=== PATIENT | male | born 1980 | race Caucasian/White ===

== ENCOUNTER 2019-07-08 20:35 | Inpatient (IN) | payer OTHER, SELFPAY ==
[2019-07-08] VITALS (7 sets, daily range): BP systolic 111–134; BP diastolic 68–106; PULSE 82–99; RESP 26–32; TEMP 38.3; O2SAT 97–100
--- NOTE | ~2019-07-08 | XR_ITS ---
EXAMINATION: XR abdomen NG/feed tube insert DATE: 07/09/2019 02:36 INDICATION: Nasogastric tube placement. TECHNIQUE: A supine view of the abdomen was obtained. COMPARISON: CT abdomen and pelvis 07/09/2019 FINDINGS: The lower abdomen and right side of the abdomen are excluded. There are no dilated loops of bowel. The nasogastric tube tip is in the stomach. IMPRESSION: 1. Nasogastric tube tip in the stomach. Reviewed, dictated and finalized at location A.
--- NOTE | ~2019-07-08 | US_ITS ---
EXAMINATION: US paracentesis abd w/image DATE: 07/22/2019 13:20 INDICATION: Ascites. TECHNIQUE: The procedure and its risks, benefits, and alternatives were discussed with the patient. P otential risks discussed included bleeding and infection. The skin was prepped and draped in sterile fashion. 1% lidocaine was used for local anesthesia. Under ultrasound guidance, a 5 Fr catheter with trochar was advanced into the ascites in the right lower quadrant. Fluid was aspirated. The catheter was removed, and a dressing was applied. There were no immediate complications. FINDINGS: Ultrasound images demonstrate ascites and the catheter within the fluid. IMPRESSION: 1. Successful ultrasound-guided paracentesis yielding 2650 mL of lópez-colored fluid. Reviewed, dictated and finalized at location A.
--- NOTE | ~2019-07-08 | US_ITS ---
EXAMINATION: US right upper quadrant DATE: 07/18/2019 16:07 INDICATION: Jaundice. TECHNIQUE: Multiple grayscale and Doppler ultrasound images of the abdomen were obtained. COMPARISON: CT 07/12/2019 FINDINGS: The pancreas is obscured by bowel gas. There is diffuse hepatic steatosis. No liver surface nodularity. There is normal flow in main portal vein. The gallbladder is distended and contains slud ge. No gallstones. Gallbladder wall thickening is noted. There was a positive sonographic Lau sign . The common duct is normal and measures 4 mm. There is a small volume of perihepatic ascites. IMPRESSION: 1. Diffuse hepatic steatosis. 2. Distended gallbladder with sludge, gallbladder wall thickening, and positive sonographic Lau si gn, but no visualized gallstones. These findings are indeterminate for acute cholecystitis. Consider hepatobiliary scintigraphy. 3. Small volume of ascites. Reviewed, dictated and finalized at location A. IMPRESSION: 1. Diffuse hepatic steatosis. 2. Distended gallbladder with sludge, gallbladder wall thickening, and positive sonographic Lau sign, but no visualized gallstones. These findings are inde terminate for acute cholecystitis. Consider hepatobiliary scintigraphy. 3. Small volume of ascites.
--- NOTE | ~2019-07-08 | CT_ITS ---
EXAMINATION: CT chest abdomen pelvis wo con EXAM DATE: 07/12/2019 10:59 INDICATION: Abdominal distention, sepsis. TECHNIQUE: Spiral CT of the chest, abdomen and pelvis was performed without contrast. Axial, alcantar l and sagittal images were reviewed. Coronal maximum intensity pixel images of chest reviewed. The dose-length product (DLP) for this examination was 1708.40 mGy-cm. The exposure was tailored accordi ng to patient size (auto mA exposure control), and iterative reconstruction (ASIR) was used as additi onal dose reduction technique. Comparison is made to prior examination from 07/09/2019. FINDINGS: CHEST: Endotracheal tube is at the hong, could be safely retracted 2 cm. Feeding tube is in positi on. Compared to previous examination, development of complete collapse of the left lower lobe and mul tisegmental collapse of the right lower lobe, confluent opacity probably with superimposed infection. Again there are scattered groundglass opacities in the other lung zones, but with interval improveme nt in disease. Small bilateral pleural effusions. Tracheobronchial tree is patent. There is no me diastinal, hilar or axillary lymphadenopathy. There is no pneumothorax. Heart normal in size. N o evidence of coronary arterial calcification. ABDOMEN PELVIS: Small to moderate amount of ascites with interval increase. There is hepatic steatosi s without suspicious focal lesion identified. Spleen, adrenal glands, pancreas are unremarkable. José e dense material within the gallbladder probably vicarious excretion of contrast from recent intraven ous injection. No biliary obstruction suspected. There is no nephrolithiasis or hydronephrosis. T he prostate is unremarkable. The bladder is collapsed with Burch catheter balloon anchor inside. Th ere is no retroperitoneal or pelvic lymphadenopathy. Right inguinal hernia repair. There is a right femoral venous line. The appendix is normal. The stomach and small bowel are unremarkable. There is colonic fluid, corre late for diarrhea. No free intraperitoneal gas. There are no osteoblastic or osteolytic lesions i dentified. IMPRESSION: 1. Endotracheal tube at hong, could be safely retracted 2 cm. 2. Development of confluent bilateral lower lobe atelectasis and infection. Scattered additional shanique undglass infectious opacities. 3. Small pleural effusions. 4. Small to moderate ascites, interval increase. 5. Colonic fluid, correlate for diarrhea. 6. Hepatic steatosis. Possible cirrhosis and portal hypertension. Reviewed, dictated and finalized at location A. IMPRESSION: 1. Endotracheal tube at hong, could be safely retracted 2 cm. 2. Development of confluent bilateral lower lobe atelectasis and infection. Sc attered additional groundglass infectious opacities. 3. Small pleural effusions. 4. Small to moderate ascites, interval increase. 5. Colonic fluid, correlate for diarrhea. 6. Hepatic steatosis. Possible cirrhosis and portal hypertension.
--- NOTE | ~2019-07-08 | XR_ITS ---
EXAMINATION: XR chest 1V portable INDICATION: Acute respiratory failure, pneumonia TECHNIQUE: Portable AP chest at 0531 hours COMPARISON: 07/18/2019 FINDINGS: The lung volumes remain low. There are patchy opacities of the right midlung zone which are unchanged. There is mild increase in diffuse patchy airspace opacity of the left lung. No pleural ef fusion or pneumothorax is identified. The cardiomediastinal silhouette is normal. The visualized osse ous structures are unremarkable. IMPRESSION: 1. Interval developing airspace opacity of the left lung, consistent with atelectasis versus pneumoni a. 2. Stable opacity of the right midlung zone, likely atelectasis. Reviewed, dictated and finalized at location A. IMPRESSION: 1. Interval developing airspace opacity of the left lung, consistent with atele ctasis versus pneumonia. 2. Stable opacity of the right midlung zone, likely atelectasis.
--- NOTE | ~2019-07-08 | XR_ITS ---
EXAMINATION: XR chest ET placement DATE: 07/09/2019 02:36 INDICATION: Hypoxia. TECHNIQUE: A single frontal view of the chest was obtained. COMPARISON: Chest single view 07/08/2019, CT abdomen and pelvis 07/09/2019 FINDINGS: There are patchy airspace opacities involving all lung zones bilaterally. No pleural effusi on or pneumothorax. The heart size is normal. The endotracheal tube tip is 10 mm above the hong. Th e nasogastric tube tip is beyond the inferior margin of the radiograph, but at least to the stomach. IMPRESSION: 1. Worsened diffuse lung disease, consistent with pulmonary edema versus pneumonia. Reviewed, dictated and finalized at location A. IMPRESSION: 1. Worsened diffuse lung disease, consistent with pulmonary edema versus pneumo nicky.
--- NOTE | ~2019-07-08 | XR_ITS ---
EXAMINATION: XR chest 1V portable DATE: 07/10/2019 05:44 INDICATION: Respiratory failure. TECHNIQUE: A single frontal view of the chest was obtained. COMPARISON: Chest single view 07/09/2019 FINDINGS: Lung volumes are small. There are patchy airspace opacities in all lung zones bilaterally. No pleural effusion or pneumothorax. The heart size is normal. The endotracheal tube tip is 12 mm abo ve the hong. The nasogastric tube tip is in the stomach. IMPRESSION: 1. Stable diffuse lung disease, consistent with pulmonary edema versus pneumonia versus acute respira tory distress syndrome (ARDS). Reviewed, dictated and finalized at location A. IMPRESSION: 1. Stable diffuse lung disease, consistent with pulmonary edema versus pneumoni a versus acute respiratory distress syndrome (ARDS).
--- NOTE | ~2019-07-08 | XR_ITS ---
EXAMINATION: XR chest 1V portable DATE: 07/15/2019 05:39 INDICATION: Acute respiratory failure. Pneumonia. TECHNIQUE: frontal view of the chest was obtained. COMPARISON: Chest radiograph dated 07/14/2019 FINDINGS: Endotracheal tube tip 1.5 cm above the hong. Nasogastric tube tip in proximal side port in the body of the stomach. Small lung volumes. Persistent consolidation in the right upper lobe. Additional less dense bilateral perihilar opacities. No pleural effusion or pneumothorax. Cardiomegaly. IMPRESSION: 1. Small lung volumes with unchanged bilateral lung disease most prominent in the right upper lobe wh ich could represent pneumonia, atelectasis, pulmonary edema or some combination thereof. 2. Cardiomegaly. Reviewed, dictated and finalized at location A. IMPRESSION: 1. Small lung volumes with unchanged bilateral lung disease most prominent in t he right upper lobe which could represent pneumonia, atelectasis, pulmonary hernesto ma or some combination thereof. 2. Cardiomegaly.
--- NOTE | ~2019-07-08 | XR_ITS ---
XR chest 1V portable DATE: 07/13/2019 05:22 INDICATION: Respiratory failure TECHNIQUE: Portable AP chest on 07/13/2019 at 0519 hours COMPARISON: 07/12/2019 portable AP chest at 0521 hours FINDINGS: ET tube in satisfactory position 2.4 cm above hong. NG tube in stomach. There is persistent bilateral pulmonary infiltrate including prominent right upper lobe patchy consol idation. No pleural effusion is noted. Pulmonary vasculature appears prominent with redistribution. T here is cardiomegaly. No pneumothorax. IMPRESSION: ET tube in satisfactory position 2.4 cm above hong Extensive bilateral pulmonary infiltrates, most prominent in the right upper lobe, and pulmonary vasc ular congestion relatively stable since 07/12/2019 Reviewed, dictated and finalized at location A. IMPRESSION: ET tube in satisfactory position 2.4 cm above hong Extensive bilateral pulmonary infiltrates, most prominent in the right upper lo be, and pulmonary vascular congestion relatively stable since 07/12/2019
--- NOTE | ~2019-07-08 | CT_ITS ---
EXAMINATION: CT abdomen pelvis w con DATE: 07/09/2019 00:42 INDICATION: Fever and vomiting. Hyperbilirubinemia. TECHNIQUE: Computed tomography (CT) of the abdomen and pelvis was performed with 100 mL Omnipaque 350 intravenous contrast. Automated exposure control and iterative reconstruction technique were employe d. The dose-length product was 1204.62 mGy-cm. COMPARISON: None. FINDINGS: The visualized portions of the lung bases demonstrate patchy groundglass and airspace opaci ties. There is a crazy paving pattern in left lower lobe. No pleural effusion. The heart size is norm al. No pericardial effusion. The liver demonstrates diffuse hypoattenuation, consistent with cirrhosi s. The gallbladder is normal in size. The spleen, pancreas, adrenal glands, and kidneys are normal. T here is a paraumbilical portacaval shunt. There are surgical clips in the anterior pelvis. There are no dilated loops of bowel. The appendix is normal. There is a small volume of ascites. There is mild periportal lymphadenopathy, likely reactive. The right testis is in the inguinal canal. There is a be nign bone island in right femoral head. There is mild thoracic spondylosis. IMPRESSION: 1. Cirrhosis of the liver with portal venous hypertension. 2. Multifocal lung disease suspicious for atypical pneumonia (such as COVID-19) versus pulmonary maria e a. 3. Small volume of ascites. Reviewed, dictated and finalized at location A. IMPRESSION: 1. Cirrhosis of the liver with portal venous hypertension. 2. Multifocal lung disease suspicious for atypical pneumonia (such as COVID-19) versus pulmonary edema. 3. Small volume of ascites.
--- NOTE | ~2019-07-08 | XR_ITS ---
EXAMINATION: XR chest 1V portable DATE: 07/17/2019 06:00 INDICATION: Acute respiratory failure and pneumonia TECHNIQUE: frontal view of the chest was obtained. COMPARISON: Chest radiograph dated 07/16/2019 FINDINGS: Small lung volumes. Persistent opacities in the right upper lung zone and infrahilar region including linear discoid atelectasis. Left lung is now clear. No pulmonary edema, pleural effusion or pneumoth orax. The cardiomediastinal silhouette is normal. IMPRESSION: 1. Small lung volumes with unchanged opacities in the right lung which could represent pneumonia, ate lectasis or some combination thereof. Reviewed, dictated and finalized at location A. IMPRESSION: 1. Small lung volumes with unchanged opacities in the right lung which could re present pneumonia, atelectasis or some combination thereof.
--- NOTE | ~2019-07-08 | XR_ITS ---
EXAMINATION: XR chest 1V portable DATE: 07/16/2019 06:17 INDICATION: Acute respiratory failure. Pneumonia. TECHNIQUE: frontal view of the chest was obtained. COMPARISON: Chest radiograph dated 07/15/2019 FINDINGS: Endotracheal tube tip is 0.7 cm above the hong. Nasogastric tube extends below the left hemidiaphr agm with distal tip collimated off the study. Lung volumes remain small. No interval change in mild patchy airspace opacities in the left lower rig ht mid and lower lung zones with more dense consolidation in the right upper lobe. No pleural effusio n or pneumothorax. Borderline heart size. IMPRESSION: 1. Small lung volumes with unchanged bilateral lung disease most prominent in the right upper lobe wh ich could represent pneumonia, atelectasis or some combination thereof. Reviewed, dictated and finalized at location A. IMPRESSION: 1. Small lung volumes with unchanged bilateral lung disease most prominent in t he right upper lobe which could represent pneumonia, atelectasis or some combin ation thereof.
--- NOTE | ~2019-07-08 | XR_ITS ---
EXAMINATION: XR chest 1V portable DATE: 07/11/2019 05:51 INDICATION: Respiratory failure. Intubated. TECHNIQUE: A single frontal view of the chest was obtained. COMPARISON: Chest single view 07/10/2019 FINDINGS: There are airspace opacities in all lung zones bilaterally with a perihilar predominance. N o pleural effusion or pneumothorax. The heart size is normal. The endotracheal tube tip is 1.9 cm abo ve the hong. The nasogastric tube tip is beyond the inferior margin of the radiograph, but at least to the stomach. IMPRESSION: 1. Stable diffuse lung disease, consistent with pulmonary edema versus pneumonia versus acute respira tory distress syndrome (ARDS). Reviewed, dictated and finalized at location A. IMPRESSION: 1. Stable diffuse lung disease, consistent with pulmonary edema versus pneumoni a versus acute respiratory distress syndrome (ARDS).
--- NOTE | ~2019-07-08 | XR_ITS ---
EXAMINATION: XR abdomen obstructive series DATE: 07/18/2019 13:09 INDICATION: Abdominal distention. TECHNIQUE: Upright and supine views of the abdomen were obtained. COMPARISON: Abdomen radiograph 07/14/2019, CT abdomen and pelvis 07/12/2019 FINDINGS: There are no dilated loops of bowel. There is a paucity of stool in the colon. No free intr aperitoneal gas. IMPRESSION: 1. Normal bowel gas pattern. Reviewed, dictated and finalized at location A.
--- NOTE | ~2019-07-08 | XR_ITS ---
EXAMINATION: XR chest ET placement EXAM DATE: 07/14/2019 16:38 INDICATION: Check endotracheal tube placement. TECHNIQUE: Portable AP frontal chest x-ray was obtained. Earlier same date FINDINGS: Endotracheal tube tip is 2 centimeters above the hong (ideal range is between 2 to 5 cm). This has been retracted. There is a nasogastric tube seen with tip collimated off the study, but be low the left hemidiaphragm. Again there is moderate amount of bilateral perihilar predominant acute airspace disease, right upper lobe predominance. There are no sizable pleural effusions. There is no pneumothorax suspected. The cardiomediastinal silhouette is prominent but magnified on this AP technique. The bones and sof t tissues are unremarkable. Aside from endotracheal tube repositioning, no significant interval neal ge accounting for differences in technique. IMPRESSION: 1. Line(s) and tube(s) in position. 2. Stable airspace disease and other findings as above. Reviewed, dictated and finalized at location A.
--- NOTE | ~2019-07-08 | XR_ITS ---
EXAMINATION: XR chest 1V portable EXAM DATE: 07/08/2019 21:49 INDICATION: Hypoxia. TECHNIQUE: Portable AP frontal chest x-ray was obtained. There is no prior study for comparison. FINDINGS: There is low lung volume. Scattered moderate amount of multifocal acute airspace disease, d ifferential diagnosis including pneumonia, acute lung injury from COVID 19 viral infection. No pneumo thorax or pleural effusion. Cardiomediastinal silhouette is normal. IMPRESSION: Moderate amount of bilateral ill-defined acute airspace disease. Clinical correlation. Reviewed, dictated and finalized at location A. IMPRESSION: Moderate amount of bilateral ill-defined acute airspace disease. C linical correlation.
--- NOTE | ~2019-07-08 | XR_ITS ---
EXAMINATION: XR chest 1V portable DATE: 07/12/2019 05:40 INDICATION: Respiratory failure TECHNIQUE: frontal view of the chest was obtained. COMPARISON: Chest radiograph dated 07/13/2019 FINDINGS: Endotracheal tube extends into the right mainstem bronchus approximately 1 cm beyond the hong. Naso gastric tube extends below the left hemidiaphragm with distal tip collimated off the study. Small lung volumes. Persistent consolidation in the right upper and left lower lobes. No pleural effu hiwot or pneumothorax. Cardiomegaly. IMPRESSION: 1. Endotracheal tube tip in the right mainstem bronchus. Recommend withdrawal by 2-3 cm. Findings wer e discussed with Nayana Keys, the nurse caring for the patient, at 6:50 AM. 2. Persistent consolidation in the right upper and left lower lobes consistent with pneumonia and/or atelectasis. Reviewed, dictated and finalized at location A. IMPRESSION: 1. Endotracheal tube tip in the right mainstem bronchus. Recommend withdrawal b y 2-3 cm. Findings were discussed with Nayana Keys, the nurse caring for the patient, at 6:50 AM. 2. Persistent consolidation in the right upper and left lower lobes consistent with pneumonia and/or atelectasis.
--- NOTE | ~2019-07-08 | XR_ITS ---
EXAMINATION: XR chest 1V portable DATE: 07/18/2019 05:32 INDICATION: Acute respiratory failure. Pneumonia. TECHNIQUE: frontal view of the chest was obtained. COMPARISON: Chest radiograph dated 07/17/2019 FINDINGS: Small lung volumes. Linear opacities in the right mid and upper lung zones most likely discoid atelec tasis. No pulmonary edema, pleural effusion or pneumothorax. The cardiomediastinal silhouette is norm al. Visualized bones and soft tissues are unremarkable. IMPRESSION: 1. Small lung volumes with persistent opacities in the right upper and midlung zones most likely atel ectasis although differential includes pneumonia. Reviewed, dictated and finalized at location A. IMPRESSION: 1. Small lung volumes with persistent opacities in the right upper and midlung zones most likely atelectasis although differential includes pneumonia.
--- NOTE | ~2019-07-08 | XR_ITS ---
EXAMINATION: XR abdomen/kub 1V DATE: 07/11/2019 18:03 INDICATION: Abdominal distention. TECHNIQUE: A supine view of the abdomen on 2 radiographs was obtained. COMPARISON: 07/09/2019 FINDINGS: Is a gastric tube remains in the stomach. Right femoral central venous catheter with distal tip at th e right common iliac vein. Multiple surgical clips in the pelvis which may be related to prior right molar ventral hernia repair. Moderate amount of gas scattered throughout the colon. No dilated gas-fi lled loops of small bowel to suggest obstruction. Bone island at the right femoral head. IMPRESSION: 1. Nonobstructive bowel gas pattern. Reviewed, dictated and finalized at location A.
--- NOTE | ~2019-07-08 | US_ITS ---
US venous doppler [facility] DATE: 07/12/2019 11:41 INDICATION: Rule out deep venous thrombosis TECHNIQUE: Real-time and color flow imaging and Doppler analysis of the veins of the lower extremitie s COMPARISON: None FINDINGS: The greater saphenous veins are patent. There is spontaneous and phasic flow and normal aug mentation and color flow signal and normal compression of the deep veins of both lower extremities. IMPRESSION: No evidence of deep venous thrombosis of the lower extremities Reviewed, dictated and finalized at Location A. Reviewed, dictated and finalized at location A.
--- NOTE | ~2019-07-08 | XR_ITS ---
EXAMINATION: XR abdomen NG/feed tube insert EXAM DATE: 07/14/2019 16:38 INDICATION: Feeding tube placement. TECHNIQUE: Frontal projection(s) of the abdomen for interpretation. Comparison is made to prior exami nation from 07/11/2019. FINDINGS: Feeding tube tip and side-port project over gastric bubble, adequate. Small amount of colo ronald stool and gas. No small bowel dilation, nonobstructive bowel gas pattern. There are no suspic ious calcifications identified. There is no organomegaly suspected. The bones are unremarkable. IMPRESSION: Feeding tube in position. Reviewed, dictated and finalized at location A. IMPRESSION: Feeding tube in position.
--- NOTE | ~2019-07-08 | XR_ITS ---
EXAMINATION: XR chest 2V DATE: 07/21/2019 18:07 INDICATION: Fever TECHNIQUE: frontal and lateral views of the chest were obtained. COMPARISON: Chest radiograph dated 07/19/2019 FINDINGS: Lung volumes remain small. A couple linear opacities at the lateral left lower lung zone consistent w ith mild discoid atelectasis. No other airspace opacities, pulmonary edema, pleural effusion or pneum othorax. The cardiomediastinal silhouette is normal. Visualized bones and soft tissues are unremarkab le. IMPRESSION: 1. Mild discoid atelectasis at the left lower lung zone. Reviewed, dictated and finalized at location A.
--- NOTE | ~2019-07-08 | US_ITS ---
EXAMINATION: US venous doppler [facility] DATE: 07/18/2019 16:07 INDICATION: Lower limb pain. TECHNIQUE: Grayscale ultrasound images without and with compression and Doppler ultrasound images of the bilateral lower extremity veins were obtained. COMPARISON: Ultrasound 07/12/2019 FINDINGS: The visualized portions of right common femoral vein, profunda (deep) femoral vein, femoral vein, pop liteal vein, peroneal veins, posterior tibial veins, and greater saphenous vein outflow are patent. The visualized portions of left common femoral vein, profunda femoral vein, femoral vein, popliteal v ein, peroneal veins, posterior tibial veins, and greater saphenous vein outflow are patent. IMPRESSION: 1. No deep venous thrombosis. Reviewed, dictated and finalized at location A.
--- NOTE | ~2019-07-08 | XR_ITS ---
EXAMINATION: XR chest 1V portable DATE: 07/14/2019 05:31 INDICATION: Respiratory failure. Intubated. TECHNIQUE: frontal view of the chest was obtained. COMPARISON: Chest radiograph dated 07/13/2019 FINDINGS: Endotracheal tube tip 0.5 cm above the hong. Nasogastric tube extends below the left hemidiaphragm with distal tip collimated off the study. Small lung volumes. No significant interval change in bilateral airspace opacities most extensive in the right upper lobe. No pleural effusion or pneumothorax. Cardiomegaly. IMPRESSION: 1. Endotracheal tube tip 0.5 cm above the hong. Consider withdrawal by 0.5-1 cm. 2. No significant change in bilateral airspace disease consistent with pneumonia and/or atelectasis. Reviewed, dictated and finalized at location A. IMPRESSION: 1. Endotracheal tube tip 0.5 cm above the hong. Consider withdrawal by 0.5-1 cm. 2. No significant change in bilateral airspace disease consistent with pneumoni a and/or atelectasis.
--- NOTE | 2019-07-08 20:49 | ECG_ITS ---
Measurements Intervals [place] Rate: 96 P: 38 MT: 210 QRS: -18 QRSD: 109 T: 29 QT: 383 QTc: 484 Interpretive Statements SINUS RHYTHM WITH FIRST DEGREE AV BLOCK BORDERLINE R WAVE PROGRESSION, ANTERIOR LEADS BASELINE WANDER- III, V1-V6 ABNORMAL ECG Electronically Signed On 07-09-2019 7:19:51 CDT by Thien Geronimo D.O.
[2019-07-08] MEDS: ONDANSETRON INJ 4 MG/2 ML VIAL IV PUSH (20:54)
[2019-07-08 21:13] LABS: Hematocrit 31.1 % (42.0-52.0); Immature Platelet Fraction Pct 18.2 % (0.9-11.2); Mean Corpuscular HGB Conc 35.4 g/dl (32-36); Mean Corpuscular Hemoglobin 35.3 pg (26-34); Mean Corpuscular Volume 99.7 fl (80-100); Mean Platelet Volume 12.5 fl (7.4-10.4); Platelet Count Result 79 k/mm3 (150-375); Red Blood Count 3.12 M/mm3 (4.6-6.20); Red Cell Distribution Width 16.4 % (11.5-14.5); White Blood Count 14.1 K/mm3 (4.5-10.0)
[2019-07-08 21:20] LABS: Alveolar/Arterial O2 Gradient 565.3 mmHg; Base Excess ABG 0.1 mEq/l (+/-2.0); Carboxyhemoglobin 4.5 % THb (0-2.0); Device NON-REBREATHER MASK; Fractional Inspired Oxygen 100 %; HCO3 ABG 25.8 mEq/l (22.0-26.0); Methemoglobin ABG 0.3 %THb (0-1.5); Modified Allen's Test Pass; Oxygen Content ABG 15.1 %vol (16.0-22.0); Oxygen Saturation ABG 97.4 % (95.0-100.0); Oxyhemoglobin 91.7 % THb (90.0-100.0); PCO2 ABG 46.1 mmHg (35.0-45.0); PO2 ABG 101.6 mmHg (80.0-100.0); PO2 FiO2 Ratio Arterial Blood 1.02 %; Reduced Hemoglobin 3.5 %THb (0-5.0); Site Drawn RIGHT RADIAL; Total Hemoglobin 11.6 g/dL (12.0-18.0); pH ABG 7.365 (7.350-7.450)
[2019-07-08 21:21] LABS: INR 1.4; Prothrombin Time 16.8 Seconds (11.1-14.7)
[2019-07-08 21:22] LABS: Lactic Acid Reflex 2.1 mmol/L (0.7-2.1); Partial Thromboplastin Time 30.3 SECONDS (22.3-36.8)
[2019-07-08 21:24] LABS: Ammonia 61 umol/L (9-30); Ethanol 152 mg/dL (<10)
[2019-07-08 21:34] LABS: Alanine Aminotransferase 61 U/L (4-50); Albumin Level 3.5 g/dL (3.5-5.1); Alkaline Phosphatase 169 U/L (38-126); Aspartate Amino Transferase 173 U/L (17-59); Bilirubin,Total 11.6 mg/dL (0.2-1.3); Blood Urea Nitrogen 9 mg/dL (9-20); Calcium 8.2 mg/dL (8.4-10.2); Carbon Dioxide 25 mmol/L (22-30); Chloride 84 mmol/L (98-107); Estimated Glomerular Filt Rate > 60; Glucose 94 mg/dL (75-110); Lipase 472 U/L (23-300); Magnesium 2.1 mg/dL (1.6-2.3); Potassium 4.4 mmol/L (3.4-5.0); Sodium 120 mmol/L (137-145)
[2019-07-08 21:36] LABS: NT Pro B Type Natriuretic Pept 866 PG/ML (5-100); Troponin I < 0.012 ng/mL (0.000-0.034)
[2019-07-08 21:37] LABS: Band Neutrophils Percent 14 % (0-6); Eosinophils Absolute Manual 0.28 K/mm3 (0.02-0.5); Eosinophils Percent Manual 2 % (0-4); Lymphocytes Absolute Manual 1.55 K/mm3 (1.1-4.5); Monocytes Absolute Manual 0.98 K/mm3 (0.1-0.90); Monocytes Percent Manual 7 % (3-9); Neutrophils Absolute Manual 11.28 K/mm3 (1.3-6.7); Neutrophils Percent Manual 66 % (46-73); Nucleated Red Blood Cells 1 %; Total Cells Counted 100
[2019-07-08 21:38] LABS: Anisocytosis 2+ (NORMAL); Platelet Estimate Decreased (Adequate)
[2019-07-08 22:25] LABS: Add Urine Microscopic? YES; Amorphous Sediment Urine Few; Appearance Urine Clear (Clear); Bacteria Urine Trace /hpf; Bilirubin Urine 2+ (Negative); Blood Urine Negative (Negative); Color Urine Amber (Yellow); Glucose Urine UA Negative (Negative); Ketones Urine Trace mg/dL (Negative); Leukocyte Esterase Ur Negative LEU/UL (Negative); Mucus Urine Moderate /lpf; Nitrate Urine Negative (Negative); Protein Urine 1+ mg/dL (Negative); RBC Urine 0-2 /hpf (0-2); Specific Grav Ur 1.019 (1.001-1.035); Squamous Epithelial Cell Urine Rare /hpf (Few); WBC Urine 0-3 /hpf
[2019-07-08 22:45] LABS: Hepatitis B Surface Antigen Negative (Negative)
[2019-07-08 22:51] LABS: HAV RESULT Negative (Negative); Hepatitis B Core IgM Result Negative (Negative)
[2019-07-08 23:03] LABS: Hepatitis C Virus Antibody Negative (Negative)
[2019-07-08 23:46] LABS: D Dimer 2.78 ug/mL (<0.48)
[2019-07-09] VITALS (26 sets, daily range): BP systolic 82–162; BP diastolic 55–97; PULSE 80–108; RESP 15–35; TEMP 36.9–38.3; O2SAT 92–100; BMI 25.8; BMI 26.3
[2019-07-09 00:09] LABS: Reflex Lactic Acid Yes or No Add Lactic
[2019-07-09 00:33] LABS: Lactate Dehydrogenase 1175 U/L (313-618)
--- NOTE | 2019-07-09 00:52 | ED.GENADULT ---
HPI - General Adult General Chief complaint: Unspecified Stated complaint: unspecified Time Seen by Provider: 07/08/19 20:49 Source: patient and family Mode of arrival: ambulatory Limitations: clinical condition History of Present Illness HPI narrative: This patient is a 38 year old male with history of alcoholism who presents to ER by private car for evaluation of shortness of breath. Patient was found to have oxygen saturation 50% on room air on arrival to ER. He has been having difficulty breathing for 2 days and it is has gradually worsened. He denies cough or chest pain. He was found to have fever in ER. He denies previous history of CHF. Patient was noted to be jaundice and he states he drinks a few beer every day. His last alcoholic drink was just prior to arrival. He has never been told he has cirrhosis. His family at bedside states patient has also been having nausea and vomiting for 2 weeks. Onset (ago): day(s) Related Data Home Medications Medication Instructions Recorded Confirmed atenolol 100 mg PO DAILY 07/08/19 07/09/19 bupropion HCl 150 mg PO BID 07/08/19 07/09/19 albuterol sulfate 2 puff INHALATION Q4H PRN 07/09/19 07/09/19 Allergies Allergy/AdvReac Type Severity Reaction Status Date / Time Penicillins Allergy Unknown Unknown Verified 07/08/19 22:12 Review of Systems Constitutional: Constitutional: Reports fever(s) and Reports weakness Cardiovascular: Cardiovascular: Denies chest pain Respiratory: Respiratory: Reports cough and Reports dyspnea Gastrointestinal: Gastrointestinal: Reports nausea and Reports vomiting Neurologic: Reports weakness PMF Past Medical History Medical History (Updated 07/09/19 @ 08:03 by Ai López MD) Alcoholism Essential hypertension Surgical History Surgical History (Updated 07/09/19 @ 03:07 by Elda Jeffery DO) History of right inguinal hernia repair With mesh Social History Social History (Updated 07/09/19 @ 02:32 by Elda Jeffery DO) Smoking packs per day: 0.5 Smoking cigarettes per day: 10.0 Years smoked: 22 Smoking pack-years: 11.00 Smoking status: Current every day smoker Alcohol intake: current Drinks per week: 20 Alcohol use details: The patient drinks about a 6 pack day. Until recently he was drinking up to 9 shots of hard liquor a day as well. Substance use: current Substance use type: marijuana Living arrangements: with family Additional living arrangements comments: He lives at home with his fiancee. 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 Gender identity (if verbalized by the patient): Male Spiritual care concerns: No Exam Const: General: alert, diaphoretic and ill appearing acutely Orientation/consciousness: patient oriented x3 HENMT: Head: normocephalic and atraumatic Face and sinus: face symmetric Mouth: Yes moist mucous membranes Eyes: Conjunctivae: conjunctival abnormality bilateral conjunctival icterus and other Pupils: Equal, round and reactive pupils present EOM: EOMs intact bilaterally Chest: Chest palpation & inspection: normal inspection of the chest Resp: Effort & Inspection: tachypneic and uses accessory muscles Auscultation: crackles Cardio: Rate: tachycardic Rhythm: regular rhythm Heart sounds: no murmurs GI: Inspection: distended GI Palp: Yes Soft to palpation, No Tenderness to palpation present (GI) and No Guarding due to palpation present (GI) Skin: General skin exam: jaundice Neuro: General: patient oriented x3 and moves all extremities Extrem: General: no pedal edema Psych: Mental Status: mental status grossly normal Affect: normal affect Course Reevaluation(s) Reevaluation #1: I have discussed with patient that he is critically ill and I have spoken with hospitalist and it is recommended he be intubated. He states he does not want to be intubated. Date: 07/09/19 Time: 00:53 Reevaluation #2: Neal
[2019-07-09 01:15] LABS: Amphetamine Screen Urine Negative (Negative); Barbiturate Screen Urine Negative (Negative); Benzodiazepines Screen Urine Negative (Negative); Cannabinoid Screen Urine Positive (Negative); Cocaine Screen Urine Negative (Negative); Methadone Screen Urine Negative (Negative); Opiate Screen Urine Negative (Negative); Phencyclidine Screen Urine Negative (Negative)
[2019-07-09] MEDS: PROPOFOL IV EMULSION 100 ML 10 MG (01:25)
[2019-07-09] MEDS: RAPID SEQUENCE INTUBATION KIT 1 EACH (01:57)
[2019-07-09] MEDS: SODIUM CHLORIDE 0.9% IV 1,000 ML 999 ML (01:57)
--- NOTE | 2019-07-09 01:58 | PC.NURSE ---
Pt aggitated, moving extremities, coughing while on vent. JOSE Spangler & Dr. Jeffery notified.
--- NOTE | 2019-07-09 02:02 | PC.NURSE ---
Dr Jeffery at bedside with RT and this nurse. Medications and supplies prepared. 0119 40 mg etomidate given per Dr. Jeffery's order with saline flush through 18 g IV in LFA 0120 20 mg succinylcholine given per Dr. Jeffery's order with saline flush through LFA IV 1 L NS hung at wide open to LFA IV Pt was intubated with 8.0 ET tube, tube measured 26 mm at the lip, ET CO2 detector had gold color change and Dr. Jeffery listened to lung sounds, which were clear on both sides and absent over epigastrum. Propofol was then hung and started at 10 mcg/kg/min, and pt began coughing over the tube. 10 mL bolus of propofol given per Dr. Jeffery's order. Propofol drip was then increased to 10 mL/hr per Dr. Jeffery's order. 16 fr OG tube placed in R side of mouth, confirmed with stethoscope and with gastric contents return 18 g angio established in LAC
--- NOTE | 2019-07-09 02:12 | WPDPROCEDUR ---
Procedures Intubation Intubation Date: 07/09/19 Intubation Time: 01:15 A pre-procedural Time-Out was completed immediately before starting the procedure and confirmed: Patient Identification, Site, Procedure, Patient Position and the Availability of Requisite Equipment: Yes Sedative: etomidate Mg given: 40 Paralytic: succinylcholine Mg given: 20 Laryngoscope: fiber optic video scope ET tube size: cuffed Tube secured depth (cm): 26 Tube secured location: lips Tube placement confirmation: visualized tube passing through cords, equal breath sounds bilaterally, no breath sounds over epigastrium and confirmation by capnometry Patient tolerated procedure: well
--- NOTE | 2019-07-09 02:16 | PM.IMHP ---
H&P: HPI History of Present Illness Chief complaint: Nausea, vomiting, cough Narrative: Date and time of patient contact: 07/09/2019 at 1:00 a.m. Joey Polk is a 38 year old male with a past medical history of hypertension and chronic alcoholism who presented to the ER for nausea, vomiting and cough. On presentation the patient was shaking, diaphoretic, jaundice with dilated pupils. His oxygen saturations were 50% on room air. The patient was placed on 15 L non-rebreather and respiratory rate in the 30s. The patient's fiancee reports that the patient has been coughing for the last week. He has become progressively more short of breath. The patient has not been eating food for the last couple of weeks and has been drinking his alcohol. His alcohol level on presentation was greater than 150. His last drink was around 6:20 p.m.. His girlfriend reports that the patient drinks about 6 beers a day and until the last week or so was drinking up to 9 shots of fireball a day. He has been an alcoholic for at least 10 years. He also smokes. He was recently started on Wellbutrin and has decreased his amount of smoking to about half a pack of cigarettes per day. His fiancee reports that he has been more yellow over the course of this past week. It is unknown if the patient has been having any hematochezia or melena. The patient was initially placed on BiPAP until x-rays came back and were suspicious for possible COVID-19. He was subsequently taken off of the BiPAP in place back on a non-rebreather. However, off the BiPAP patient increased work of breathing and worsening tachypnea. Initially the patient was refusing intubation. After further Education the patient agreed to intubation. I intubated the patient while he was still down in the ER. The patient's fiancee reports that she has been trying to get him to come into the ER for the last 5 days or so. She reports that the patient will smoke marijuana in small amounts in order to give him an appetite to eat. She reports that the patient has been having a lot of nausea and vomiting. However he is still able to drink his alcohol. She reports that the patient went through an alcohol rehab program last year. He was sober for short time before he rationalized that he could just have 1 beer and returned to his bad habits. Source of information is ER records and patient's fianishe. Review of Systems Review of Systems: ROS unobtainable: Yes unobtainable due to medical condition PMFSH Past Medical History Medical History (Updated 07/09/19 @ 02:33 by Elda Jeffery DO) Alcoholism Essential hypertension Surgical History Surgical History (Updated 07/09/19 @ 03:07 by Elda Jeffery DO) History of right inguinal hernia repair With mesh Family History Family History (Updated 07/09/19 @ 02:31 by Elda Jeffery DO) Sibling IV drug abuse Father , in his mid 50s Alcoholism Cirrhosis Social History Social History (Updated 07/09/19 @ 02:32 by Elda Jeffery DO) Smoking packs per day: 1 Smoking cigarettes per day: 20.0 Years smoked: 22 Smoking pack-years: 22.00 Smoking status: Current every day smoker Alcohol intake: current Alcohol use details: The patient drinks about a 6 pack day. Until recently he was drinking up to 9 shots of hard liquor a day as well. Substance use: current Substance use type: marijuana Living arrangements: with family Additional living arrangements comments: He lives at home with his fianishe. 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 Meds Home Medications and Allergies Home Medications Medication Instructions Recorded Confirmed Type atenolol 07/08/19 History bupropion HCl PO 07/08/19 History Allergies Allergy/AdvReac Type Severity Reaction Status Date / Time Penicillins Allergy Unknown Unknown Verified 07/08/19 22:12 Vital Signs Vital Signs - 24 h
[2019-07-09 02:55] LABS: Lactic Acid 1.5 mmol/L (0.7-2.1)
[2019-07-09] MEDS: MIDAZOLAM HCL 2 MG/2 ML VIAL IV PUSH (02:55)
[2019-07-09] MEDS: ROCURONIUM BROMIDE 50 MG/5 ML VIAL IV PUSH (02:56)
[2019-07-09 03:22] LABS: Alveolar/Arterial O2 Gradient 422.1 mmHg; Arterial Blood Gas PEEP 8 cmH2O; Arterial Blood Gas Vent Mode CMV; Arterial Blood Gas Ventilator rate 20 /MIN; Base Excess ABG -1.7 mEq/l (+/-2.0); Carboxyhemoglobin 1.1 % THb (0-2.0); Device VENTILATOR; Fractional Inspired Oxygen 80 %; HCO3 ABG 24.3 mEq/l (22.0-26.0); Methemoglobin ABG 0.3 %THb (0-1.5); Modified Allen's Test Pass; Oxygen Content ABG 13.6 %vol (16.0-22.0); Oxygen Saturation ABG 97.1 % (95.0-100.0); Oxyhemoglobin 94.4 % THb (90.0-100.0); PCO2 ABG 46.8 mmHg (35.0-45.0); PO2 ABG 99.2 mmHg (80.0-100.0); PO2 FiO2 Ratio Arterial Blood 1.24 %; Reduced Hemoglobin 4.2 %THb (0-5.0); Site Drawn RIGHT RADIAL; Total Hemoglobin 10.1 g/dL (12.0-18.0); pH ABG 7.333 (7.350-7.450)
[2019-07-09 03:23] LABS: Arterial Blood Gas Tidal Volume 500 ml
[2019-07-09] MEDS: THIAMINE HCL 200 MG/2 ML VIAL 100 MG IV PUSH ×2 (04:26→08:37)
[2019-07-09] MEDS: PROPOFOL IV EMULSION 100 ML 20.6 MG IV CONT (04:26)
[2019-07-09] MEDS: metroNIDAZOLE 500 MG/ISO 100ML 500 MG/100 ML BAG 100 MG IVPB ×4 (04:29→22:55)
[2019-07-09 05:17] LABS: Alveolar/Arterial O2 Gradient 329.9 mmHg; Base Excess ABG -0.9 mEq/l (+/-2.0); Carboxyhemoglobin 0.3 % THb (0-2.0); Fractional Inspired Oxygen 80 %; HCO3 ABG 22.8 mEq/l (22.0-26.0); Methemoglobin ABG 0.2 %THb (0-1.5); Oxygen Content ABG 15.4 %vol (16.0-22.0); Oxygen Saturation ABG 99.4 % (95.0-100.0); Oxyhemoglobin 98.3 % THb (90.0-100.0); PCO2 ABG 34.2 mmHg (35.0-45.0); PO2 ABG 204.6 mmHg (80.0-100.0); PO2 FiO2 Ratio Arterial Blood 2.56 %; Reduced Hemoglobin 1.2 %THb (0-5.0); Total Hemoglobin 10.8 g/dL (12.0-18.0); pH ABG 7.442 (7.350-7.450)
[2019-07-09 05:18] LABS: Device VENTILATOR; Modified Allen's Test Unable to perform; Site Drawn RIGHT RADIAL
[2019-07-09 05:19] LABS: Arterial Blood Gas PEEP 8 cmH2O; Arterial Blood Gas Tidal Volume 450 ml; Arterial Blood Gas Vent Mode CMV; Arterial Blood Gas Ventilator rate 24 /MIN
[2019-07-09 05:38] LABS: Vitamin D 25 Hydroxy 39.8 ng/mL
[2019-07-09] MEDS: MIDAZOLAM HCL 2 MG/2 ML VIAL 4 MG IV PUSH (05:42)
[2019-07-09 06:07] LABS: Ammonia 35 umol/L (9-30)
--- NOTE | 2019-07-09 06:33 | WPDPROCEDUR ---
Procedures Central Line Placement Right Femoral: Central Line Date: 07/09/19 Central Line Time: 05:15 Discussed w/ the patient/family/POA,the placement of a central venous catheter, including its clinical necessity/indication & associated potential risks, benifits and alternatives.: Yes The patient/family/POA understand(s) and acknowledge(s) the need to proceed with central venous catheter insertion as an important element of the patient's clinical management.: Yes Time Out Performed: Yes Patient Position: trendelenburg Patient placed on monitor/pulse ox: Yes Provider Prep: mask, sterile gown, sterile gloves, Max. sterile barrier precautions, cap and hand hygiene Central line prep: Chlorhexidine scrub and sterile full body sheet applied Ultrasound used for placement: Yes Central line lumen inserted: triple Marshallese: 7 Length (cm): 16 Depth of Insertion (cm): 15 Post procedure: sutured in place, good blood return, all ports aspirated, flushed, capped, tegaderm, hemostatic disc and aseptic technique maintained throughout procedure Patient tolerated procedure: well
[2019-07-09] MEDS: PROPOFOL IV EMULSION 100 ML 26 MG IV CONT ×5 (08:37→22:54)
[2019-07-09] MEDS: PANTOPRAZOLE SODIUM IV 40 MG VIAL IV PUSH ×2 (08:59→20:07)
--- NOTE | 2019-07-09 09:05 | WPDCNINT ---
Assessment and Plan Assessment and plan (1) Severe sepsis: Code(s): A41.9 - Sepsis, unspecified organism; R65.20 - Severe sepsis without septic shock Status: Acute Assessment and Plan: Likely as a result of pneumonia. Continue broad-spectrum antibiotic. Continue to follow cultures. His hemodynamics are stable currently and not requiring any pressor support. One of the blood pressure readings was borderline low. (2) Alcoholic cirrhosis: Code(s): K70.30 - Alcoholic cirrhosis of liver without ascites Status: Acute Assessment and Plan: He has history of significant alcohol abuse. Hepatitis panel is negative. CT abdomen pelvis showed cirrhotic changes with evidence of portal hypertension. He has thrombocytopenia and low protein/albumin. Ammonia level is 35. Will try to achieve 1-2 bowel movement in a day and will be placed on lactulose if needed. (3) Suspected COVID-19 virus infection: Code(s): Z20.828 - Contact with and (suspected) exposure to other viral communicable diseases Status: Acute Assessment and Plan: COVID-19 testing is found to be negative. I will repeat the test is my clinical suspicion for COVID 19 is high. Considering his clinical presentation, inflammatory markers being elevated and thoracic imaging finding I think he has high likelihood of having COVID-19. Continue droplet and contact precaution until he is ruled out. If his COVID-19 testing is positive then inflammatory markers including CRP, ferritin, D-dimer, LDH will be monitored and followed. If his ferritin and CRP is significantly going up then a consideration will be given to give him tocilizumab. He does have history of alcohol cirrhosis with tocilizumab having hepatitis as 1 of the adverse effect. If his D-dimer starts to trend up significantly then he will be started on anticoagulation though will need to keep a close eye on any signs of bleeding and platelet count. His platelet count is borderline low. Today I have notice some coffee-ground stuff in the OG tube as well. (4) Pneumonia: Code(s): J18.9 - Pneumonia, unspecified organism Status: Acute Assessment and Plan: Continue broad-spectrum antibiotics with ceftriaxone/vancomycin/Flagyl and azithromycin. Will deescalate antibiotics in the next day or 2 depending upon further clinical data and cultures. Check procalcitonin level. Send sputum culture from tracheal aspirate. (5) Respiratory failure with hypoxia: Code(s): J96.91 - Respiratory failure, unspecified with hypoxia Status: Acute Assessment and Plan: Ventilator adjustment were made. Continue CMV/AC for now. Low tidal volume strategies will be employed. Decrease tidal volume to 400 from 450. Decrease FiO2 to 40% and keep PEEP at 5. Continue to monitor ABG and chest x-ray. Continue sedation as per ICU protocol. Will try to avoid Versed. Will switch Versed to fentanyl and keep propofol if he continued to need sedatives. Daily sedation vacation trial. (6) Alcohol abuse: Code(s): F10.10 - Alcohol abuse, uncomplicated Status: Acute Assessment and Plan: He has significant history of alcohol abuse. He will be at high risk of going into alcohol withdrawal. Continue sedation. He can be placed on Precedex drip if needed. Continue thiamine. Will add folate to his regimen. (7) Hypertension: Code(s): I10 - Essential (primary) hypertension Status: Acute Assessment and Plan: Hold off his home dose of atenolol for now. Monitor hemodynamics closely. (8) Hyponatremia: Code(s): E87.1 - Hypo-osmolality and hyponatremia Status: Acute Assessment and Plan: Likely as a result of liver cirrhosis. Will check serum and urine osmolality. Will check urine sodium and chloride as well. Will continue to monitor. (9) Thrombocytopenia: Code(s): D69.6 - Thrombocyto
--- NOTE | 2019-07-09 09:58 | PM.IMPN ---
Progress Note: A&P Assessment and Plan (1) Respiratory failure with hypoxia: Qualifiers: Chronicity: acute Qualified Code(s): J96.01 - Acute respiratory failure with hypoxia Code(s): J96.91 - Respiratory failure, unspecified with hypoxia Status: Acute Assessment and Plan: Result of pneumonia. Required intubation through the night. Management of ventilator per marble carver. Discussed with marble carver. Oxygenation is improving. Remains sedated with Versed and fentanyl. Continue to monitor. (2) Sepsis: Qualifiers: Sepsis type: sepsis due to unspecified organism Sepsis acute organ dysfunction status: with acute organ dysfunction Severe sepsis acute organ dysfunction type: acute respiratory failure Acute respiratory failure type: with hypoxia Severe sepsis shock status: without septic shock Qualified Code(s): A41.9 - Sepsis, unspecified organism; R65.20 - Severe sepsis without septic shock; J96.01 - Acute respiratory failure with hypoxia Code(s): A41.9 - Sepsis, unspecified organism Status: Acute Assessment and Plan: Criteria met on admission. Did receive normal saline bolus around time of intubation. Blood pressure reviewed on 07/09/2019 and low normal but stable. Telemetry reviewed on 07/09/2019 with sinus rhythm. Blood and sputum cultures pending. Continue IV antibiotics as noted below. Will continue to monitor. (3) Pneumonia: Qualifiers: Pneumonia type: due to unspecified organism Laterality: bilateral Lung location: unspecified part of lung Qualified Code(s): J18.9 - Pneumonia, unspecified organism Code(s): J18.9 - Pneumonia, unspecified organism Status: Acute Assessment and Plan: Imaging consistent with multifocal lung disease suspicious for atypical pneumonia versus pulmonary edema. Will continue IV ceftriaxone, azithromycin, vancomycin and metronidazole. COVID-19 testing pending. (4) Suspected COVID-19 virus infection: Code(s): Z20.828 - Contact with and (suspected) exposure to other viral communicable diseases Status: Acute Assessment and Plan: Imaging concerning for COVID 19 infection. Testing has been initiated. Will continue isolation while awaiting COVID-19 test results. (5) Alcoholic cirrhosis: Qualifiers: Ascites presence: with ascites Qualified Code(s): K70.31 - Alcoholic cirrhosis of liver with ascites Code(s): K70.30 - Alcoholic cirrhosis of liver without ascites Status: Acute Assessment and Plan: Pelvis with findings of cirrhosis of the liver with portal venous hypertension and small amount of ascites. Total bilirubin elevated at 11.6 with AST 173 and ALT 61. Ammonia level slightly elevated 35. Continue IV thiamine and folic acid. Vitamin B12 and folate levels are normal. Will continue to monitor. (6) Hyponatremia: Code(s): E87.1 - Hypo-osmolality and hyponatremia Status: Acute Assessment and Plan: Sodium 120 on admission. Most likely from alcohol use but will need to continue to monitor. Limiting IV fluids given suspected COVID-19 infection. Will continue to monitor. (7) DVT prophylaxis: Code(s): Z29.9 - Encounter for prophylactic measures, unspecified Status: Acute Assessment and Plan: SCDs. Time Spent With Patient Time with patient: 15 - 25 minutes Subjective Date/time seen: 07/09/19 09:58 Interval history: Date of Service: 07/09/2019. Admitted with acute respiratory failure, pneumonia, suspected COVID-19 infection. Patient required intubation overnight. Now sedated on ventilator. Review of Systems Review of Systems: ROS unobtainable: Yes unobtainable due to endotracheal tube Genitourinary: Comments: catheter in place Exam Narrative: Exam Narrative: Sedated on ventilator Const: General: no acute distress HENMT: Other: ET/OG tubes in place Neck: Neck: supple Resp: Auscultation: dimini
[2019-07-09] MEDS: FOLIC ACID 1 MG/0.2 ML INJ IV PUSH (10:51)
[2019-07-09 11:53] LABS: Hematocrit 27.5 % (42.0-52.0); Hemoglobin 9.5 g/dL (14.0-18.0); Immature Platelet Fraction Pct 15.6 % (0.9-11.2); Mean Corpuscular HGB Conc 34.5 g/dl (32-36); Mean Corpuscular Hemoglobin 35.4 pg (26-34); Mean Corpuscular Volume 102.6 fl (80-100); Mean Platelet Volume 12.2 fl (7.4-10.4); Platelet Count Result 85 k/mm3 (150-375); Red Blood Count 2.68 M/mm3 (4.6-6.20); Red Cell Distribution Width 17.2 % (11.5-14.5); White Blood Count 8.6 K/mm3 (4.5-10.0)
[2019-07-09 12:04] LABS: Lactic Acid 1.4 mmol/L (0.7-2.1); Phosphorus 4.9 mg/dL (2.5-4.5)
[2019-07-09 12:06] LABS: Alanine Aminotransferase 61 U/L (4-50); Albumin Level 2.9 g/dL (3.5-5.1); Alkaline Phosphatase 146 U/L (38-126); Aspartate Amino Transferase 169 U/L (17-59); Bilirubin,Total 11.9 mg/dL (0.2-1.3); Blood Urea Nitrogen 15 mg/dL (9-20); Calcium 7.6 mg/dL (8.4-10.2); Carbon Dioxide 27 mmol/L (22-30); Chloride 85 mmol/L (98-107); Estimated CRCL calculation 120 ml/min; Estimated Glomerular Filt Rate > 60; Glucose 80 mg/dL (75-110); Magnesium 2.1 mg/dL (1.6-2.3); Potassium 3.5 mmol/L (3.4-5.0); Sodium 120 mmol/L (137-145)
[2019-07-09 12:57] LABS: SARS-CoV-2 RNA PCR Negative
[2019-07-09] MEDS: HEPARIN SODIUM 5,000 UNITS/ML VIAL 5000 UNITS SUB-Q ×2 (13:14→20:07)
[2019-07-09] MEDS: CENTRAL LINE FLUSH 10 ML IV PUSH ×3 (13:14→20:08)
[2019-07-09] MEDS: LACTULOSE 20 GM/30 ML UDC FEED TUBE (13:29)
[2019-07-09 13:52] LABS: Sodium Urine Random < 5 meq/L
[2019-07-10] VITALS (22 sets, daily range): BP systolic 86–115; BP diastolic 49–78; PULSE 77–94; RESP 20–25; TEMP 36.6–37.7; O2SAT 91–98
[2019-07-10] MEDS: PROPOFOL IV EMULSION 100 ML 26 MG IV CONT ×2 (02:47→06:30)
[2019-07-10 04:57] LABS: Alveolar/Arterial O2 Gradient 227.2 mmHg; Base Excess ABG -1.5 mEq/l (+/-2.0); Carboxyhemoglobin 0.3 % THb (0-2.0); Fractional Inspired Oxygen 50 %; Methemoglobin ABG 0.3 %THb (0-1.5); Oxygen Content ABG 17.1 %vol (16.0-22.0); Oxygen Saturation ABG 95.5 % (95.0-100.0); Oxyhemoglobin 93.7 % THb (90.0-100.0); PCO2 ABG 43.4 mmHg (35.0-45.0); PO2 ABG 80.5 mmHg (80.0-100.0); PO2 FiO2 Ratio Arterial Blood 1.61 %; Reduced Hemoglobin 5.7 %THb (0-5.0); Total Hemoglobin 12.9 g/dL (12.0-18.0)
[2019-07-10 04:58] LABS: Arterial Blood Gas PEEP 5 cmH2O; Arterial Blood Gas Vent Mode CMV; Arterial Blood Gas Ventilator rate 24 /MIN; Device VENTILATOR; Modified Allen's Test Pass; Site Drawn RIGHT RADIAL
[2019-07-10 04:59] LABS: Arterial Blood Gas Tidal Volume 400 ml
[2019-07-10] MEDS: metroNIDAZOLE 500 MG/ISO 100ML 500 MG/100 ML BAG 100 MG IVPB ×2 (05:07→11:39)
[2019-07-10 05:08] LABS: Basophils Absolute Auto 0.1 K/mm3 (0.0-0.1); Basophils Percent Auto 0.5 % (0.2-1.2); Eosinophils Percent Auto 0.4 % (0-4.4); Hematocrit 26.8 % (42.0-52.0); Hemoglobin 9.4 g/dL (14.0-18.0); Immature Granulocyte Absolute 0.48 K/mm3 (0.00-0.031); Immature Granulocyte Percent A 4.7 % (0-0.5); Lymphocytes Absolute Auto 1.14 K/mm3 (0.9-3.2); Lymphocytes Percent Auto 11.1 % (18.3-44.2); Mean Corpuscular HGB Conc 35.1 g/dl (32-36); Mean Corpuscular Volume 102.7 fl (80-100); Mean Platelet Volume 12.5 fl (7.4-10.4); Monocytes Absolute Auto 0.8 K/mm3 (0.1-0.6); Neutrophils Absolute Auto 7.8 K/mm3 (1.3-6.7); Neutrophils Percent Auto 75.3 % (45.5-73.1); Nucleated Red Blood Cells Perc 0.3 % (0.0-0.2); Platelet Count Result 90 k/mm3 (150-375); Red Blood Count 2.61 M/mm3 (4.6-6.20); Red Cell Distribution Width 16.9 % (11.5-14.5); White Blood Count 10.3 K/mm3 (4.5-10.0)
[2019-07-10] MEDS: HEPARIN SODIUM 5,000 UNITS/ML VIAL 5000 UNITS SUB-Q ×3 (05:08→22:30)
[2019-07-10 05:29] LABS: Alanine Aminotransferase 66 U/L (4-50); Albumin Level 2.7 g/dL (3.5-5.1); Alkaline Phosphatase 177 U/L (38-126); Aspartate Amino Transferase 198 U/L (17-59); Bilirubin,Total 12.2 mg/dL (0.2-1.3); Blood Urea Nitrogen 25 mg/dL (9-20); Calcium 7.5 mg/dL (8.4-10.2); Carbon Dioxide 24 mmol/L (22-30); Chloride 85 mmol/L (98-107); Estimated CRCL calculation 59 ml/min; Estimated Glomerular Filt Rate 45; Glucose 81 mg/dL (75-110); Magnesium 2.1 mg/dL (1.6-2.3); Phosphorus 4.5 mg/dL (2.5-4.5); Potassium 3.5 mmol/L (3.4-5.0); Sodium 118 mmol/L (137-145)
[2019-07-10] MEDS: CENTRAL LINE FLUSH 10 ML IV PUSH ×4 (06:29→22:31)
[2019-07-10] MEDS: THIAMINE HCL 200 MG/2 ML VIAL 100 MG IV PUSH (08:19)
[2019-07-10] MEDS: LACTULOSE 20 GM/30 ML UDC FEED TUBE (08:19)
[2019-07-10] MEDS: PANTOPRAZOLE SODIUM IV 40 MG VIAL IV PUSH ×2 (08:20→20:36)
[2019-07-10] MEDS: FOLIC ACID 1 MG/0.2 ML INJ IV PUSH (08:20)
--- NOTE | 2019-07-10 08:36 | PM.CNNEP ---
Assessment and Plan Assessment and plan (1) Acute kidney injury: Code(s): N17.9 - Acute kidney failure, unspecified Status: Acute Assessment and Plan: The patient's creatinine mitra from 0.4 to 0.8 to 1.7. His urine output was only 150cc overnight. Etiology of the acute kidney injury is multifactorial. He was probably dehydrated when he got here as he was not eating and only drinking alcoholic beverages. He probably had elevated insensible loss with his cough in illness as well. Because of his cirrhosis he might have some underfilling as well. His urine sodium is low and so there is at least a component of pre renal issues from both of the above. In addition the patient received contrast in the emergency room and so could have contrast nephrotoxicity. Other issues could be occurring as well such as acute tubular necrosis. He has septic syndrome which would contribute to this. Less likely issues would be obstruction, glomerulonephritis, interstitial nephritis. Hepatorenal syndrome would be unlikely in this scenario but is always possible. This is more of a diagnosis of exclusion and the above is playing a bigerg role in this I think. CT scan ruled out obstruction. Yesterday he received 26683 of fluid. We do not want to fluid overload him because of the possible COVID status an excess lung water. He is going to be getting lots of fluid passively through So will follow day by day decide what to do with hydration. (2) Hyponatremia: Code(s): E87.1 - Hypo-osmolality and hyponatremia Status: Acute Assessment and Plan: The patient has hyponatremia. His admission urinalysis showed a specific gravity of 1.019. So can't really diagnose beer drinkers potomania with this. However history certainly suggest that this could be the case. Chronic cirrhosis can of course cause chronic underfilling and therefore pre renal azotemia. His low urine sodium suggests pre renal factors as well and that could be leading to the hyponatremia also, especially as he was drinking lots before he came in. Other possibilities include hypothyroidism and adrenal insufficiency. He is on bupropion which can sometimes cause hyponatremia as well. He has pulmonary issues with his pneumonia which can lead to hyponatremia as well. Serum and urine osmolality have been checked. Will check serum protein electrophoresis, TSH, cortisol. Will try to limit free water intake. If he gets tube feedings he will get Nepro or some other to calorie per cc product to limit free water intake. (3) Alcohol abuse: Code(s): F10.10 - Alcohol abuse, uncomplicated Status: Acute Assessment and Plan: Very difficult situation is he is had a hard time with abstinence. (4) Suspected COVID-19 virus infection: Code(s): Z20.828 - Contact with and (suspected) exposure to other viral communicable diseases Status: Acute Assessment and Plan: Repeat test is pending. (5) Sepsis: Qualifiers: Sepsis type: sepsis due to unspecified organism Sepsis acute organ dysfunction status: with acute organ dysfunction Severe sepsis acute organ dysfunction type: acute respiratory failure Acute respiratory failure type: with hypoxia Severe sepsis shock status: without septic shock Qualified Code(s): A41.9 - Sepsis, unspecified organism; R65.20 - Severe sepsis without septic shock; J96.01 - Acute respiratory failure with hypoxia Code(s): A41.9 - Sepsis, unspecified organism Status: Acute Assessment and Plan: Patient has a soft blood pressure (6) Respiratory failure with hypoxia: Qualifiers: Chronicity: acute Qualified Code(s): J96.01 - Acute respiratory failure with hypoxia Code(s): J96.91 - Respiratory failure, unspecified with hypoxia Status: Acute Assessment and Plan: He is on the ventilator. History of Present Illness Reason for Consult Consult date: 07/10/19
[2019-07-10 08:47] LABS: Vancomycin Trough 16.3 ug/mL (10.0-20.0)
--- NOTE | 2019-07-10 08:57 | WPDINTPN ---
Progress Note: A&P Assessment and Plan (1) Severe sepsis: Code(s): A41.9 - Sepsis, unspecified organism; R65.20 - Severe sepsis without septic shock Status: Acute Assessment and Plan: Likely as a result of pneumonia versus intra-abdominal process. Continue broad-spectrum antibiotic. Continue to follow cultures. His hemodynamics are stable currently and not requiring any pressor support. Few of the blood pressure readings was borderline low. Will not do lactate as it might be elevated because of his liver status. (2) Alcoholic cirrhosis: Qualifiers: Ascites presence: with ascites Qualified Code(s): K70.31 - Alcoholic cirrhosis of liver with ascites Code(s): K70.30 - Alcoholic cirrhosis of liver without ascites Status: Acute Assessment and Plan: He has history of significant alcohol abuse. Hepatitis panel is negative. CT abdomen pelvis showed cirrhotic changes with evidence of portal hypertension. He has thrombocytopenia and low protein/albumin. Ammonia level is 35. Will try to achieve 1-2 bowel movement in a day and will be placed on lactulose if needed. Gastroenterology service will be consulted for their inputs as far as liver cirrhosis and alcoholic hepatitis is concerned. Question of use of steroid. He is not a transplant candidate because of actively drinking. He had some coffee-ground material in his OG tube but that has cleared now. (3) Suspected COVID-19 virus infection: Code(s): Z20.828 - Contact with and (suspected) exposure to other viral communicable diseases Status: Acute Assessment and Plan: COVID-19 testing is found to be negative. I have repeated the test with pending result as my clinical suspicion for COVID 19 is high. Considering his clinical presentation, inflammatory markers being elevated and thoracic imaging finding I think he has high likelihood of having COVID-19. Continue droplet and contact precaution until he is ruled out. If his COVID-19 testing is positive then inflammatory markers including CRP, ferritin, D-dimer, LDH will be monitored and followed. If his ferritin and CRP is significantly going up then a consideration will be given to give him tocilizumab. He does have history of alcohol cirrhosis with tocilizumab having hepatitis as one of the adverse effect. If his D-dimer starts to trend up significantly then he will be started on anticoagulation though will need to keep a close eye on any signs of bleeding and platelet count. His platelet count is borderline low likely as a result of his liver issues. (4) Pneumonia: Qualifiers: Laterality: bilateral Lung location: unspecified part of lung Pneumonia type: due to unspecified organism Qualified Code(s): J18.9 - Pneumonia, unspecified organism Code(s): J18.9 - Pneumonia, unspecified organism Status: Acute Assessment and Plan: Continue broad-spectrum antibiotics with ceftriaxone and azithromycin. Will stop vancomycin and Flagyl. Infectious disease service recommendations appreciated. Procalcitonin level is pending. Sputum culture is in progress. (5) Respiratory failure with hypoxia: Qualifiers: Chronicity: acute Qualified Code(s): J96.01 - Acute respiratory failure with hypoxia Code(s): J96.91 - Respiratory failure, unspecified with hypoxia Status: Acute Assessment and Plan: Ventilator adjustment were made. Continue CMV/AC for now. Low tidal volume strategies will be employed. Decrease respiratory rate to 20. Decrease FiO2 to 40% and continue to keep PEEP at 5. Continue to monitor ABG and chest x-ray. Continue sedation as per ICU protocol. Yesterday were said has been weaned off and has been started on fentanyl in addition to propofol. Daily sedation vacation trial. (6) Alcohol abuse: Code(s): F10.10 - Alcohol abuse, uncomplicated Status: Acute Assessm
--- NOTE | 2019-07-10 10:51 | PCDIET ---
ICU Rounding Note: Patient remains NPO and intubated. RN reports decreased NG output which is now bilious. MD ordering to start Nepro tube feedings. Recommend 40mL/hr goal rate which will provide 1584kcal (1927kcal with Propofol at current rate - 22kcal/kg), 71g protein and 639mL free water over 22 hours/day. Will consider recommending addition of protein flushes pending kidney function over the next few days. Last recorded weight is 88.7kg which is slightly increased. +I/O. Bowel Motility: No BM documented - patient on Lactulose. Labs Reviewed: Hgb (9.4), Hct (26.8), BUN (25), Cr (1.7), Na (118), Alb (2.7), Ca (7.5) Meds Noted: Azithromycin, Lactulose, Protonix, Rocephin, Flagyl, Propofol (rate of 13mL/hr provides 343kcal over 24 hour period), Fentanyl, Folic Acid, Thiamine, Vancomycin Additional Notes: No documented skin breakdown. Following daily in ICU rounds. Assessing/reassessing every Sunday/Sunday.
--- NOTE | 2019-07-10 11:35 | WPDGICN ---
Assessment and Plan Assessment and plan (1) Alcoholic cirrhosis: Qualifiers: Ascites presence: with ascites Qualified Code(s): K70.31 - Alcoholic cirrhosis of liver with ascites Code(s): K70.30 - Alcoholic cirrhosis of liver without ascites Status: Acute Assessment and Plan: Patient with alcoholic cirrhosis evident by CT scan. Confirmed clinically. Marked elevation of LFTs and bilirubin likely related to alcoholic hepatitis. At the present time given his comorbid diseases. Respiratory failure, sepsis, possible viral infection I would avoid steroids at this point. Continue supportive care. Watch for evidence of alcoholic withdrawal. (2) Pneumonia: Qualifiers: Pneumonia type: due to unspecified organism Laterality: bilateral Lung location: unspecified part of lung Qualified Code(s): J18.9 - Pneumonia, unspecified organism Code(s): J18.9 - Pneumonia, unspecified organism Status: Acute Assessment and Plan: Patient remains on ventilator. Antibiotics per primary care service. Viral infection is being excluded. (3) Respiratory failure with hypoxia: Qualifiers: Chronicity: acute Qualified Code(s): J96.01 - Acute respiratory failure with hypoxia Code(s): J96.91 - Respiratory failure, unspecified with hypoxia Status: Acute (4) Suspected COVID-19 virus infection: Code(s): Z20.828 - Contact with and (suspected) exposure to other viral communicable diseases Status: Acute (5) Alcohol abuse: Code(s): F10.10 - Alcohol abuse, uncomplicated Status: Acute Assessment and Plan: Long-term childs alcohol avoidance is encouraged. Currently at this time would watch for signs of alcohol withdrawal syndrome. Agree fully K acid and vitamin replacement. (6) Thrombocytopenia: Code(s): D69.6 - Thrombocytopenia, unspecified Status: Acute Assessment and Plan: Low platelet count undoubtedly related to his cirrhosis. In alcoholic liver disease. At this point observation is encouraged. He may be at some increased risk for bleeding will continue to monitor. (7) Acute kidney injury: Code(s): N17.9 - Acute kidney failure, unspecified Status: Acute GI Consult Note Consult date/time: 07/10/19 11:35 HPI: Joey Polk is a 38 year old male seen at the request of the brand executive service. Patient has a past medical history hypertension and chronic alcohol abuse. Patient reports increasing shortness of breath over the last 7-8 days prior to admission the hospital. He has not been eating much of anything but has been drinking alcohol rather heavily. Because of significant hypoxemia and increasing shortness of breath respiratory failure patient was placed on the ventilator. He is unable to give any additional history. Because of suspicion of COVID infection initial swab was negative repeat swab is in progress. Review of Systems Review of Systems: ROS unobtainable: Yes unobtainable due to endotracheal tube PMFSH Past Medical History Medical History Acute kidney injury Alcoholism Essential hypertension Surgical History Surgical History History of right inguinal hernia repair With mesh Family History Family History Sibling IV drug abuse Father , in his mid 50s Alcoholism Cirrhosis Social History Social History Smoking packs per day: 0.5 Smoking cigarettes per day: 10.0 Years smoked: 22 Smoking pack-years: 11.00 Smoking status: Current every day smoker Alcohol intake: current Drinks per week: 20 Alcohol use details: The patient drinks about a 6 pack day. Until recently he was drinking up to 9 shots of hard liquor a day as well. Substance use: mehreen
[2019-07-10] MEDS: PROPOFOL IV EMULSION 100 ML 18.2 MG IV CONT ×2 (11:41→17:30)
--- NOTE | 2019-07-10 13:05 | WPDINFPN2 ---
Progress Note: A&P Assessment and Plan (1) Pneumonia: Qualifiers: Pneumonia type: due to unspecified organism Laterality: bilateral Lung location: unspecified part of lung Qualified Code(s): J18.9 - Pneumonia, unspecified organism Code(s): J18.9 - Pneumonia, unspecified organism Status: Acute Assessment and Plan: 1. CAP, suspect bacterial 2. Resp failure 3. Alcoholic cirrhosis REC Ctx and Azithro #2. Sputum in process Subjective Date/time seen: 07/10/19 13:05 Objective Data Vital Signs Vital Signs: Vital Signs - 24 hr 07/09/19 14:00 07/09/19 14:57 07/09/19 16:00 Temperature 38.1 C H Pulse Rate 88 83 89 Respiratory Rate 27 H 26 H Blood Pressure 105/67 95/62 L Pulse Oximetry 94 96 94 07/09/19 17:28 07/09/19 18:00 07/09/19 20:00 Temperature 37.7 C H Pulse Rate 95 95 97 Respiratory Rate 30 H 27 H Blood Pressure 107/74 103/61 Pulse Oximetry 94 92 94 07/09/19 20:20 07/09/19 22:00 07/10/19 00:00 Temperature Pulse Rate 97 98 91 Respiratory Rate 25 H 25 H Blood Pressure 103/61 98/62 L Pulse Oximetry 95 95 98 07/10/19 00:28 07/10/19 02:00 07/10/19 04:00 Temperature 37.1 C Pulse Rate 91 87 87 Respiratory Rate 24 H 24 H Blood Pressure 100/64 100/64 Pulse Oximetry 96 97 97 07/10/19 05:02 07/10/19 05:04 07/10/19 06:00 Temperature 37.7 C H 37.7 C H Pulse Rate 85 82 Respiratory Rate 24 H Blood Pressure 93/55 L Pulse Oximetry 97 96 07/10/19 08:00 07/10/19 08:17 07/10/19 08:27 Temperature 36.9 C Pulse Rate 78 86 83 Respiratory Rate 24 H Blood Pressure 86/49 L Pulse Oximetry 95 94 93 07/10/19 10:00 07/10/19 10:57 07/10/19 12:00 Temperature 36.9 C Pulse Rate 88 82 82 Respiratory Rate 20 20 Blood Pressure 104/62 108/59 L Pulse Oximetry 93 94 92 Intake/Output Intake/Output: Intake & Output 06/01/20 06/02/20 06/03/20 06/04/20 23:59 23:59 23:59 23:59 Intake Total 50 5541 1748 Output Total 1700 150 Balance 50 1990 1598 Meds/Results Medications: Active Medications Generic Name Dose Route Start Last Admin Trade Name Carlos PRN Reason Stop Dose Admin Folic Acid 1 mg 07/09/19 09:00 07/10/19 08:20 Folic Acid Inj IV PUSH 1 mg QAM LESLIE Administration Heparin Sodium (Porcine) 5,000 units 07/09/19 14:00 07/10/19 05:08 Heparin Sodium SUB-Q 5,000 units Q8HR LESLIE Administration Propofol 100 mls @ 18.165 mls/hr 07/09/19 02:10 07/10/19 11:41 Diprivan IV CONT 35 mcg/kg/min .Q5H31M LESLIE 18.2 mls/hr Administration Protocol 35 MCG/KG/MIN Metronidazole 500 mg in 100 mls @ 100 mls/hr 07/09/19 06:00 07/10/19 11:39 Flagyl 500 Mg/Iso Soln 100 Ml IVPB 100 mls/hr Q6H LESLIE Administration Ceftriaxone Sodium/Dextrose 1 gm in 50 mls @ 100 mls/hr 07/09/19 18:00 07/09/19 18:30 Rocephin 1 Gm/D5w 50 Ml IVPB Infused Q24H LESLIE Infusion Azithromycin 250 mg/ Dextrose 250 mls @ 250 mls/hr 07/09/19 21:00 07/09/19 21:05 IVPB Infused Q24H LESLIE Infusion Fentanyl Citrate 2,500 mcg in 250 mls @ 10 mls/hr 07/09/19 07:55 07/10/19 10:00 Fentanyl 2,500 Mcg/Ns 250 Ml IV CONT 100 mcg/hr .Q25H LESLIE 10 mls/hr Titration Protocol Vancomycin HCl 1,250 mg in 250 mls @ 200 mls/hr 07/10/19 15:00 Vancomycin 1,250 Mg/D5w 250 Ml IVPB Q18H LESLIE Lactulose 20 gm 07/09/19 09:00 07/10/19 08:19 Lactulose FEED TUBE 20 gm QAM LESLIE Administration Multi-Ingred Cream/Lotion/Oil/Oint 1 applic 07/09/19 09:00 07/10/19 08:19 Lubrifresh Pm Eye Ointment EACH EYE 1 applic Q12HR LESLIE Administration Pantoprazole Sodium 40 mg 07/09/19 09:00 07/10/19 08:20 Protonix Iv IV PUSH 40 mg Q12HR LESLIE Administration Sodium Chloride 10 ml 07/09/19 14:00 07/10/19 06:29 Central Line Flush IV PUSH 10 ml Q8HR LESLIE Administration Sodium Chloride 10 ml 07/09/19 18:00 07/09/19 17:54 Central Line Flush IV PUSH 10 ml DAILY@1800 LESLIE Adminis
[2019-07-10 13:36] LABS: SARS-CoV-2 RNA PCR Negative
--- NOTE | 2019-07-10 15:23 | CONS_ITS ---
DATE OF CONSULTATION: 07/10/2019 REASON FOR CONSULTATION: Pneumonia. HISTORY OF PRESENT ILLNESS: The patient is a 38-year-old male who cannot provide any history. He is intubated. He has alcoholism and cirrhosis that apparently had advanced. He also has current alcoholic hepatitis. He was brought to the hospital yesterday with 1 week of progressive shortness of breath. He had resisted emergency room evaluation until yesterday. His record indicates also coughs, nausea and vomiting. Here he has been given ceftriaxone, azithromycin, metronidazole and vancomycin. Consultation now requested. He has not required any surgical intervention. ALLERGIES: PENICILLIN, UNKNOWN REACTION. PRESENT MEDICATIONS: No immunosuppressants. HABITS: Marijuana, half pack per day smoker, and alcohol well in excess. PAST MEDICAL HISTORY: In addition to the above, hypertension, inguinal hernia repair. REVIEW OF SYSTEMS: 14-point review otherwise negative per record, not obtainable from the patient directly due to intubated status. SOCIAL HISTORY: He works, lives with his fiancee locally. FAMILY HISTORY: Not pertinent to his present illness. PHYSICAL EXAMINATION: GENERAL: Young male who appears his actual age. VITAL SIGNS: Temperature on admission was 38.3, and in the last 24 hours 37.7 core temp. SKIN: No icterus nor jaundice. He has no rashes. Few ecchymoses. Warm and dry. NODES: He has no cervical axillary adenopathy. EENT: Pupils equal and round. He is orally intubated, which compromises exam, but inspection otherwise normal. NECK: Without meningismus, mass, or thyromegaly. LUNGS: Diminished breath sounds long-term up both lung fernández. Otherwise, clear to auscultation and percussion. CARDIAC: Regular rate and rhythm, 82, 20, 92% saturation. Pulses are 2+. ABDOMEN: Distended. No tenderness is apparent. No masses. EXTREMITIES: 1+ ankle edema. He has a right femoral triple-lumen catheter in place. No splinter hemorrhages. RADIOLOGICAL DATA: I personally reviewed his chest x-ray, this is technically suboptimal film with poor inspiratory effort, but apparently reveals multilobar interstitial infiltrates. I also reviewed the radiologist's interpretation of the same. His abdomen and pelvic CT performed yesterday shows findings of cirrhosis and multifocal lung disease with small amount of ascites. LABORATORY DATA: Blood cultures, no growth after a day and half incubation. Sputum culture not sent until 2 hours ago. No MRSA screen performed. Other laboratory includes 10.2 white count down from 14.0 on admission, hemoglobin 9.4, platelets are 90,000 up from 70. Differential mild left shift. Prothrombin time was 16.8. Blood gases 7.36, 43, 81, 24, 96% on the noted ventilator settings. His hyponatremia in 118 down from 120, BUN 25, creatinine 1.7 up from 0.8. His estimated GFR is 45, calcium low, but his albumin is only 2.9. CRP is stable 8.0, LDH 1175. Ammonia is high. Transaminases are 2 to 8 times normal. His bilirubin is 12.2, up from 11.6, ferritin of course is quite high. His urinalysis, no evidence of infection. Drug screen positive for cannabinoids. Alcohol level at admission 152. His COVID PCR was nonreactive. ASSESSMENT: 1. Fever, leukocytosis, lung infiltrates, hypoxemia, suspect due to bacterial community-acquired pneumonia. 2. Pneumococcus, group A strep, Haemophilus influenzae, Oxacillin-sensitive staphylococcus aureus or atypical pulmonary pathogens are on the differential. Viral pneumonia including COVID is unlikely. I doubt mycobacterial or fungal etiologies. Possibility remains that his lung infiltrates are noninfectious in etiology. 3. Alcoholism and cirrhosis. 4. Respiratory failure. 5. Elevated inflammatory markers, nonspeci
--- NOTE | 2019-07-10 15:30 | PM.IMPN ---
Progress Note: A&P Assessment and Plan (1) Respiratory failure with hypoxia: Qualifiers: Chronicity: acute Qualified Code(s): J96.01 - Acute respiratory failure with hypoxia Code(s): J96.91 - Respiratory failure, unspecified with hypoxia Status: Acute Assessment and Plan: Result of pneumonia. Remains sedated with Versed and fentanyl on ventilator. Management of ventilator per front facer. Chest x-ray today reviewed with continued diffuse lung disease. Continue treatment of infection and liver issues as noted below. (2) Sepsis: Qualifiers: Acute respiratory failure type: with hypoxia Sepsis acute organ dysfunction status: with acute organ dysfunction Sepsis type: sepsis due to unspecified organism Severe sepsis acute organ dysfunction type: acute respiratory failure Severe sepsis shock status: without septic shock Qualified Code(s): A41.9 - Sepsis, unspecified organism; R65.20 - Severe sepsis without septic shock; J96.01 - Acute respiratory failure with hypoxia Code(s): A41.9 - Sepsis, unspecified organism Status: Acute Assessment and Plan: Criteria met on admission. Did receive normal saline bolus around time of intubation. Blood pressure reviewed on 07/10/2019 and remains stable. Telemetry reviewed on 07/10/2019 with sinus rhythm. Blood cultures negative today. Sputum culture pending. Now on current IV antibiotics as noted below. Will monitor. (3) Pneumonia: Qualifiers: Laterality: bilateral Lung location: unspecified part of lung Pneumonia type: due to unspecified organism Qualified Code(s): J18.9 - Pneumonia, unspecified organism Code(s): J18.9 - Pneumonia, unspecified organism Status: Acute Assessment and Plan: Imaging consistent with multifocal lung disease suspicious for atypical pneumonia versus pulmonary edema. Infectious Disease now consulted and appreciate input. Remains on IV ceftriaxone and azithromycin. IV vancomycin and metronidazole discontinued. Repeat COVID testing pending as noted below. (4) Suspected COVID-19 virus infection: Code(s): Z20.828 - Contact with and (suspected) exposure to other viral communicable diseases Status: Acute Assessment and Plan: Imaging concerning for COVID 19 infection. Initial testing negative but repeat COVID-19 testing in process due to patient condition. Remains in isolation at this time. (5) Alcoholic cirrhosis: Qualifiers: Ascites presence: with ascites Qualified Code(s): K70.31 - Alcoholic cirrhosis of liver with ascites Code(s): K70.30 - Alcoholic cirrhosis of liver without ascites Status: Acute Assessment and Plan: CT abdomen/pelvis with findings of cirrhosis of the liver with portal venous hypertension and small amount of ascites. Known alcohol abuse. GI consulted and appreciate input. Liver function tests remain elevated with total bilirubin 12.2, AST 198, ALT 66 and alkaline phosphatase 177 today. Ammonia level was slightly elevated at 35 on admission. Vitamin B12 and folate levels normal. Will continue IV folic acid and thiamine. Continue supportive care given his other comorbidities. (6) Hyponatremia: Code(s): E87.1 - Hypo-osmolality and hyponatremia Status: Acute Assessment and Plan: Sodium 120 on admission. Most likely multifactorial including alcohol abuse and cirrhosis. Sodium is slightly lower at 118 today. Additional evaluation in process. Will continue to monitor. (7) DVT prophylaxis: Code(s): Z29.9 - Encounter for prophylactic measures, unspecified Status: Acute Assessment and Plan: SCDs. Time Spent With Patient Time with patient: 15 - 25 minutes Subjective Date/time seen: 07/10/19 15:30 Interval history: Date of Service: 07/10/2019. Admitted with acute respiratory failure, pneumonia, suspected COVID-19 infection. Remains sedated on ventilator. Revi
[2019-07-10] MEDS: PROPOFOL IV EMULSION 100 ML 23.4 MG IV CONT (22:56)
[2019-07-11] VITALS (29 sets, daily range): BP systolic 75–109; BP diastolic 46–66; PULSE 88–114; RESP 19–25; TEMP 37.1–37.7; O2SAT 88–95
--- NOTE | 2019-07-11 | ECHO_ITS ---
Patient Info Name: Joey Polk Age: 38 years : 1980 Gender: Male Ht: 66 in Wt: 200 lbs BSA: 2.09 m2 HR: 95 bpm BP: 82 / 49 mmHg Heart Rhythm: Sinus Rhythm Technical Quality: Good Exam Date: 07/11/2019 12:04 PM Exam Location: [facility] Patient Status: Inpatient Admit Date: 07/09/2019 Staff Ordering Physician: Herson Edwards MD Weight Caller: Giovanny Calero RDCS Attending Provider: Elda Jeffery DO Referring Physician: Grace YORK; Exam Type: CA echo doppler color flow Study Info Indications R06.02 - Shortness of breath Complete two-dimensional, color flow and Doppler transthoracic echocardiogram is performed. Strain analysis performed. History/Risk Factors Hypotension; HTN, sepsis, ARF w/ hypoxia, PNA, SOB, EtOH. Summary 1. Left ventricular chamber dimension is normal. 2. Left ventricular systolic function is normal, estimated at 65-70%. 3. There is moderately increased left ventricular wall thickness. 4. The left ventricular diastolic function is normal. 5. E/e' 5 is not elevated. 6. Global longitudinal strain is abnormal at -15.1.%. 7. Left atrial chamber dimension is mildly enlarged. 8. There is trace tricuspid valve regurgitation. 9. No pulmonary hypertension, estimated pulmonary arterial systolic pressure is 37 mmHg. Left Ventricle E/e' 5 is not elevated. Global longitudinal strain is abnormal at -15.1.%. Left ventricular chamber dimension is normal. Left ventricular systolic function is normal, estimated at 65-70%. There is moderately increased left ventricular wall thickness. The left ventricular diastolic function is normal. Right Ventricle Right ventricular chamber dimension is normal. Right ventricular systolic function is normal. Left Atria Left atrial chamber dimension is mildly enlarged. Right Atria Right atrial chamber dimension is normal. Aortic Valve The aortic valve is trileaflet. There is no aortic valve stenosis. There is no aortic valve regurgitation. Pulmonic Valve There is no pulmonic regurgitation. Mitral Valve There is no mitral valve stenosis. There is no mitral valve regurgitation. Tricuspid Valve There is trace tricuspid valve regurgitation. No pulmonary hypertension, estimated pulmonary arterial systolic pressure is 37 mmHg. Pericardium/Pleural There is no pericardial effusion. Inferior Vena Cava Normal inferior vena cava with >50% collapse upon inspiration consistent with normal right atrial pressure, 5 mmHg. Aorta The aortic root size at the sinus of Valsalva is normal. Left Ventricular Outflow Tract Name Value Normal LVOT 2D LVOT Diameter 2.0 cm LVOT Doppler LVOT Peak Gradient 6 mmHg LVOT Mean Gradient 3 mmHg LVOT VTI 21 cm LVOT VTI/AV VTI Ratio 0.7 LVOT Stroke Volume 64 ml LVOT CO 6.0 l/min LVOT CI 2.9 l/min/m2 Mitral Valve
[2019-07-11 00:10] LABS: Glucose Point of Care 84 (65-105)
[2019-07-11] MEDS: PROPOFOL IV EMULSION 100 ML 23.4 MG IV CONT (03:32)
[2019-07-11 04:30] LABS: Alveolar/Arterial O2 Gradient 222.6 mmHg; Base Excess ABG -1.4 mEq/l (+/-2.0); Carboxyhemoglobin 0.3 % THb (0-2.0); Fractional Inspired Oxygen 50 %; HCO3 ABG 25.6 mEq/l (22.0-26.0); Methemoglobin ABG 0.3 %THb (0-1.5); Oxygen Content ABG 13.9 %vol (16.0-22.0); Oxygen Saturation ABG 92.9 % (95.0-100.0); Oxyhemoglobin 91.9 % THb (90.0-100.0); PO2 ABG 73.2 mmHg (80.0-100.0); PO2 FiO2 Ratio Arterial Blood 1.46 %; Reduced Hemoglobin 7.5 %THb (0-5.0); Total Hemoglobin 10.7 g/dL (12.0-18.0); pH ABG 7.293 (7.350-7.450)
[2019-07-11 04:31] LABS: Device VENTILATOR; Modified Allen's Test Pass; Site Drawn LEFT RADIAL
[2019-07-11 04:32] LABS: Arterial Blood Gas PEEP 5 cmH2O; Arterial Blood Gas Tidal Volume 400 ml; Arterial Blood Gas Vent Mode CMV; Arterial Blood Gas Ventilator rate 20 /MIN
[2019-07-11 04:40] LABS: Hemoglobin 9.3 g/dL (14.0-18.0); Immature Platelet Fraction Pct 10.2 % (0.9-11.2); Mean Corpuscular HGB Conc 33.2 g/dl (32-36); Mean Corpuscular Volume 105.3 fl (80-100); Platelet Count Result 130 k/mm3 (150-375); Red Blood Count 2.66 M/mm3 (4.6-6.20); Red Cell Distribution Width 16.9 % (11.5-14.5); White Blood Count 11.6 K/mm3 (4.5-10.0)
[2019-07-11 05:13] LABS: Blood Urea Nitrogen 39 mg/dL (9-20); CRP 13.5 mg/dL (<1.0); Calcium 7.5 mg/dL (8.4-10.2); Carbon Dioxide 24 mmol/L (22-30); Chloride 86 mmol/L (98-107); Estimated CRCL calculation 34 ml/min; Estimated Glomerular Filt Rate 24; Glucose 74 mg/dL (75-110); Magnesium 2.3 mg/dL (1.6-2.3); Potassium 3.6 mmol/L (3.4-5.0); Sodium 120 mmol/L (137-145)
[2019-07-11 06:12] LABS: Glucose Point of Care 73 (65-105)
[2019-07-11] MEDS: HEPARIN SODIUM 5,000 UNITS/ML VIAL 5000 UNITS SUB-Q ×3 (06:42→20:47)
[2019-07-11] MEDS: CENTRAL LINE FLUSH 10 ML IV PUSH ×4 (06:43→21:00)
[2019-07-11] MEDS: PROPOFOL IV EMULSION 100 ML 18.2 MG IV CONT ×2 (07:16→12:54)
--- NOTE | 2019-07-11 08:38 | WPDINTPN ---
Progress Note: A&P Assessment and Plan (1) Severe sepsis: Code(s): A41.9 - Sepsis, unspecified organism; R65.20 - Severe sepsis without septic shock Status: Acute Assessment and Plan: Likely as a result of pneumonia. Continue broad-spectrum antibiotics with ceftriaxone and azithromycin. Flagyl and vancomycin has been stopped. Continue to follow cultures. His hemodynamics are stable currently and not requiring any pressor support. Few of the blood pressure readings was borderline low. (2) Alcoholic cirrhosis: Qualifiers: Ascites presence: with ascites Qualified Code(s): K70.31 - Alcoholic cirrhosis of liver with ascites Code(s): K70.30 - Alcoholic cirrhosis of liver without ascites Status: Acute Assessment and Plan: He has history of significant alcohol abuse which is ongoing. Hepatitis panel is negative. CT abdomen pelvis showed cirrhotic changes with evidence of portal hypertension. He has thrombocytopenia and low protein/albumin. Ammonia level is 35. Will try to achieve 1-2 bowel movement in a day. I will increase the dose of lactulose today. Gastroenterology service recommendations appreciated. He is not a candidate for steroids considering alcoholic hepatitis because of his pneumonia and other comorbidities. No active intervention. He is obviously not a candidate for transplant because of his active drinking issues. He had some coffee-ground material in his OG tube but that has cleared now. (3) Suspected COVID-19 virus infection: Code(s): Z20.828 - Contact with and (suspected) exposure to other viral communicable diseases Status: Acute Assessment and Plan: COVID-19 testing is found to be negative. Repeat COVID-19 testing has been reported as negative. Will get in touch with infection control for discontinuation of contact and droplet precautions. His ferritin level is 1910. Now since he is ruled out of COVID-19 it raises possibilities of significant inflammation versus HLH. CRP is trending up as well at the same time. (4) Pneumonia: Qualifiers: Laterality: bilateral Lung location: unspecified part of lung Pneumonia type: due to unspecified organism Qualified Code(s): J18.9 - Pneumonia, unspecified organism Code(s): J18.9 - Pneumonia, unspecified organism Status: Acute Assessment and Plan: Continue broad-spectrum antibiotics with ceftriaxone and azithromycin. Will stop vancomycin and Flagyl as per infectious disease service recommendations. Infectious disease service recommendations appreciated. Procalcitonin level is pending. Follow cultures. Sputum culture is in progress. (5) Respiratory failure with hypoxia: Qualifiers: Chronicity: acute Qualified Code(s): J96.01 - Acute respiratory failure with hypoxia Code(s): J96.91 - Respiratory failure, unspecified with hypoxia Status: Acute Assessment and Plan: Ventilator adjustment were made. Continue CMV/AC for now. Low tidal volume strategies will be employed. Yesterday his respiratory rate was decreased from 24-20. He is acidotic with pCO2 of 54. He has a component of metabolic acidosis likely secondary to his renal issues. Will increase the rate to 22 and may potentially increase the tidal volume to 420 as well. Continue to monitor ABG and chest x-ray. Continue sedation as per ICU protocol. Daily sedation vacation trial. He is currently on fentanyl and propofol. Will check triglyceride and CPK level in the a.m.. (6) Alcohol abuse: Code(s): F10.10 - Alcohol abuse, uncomplicated Status: Acute Assessment and Plan: He has significant history of alcohol abuse. He will be at high risk of going into alcohol withdrawal. Continue sedation. Daily sedation vacation trial. Monitor for alcohol withdrawal symptoms. Continue thiamine and folate. He is not a candidate for steroid f
[2019-07-11] MEDS: THIAMINE HCL 200 MG/2 ML VIAL 100 MG IV PUSH (09:14)
[2019-07-11] MEDS: PANTOPRAZOLE SODIUM IV 40 MG VIAL IV PUSH ×2 (09:14→20:46)
[2019-07-11] MEDS: LACTULOSE 20 GM/30 ML UDC FEED TUBE ×2 (09:14→20:43)
[2019-07-11] MEDS: FOLIC ACID 1 MG/0.2 ML INJ IV PUSH (09:20)
[2019-07-11 09:57] LABS: Alanine Aminotransferase 52 U/L (4-50); Albumin Level 2.6 g/dL (3.5-5.1); Alkaline Phosphatase 173 U/L (38-126); Aspartate Amino Transferase 143 U/L (17-59); Bilirubin,Total 11.9 mg/dL (0.2-1.3); Blood Urea Nitrogen 42 mg/dL (9-20); Calcium 7.4 mg/dL (8.4-10.2); Carbon Dioxide 24 mmol/L (22-30); Chloride 85 mmol/L (98-107); Estimated CRCL calculation 32 ml/min; Estimated Glomerular Filt Rate 22; Glucose 79 mg/dL (75-110); Potassium 3.7 mmol/L (3.4-5.0); Sodium 120 mmol/L (137-145)
[2019-07-11] MEDS: SODIUM CHLORIDE 0.9% IV 1,000 ML 100 ML IV CONT (11:06)
--- NOTE | 2019-07-11 11:15 | PM.PNNEP ---
Progress Note: A&P Assessment and Plan (1) Acute kidney injury: Code(s): N17.9 - Acute kidney failure, unspecified Status: Acute Assessment and Plan: The patient's creatinine mitra from 0.4 to 0.8 to 1.7 and now is above 3. His urine output picked up a little bit. He made over 300cc last night. CT scan shows no hydro Urine electrolytes are pre renal The patient's blood pressure is a bit soft. I will give saline bolus of 500cc. If the blood pressure does not come above 90 then the nurse will repeat this. I will start saline [id number] an hour as well. Watching respiratory status closely. Check an echo because of his chest x-ray appearance. (2) Hyponatremia: Code(s): E87.1 - Hypo-osmolality and hyponatremia Status: Acute Assessment and Plan: The patient has hyponatremia. Cortisol and TSH are okay. S PE is pending. This is most likely pre renal in nature. Now that he has renal failure, this will be playing a role as well. Giving isotonic fluid for hydration. (3) Alcohol abuse: Code(s): F10.10 - Alcohol abuse, uncomplicated Status: Acute Assessment and Plan: Very difficult situation is he is had a hard time with abstinence. (4) Suspected COVID-19 virus infection: Code(s): Z20.828 - Contact with and (suspected) exposure to other viral communicable diseases Status: Acute Assessment and Plan: Repeat test is negative. (5) Sepsis: Qualifiers: Sepsis type: sepsis due to unspecified organism Sepsis acute organ dysfunction status: with acute organ dysfunction Severe sepsis acute organ dysfunction type: acute respiratory failure Acute respiratory failure type: with hypoxia Severe sepsis shock status: without septic shock Qualified Code(s): A41.9 - Sepsis, unspecified organism; R65.20 - Severe sepsis without septic shock; J96.01 - Acute respiratory failure with hypoxia Code(s): A41.9 - Sepsis, unspecified organism Status: Acute Assessment and Plan: Patient has a soft blood pressure Give IV fluids. (6) Respiratory failure with hypoxia: Qualifiers: Chronicity: acute Qualified Code(s): J96.01 - Acute respiratory failure with hypoxia Code(s): J96.91 - Respiratory failure, unspecified with hypoxia Status: Acute Assessment and Plan: He is on the ventilator. Subjective Date/time seen: 07/11/19 11:15 Interval history: Patient is still on the ventilator. Making a little more urine. He is on some sedatives. He opens his eyes when he [place] his shoulder. Review of Systems Cardiovascular: Cardiovascular: Reports no additional cardiovascular complaints Respiratory: Respiratory: Reports no additional respiratory complaints Gastrointestinal: Gastrointestinal: Reports no additional gastrointestinal complaints Genitourinary: Genitourinary: Reports no additional male genitourinary complaints Exam Narrative: Exam Narrative: WDWN in NAD skin no rash or subcu nodules head ncat lungs mild coarse airways. cor reg no rub abd BS+ nontender and soft ext no edema. Objective Data Vital Signs Vital Signs: Vital Signs - 24 hr 07/10/19 12:00 07/10/19 14:00 07/10/19 14:20 Temperature 36.9 C Pulse Rate 82 77 78 Respiratory Rate 20 20 Blood Pressure 108/59 L 100/59 L Pulse Oximetry 92 96 97 07/10/19 16:00 07/10/19 17:02 07/10/19 18:00 Temperature 36.6 C Pulse Rate 77 79 79 Respiratory Rate 20 20 Blood Pressure 95/63 L 115/78 Pulse Oximetry 96 96 96 07/10/19 20:00 07/10/19 21:09 07/10/19 22:00 Temperature 37.2 C Pulse Rate 81 84 94 Respiratory Rate 20 21 H Blood Pressure 98/56 L 101/60 Pulse Oximetry 96 96 91 07/10/19 23:30 07/11/19 00:00 07/11/19 02:00 Temperature 37.4 C Pulse Rate 94 93 93 Respiratory Rate 20 20 Blood Pressure 98/59 L 85/52 L Pulse Oximetry 94 94 93 07/11/19 04:00 07/11/19 04:34 07/11/19 06:00 Temperature 37.
[2019-07-11] MEDS: SODIUM CHLORIDE 0.9% IV 500 ML IV CONT ×3 (11:24→19:47)
--- NOTE | 2019-07-11 11:45 | PCDIET ---
Nutrition Follow-Up Complete: Nutrition Diagnosis: Inadequate oral intake related to oral intubation as evidenced by NPO status. Nutrition Goal: Patient to meet estimated nutritional needs. Goal in progress. Tube feedings being advanced slowly due to residuals up ton 390mL. Current rate is 30mL/hr Nepro with goal of 40mL/hr. MD ordered to advance slowly as tolerated. Last recorded weight is 91.4kg which is increased from last review. +I/O. Decreased urine output noted. Bowel Motility: +BM today. Labs Reviewed: BUN (39), Cr (3.0), Na (120), Alb (2.7), Ashutosh Ca (8.54), PO4 (7.0) Meds Noted: Azithromycin, Lactulose, Rocephin, Protonix, Fentanyl, Folic Acid, Thiamine, Propofol (rate of 18.2mL/hr provides 480kcal/day) Additional Notes: No documented skin breakdown. Nutrition Monitoring and Evaluation: Follow up every Sunday/Sunday.
[2019-07-11 11:46] LABS: Glucose Point of Care 88 (65-105)
--- NOTE | 2019-07-11 12:46 | WPDGIPROGNO ---
Progress Note: A&P Additional Plan Patient remains on the ventilator. Unable to give any useful history. NG tube in place coffee-ground return noted. Clear at the present time period physical exam reveals him to be intubated and sedated. Scleral icterus appreciated. Lungs with few rhonchi. Abdomen is protuberant soft no organomegaly appreciated. Impression 1. Alcoholic cirrhosis of liver. Elevated LFTs consistent with alcoholic liver disease. Marked elevation of bilirubin suggest rather severe underlying liver disease. Given his active infection. I would not pursue steroids at this time. 2. Pneumonia. 3. Respiratory failure on ventilator. Four. Alcohol abuse. Will need to watch for signs of alcohol withdrawal. Subjective Date/time seen: 07/11/19 12:46 Objective Data Vital Signs Vital Signs: Vital Signs - 24 hr 07/10/19 14:00 07/10/19 14:20 07/10/19 16:00 Temperature 36.6 C Pulse Rate 77 78 77 Respiratory Rate 20 20 Blood Pressure 100/59 L 95/63 L Pulse Oximetry 96 97 96 07/10/19 17:02 07/10/19 18:00 07/10/19 20:00 Temperature 37.2 C Pulse Rate 79 79 81 Respiratory Rate 20 20 Blood Pressure 115/78 98/56 L Pulse Oximetry 96 96 96 07/10/19 21:09 07/10/19 22:00 07/10/19 23:30 Temperature Pulse Rate 84 94 94 Respiratory Rate 21 H Blood Pressure 101/60 Pulse Oximetry 96 91 94 07/11/19 00:00 07/11/19 02:00 07/11/19 04:00 Temperature 37.4 C 37.4 C Pulse Rate 93 93 97 Respiratory Rate 20 20 20 Blood Pressure 98/59 L 85/52 L 86/52 L Pulse Oximetry 94 93 93 07/11/19 04:34 07/11/19 06:00 07/11/19 07:49 Temperature Pulse Rate 92 88 Respiratory Rate 20 Blood Pressure 96/62 L Pulse Oximetry 93 95 95 07/11/19 08:00 07/11/19 08:30 07/11/19 10:00 Temperature 37.1 C Pulse Rate 94 94 106 H Respiratory Rate 22 H 25 H Blood Pressure 89/58 L 96/61 L Pulse Oximetry 93 93 94 07/11/19 11:00 07/11/19 12:00 Temperature Pulse Rate 94 Respiratory Rate Blood Pressure Pulse Oximetry 92 92 Intake/Output Intake/Output: Intake & Output 07/08/19 07/09/19 07/10/19 07/11/19 23:59 23:59 23:59 23:59 Intake Total 50 3691 2670 662 Output Total 1700 500 375 Balance 50 1990 2169 287 Meds/Results Medications: Active Medications Generic Name Dose Route Start Last Admin Trade Name Freq PRN Reason Stop Dose Admin Dextrose 12.5 gm 07/11/19 06:25 Dextrose 50% Syringe IV PUSH PRN PRN Hypoglycemia Protocol Folic Acid 1 mg 07/09/19 09:00 07/11/19 09:20 Folic Acid Inj IV PUSH 1 mg QAM LESLIE Administration Glucagon 1 mg 07/11/19 06:25 Glucagon For Inj IM PRN PRN Hypoglycemia Protocol Glucose 15 gm 07/11/19 06:25 Glutose 15 PO PRN PRN Hypoglycemia Protocol Heparin Sodium (Porcine) 5,000 units 07/09/19 14:00 07/11/19 06:42 Heparin Sodium SUB-Q 5,000 units Q8HR LESLIE Administration Propofol 100 mls @ 18.165 mls/hr 07/09/19 02:10 07/11/19 12:00 Diprivan IV CONT 35 mcg/kg/min .Q5H31M LESLIE 18.2 mls/hr Titration Protocol 35 MCG/KG/MIN Ceftriaxone Sodium/Dextrose 1 gm in 50 mls @ 100 mls/hr 07/09/19 18:00 07/10/19 18:03 Rocephin 1 Gm/D5w 50 Ml IVPB Infused Q24H LESLIE Infusion Azithromycin 250 mg/ Dextrose 250 mls @ 250 mls/hr 07/09/19 21:00 07/10/19 21:40 IVPB Infused Q24H LESLIE Infusion Fentanyl Citrate 2,500 mcg in 250 mls @ 10 mls/hr 07/09/19 07:55 07/11/19 12:00 Fentanyl 2,500 Mcg/Ns 250 Ml IV CONT 100 mcg/hr .Q25H LESLIE 10 mls/hr Titration Protocol Dextrose 1,000 mls @ 100 mls/hr 07/11/19 06:25 Dextrose 5% 1,000 Ml IVPB PRN PRN Hypoglycemia Protocol Sodium Chloride 1,000 mls @ 100 mls/hr 07/11/19 10:45 07/11/19 11:06 Normal Saline Iv IV CONT 100 mls/hr .Q10H LESLIE Administration Lactulose 20 gm 07/11/19 09:00 07/11/19 09:14 Lactulose FEED TUBE 20 gm BID LESLIE
--- NOTE | 2019-07-11 16:42 | PM.IMPN ---
Progress Note: A&P Assessment and Plan (1) Respiratory failure with hypoxia: Qualifiers: Chronicity: acute Qualified Code(s): J96.01 - Acute respiratory failure with hypoxia Code(s): J96.91 - Respiratory failure, unspecified with hypoxia Status: Acute Assessment and Plan: Result of pneumonia. Remains sedated with Versed and fentanyl on ventilator. Management of ventilator per feed research technician. Chest x-ray today reviewed with continued diffuse lung disease. Continue treatment of infection and liver issues as noted below. (2) Sepsis: Qualifiers: Acute respiratory failure type: with hypoxia Sepsis acute organ dysfunction status: with acute organ dysfunction Sepsis type: sepsis due to unspecified organism Severe sepsis acute organ dysfunction type: acute respiratory failure Severe sepsis shock status: without septic shock Qualified Code(s): A41.9 - Sepsis, unspecified organism; R65.20 - Severe sepsis without septic shock; J96.01 - Acute respiratory failure with hypoxia Code(s): A41.9 - Sepsis, unspecified organism Status: Acute Assessment and Plan: Criteria met on admission. Did receive normal saline bolus around time of intubation. Blood pressure reviewed on 07/11/2019 and remains stable to low without pressors. Telemetry reviewed on 07/11/2019 with sinus rhythm. Blood cultures negative . Sputum culture negative. Now on current IV antibiotics as noted below(D#3). Will monitor. (3) Pneumonia: Qualifiers: Laterality: bilateral Lung location: unspecified part of lung Pneumonia type: due to unspecified organism Qualified Code(s): J18.9 - Pneumonia, unspecified organism Code(s): J18.9 - Pneumonia, unspecified organism Status: Acute Assessment and Plan: Imaging consistent with multifocal lung disease suspicious for atypical pneumonia versus pulmonary edema. Infectious Disease now consulted and appreciate input. Remains on IV ceftriaxone and azithromycin (D#3). IV vancomycin and metronidazole discontinued. COVID testing negative x2. (4) Suspected COVID-19 virus infection: Code(s): Z20.828 - Contact with and (suspected) exposure to other viral communicable diseases Status: Acute Assessment and Plan: Imaging concerning for COVID 19 infection. Initial testing negative as is repeat COVID-19 testing . (5) Alcoholic cirrhosis: Qualifiers: Ascites presence: with ascites Qualified Code(s): K70.31 - Alcoholic cirrhosis of liver with ascites Code(s): K70.30 - Alcoholic cirrhosis of liver without ascites Status: Acute Assessment and Plan: CT abdomen/pelvis with findings of cirrhosis of the liver with portal venous hypertension and small amount of ascites. Known alcohol abuse. GI consulted and appreciate input. Liver function tests remain elevated with total bilirubin 11.9, AST 143, ALT 52 and alkaline phosphatase 173 today. Ammonia level was slightly elevated at 35 on admission. Vitamin B12 and folate levels normal. Will continue IV folic acid and thiamine. Continue supportive care given his other comorbidities. (6) Hyponatremia: Code(s): E87.1 - Hypo-osmolality and hyponatremia Status: Acute Assessment and Plan: Sodium 120 on admission. Most likely multifactorial including alcohol abuse and cirrhosis. Sodium is still 120. Additional evaluation in process. Will continue to monitor. (7) DVT prophylaxis: Code(s): Z29.9 - Encounter for prophylactic measures, unspecified Status: Acute Assessment and Plan: SCDs. (8) Acute kidney injury: Code(s): N17.9 - Acute kidney failure, unspecified Status: Acute Assessment and Plan: creatinine up to 3.2. but making good urine now. multifactorial, sepsis, contrast with CT 07/08, Vancomycin Nephrology following Subjective Date/time seen: 07/11/19 16:42 Interval history: Date of Service:
[2019-07-11 17:26] LABS: D Dimer 3.05 ug/mL (<0.48)
[2019-07-11] MEDS: PROPOFOL IV EMULSION 100 ML 13 MG IV CONT (19:24)
[2019-07-11] MEDS: NOREPINEPHRINE 8 MG/D5W 250 ML 8 MG/250 ML BAG 9.4 MG IV CONT (20:37)
[2019-07-11 23:48] LABS: Glucose Point of Care 160 (65-105)
[2019-07-11 23:48] LABS: Glucose Point of Care 99 (65-105)
[2019-07-12] VITALS (23 sets, daily range): BP systolic 82–105; BP diastolic 51–68; PULSE 76–105; RESP 21–24; TEMP 36.1–37.3; O2SAT 91–97
[2019-07-12] MEDS: SODIUM CHLORIDE 0.9% IV 1,000 ML 100 ML IV CONT ×2 (01:02→11:23)
[2019-07-12] MEDS: PROPOFOL IV EMULSION 100 ML 15.6 MG IV CONT ×2 (01:02→07:58)
[2019-07-12 04:51] LABS: Alveolar/Arterial O2 Gradient 282.6 mmHg; Carboxyhemoglobin 0.3 % THb (0-2.0); Fractional Inspired Oxygen 55 %; HCO3 ABG 22.9 mEq/l (22.0-26.0); Methemoglobin ABG 0.2 %THb (0-1.5); Oxygen Content ABG 12.1 %vol (16.0-22.0); Oxyhemoglobin 83.2 % THb (90.0-100.0); PO2 ABG 53.9 mmHg (80.0-100.0); PO2 FiO2 Ratio Arterial Blood 0.98 %; Reduced Hemoglobin 16.3 %THb (0-5.0); Total Hemoglobin 10.3 g/dL (12.0-18.0)
[2019-07-12 04:54] LABS: Oxygen Saturation ABG 83.6 % (95.0-100.0); pH ABG 7.278 (7.350-7.450)
[2019-07-12 04:55] LABS: Arterial Blood Gas PEEP 5 cmH2O; Arterial Blood Gas Vent Mode CMV; Arterial Blood Gas Ventilator rate 22 /MIN; Device VENTILATOR; Modified Allen's Test Pass; Site Drawn LEFT RADIAL
[2019-07-12 04:56] LABS: Arterial Blood Gas Tidal Volume 400 ml
[2019-07-12 05:14] LABS: Osmolality, Urine 549 mOsm/kg (50-1200)
[2019-07-12] MEDS: HEPARIN SODIUM 5,000 UNITS/ML VIAL 5000 UNITS SUB-Q ×3 (06:01→21:32)
[2019-07-12] MEDS: CENTRAL LINE FLUSH 10 ML IV PUSH ×3 (06:01→21:32)
[2019-07-12 06:05] LABS: Basophils Absolute Auto 0.1 K/mm3 (0.0-0.1); Basophils Percent Auto 0.8 % (0.2-1.2); Eosinophils Absolute Auto 0.1 K/mm3 (0-0.3); Eosinophils Percent Auto 0.6 % (0-4.4); Hematocrit 28.6 % (42.0-52.0); Hemoglobin 9.2 g/dL (14.0-18.0); Immature Granulocyte Absolute 0.98 K/mm3 (0.00-0.031); Lymphocytes Percent Auto 4.9 % (18.3-44.2); Mean Corpuscular HGB Conc 32.2 g/dl (32-36); Mean Corpuscular Hemoglobin 34.5 pg (26-34); Mean Corpuscular Volume 107.1 fl (80-100); Mean Platelet Volume 11.3 fl (7.4-10.4); Monocytes Absolute Auto 1.1 K/mm3 (0.1-0.6); Monocytes Percent Auto 9.2 % (2.6-8.5); Neutrophils Absolute Auto 9.4 K/mm3 (1.3-6.7); Neutrophils Percent Auto 76.5 % (45.5-73.1); Nucleated Red Blood Cells Perc 0.2 % (0.0-0.2); Platelet Count Result 162 k/mm3 (150-375); Red Blood Count 2.67 M/mm3 (4.6-6.20); Red Cell Distribution Width 17.3 % (11.5-14.5); White Blood Count 12.3 K/mm3 (4.5-10.0)
[2019-07-12 06:13] LABS: Albumin Level 2.5 g/dL (3.5-5.1); Blood Urea Nitrogen 50 mg/dL (9-20); Carbon Dioxide 22 mmol/L (22-30); Chloride 90 mmol/L (98-107); Estimated CRCL calculation 26 ml/min; Estimated Glomerular Filt Rate 17; Glucose 108 mg/dL (75-110); Magnesium 2.2 mg/dL (1.6-2.3); Phosphorus 7.6 mg/dL (2.5-4.5); Phosphorus 7.7 mg/dL (2.5-4.5); Potassium 3.7 mmol/L (3.4-5.0); Sodium 121 mmol/L (137-145)
[2019-07-12 06:17] LABS: Alanine Aminotransferase 45 U/L (4-50); Albumin Level 2.5 g/dL (3.5-5.1); Alkaline Phosphatase 190 U/L (38-126); Aspartate Amino Transferase 135 U/L (17-59); Bilirubin,Total 12.2 mg/dL (0.2-1.3); Blood Urea Nitrogen 51 mg/dL (9-20); Carbon Dioxide 22 mmol/L (22-30); Chloride 90 mmol/L (98-107); Estimated CRCL calculation 26 ml/min; Estimated Glomerular Filt Rate 17; Glucose 108 mg/dL (75-110); Potassium 3.7 mmol/L (3.4-5.0); Sodium 122 mmol/L (137-145)
[2019-07-12 06:39] LABS: Procalcitonin 0.89 ng/mL (<0.10)
[2019-07-12 07:04] LABS: Creatine Kinase 803 U/L (55-170); Triglycerides 392 mg/dL (<150)
--- NOTE | 2019-07-12 08:38 | WPDINTPN ---
Progress Note: A&P Assessment and Plan (1) Severe sepsis: Code(s): A41.9 - Sepsis, unspecified organism; R65.20 - Severe sepsis without septic shock Status: Acute Assessment and Plan: Likely as a result of pneumonia. May be intra abdominal process is now he has significant abdominal distention. Continue broad-spectrum antibiotics with ceftriaxone and azithromycin. Flagyl and vancomycin has been stopped as per ID recommendation. Continue to follow cultures. He has been hypertensive since yesterday and did not response to IV fluid boluses. He has been started on low-dose Levophed. I will send repeat blood culture, sputum culture and urine culture. CT chest abdomen pelvis will be performed to look for any intra abdominal process and to look at the status of lung involvement in pneumonic process as well as possible extension into the pleural space. (2) Alcoholic cirrhosis: Qualifiers: Ascites presence: with ascites Qualified Code(s): K70.31 - Alcoholic cirrhosis of liver with ascites Code(s): K70.30 - Alcoholic cirrhosis of liver without ascites Status: Acute Assessment and Plan: He has history of significant alcohol abuse which is ongoing. Hepatitis panel is negative. CT abdomen pelvis showed cirrhotic changes with evidence of portal hypertension. He has thrombocytopenia and low protein/albumin. Ammonia level is 35. Will try to achieve 1-2 bowel movement in a day. He was started on lactulose but will put it on hold because of significant abdominal distention. Gastroenterology service recommendations appreciated. He is not a candidate for steroids considering alcoholic hepatitis because of his pneumonia and other comorbidities. No active intervention. He is obviously not a candidate for transplant because of his active drinking issues. He had some coffee-ground material in his OG tube initially but that has cleared now. CT abdomen pelvis along with chest will be performed today. Hold tube feed for now. (3) Suspected COVID-19 virus infection: Code(s): Z20.828 - Contact with and (suspected) exposure to other viral communicable diseases Status: Acute Assessment and Plan: COVID-19 testing is found to be negative. Repeat COVID-19 testing has been reported as negative. Precautions have been discontinued. His ferritin level is 1910. Now since he is ruled out of COVID-19 it raises possibilities of significant inflammation versus HLH. CRP is trending up as well at the same time. (4) Pneumonia: Qualifiers: Laterality: bilateral Lung location: unspecified part of lung Pneumonia type: due to unspecified organism Qualified Code(s): J18.9 - Pneumonia, unspecified organism Code(s): J18.9 - Pneumonia, unspecified organism Status: Acute Assessment and Plan: Continue broad-spectrum antibiotics with ceftriaxone and azithromycin. Will stop vancomycin and Flagyl as per infectious disease service recommendations. Infectious disease service recommendations appreciated. Procalcitonin level is pending. Follow cultures. Sputum culture is in progress. Will repeat blood, urine and sputum culture because of new requirement of Levophed. Check lactic acid level. (5) Respiratory failure with hypoxia: Qualifiers: Chronicity: acute Qualified Code(s): J96.01 - Acute respiratory failure with hypoxia Code(s): J96.91 - Respiratory failure, unspecified with hypoxia Status: Acute Assessment and Plan: Ventilator adjustment were made. Continue CMV/AC for now. Low tidal volume strategies will be employed. Will increase respiratory rate to 24 and tidal volume to 420. He is requiring 50% of the FiO2 with good oxygen saturation. Continue to monitor ABG and chest x-ray. Continue sedation as per ICU protocol. Daily sedation vacation trial. He is currently on fentanyl and propofol. Will stop propo
--- NOTE | 2019-07-12 09:42 | PM.IMPN ---
Progress Note: A&P Assessment and Plan (1) Respiratory failure with hypoxia: Qualifiers: Chronicity: acute Qualified Code(s): J96.01 - Acute respiratory failure with hypoxia Code(s): J96.91 - Respiratory failure, unspecified with hypoxia Status: Acute Assessment and Plan: Result of pneumonia. Remains sedated on ventilator. Management of ventilator per manager advanced. Sedation still with Versed and fentanyl. Chest x-ray today with continued diffuse lung disease. Continue treatment of infection and liver issues as noted below. Discussed with manager advanced. CT chest/abdomen/pelvis ordered today result available this afternoon showing development of confluent bilateral lower lobe atelectasis and infection, scattered additional ground-glass infectious opacities, small pleural effusions, small to moderate ascites, colonic fluid and hepatic steatosis with possible cirrhosis and portal hypertension. Data Processing Clerk was able to update patient's mother by phone. Continue to monitor closely. (2) Sepsis: Qualifiers: Acute respiratory failure type: with hypoxia Sepsis acute organ dysfunction status: with acute organ dysfunction Sepsis type: sepsis due to unspecified organism Severe sepsis acute organ dysfunction type: acute respiratory failure Severe sepsis shock status: without septic shock Qualified Code(s): A41.9 - Sepsis, unspecified organism; R65.20 - Severe sepsis without septic shock; J96.01 - Acute respiratory failure with hypoxia Code(s): A41.9 - Sepsis, unspecified organism Status: Acute Assessment and Plan: Criteria met on admission. Severe sepsis with shock. Initially, blood pressure did improve with normal saline bolus. Patient now requiring low-dose Levophed. Blood pressure reviewed on 07/12/2019 remains low normal with pressor in place. Telemetry reviewed on 07/12/2019 with sinus rhythm. Sputum culture now growing yeast. Blood cultures negative thus far. Urine culture pending. Continue antibiotics as noted below. (3) Pneumonia: Qualifiers: Laterality: bilateral Lung location: unspecified part of lung Pneumonia type: due to unspecified organism Qualified Code(s): J18.9 - Pneumonia, unspecified organism Code(s): J18.9 - Pneumonia, unspecified organism Status: Acute Assessment and Plan: Imaging on admission consistent with multifocal lung disease suspicious for atypical pneumonia versus pulmonary edema. CT chest as noted above. Infectious Disease now consulted and appreciate input. Remains on IV ceftriaxone and azithromycin (Day #4). IV vancomycin and metronidazole discontinued. COVID testing negative x2. (4) Acute kidney injury: Code(s): N17.9 - Acute kidney failure, unspecified Status: Acute Assessment and Plan: Creatinine now increased to 3.90. Suspect multifactorial. Nephrology consulted and appreciate input. Will continue to follow. (5) Suspected COVID-19 virus infection: Code(s): Z20.828 - Contact with and (suspected) exposure to other viral communicable diseases Status: Acute Assessment and Plan: Imaging concerning for COVID 19 infection. Initial and repeat testing both negative. (6) Alcoholic cirrhosis: Qualifiers: Ascites presence: with ascites Qualified Code(s): K70.31 - Alcoholic cirrhosis of liver with ascites Code(s): K70.30 - Alcoholic cirrhosis of liver without ascites Status: Acute Assessment and Plan: CT abdomen/pelvis on admission with findings of cirrhosis of the liver with portal venous hypertension and small amount of ascites. Repeat CT abdomen/pelvis today as noted above. Known alcohol abuse. GI consulted and appreciate input. Liver function tests remain elevated with total bilirubin 12.2, AST 135, ALT 45 and alkaline phosphatase 190 today. Ammonia level was slightly elevated at 35 on admission. Vitamin B12 and folate levels normal. Will
[2019-07-12] MEDS: THIAMINE HCL 200 MG/2 ML VIAL 100 MG IV PUSH (09:56)
[2019-07-12] MEDS: FOLIC ACID 1 MG/0.2 ML INJ IV PUSH (09:56)
[2019-07-12] MEDS: PANTOPRAZOLE SODIUM IV 40 MG VIAL IV PUSH ×2 (09:57→20:10)
--- NOTE | 2019-07-12 11:44 | PM.PNNEP ---
Progress Note: A&P Assessment and Plan (1) Acute kidney injury: Code(s): N17.9 - Acute kidney failure, unspecified Status: Acute Assessment and Plan: The patient's creatinine continues to rise. Today it is up to 3.9. The change in creatinine is less, however, any is making some urine. Hopefully he will turn around soon. His urine output picked up a little bit. He made 500cc overnight. Still a bit hypotensive. He is on norepinephrine at 5. He is getting some fluid. (2) Hyponatremia: Code(s): E87.1 - Hypo-osmolality and hyponatremia Status: Acute Assessment and Plan: The patient has hyponatremia. Cortisol and TSH are okay. S PE is pending. This is most likely pre renal in nature. Now that he has renal failure, this will be playing a role as well. Sodium level is still only 121. The patient is sedated so it is difficult to tell whether he is symptomatic from this however since it is been very stable I doubt if he would have any symptoms. Since the sodium has not changed at all I will give a little bit of 3% saline just to get the sodium level up into the mid 120s. It is clear that he is not going to overcorrect on his own. (3) Alcohol abuse: Code(s): F10.10 - Alcohol abuse, uncomplicated Status: Acute Assessment and Plan: Very difficult situation is he is had a hard time with abstinence. (4) Suspected COVID-19 virus infection: Code(s): Z20.828 - Contact with and (suspected) exposure to other viral communicable diseases Status: Acute Assessment and Plan: Repeat test is negative. (5) Sepsis: Qualifiers: Acute respiratory failure type: with hypoxia Sepsis acute organ dysfunction status: with acute organ dysfunction Sepsis type: sepsis due to unspecified organism Severe sepsis acute organ dysfunction type: acute respiratory failure Severe sepsis shock status: without septic shock Qualified Code(s): A41.9 - Sepsis, unspecified organism; R65.20 - Severe sepsis without septic shock; J96.01 - Acute respiratory failure with hypoxia Code(s): A41.9 - Sepsis, unspecified organism Status: Acute Assessment and Plan: Patient has a soft blood pressure On norepinephrine. (6) Respiratory failure with hypoxia: Qualifiers: Chronicity: acute Qualified Code(s): J96.01 - Acute respiratory failure with hypoxia Code(s): J96.91 - Respiratory failure, unspecified with hypoxia Status: Acute Assessment and Plan: He is on the ventilator. Subjective Date/time seen: 07/12/19 11:44 Interval history: Patient is still on the ventilator. Made 500cc overnight. He is on some sedatives. He looks comfortable Review of Systems Cardiovascular: Cardiovascular: Reports no additional cardiovascular complaints Respiratory: Respiratory: Reports no additional respiratory complaints Gastrointestinal: Gastrointestinal: Reports no additional gastrointestinal complaints Genitourinary: Genitourinary: Reports no additional male genitourinary complaints Exam Narrative: Exam Narrative: WDWN in NAD skin no rash or subcu nodules head ncat lungs mild coarse airways. cor reg no rub or gallop abd BS+ nontender and soft ext no edema or cyanosis Objective Data Vital Signs Vital Signs: Vital Signs - 24 hr 07/11/19 12:00 07/11/19 13:42 07/11/19 14:00 Temperature 37.2 C Pulse Rate 92 94 94 Respiratory Rate 22 H 22 H Blood Pressure 82/49 L 83/50 L Pulse Oximetry 92 95 95 07/11/19 16:00 07/11/19 17:58 07/11/19 18:00 Temperature 37.7 C H Pulse Rate 98 99 98 Respiratory Rate 22 H 22 H Blood Pressure 82/48 L 77/46 L Pulse Oximetry 95 95 93 07/11/19 19:01 07/11/19 19:16 07/11/19 20:00 Temperature 37.1 C Pulse Rate 94 95 96 Respiratory Rate 22 H 22 H Blood Pressure 75/46 L 75/47 L Pulse Oximetry 91 93 91 07/11/19 20:05 07/11/19 20:31 07/11/19 20:46 Temperature
[2019-07-12] MEDS: SODIUM CHLORIDE 3% 360 ML 90 ML IV CONT (12:38)
--- NOTE | 2019-07-12 14:36 | WPDGIPROGNO ---
Progress Note: A&P Additional Plan Patient remains intubated on the ventilator. Unable to give any additional history. Physical exam reveals marked scleral icterus. Lungs have rhonchi. Abdomen is somewhat distended and protuberant. Tympany noted on exam. Bowel sounds are present. Tube feedings now on hold. Impression 1. Alcoholic cirrhosis of the liver , marked elevation of LFTs a poor prognostic sign. Plan is for conservative therapy. Steroids on hold because of infectious process in the lungs. 2. Respiratory failure patient on ventilator with pneumonia. 3. Acute on chronic renal failure. Her renal service following. Significant lack to light imbalance and azotemia at this time. Agree with holding tube feedings. CT scan of the abdomen to be obtained today. Will hold lactulose until findings of CT scanner known. Hopefully this will help decrease serum ammonia level and help with bowel function. 4. Sepsis. Subjective Date/time seen: 07/12/19 14:36 Objective Data Vital Signs Vital Signs: Vital Signs - 24 hr 07/11/19 16:00 07/11/19 17:58 07/11/19 18:00 Temperature 37.7 C H Pulse Rate 98 99 98 Respiratory Rate 22 H 22 H Blood Pressure 82/48 L 77/46 L Pulse Oximetry 95 95 93 07/11/19 19:01 07/11/19 19:16 07/11/19 20:00 Temperature 37.1 C Pulse Rate 94 95 96 Respiratory Rate 22 H 22 H Blood Pressure 75/46 L 75/47 L Pulse Oximetry 91 93 91 07/11/19 20:05 07/11/19 20:31 07/11/19 20:46 Temperature Pulse Rate 103 H 97 103 H Respiratory Rate 22 H 19 Blood Pressure 80/50 L 99/63 L Pulse Oximetry 90 92 92 07/11/19 20:53 07/11/19 21:26 07/11/19 21:31 Temperature Pulse Rate 114 H 99 100 Respiratory Rate 23 H 22 H 22 H Blood Pressure 109/66 84/51 L 87/59 L Pulse Oximetry 88 L 92 95 07/11/19 21:46 07/11/19 22:00 07/11/19 22:01 Temperature Pulse Rate 103 H 101 H 101 H Respiratory Rate 22 H 22 H Blood Pressure 95/61 L 89/55 L Pulse Oximetry 94 94 07/11/19 23:29 07/12/19 00:00 07/12/19 00:01 Temperature 36.5 C Pulse Rate 96 93 93 Respiratory Rate 21 H Blood Pressure 104/68 Pulse Oximetry 91 93 07/12/19 02:00 07/12/19 02:01 07/12/19 02:12 Temperature Pulse Rate 79 79 80 Respiratory Rate 22 H Blood Pressure 101/65 Pulse Oximetry 96 96 07/12/19 04:00 07/12/19 04:01 07/12/19 04:59 Temperature 36.1 C L Pulse Rate 80 80 80 Respiratory Rate 22 H Blood Pressure 100/65 Pulse Oximetry 95 94 07/12/19 06:00 07/12/19 08:00 07/12/19 08:30 Temperature 36.1 C L Pulse Rate 83 83 82 Respiratory Rate 22 H 22 H Blood Pressure 93/57 L 105/65 Pulse Oximetry 95 95 96 07/12/19 10:00 07/12/19 12:00 07/12/19 14:00 Temperature 36.9 C Pulse Rate 88 93 98 Respiratory Rate 24 H 24 H 24 H Blood Pressure 90/61 L 90/56 L 84/52 L Pulse Oximetry 97 92 92 Intake/Output Intake/Output: Intake & Output 07/09/19 07/10/19 07/11/19 07/12/19 23:59 23:59 23:59 23:59 Intake Total 3691 2670 4100 1603 Output Total 1700 500 525 500 Balance 1990 2170 3575 1103 Meds/Results Medications: Active Medications Generic Name Dose Route Start Last Admin Trade Name Freq PRN Reason Stop Dose Admin Dextrose 12.5 gm 07/11/19 06:25 Dextrose 50% Syringe IV PUSH PRN PRN Hypoglycemia Protocol Folic Acid 1 mg 07/09/19 09:00 07/12/19 09:56 Folic Acid Inj IV PUSH 1 mg QAM LESLIE Administration Glucagon 1 mg 07/11/19 06:25 Glucagon For Inj IM PRN PRN Hypoglycemia Protocol Glucose 15 gm 07/11/19 06:25 Glutose 15 PO PRN PRN Hypoglycemia Protocol Heparin Sodium (Porcine) 5,000 units 07/09/19 14:00 07/12/19 06:01 Heparin Sodium SUB-Q 5,000 units Q8HR LESLIE Administration Ceftriaxone Sodium/Dextrose 1 gm in 50 mls @ 100 mls/hr 07/09/19 18:00 07/11/19 19:45 Rocephin 1 Gm/D5w 50 Ml IVPB Infused Q24H LESLIE Infusion Azithromycin 250 mg/ Dextrose 250 mls @ 250 mls/hr
[2019-07-12 18:23] LABS: Sodium 126 mmol/L (137-145)
[2019-07-12 18:26] LABS: Glucose Point of Care 110 (65-105)
[2019-07-12] MEDS: NOREPINEPHRINE 8 MG/D5W 250 ML 8 MG/250 ML BAG 13.1 MG IV CONT (21:32)
[2019-07-13] VITALS (20 sets, daily range): BP systolic 86–119; BP diastolic 51–73; PULSE 76–91; RESP 24; TEMP 36.1–36.8; O2SAT 90–98
[2019-07-13] MEDS: SODIUM CHLORIDE 0.9% IV 1,000 ML 100 ML IV CONT ×2 (04:37→14:39)
[2019-07-13 05:01] LABS: Alveolar/Arterial O2 Gradient 291.7 mmHg; Base Excess ABG -6.1 mEq/l (+/-2.0); Carboxyhemoglobin 0.3 % THb (0-2.0); Fractional Inspired Oxygen 60 %; HCO3 ABG 19.7 mEq/l (22.0-26.0); Methemoglobin ABG 0.1 %THb (0-1.5); Oxygen Content ABG 13.5 %vol (16.0-22.0); Oxygen Saturation ABG 96.3 % (95.0-100.0); PCO2 ABG 40.4 mmHg (35.0-45.0); PO2 ABG 91.7 mmHg (80.0-100.0); PO2 FiO2 Ratio Arterial Blood 1.53 %; Reduced Hemoglobin 4.6 %THb (0-5.0); pH ABG 7.307 (7.350-7.450)
[2019-07-13 05:04] LABS: Device VENTILATOR; Modified Allen's Test Pass; Site Drawn RIGHT RADIAL
[2019-07-13 05:05] LABS: Arterial Blood Gas PEEP 5 cmH2O; Arterial Blood Gas Pressure Support 0 cmH2O; Arterial Blood Gas Tidal Volume 420 ml; Arterial Blood Gas Vent Mode CMV; Arterial Blood Gas Ventilator rate 24 /MIN
[2019-07-13] MEDS: CENTRAL LINE FLUSH 10 ML IV PUSH ×4 (05:34→20:34)
[2019-07-13] MEDS: HEPARIN SODIUM 5,000 UNITS/ML VIAL 5000 UNITS SUB-Q ×3 (05:34→20:34)
[2019-07-13 05:35] LABS: Hematocrit 27.7 % (42.0-52.0); Hemoglobin 9.1 g/dL (14.0-18.0); Mean Corpuscular HGB Conc 32.9 g/dl (32-36); Mean Corpuscular Volume 106.5 fl (80-100); Mean Platelet Volume 10.8 fl (7.4-10.4); Platelet Count Result 199 k/mm3 (150-375); Red Cell Distribution Width 18.1 % (11.5-14.5); White Blood Count 12.9 K/mm3 (4.5-10.0)
[2019-07-13 05:52] LABS: Alanine Aminotransferase 36 U/L (4-50); Albumin Level 2.4 g/dL (3.5-5.1); Alkaline Phosphatase 187 U/L (38-126); Aspartate Amino Transferase 88 U/L (17-59); Blood Urea Nitrogen 61 mg/dL (9-20); Calcium 7.2 mg/dL (8.4-10.2); Carbon Dioxide 22 mmol/L (22-30); Chloride 98 mmol/L (98-107); Estimated CRCL calculation 27 ml/min; Estimated Glomerular Filt Rate 18; Glucose 91 mg/dL (75-110); Magnesium 2.4 mg/dL (1.6-2.3); Potassium 3.5 mmol/L (3.4-5.0); Sodium 127 mmol/L (137-145)
--- NOTE | 2019-07-13 07:55 | WPDINTPN ---
Progress Note: A&P Assessment and Plan (1) Severe sepsis: Code(s): A41.9 - Sepsis, unspecified organism; R65.20 - Severe sepsis without septic shock Status: Acute Assessment and Plan: Likely as a result of pneumonia. Continue broad-spectrum antibiotics with ceftriaxone and azithromycin. Flagyl and vancomycin has been stopped as per ID recommendation. Continue to follow cultures. Cultures have been negative so far. He was pancultured yesterday again which has been pending so far. Sputum culture is showing yeast. He has been taken off Levophed now. He required Levophed for about 24 hour or so. Blood pressure now with systolic mid 90s. CT chest abdomen pelvis showed bilateral infiltrate in the lower lung as well as scattered additional ground-glass opacities. Small pleural effusion with small to moderate ascites. Hepatic steatosis/cirrhosis with evidence of portal hypertension. CT scan was obtained without contrast. (2) Alcoholic cirrhosis: Qualifiers: Ascites presence: with ascites Qualified Code(s): K70.31 - Alcoholic cirrhosis of liver with ascites Code(s): K70.30 - Alcoholic cirrhosis of liver without ascites Status: Acute Assessment and Plan: He has history of significant alcohol abuse which is ongoing. Hepatitis panel is negative. CT abdomen pelvis showed cirrhotic changes with evidence of portal hypertension. He has thrombocytopenia and low protein/albumin. Ammonia level is 35. Will try to achieve 1-2 bowel movement in a day. He was started initially on lactulose but that has been put on hold because of abdominal distention. He has been having diarrhea now. Gastroenterology service recommendations appreciated. He is not a candidate for steroids considering alcoholic hepatitis because of his pneumonia and other comorbidities. No active intervention. He is obviously not a candidate for transplant because of his active drinking issues. He had some coffee-ground material in his OG tube initially but that has cleared now. He is currently on pantoprazole IV twice a day. Resume tube feed with a rate of 10-20 mL/hour and gradually advanced had to his goal rate. (3) Suspected COVID-19 virus infection: Code(s): Z20.828 - Contact with and (suspected) exposure to other viral communicable diseases Status: Ruled-out Assessment and Plan: COVID-19 testing was found to be negative. Repeat COVID-19 testing has been reported as negative. Precautions have been discontinued. His ferritin level is 1910 with his CRP being elevated as well. Likely as a result of inflammation/pneumonia. (4) Pneumonia: Qualifiers: Laterality: bilateral Lung location: unspecified part of lung Pneumonia type: due to unspecified organism Qualified Code(s): J18.9 - Pneumonia, unspecified organism Code(s): J18.9 - Pneumonia, unspecified organism Status: Acute Assessment and Plan: Continue broad-spectrum antibiotics with ceftriaxone and azithromycin and complete a course of 7-10 days. May potentially stop azithromycin in a.m.. Vancomycin and Flagyl has been stopped as per infectious disease service recommendations. Infectious disease service recommendations appreciated. Procalcitonin level is 0.89. Follow cultures. Sputum culture is in progress. Blood urine and sputum culture has been repeated yesterday which has been negative so far. (5) Respiratory failure with hypoxia: Qualifiers: Chronicity: acute Qualified Code(s): J96.01 - Acute respiratory failure with hypoxia Code(s): J96.91 - Respiratory failure, unspecified with hypoxia Status: Acute Assessment and Plan: Continue mechanical ventilation at current setting.. Continue CMV/AC for now. Low tidal volume strategies will be employed. He is currently on 60% FiO2 and PEEP of 5. Will wean FiO2 is 40%. Continue to monitor ABG and chest x-ray.
--- NOTE | 2019-07-13 08:13 | PM.IMPN ---
Progress Note: A&P Assessment and Plan (1) Respiratory failure with hypoxia: Qualifiers: Chronicity: acute Qualified Code(s): J96.01 - Acute respiratory failure with hypoxia Code(s): J96.91 - Respiratory failure, unspecified with hypoxia Status: Acute Assessment and Plan: Result of pneumonia. Still on ventilator. Sedation with Versed and fentanyl. Management of ventilator per refrigeration specialist. Discussed with refrigeration specialist today. Chest xray today with extensive bilateral pulmonary infiltrates still present but patient is making some improvements. Plan for SBT today although not hopeful for extubation. CT chest/abdomen/pelvis from 07/12/2019 with development of confluent bilateral lower lobe atelectasis and infection, scattered additional ground-glass infectious opacities, small pleural effusions, small to moderate ascites, colonic fluid and hepatic steatosis with possible cirrhosis and portal hypertension. Continue other treatments as noted below. Continue to monitor. (2) Sepsis: Qualifiers: Sepsis type: sepsis due to unspecified organism Sepsis acute organ dysfunction status: with acute organ dysfunction Severe sepsis acute organ dysfunction type: acute respiratory failure Acute respiratory failure type: with hypoxia Severe sepsis shock status: without septic shock Qualified Code(s): A41.9 - Sepsis, unspecified organism; R65.20 - Severe sepsis without septic shock; J96.01 - Acute respiratory failure with hypoxia Code(s): A41.9 - Sepsis, unspecified organism Status: Acute Assessment and Plan: Criteria met on admission. Severe sepsis with shock. Initially, blood pressure did improve with normal saline bolus. Subsequently required ow-dose Levophed but has now weaned off this morning. Blood pressure reviewed on 07/13/2019 and low normal but stable. Telemetry reviewed on 07/13/2019 with sinus rhythm. Initial sputum culture now growing yeast with repeat sputum culture pending. Blood cultures still negative. Urine culture pending. Continue antibiotics as noted below. (3) Pneumonia: Qualifiers: Pneumonia type: due to unspecified organism Laterality: bilateral Lung location: unspecified part of lung Qualified Code(s): J18.9 - Pneumonia, unspecified organism Code(s): J18.9 - Pneumonia, unspecified organism Status: Acute Assessment and Plan: Imaging on admission consistent with multifocal lung disease suspicious for atypical pneumonia versus pulmonary edema. Chest xray today as noted above. CT chest as noted above. Infectious Disease consulted and appreciate input. Will continue IV ceftriaxone and azithromycin (Day #5). IV vancomycin and metronidazole discontinued on 07/10/2019. COVID testing negative x2. (4) Acute kidney injury: Code(s): N17.9 - Acute kidney failure, unspecified Status: Acute Assessment and Plan: Nephrology consulted and appreciate input. Suspect multifactorial. Creatinine slightly better at 3.70 today. Urine output increased in past 24 hours. Will continue to monitor. (5) Alcoholic cirrhosis: Qualifiers: Ascites presence: with ascites Qualified Code(s): K70.31 - Alcoholic cirrhosis of liver with ascites Code(s): K70.30 - Alcoholic cirrhosis of liver without ascites Status: Acute Assessment and Plan: CT abdomen/pelvis on admission with findings of cirrhosis of the liver with portal venous hypertension and small amount of ascites. Repeat CT abdomen/pelvis today as noted above. Known alcohol abuse. GI consulted and appreciate input. Liver function tests remain elevated but with improvement. Total bilirubin 12.0, AST 88, ALT 36 and alkaline phosphatase 187 today - will follow. Ammonia level was slightly elevated at 35 on admission. Vitamin B12 and folate levels normal. Will continue IV folic acid and thiamine. Continue supportive care while treating other conditions as no
[2019-07-13] MEDS: THIAMINE HCL 200 MG/2 ML VIAL 100 MG IV PUSH (08:25)
[2019-07-13] MEDS: FOLIC ACID 1 MG/0.2 ML INJ IV PUSH (08:25)
[2019-07-13] MEDS: PANTOPRAZOLE SODIUM IV 40 MG VIAL IV PUSH ×2 (08:25→20:32)
--- NOTE | 2019-07-13 10:05 | PM.PNNEP ---
Progress Note: A&P Assessment and Plan (1) Acute kidney injury: Code(s): N17.9 - Acute kidney failure, unspecified Status: Acute Assessment and Plan: The patient's creatinine fell a little bit. Today it is 3.7 His urine output is up quite a bit from the day before. Hopefully he is recovering. (2) Hyponatremia: Code(s): E87.1 - Hypo-osmolality and hyponatremia Status: Acute Assessment and Plan: The patient has hyponatremia. Cortisol and TSH are okay. SPE is pending. This is most likely pre renal in nature. Now that he has renal failure, this will be playing a role as well. Sodium level was stable at about 121. Since he was not making much urine I gave him 3% saline. His sodium improved to 126. Today his sodium is 127. Now that he is making urine he may begin to auto correct and so will (3) Alcohol abuse: Code(s): F10.10 - Alcohol abuse, uncomplicated Status: Acute Assessment and Plan: Very difficult situation is he is had a hard time with abstinence. (4) Suspected COVID-19 virus infection: Code(s): Z20.828 - Contact with and (suspected) exposure to other viral communicable diseases Status: Ruled-out Assessment and Plan: Repeat test is negative. (5) Sepsis: Qualifiers: Sepsis type: sepsis due to unspecified organism Sepsis acute organ dysfunction status: with acute organ dysfunction Severe sepsis acute organ dysfunction type: acute respiratory failure Acute respiratory failure type: with hypoxia Severe sepsis shock status: without septic shock Qualified Code(s): A41.9 - Sepsis, unspecified organism; R65.20 - Severe sepsis without septic shock; J96.01 - Acute respiratory failure with hypoxia Code(s): A41.9 - Sepsis, unspecified organism Status: Acute Assessment and Plan: Patient has a soft blood pressure On norepinephrine. But the dose was reduced from 5 to 1 recently. (6) Respiratory failure with hypoxia: Qualifiers: Chronicity: acute Qualified Code(s): J96.01 - Acute respiratory failure with hypoxia Code(s): J96.91 - Respiratory failure, unspecified with hypoxia Status: Acute Assessment and Plan: He is on the ventilator. Subjective Date/time seen: 07/13/19 10:05 Interval history: Patient is still on the ventilator. Made 500cc overnight. He is on some sedatives. He looks comfortable Review of Systems Cardiovascular: Cardiovascular: Reports no additional cardiovascular complaints Respiratory: Respiratory: Reports no additional respiratory complaints Gastrointestinal: Gastrointestinal: Reports no additional gastrointestinal complaints Genitourinary: Genitourinary: Reports no additional male genitourinary complaints Exam Narrative: Exam Narrative: WDWN in NAD skin no rash or subcu nodules head ncat lungs mild coarse airways. cor reg no rub or gallop abd BS+ nontender and soft ext no edema or cyanosis Objective Data Vital Signs Vital Signs: Vital Signs - 24 hr 07/12/19 11:00 07/12/19 12:00 07/12/19 14:00 Temperature 36.9 C Pulse Rate 105 H 93 98 Respiratory Rate 24 H 24 H Blood Pressure 90/56 L 84/52 L Pulse Oximetry 92 92 92 07/12/19 14:30 07/12/19 16:00 07/12/19 16:15 Temperature 37.3 C Pulse Rate 96 94 99 Respiratory Rate 24 H Blood Pressure 82/51 L Pulse Oximetry 91 91 93 07/12/19 18:00 07/12/19 20:00 07/12/19 20:26 Temperature 37.2 C Pulse Rate 94 88 89 Respiratory Rate 24 H 24 H Blood Pressure 97/59 L 97/63 L Pulse Oximetry 91 94 97 07/12/19 22:00 07/12/19 23:26 07/13/19 00:00 Temperature 36.5 C Pulse Rate 87 76 76 Respiratory Rate 24 H 24 H Blood Pressure 105/60 119/73 Pulse Oximetry 95 97 97 07/13/19 02:00 07/13/19 02:38 07/13/19 04:00 Temperature 36.4 C Pulse Rate 84 82 80 Respiratory Rate 24 H 24 H Blood Pressure 115/68 94/59 L Pulse Oximetry 95 96 98 07/13/19 04:
[2019-07-13 22:57] LABS: Alpha 1 Globulin 0.4 g/dL (0.2-0.3); Alpha 2 Globulin 0.7 g/dL (0.5-0.9); Beta 1 Globulin 0.2 g/dL (0.4-0.6); Gamma Globulin 0.6 g/dL (0.8-1.7); Protein, Total 4.1 g/dL (6.1-8.1)
[2019-07-13 23:36] LABS: Glucose Point of Care 85 (65-105)
[2019-07-14] VITALS (24 sets, daily range): BP systolic 87–119; BP diastolic 52–71; PULSE 79–118; RESP 23–27; TEMP 36.6–37.1; O2SAT 92–100
[2019-07-14] MEDS: SODIUM CHLORIDE 0.9% IV 1,000 ML 100 ML IV CONT ×2 (01:08→11:04)
[2019-07-14 04:34] LABS: Alveolar/Arterial O2 Gradient 179.1 mmHg; Base Excess ABG -5.4 mEq/l (+/-2.0); Carboxyhemoglobin 0.4 % THb (0-2.0); Fractional Inspired Oxygen 40 %; HCO3 ABG 19.4 mEq/l (22.0-26.0); Methemoglobin ABG 0.3 %THb (0-1.5); Oxygen Content ABG 12.3 %vol (16.0-22.0); Oxygen Saturation ABG 92.4 % (95.0-100.0); Oxyhemoglobin 89.7 % THb (90.0-100.0); PCO2 ABG 35.1 mmHg (35.0-45.0); PO2 ABG 65.7 mmHg (80.0-100.0); PO2 FiO2 Ratio Arterial Blood 1.64 %; Reduced Hemoglobin 9.6 %THb (0-5.0); Total Hemoglobin 9.7 g/dL (12.0-18.0)
[2019-07-14 04:39] LABS: Device VENTILATOR; Modified Allen's Test Pass; Site Drawn RIGHT RADIAL
[2019-07-14 04:40] LABS: Arterial Blood Gas PEEP 5 cmH2O; Arterial Blood Gas Vent Mode CMV; Arterial Blood Gas Ventilator rate 24 /MIN
[2019-07-14 04:42] LABS: Arterial Blood Gas Tidal Volume 420 ml
[2019-07-14] MEDS: HEPARIN SODIUM 5,000 UNITS/ML VIAL 5000 UNITS SUB-Q ×3 (05:14→21:11)
[2019-07-14] MEDS: CENTRAL LINE FLUSH 10 ML IV PUSH ×4 (05:15→17:33)
[2019-07-14 05:16] LABS: Alanine Aminotransferase 36 U/L (4-50); Albumin Level 2.3 g/dL (3.5-5.1); Alkaline Phosphatase 202 U/L (38-126); Aspartate Amino Transferase 86 U/L (17-59); Bilirubin,Total 12.6 mg/dL (0.2-1.3); Blood Urea Nitrogen 68 mg/dL (9-20); Calcium 7.5 mg/dL (8.4-10.2); Carbon Dioxide 21 mmol/L (22-30); Chloride 101 mmol/L (98-107); Estimated CRCL calculation 36 ml/min; Estimated Glomerular Filt Rate 25; Glucose 79 mg/dL (75-110); Magnesium 2.5 mg/dL (1.6-2.3); Phosphorus 4.3 mg/dL (2.5-4.5); Potassium 3.3 mmol/L (3.4-5.0); Sodium 130 mmol/L (137-145)
[2019-07-14 05:20] LABS: Hematocrit 28.2 % (42.0-52.0); Hemoglobin 9.1 g/dL (14.0-18.0); Mean Corpuscular HGB Conc 32.3 g/dl (32-36); Mean Corpuscular Hemoglobin 34.2 pg (26-34); Mean Platelet Volume 10.9 fl (7.4-10.4); Platelet Count Result 206 k/mm3 (150-375); Red Blood Count 2.66 M/mm3 (4.6-6.20); Red Cell Distribution Width 18.2 % (11.5-14.5); White Blood Count 12.9 K/mm3 (4.5-10.0)
--- NOTE | 2019-07-14 07:12 | WPDGIPROGNO ---
Progress Note: A&P Additional Plan Patient remains on the ventilator. Sedated. Unable to give any history. Physical exam reveals patient intubated. NG tube in place. Lungs reveal poor better breath sounds some rales. Abdomen is distended. Some tympany. Bowel sounds are present. Impression 1. Abdominal distention. Likely related to ascites. He may have some poor motility as well. Nursing staff review port elevated gastric residuals on tube feedings. He continues to have bowel movements however. CT scan confirms ascites as well as pneumonia. Recent KUB with nonobstructive bowel gas pattern. Consider diuresis if his blood pressure and electrolytes will allow. Plan is to try Dulcolax suppositories. Perhaps Reglan promotility agent may be of some benefit. 2. Respiratory failure patient remains on ventilator. Lung consolidation consistent with pneumonia on x-rays. 3. Alcoholic cirrhosis of the liver. Subjective Date/time seen: 07/14/19 07:12 Objective Data Vital Signs Vital Signs: Vital Signs - 24 hr 07/13/19 07:50 07/13/19 08:00 07/13/19 10:00 Temperature 36.5 C Pulse Rate 81 82 87 Respiratory Rate 24 H 24 H Blood Pressure 91/51 L 86/52 L Pulse Oximetry 96 92 90 07/13/19 11:30 07/13/19 12:00 07/13/19 13:36 Temperature 36.1 C L Pulse Rate 88 86 90 Respiratory Rate 24 H Blood Pressure 91/58 L Pulse Oximetry 91 93 95 07/13/19 13:59 07/13/19 16:00 07/13/19 16:45 Temperature 36.4 C L Pulse Rate 91 87 87 Respiratory Rate 24 H 24 H Blood Pressure 110/67 88/55 L Pulse Oximetry 94 95 94 07/13/19 17:52 07/13/19 19:55 07/13/19 20:00 Temperature 36.8 C Pulse Rate 85 79 77 Respiratory Rate 24 H 24 H Blood Pressure 93/57 L 98/61 L Pulse Oximetry 95 96 96 07/13/19 22:00 07/13/19 23:19 07/14/19 00:00 Temperature 36.6 C Pulse Rate 80 78 79 Respiratory Rate 24 H 24 H Blood Pressure 101/64 110/71 Pulse Oximetry 96 98 94 07/14/19 01:59 07/14/19 02:00 07/14/19 04:00 Temperature 37.1 C Pulse Rate 83 83 83 Respiratory Rate 24 H 24 H Blood Pressure 101/62 100/58 L Pulse Oximetry 95 95 94 07/14/19 04:43 07/14/19 06:00 Temperature Pulse Rate 83 84 Respiratory Rate 24 H Blood Pressure 100/64 Pulse Oximetry 94 93 Intake/Output Intake/Output: Intake & Output 07/11/19 07/12/19 07/13/19 07/14/19 23:59 23:59 23:59 23:59 Intake Total 4100 3602 3020 1089 Output Total 256 216 1428 750 Balance 3575 2702 1295 339 Meds/Results Medications: Active Medications Generic Name Dose Route Start Last Admin Trade Name Freq PRN Reason Stop Dose Admin Dextrose 12.5 gm 07/11/19 06:25 Dextrose 50% Syringe IV PUSH PRN PRN Hypoglycemia Protocol Folic Acid 1 mg 07/09/19 09:00 07/13/19 08:25 Folic Acid Inj IV PUSH 1 mg QAM LESLIE Administration Glucagon 1 mg 07/11/19 06:25 Glucagon For Inj IM PRN PRN Hypoglycemia Protocol Glucose 15 gm 07/11/19 06:25 Glutose 15 PO PRN PRN Hypoglycemia Protocol Heparin Sodium (Porcine) 5,000 units 07/09/19 14:00 07/14/19 05:14 Heparin Sodium SUB-Q 5,000 units Q8HR LESLIE Administration Ceftriaxone Sodium/Dextrose 1 gm in 50 mls @ 100 mls/hr 07/09/19 18:00 07/13/19 18:15 Rocephin 1 Gm/D5w 50 Ml IVPB Infused Q24H LESLIE Infusion Azithromycin 250 mg/ Dextrose 250 mls @ 250 mls/hr 07/09/19 21:00 07/13/19 21:37 IVPB Infused Q24H LESLIE Infusion Fentanyl Citrate 2,500 mcg in 250 mls @ 7.5 mls/hr 07/09/19 07:55 07/14/19 02:30 Fentanyl 2,500 Mcg/Ns 250 Ml IV CONT 75 mcg/hr .[id number] LESLIE 7.5 mls/hr Titration Protocol 75 MCG/HR Dextrose 1,000 mls @ 100 mls/hr 07/11/19 06:25 Dextrose 5% 1,000 Ml IVPB PRN PRN Hypoglycemia Protocol Sodium Chloride 1,000 mls @ 100 mls/hr 07/11/19 10:45 07/14/19 01:08 Normal Saline Iv IV CONT 100 mls/hr .Q10H LESLIE Administration Norepinephrine Bitartrate 8 mg
[2019-07-14] MEDS: FOLIC ACID 1 MG/0.2 ML INJ IV PUSH (07:33)
[2019-07-14] MEDS: PANTOPRAZOLE SODIUM IV 40 MG VIAL IV PUSH ×2 (07:34→21:11)
[2019-07-14] MEDS: THIAMINE HCL 200 MG/2 ML VIAL 100 MG IV PUSH (07:35)
[2019-07-14] MEDS: METOCLOPRAMIDE HCL 5 MG TABLET PO (07:39)
--- NOTE | 2019-07-14 09:17 | PM.IMPN ---
Progress Note: A&P Assessment and Plan (1) Respiratory failure with hypoxia: Qualifiers: Chronicity: acute Qualified Code(s): J96.01 - Acute respiratory failure with hypoxia Code(s): J96.91 - Respiratory failure, unspecified with hypoxia Status: Acute Assessment and Plan: Result of pneumonia. Remains on ventilator. Management of ventilator per special education tutor. Discussed with special education tutor today. Sedation discontinued. Chest xray today with persistent extensive bilateral pulmonary infiltrates. CT chest/abdomen/pelvis from 07/12/2019 with development of confluent bilateral lower lobe atelectasis and infection, scattered additional ground-glass infectious opacities, small pleural effusions, small to moderate ascites, colonic fluid and hepatic steatosis with possible cirrhosis and portal hypertension. Continue other treatments as noted below. Continue to monitor. Patient required re-intubation this evening after ET tube dislodged. Still remains stable. (2) Sepsis: Qualifiers: Acute respiratory failure type: with hypoxia Sepsis acute organ dysfunction status: with acute organ dysfunction Sepsis type: sepsis due to unspecified organism Severe sepsis acute organ dysfunction type: acute respiratory failure Severe sepsis shock status: without septic shock Qualified Code(s): A41.9 - Sepsis, unspecified organism; R65.20 - Severe sepsis without septic shock; J96.01 - Acute respiratory failure with hypoxia Code(s): A41.9 - Sepsis, unspecified organism Status: Acute Assessment and Plan: Criteria met on admission. Severe sepsis with shock. Initially, blood pressure did improve with normal saline bolus. Subsequently required low-dose Levophed but has been off pressor since 07/13/2019. Blood pressure reviewed on 07/14/2019 and stable. Telemetry reviewed on 07/14/2019 with sinus rhythm. Initial sputum culture now growing yeast with repeat sputum culture also growing yeast. Blood cultures still negative. Urine culture negative. Continue antibiotics as noted below. (3) Pneumonia: Qualifiers: Laterality: bilateral Lung location: unspecified part of lung Pneumonia type: due to unspecified organism Qualified Code(s): J18.9 - Pneumonia, unspecified organism Code(s): J18.9 - Pneumonia, unspecified organism Status: Acute Assessment and Plan: Imaging on admission consistent with multifocal lung disease suspicious for atypical pneumonia versus pulmonary edema with current imaging showing persistent extensive bilateral airspace disease. Infectious Disease consulted and appreciate input. Remains on IV ceftriaxone and azithromycin (Day #6) with length of treatment to be determined. IV vancomycin and metronidazole discontinued on 07/10/2019. COVID testing negative x2. (4) Acute kidney injury: Code(s): N17.9 - Acute kidney failure, unspecified Status: Acute Assessment and Plan: Nephrology consulted and appreciate input. Suspect multifactorial. Creatinine now continues to improve and decreased to 2.80 today. Continue to monitor. (5) Alcoholic cirrhosis: Qualifiers: Ascites presence: with ascites Qualified Code(s): K70.31 - Alcoholic cirrhosis of liver with ascites Code(s): K70.30 - Alcoholic cirrhosis of liver without ascites Status: Acute Assessment and Plan: CT abdomen/pelvis on admission with findings of cirrhosis of the liver with portal venous hypertension and small amount of ascites. Repeat CT abdomen/pelvis today as noted above. Known alcohol abuse. GI consulted and appreciate input. Total bilirubin still elevated at 12.6 with persistent jaundice in correction to previous progress notes. AST improved to 86 with ALT 36. Alkaline phosphatase 202. Ammonia level was slightly elevated at 35 on admission. Vitamin B12 and folate levels normal. Will continue IV folic acid and thiamine. Continue supportive car
[2019-07-14 09:44] LABS: Ammonia 18 umol/L (9-30)
--- NOTE | 2019-07-14 11:02 | WPDINTPN ---
Progress Note: A&P Assessment and Plan (1) Severe sepsis: Code(s): A41.9 - Sepsis, unspecified organism; R65.20 - Severe sepsis without septic shock Status: Acute Assessment and Plan: - Likely as a result of pneumonia. - Continue broad-spectrum antibiotics with ceftriaxone and azithromycin, ID following the patient. - Flagyl and vancomycin has been stopped as per ID recommendation. -repeat cultures 07/12/2019 blood, urine culture were negative. 07/12/2019 sputum culture is again growing Yeast. -patient off Levophed. CT chest/abdomen/pelvis showed bilateral infiltrate in the lower lung as well as scattered additional ground-glass opacities. Small pleural effusion with small to moderate ascites. Hepatic steatosis/cirrhosis with evidence of portal hypertension. CT scan was obtained without contrast. (2) Alcoholic cirrhosis: Qualifiers: Ascites presence: with ascites Qualified Code(s): K70.31 - Alcoholic cirrhosis of liver with ascites Code(s): K70.30 - Alcoholic cirrhosis of liver without ascites Status: Acute Assessment and Plan: He has history of significant alcohol abuse which is ongoing. Hepatitis panel is negative. - CT abdomen pelvis showed cirrhotic changes with evidence of portal hypertension. Through -thrombocytopenia improving -Ammonia level 18 this morning (07/14/2019) patient is having bowel movements, not on any lactulose at this time -appreciate GI evaluation recommendation, Reglan was added, plan to try possible Dulcolax suppository. Diuresis if blood pressures per minute. - He had some coffee-ground material in his OG tube initially but that has cleared now. He is currently on pantoprazole IV twice a day. -patient tolerating tube feeds, with residual of 260 mL a currently on 20 mL/hour, will continue (3) Suspected COVID-19 virus infection: Code(s): Z20.828 - Contact with and (suspected) exposure to other viral communicable diseases Status: Ruled-out Assessment and Plan: COVID-19 testing was found to be negative. Repeat COVID-19 testing has been reported as negative. Precautions have been discontinued. His ferritin level is 1910 with his CRP being elevated as well. Likely as a result of inflammation/pneumonia. (4) Pneumonia: Qualifiers: Pneumonia type: due to unspecified organism Laterality: bilateral Lung location: unspecified part of lung Qualified Code(s): J18.9 - Pneumonia, unspecified organism Code(s): J18.9 - Pneumonia, unspecified organism Status: Acute Assessment and Plan: Continue broad-spectrum antibiotics with ceftriaxone and azithromycin and complete a course of 7-10 days. -vancomycin and Flagyl has been stopped as per infectious disease service recommendations. Infectious disease service recommendations appreciated. Procalcitonin level is 0.89. Follow cultures. Repeat sputum culture growing Yeast (5) Respiratory failure with hypoxia: Qualifiers: Chronicity: acute Qualified Code(s): J96.01 - Acute respiratory failure with hypoxia Code(s): J96.91 - Respiratory failure, unspecified with hypoxia Status: Acute Assessment and Plan: - Continue mechanical ventilation at current setting. Continue CMV mode of ventilation, on 40% FiO2 and peep of 5. - low tidal volume strategy -ABGs and chest x-ray reviewed, ETT was at the hong, withdrawn 2 cm -will trying give sedation holiday and evaluate neurological status, if patient requires sedation will continue fentanyl Versed for now -propofol did cause elevation in his triglycerides and was discontinued 07/12/2019 venous dopplers of the lower extremities were negative for DVT (6) Alcohol abuse: Code(s): F10.10 - Alcohol abuse, uncomplicated Status: Acute Assessment and Plan: He has significant history of alcohol abuse. He will be at high risk of going into alcohol
--- NOTE | 2019-07-14 11:02 | PCDIET ---
ICU Rounding Note: Patient currently receiving Nepro at 20mL/hr. Tube feedings held previously for increased residuals (up to 350mL) and was restarted at lower rate. Reglan was added; MD now changing form oral to IV. Last recorded weight is 93.7kg which is increased from last review. +I/O. Bowel Motility: Overnight BM, per RN. Labs Reviewed: Hgb (9.1), Hct (28.2), BUN (68), Cr (2.8), K (3.3), Na (130), Alb (2.3), Ashutosh Ca(8.86) Meds Noted: Azithromycin, Rocephin, Reglan, Versed, KCl, Fentanyl, Levophed, Thiamine, Folic Acid, Protonix Additional Notes: No skin breakdown reported. Skin taught and swollen, per RN. Recommend gradually increasing tube feeding as tolerated toward goal of 40mL/hr. If patient has further signs of intolerance, could consider advancing tube into small bowel. Following daily in ICU rounds. Assessing/reassessing every Sunday/Sunday.
[2019-07-14] MEDS: METOCLOPRAMIDE HCL INJ 10 MG/2 ML VIAL IV PUSH ×3 (11:05→23:52)
[2019-07-14 12:21] LABS: Glucose Point of Care 92 (65-105)
--- NOTE | 2019-07-14 13:40 | WPDINFPN2 ---
Progress Note: A&P Assessment and Plan (1) Pneumonia: Qualifiers: Pneumonia type: due to unspecified organism Laterality: bilateral Lung location: unspecified part of lung Qualified Code(s): J18.9 - Pneumonia, unspecified organism Code(s): J18.9 - Pneumonia, unspecified organism Status: Acute Assessment and Plan: 1. CAP, suspect bacterial, WBC up slightly 2. Resp failure 3. Alcoholic cirrhosis 4. Yeast in sputum, commensal REC Ctx and Azithro #6. PCT level tomorrow to guide length of therapy Subjective Date/time seen: 07/14/19 13:40 Interval history: sedated and intubated, no pressors Exam Narrative: Exam Narrative: afebrile Const: General: no acute distress Resp: Effort & Inspection: normal respiratory effort Auscultation: clear to auscultation bilaterally Cardio: Rate: regular rate Rhythm: regular rhythm Heart sounds: no gallops and no murmurs GI: Inspection: distended GI Palp: Yes Soft to palpation and No Tenderness to palpation present (GI) Skin: Other: jaundice Objective Data Vital Signs Vital Signs: Vital Signs - 24 hr 07/13/19 13:59 07/13/19 16:00 07/13/19 16:45 Temperature 36.4 C L Pulse Rate 91 87 87 Respiratory Rate 24 H 24 H Blood Pressure 110/67 88/55 L Pulse Oximetry 94 95 94 07/13/19 17:52 07/13/19 19:55 07/13/19 20:00 Temperature 36.8 C Pulse Rate 85 79 77 Respiratory Rate 24 H 24 H Blood Pressure 93/57 L 98/61 L Pulse Oximetry 95 96 96 07/13/19 22:00 07/13/19 23:19 07/14/19 00:00 Temperature 36.6 C Pulse Rate 80 78 79 Respiratory Rate 24 H 24 H Blood Pressure 101/64 110/71 Pulse Oximetry 96 98 94 07/14/19 01:59 07/14/19 02:00 07/14/19 04:00 Temperature 37.1 C Pulse Rate 83 83 83 Respiratory Rate 24 H 24 H Blood Pressure 101/62 100/58 L Pulse Oximetry 95 95 94 07/14/19 04:43 07/14/19 06:00 07/14/19 07:45 Temperature Pulse Rate 83 84 84 Respiratory Rate 24 H Blood Pressure 100/64 Pulse Oximetry 94 93 93 06/08/20 08:00 07/14/19 10:00 07/14/19 11:16 Temperature 36.7 C Pulse Rate 82 97 89 Respiratory Rate 24 H 24 H 24 H Blood Pressure 91/62 L 114/71 Pulse Oximetry 94 92 94 07/14/19 11:18 07/14/19 12:00 07/14/19 12:05 Temperature Pulse Rate 90 89 84 Respiratory Rate 27 H Blood Pressure 87/52 L Pulse Oximetry 96 94 Intake/Output Intake/Output: Intake & Output 07/11/19 07/12/19 07/13/19 07/14/19 23:59 23:59 23:59 23:59 Intake Total 4100 3602 3020 2139 Output Total 945 975 3512 750 Balance 3575 2702 1295 1389 Meds/Results Medications: Active Medications Generic Name Dose Route Start Last Admin Trade Name Freq PRN Reason Stop Dose Admin Dextrose 12.5 gm 07/11/19 06:25 Dextrose 50% Syringe IV PUSH PRN PRN Hypoglycemia Protocol Folic Acid 1 mg 07/09/19 09:00 07/14/19 07:33 Folic Acid Inj IV PUSH 1 mg QAM LESLIE Administration Glucagon 1 mg 07/11/19 06:25 Glucagon For Inj IM PRN PRN Hypoglycemia Protocol Glucose 15 gm 07/11/19 06:25 Glutose 15 PO PRN PRN Hypoglycemia Protocol Heparin Sodium (Porcine) 5,000 units 07/09/19 14:00 07/14/19 05:14 Heparin Sodium SUB-Q 5,000 units Q8HR LESLIE Administration Ceftriaxone Sodium/Dextrose 1 gm in 50 mls @ 100 mls/hr 07/09/19 18:00 07/13/19 18:15 Rocephin 1 Gm/D5w 50 Ml IVPB Infused Q24H LESLIE Infusion Azithromycin 250 mg/ Dextrose 250 mls @ 250 mls/hr 07/09/19 21:00 07/13/19 21:37 IVPB Infused Q24H LESLIE Infusion Fentanyl Citrate 2,500 mcg in 250 mls @ 0 mls/hr 07/09/19 07:55 07/14/19 10:00 Fentanyl 2,500 Mcg/Ns 250 Ml IV CONT 0 mcg/hr .Q0M LESLIE 0 mls/hr Titration Protocol 0 MCG/HR Dextrose 1,000 mls @ 100 mls/hr 07/11/19 06:25 Dextrose 5% 1,000 Ml IVPB PRN PRN Hypoglycemia Protocol Sodium Chloride 1,000 mls @ 100 mls/hr 07/11/19 10:45 07/14/19 11:04 Normal Saline Iv I
[2019-07-14] MEDS: BUMETANIDE INJ 1 MG/4 ML VIAL 2 MG IV PUSH ×2 (14:10→21:10)
--- NOTE | 2019-07-14 14:25 | PM.PNNEP ---
Progress Note: A&P Assessment and Plan (1) Acute kidney injury: Code(s): N17.9 - Acute kidney failure, unspecified Status: Acute Assessment and Plan: The patient's creatinine fell a little bit again. Today it is 2.8. His urine output is up quite a bit from the day before. Will try diuretics. Will give Bumex 2 mg IV q.6 x2 doses and reassess tomorrow. (2) Hyponatremia: Code(s): E87.1 - Hypo-osmolality and hyponatremia Status: Acute Assessment and Plan: The patient has hyponatremia. Cortisol and TSH are okay. SPE is pending. This is most likely pre renal in nature. Now that he has renal failure, this will be playing a role as well. Sodium level was stable at about 121. Since he was not making much urine I gave him 3% saline. His sodium improved to 126. Since he is making urine his sodium is correcting slowly. Will continue to observe. (3) Alcohol abuse: Code(s): F10.10 - Alcohol abuse, uncomplicated Status: Acute Assessment and Plan: Very difficult situation is he is had a hard time with abstinence. (4) Suspected COVID-19 virus infection: Code(s): Z20.828 - Contact with and (suspected) exposure to other viral communicable diseases Status: Ruled-out Assessment and Plan: Repeat test is negative. (5) Sepsis: Qualifiers: Sepsis type: sepsis due to unspecified organism Sepsis acute organ dysfunction status: with acute organ dysfunction Severe sepsis acute organ dysfunction type: acute respiratory failure Acute respiratory failure type: with hypoxia Severe sepsis shock status: without septic shock Qualified Code(s): A41.9 - Sepsis, unspecified organism; R65.20 - Severe sepsis without septic shock; J96.01 - Acute respiratory failure with hypoxia Code(s): A41.9 - Sepsis, unspecified organism Status: Acute Assessment and Plan: Blood pressure is better. He is off pressors. (6) Respiratory failure with hypoxia: Qualifiers: Chronicity: acute Qualified Code(s): J96.01 - Acute respiratory failure with hypoxia Code(s): J96.91 - Respiratory failure, unspecified with hypoxia Status: Acute Assessment and Plan: He is on the ventilator. Subjective Date/time seen: 07/14/19 14:25 Interval history: Patient is still on the ventilator. Made 1425cc yesterday. He is off sedatives. There working their way out of his system. Review of systems: Cardiovascular: No complaints except above Respiratory: No complaints except above GI: No complaints except above : No complaints except above Exam Narrative: Exam Narrative: WDWN in NAD skin no rash or subcu nodules. Same jaundice. head ncat lungs mild coarse airways. cor reg no rub or gallop abd BS+ nontender and soft ext no edema or cyanosis Objective Data Vital Signs Vital Signs: Vital Signs - 24 hr 07/13/19 16:00 07/13/19 16:45 07/13/19 17:52 Temperature 36.4 C L Pulse Rate 87 87 85 Respiratory Rate 24 H 24 H Blood Pressure 88/55 L 93/57 L Pulse Oximetry 95 94 95 07/13/19 19:55 07/13/19 20:00 07/13/19 22:00 Temperature 36.8 C Pulse Rate 79 77 80 Respiratory Rate 24 H 24 H Blood Pressure 98/61 L 101/64 Pulse Oximetry 96 96 96 07/13/19 23:19 07/14/19 00:00 07/14/19 01:59 Temperature 36.6 C Pulse Rate 78 79 83 Respiratory Rate 24 H Blood Pressure 110/71 Pulse Oximetry 98 94 95 07/14/19 02:00 07/14/19 04:00 07/14/19 04:43 Temperature 37.1 C Pulse Rate 83 83 83 Respiratory Rate 24 H 24 H Blood Pressure 101/62 100/58 L Pulse Oximetry 95 94 94 07/14/19 06:00 07/14/19 07:45 07/14/19 08:00 Temperature 36.7 C Pulse Rate 84 84 82 Respiratory Rate 24 H 24 H Blood Pressure 100/64 91/62 L Pulse Oximetry 93 93 94 07/14/19 10:00 07/14/19 11:16 07/14/19 11:18 Temperature Pulse Rate 97 89 90 Respiratory Rate 24 H 24 H 27 H Blood Pressure 114/71 87/52 L Pulse
--- NOTE | 2019-07-14 16:24 | WPDPROCEDUR ---
Procedures Intubation Intubation Date: 07/14/19 Intubation Time: 16:07 A pre-procedural Time-Out was completed immediately before starting the procedure and confirmed: Patient Identification, Site, Procedure, Patient Position and the Availability of Requisite Equipment: Yes Sedative: etomidate (10 mg etomidate and 5 mg of versed) Laryngoscope: fiber optic video scope Assist device used: fiber optic device ET tube size: 8 Tube secured depth (cm): 26 Tube secured location: lips Tube placement confirmation: visualized tube passing through cords, equal breath sounds bilaterally and confirmation by capnometry Patient tolerated procedure: well Intubation complications: none Additional comments: Awaiting x ray report however it appears to be approx 1-2 cm above the hong per my view.
[2019-07-14 17:44] LABS: Glucose Point of Care 100 (65-105)
[2019-07-14] MEDS: SODIUM CHLORIDE 0.9% INJ 10 ML 100 ML (21:36)
[2019-07-14 23:04] LABS: Kappa\\Lambda Light Chains 0.71 (0.26-1.65); Lambda Light Chain 54.7 mg/L (5.7-26.3)
[2019-07-15] VITALS (25 sets, daily range): BP systolic 91–143; BP diastolic 54–114; PULSE 83–122; RESP 14–31; TEMP 36.7–37.2; O2SAT 96–100
[2019-07-15 05:00] LABS: Hematocrit 28.2 % (42.0-52.0); Hemoglobin 9.2 g/dL (14.0-18.0); Mean Corpuscular HGB Conc 32.6 g/dl (32-36); Mean Corpuscular Hemoglobin 34.6 pg (26-34); Mean Platelet Volume 10.6 fl (7.4-10.4); Platelet Count Result 238 k/mm3 (150-375); Red Blood Count 2.66 M/mm3 (4.6-6.20); Red Cell Distribution Width 18.6 % (11.5-14.5); White Blood Count 16.1 K/mm3 (4.5-10.0)
[2019-07-15 05:06] LABS: INR 1.4; Prothrombin Time 16.4 Seconds (11.1-14.7)
[2019-07-15 05:07] LABS: Partial Thromboplastin Time 37.7 SECONDS (22.3-36.8)
[2019-07-15 05:09] LABS: Alanine Aminotransferase 43 U/L (4-50); Albumin Level 2.6 g/dL (3.5-5.1); Alkaline Phosphatase 272 U/L (38-126); Aspartate Amino Transferase 112 U/L (17-59); Bilirubin,Total 14.4 mg/dL (0.2-1.3); Blood Urea Nitrogen 72 mg/dL (9-20); Calcium 8.2 mg/dL (8.4-10.2); Carbon Dioxide 23 mmol/L (22-30); Chloride 104 mmol/L (98-107); Estimated CRCL calculation 37 ml/min; Estimated Glomerular Filt Rate 27; Glucose 94 mg/dL (75-110); Magnesium 2.3 mg/dL (1.6-2.3); Phosphorus 3.8 mg/dL (2.5-4.5); Potassium 3.5 mmol/L (3.4-5.0); Sodium 134 mmol/L (137-145)
[2019-07-15] MEDS: HEPARIN SODIUM 5,000 UNITS/ML VIAL 5000 UNITS SUB-Q ×3 (05:41→21:11)
[2019-07-15] MEDS: METOCLOPRAMIDE HCL INJ 10 MG/2 ML VIAL IV PUSH ×3 (05:42→17:30)
[2019-07-15 05:46] LABS: Alveolar/Arterial O2 Gradient 163.9 mmHg; Base Excess ABG -0.6 mEq/l (+/-2.0); Carboxyhemoglobin 0.3 % THb (0-2.0); Device VENTILATOR; Fractional Inspired Oxygen 40 %; HCO3 ABG 22.8 mEq/l (22.0-26.0); Methemoglobin ABG 0.4 %THb (0-1.5); Modified Allen's Test Pass; Oxygen Saturation ABG 96.8 % (95.0-100.0); Oxyhemoglobin 94.7 % THb (90.0-100.0); PCO2 ABG 33.1 mmHg (35.0-45.0); PO2 ABG 83.2 mmHg (80.0-100.0); PO2 FiO2 Ratio Arterial Blood 2.08 %; Reduced Hemoglobin 4.6 %THb (0-5.0); Site Drawn RIGHT RADIAL; Total Hemoglobin 10.4 g/dL (12.0-18.0); pH ABG 7.456 (7.350-7.450)
[2019-07-15 05:47] LABS: Arterial Blood Gas PEEP 5 cmH2O; Arterial Blood Gas Tidal Volume 420 ml; Arterial Blood Gas Vent Mode CMV; Arterial Blood Gas Ventilator rate 24 /MIN
[2019-07-15] MEDS: FOLIC ACID 1 MG/0.2 ML INJ IV PUSH (07:42)
[2019-07-15] MEDS: PANTOPRAZOLE SODIUM IV 40 MG VIAL IV PUSH ×2 (07:43→20:59)
[2019-07-15] MEDS: THIAMINE HCL 200 MG/2 ML VIAL 100 MG IV PUSH (07:44)
--- NOTE | 2019-07-15 09:05 | PM.PNNEP ---
Progress Note: A&P Assessment and Plan (1) Acute kidney injury: Code(s): N17.9 - Acute kidney failure, unspecified Status: Acute Assessment and Plan: slow improvement in creatinine noted baseline creatinine normal continues to have good urine output (although was given IV bumex x 2 yesterday) continue gentle diuresis as tolerated follow trend of repeat labs (2) Sepsis: Qualifiers: Acute respiratory failure type: with hypoxia Sepsis acute organ dysfunction status: with acute organ dysfunction Sepsis type: sepsis due to unspecified organism Severe sepsis acute organ dysfunction type: acute respiratory failure Severe sepsis shock status: without septic shock Qualified Code(s): A41.9 - Sepsis, unspecified organism; R65.20 - Severe sepsis without septic shock; J96.01 - Acute respiratory failure with hypoxia Code(s): A41.9 - Sepsis, unspecified organism Status: Acute Assessment and Plan: thought to be secondary to pneumonia antibiotics per Infectious Disease off pressor therapy (3) Hyponatremia: Code(s): E87.1 - Hypo-osmolality and hyponatremia Status: Acute Assessment and Plan: slow improvement noted as well likely due to combination of DELANO complicated by liver cirrhosis/EtOH abuse and associated pre-renal factors suspect sodium level will continues to improve as renal function does TSH and cortisol normal follow trend (4) Pneumonia: Qualifiers: Laterality: bilateral Lung location: unspecified part of lung Pneumonia type: due to unspecified organism Qualified Code(s): J18.9 - Pneumonia, unspecified organism Code(s): J18.9 - Pneumonia, unspecified organism Status: Acute Assessment and Plan: as noted by imaging to date continue current therapy as outlined (5) Respiratory failure with hypoxia: Qualifiers: Chronicity: acute Qualified Code(s): J96.01 - Acute respiratory failure with hypoxia Code(s): J96.91 - Respiratory failure, unspecified with hypoxia Status: Acute Assessment and Plan: on ventilator support due to #4 weaning as tolerated (6) Alcohol abuse: Code(s): F10.10 - Alcohol abuse, uncomplicated Status: Acute Assessment and Plan: difficult situation as he has had a hard time with abstinence per history Discussed case with Dr. Davenport. Will continue to follow Subjective Date/time seen: 07/15/19 09:05 Remains on full ventilator support at this time; hemodynamically stable with the need for pressors; no apparent distress noted; tolerated IV diuretics yesterdays with good urine output. Exam Narrative: Exam Narrative: General: WD/WN male in NAD - on ventilator Heart: normal S1 and S2; no rub Lungs: coarse breath sounds Abdomen: soft, nontender, protuberant, positive bowel sounds Extremities: no cyanosis or clubbing; no edema Skin: warm and dry; + jaundice noted Objective Data Vital Signs Vital Signs: Vital Signs Temp Pulse Resp BP Pulse Ox 07/15/19 08:00 100 28 H 99 07/15/19 07:54 37.0 C 101 H 24 H 114/61 97 07/15/19 05:58 100 24 H 113/66 98 07/15/19 05:27 104 H 98 07/15/19 04:00 37.1 C 109 H 24 H 95/54 L 99 07/15/19 02:00 107 H 24 H 111/64 97 07/15/19 00:00 37.1 C 107 H 25 H 108/62 97 07/14/19 23:52 109 H 96 07/14/19 22:00 110 H 24 H 109/71 99 07/14/19 20:42 104 H 97 07/14/19 20:00 37.0 C 106 H 25 H 116/65 98 07/14/19 18:00 36.9 C 111 H 25 H 109/64 96 07/14/19 17:30 114 H 07/14/19 16:35 85 100 07/14/19 16:00 37.0 C 110 H 24 H 119/70 94 07/14/19 15:39 103 H 24 H 94 07/14/19 14:20 83 94 07/14/19 14:00 100 23 H 101/56 L 93 07/14/19 12:05 84 94 07/14/19 12:00 89 07/14/19 11:18 90 27 H 87/52 L 96 07/14/19 11:16 89 24 H 94 07/14/19 10:00 97 24 H 114/71 92 Intake/Output Intake/O
--- NOTE | 2019-07-15 09:51 | WPDGIPROGNO ---
Progress Note: A&P Additional Plan Patient remains intubated on the ventilator. Unable to give any useful history. NG tube now to suction. Physical exam reveals abdomen be modestly softer. Still protuberant. Less tympanic. Minimal NG tube output noted. Impression 1. Pneumonia with acute respiratory failure. Patient remains on ventilator. Antibiotics being given. 2. Alcoholic cirrhosis of liver. Minimal ascites by CT scan. He has had elevated gastric residuals. And continues to have liquid stools. Suspicious for poor GI motility. Trial of IV Reglan in progress. NG tube decompression has lessened abdominal distention. We may be able to resume tube feedings if abdomen remains softer. Subjective Date/time seen: 07/15/19 09:51 Objective Data Vital Signs Vital Signs: Vital Signs - 24 hr 07/14/19 10:00 07/14/19 11:16 07/14/19 11:18 Temperature Pulse Rate 97 89 90 Respiratory Rate 24 H 24 H 27 H Blood Pressure 114/71 87/52 L Pulse Oximetry 92 94 96 07/14/19 12:00 07/14/19 12:05 07/14/19 14:00 Temperature Pulse Rate 89 84 100 Respiratory Rate 23 H Blood Pressure 101/56 L Pulse Oximetry 94 93 07/14/19 14:20 07/14/19 15:39 07/14/19 16:00 Temperature 37.0 C Pulse Rate 83 103 H 110 H Respiratory Rate 24 H 24 H Blood Pressure 119/70 Pulse Oximetry 94 94 94 07/14/19 16:35 07/14/19 17:30 07/14/19 18:00 Temperature 36.9 C Pulse Rate 85 114 H 111 H Respiratory Rate 25 H Blood Pressure 109/64 Pulse Oximetry 100 96 07/14/19 20:00 07/14/19 20:42 07/14/19 22:00 Temperature 37.0 C Pulse Rate 106 H 104 H 110 H Respiratory Rate 25 H 24 H Blood Pressure 116/65 109/71 Pulse Oximetry 98 97 99 07/14/19 23:52 07/15/19 00:00 07/15/19 02:00 Temperature 37.1 C Pulse Rate 109 H 107 H 107 H Respiratory Rate 25 H 24 H Blood Pressure 108/62 111/64 Pulse Oximetry 96 97 97 07/15/19 04:00 07/15/19 05:27 07/15/19 05:58 Temperature 37.1 C Pulse Rate 109 H 104 H 100 Respiratory Rate 24 H 24 H Blood Pressure 95/54 L 113/66 Pulse Oximetry 99 98 98 07/15/19 07:54 07/15/19 08:00 07/15/19 09:12 Temperature 37.0 C Pulse Rate 101 H 100 103 H Respiratory Rate 24 H 28 H Blood Pressure 114/61 Pulse Oximetry 97 99 98 Intake/Output Intake/Output: Intake & Output 07/12/19 07/13/19 07/14/19 07/15/19 23:59 23:59 23:59 23:59 Intake Total 3602 3020 2558 Output Total 900 1725 2525 2300 Balance 2702 1295 33 -2300 Meds/Results Medications: Active Medications Generic Name Dose Route Start Last Admin Trade Name Freq PRN Reason Stop Dose Admin Dextrose 12.5 gm 07/11/19 06:25 Dextrose 50% Syringe IV PUSH PRN PRN Hypoglycemia Protocol Folic Acid 1 mg 07/09/19 09:00 07/15/19 07:42 Folic Acid Inj IV PUSH 1 mg QAM LESLIE Administration Glucagon 1 mg 07/11/19 06:25 Glucagon For Inj IM PRN PRN Hypoglycemia Protocol Glucose 15 gm 07/11/19 06:25 Glutose 15 PO PRN PRN Hypoglycemia Protocol Heparin Sodium (Porcine) 5,000 units 07/09/19 14:00 07/15/19 05:41 Heparin Sodium SUB-Q 5,000 units Q8HR LESLIE Administration Ceftriaxone Sodium/Dextrose 1 gm in 50 mls @ 100 mls/hr 07/09/19 18:00 07/14/19 18:05 Rocephin 1 Gm/D5w 50 Ml IVPB Infused Q24H LESLIE Infusion Azithromycin 250 mg/ Dextrose 250 mls @ 250 mls/hr 07/09/19 21:00 07/14/19 21:10 IVPB 150 mls/hr Q24H LESLIE Administration Dextrose 1,000 mls @ 100 mls/hr 07/11/19 06:25 Dextrose 5% 1,000 Ml IVPB PRN PRN Hypoglycemia Protocol Norepinephrine Bitartrate 8 mg in 250 mls @ 0 mls/hr 07/11/19 20:20 07/13/19 07:38 Levophed 8 Mg/D5w 250 Ml IV CONT 0 mcg/min .Q0M LESLIE 0 mls/hr Titration Protocol Midazolam HCl 50 mg in 100 mls @ 2 mls/hr 07/14/19 21:25 07/15/19 07:18 Versed 50 Mg/D5w 100 Ml IV CONT Not Given .Q50H LESLIE Protocol 1 MG/HR Fentanyl Citrate 2,500
[2019-07-15] MEDS: DORNASE ALFA INH SOLN 1 MG/ML 2.5 ML AMP 2.5 MG INHALATION ×2 (11:04→20:07)
[2019-07-15] MEDS: BUMETANIDE INJ 1 MG/4 ML VIAL 2 MG IV PUSH (11:18)
--- NOTE | 2019-07-15 11:18 | PCDIET ---
Nutrition Follow-Up Complete: Nutrition Diagnosis: Inadequate oral intake related to oral intubation as evidenced by NPO status. Nutrition Goal: Patient to meet estimated nutritional needs. Goal in progress. Patient had to be reintubated and RN reports significant gastric lavage at that time. MD ordered to restart tube feedings at 20mL/hr. Last recorded weight is 92.8 kg which is decreased from last review. Bowel Motility: +BM today reported. Labs Reviewed: BUN (72), Cr (2.7), Na (134), Alb (2.6) Meds Noted: Albuterol, Azithromycin, Rocephin, Fentanyl, Reglan, Versed, Levophed, Protonix, Thiamine Additional Notes: s/p Bumex earlier today. Corrected calcium WNL. RN reports area of maceration on buttock with no other issues. Will follow closely. Nutrition Monitoring and Evaluation: Follow up every Sunday/Sunday. Follow daily in ICU rounds.
[2019-07-15 11:36] LABS: Glucose Point of Care 108 (65-105)
--- NOTE | 2019-07-15 12:31 | WPDINTPN ---
Progress Note: A&P Assessment and Plan (1) Severe sepsis: Code(s): A41.9 - Sepsis, unspecified organism; R65.20 - Severe sepsis without septic shock Status: Acute Assessment and Plan: - Likely as a result of pneumonia. -leukocytosis increased - Continue broad-spectrum antibiotics with ceftriaxone and azithromycin, ID following the patient. - Flagyl and vancomycin has been stopped as per ID recommendation. -repeat cultures 07/12/2019 blood, urine culture were negative. 07/12/2019 sputum culture is again growing Yeast. -patient off Levophed. CT chest/abdomen/pelvis showed bilateral infiltrate in the lower lung as well as scattered additional ground-glass opacities. Small pleural effusion with small to moderate ascites. Hepatic steatosis/cirrhosis with evidence of portal hypertension. CT scan was obtained without contrast. (2) Alcoholic cirrhosis: Qualifiers: Ascites presence: with ascites Qualified Code(s): K70.31 - Alcoholic cirrhosis of liver with ascites Code(s): K70.30 - Alcoholic cirrhosis of liver without ascites Status: Acute Assessment and Plan: He has history of significant alcohol abuse which is ongoing. Hepatitis panel is negative. - CT abdomen pelvis showed cirrhotic changes with evidence of portal hypertension. Through -thrombocytopenia improving -Ammonia level 18 this morning (07/14/2019) patient is having bowel movements, not on any lactulose at this time -appreciate GI evaluation recommendation, Reglan was added, plan to try possible Dulcolax suppository. Diuresis if blood pressures per minute. - He had some coffee-ground material in his OG tube initially but that has cleared now. He is currently on pantoprazole IV twice a day. -will restart tube feeds (3) Suspected COVID-19 virus infection: Code(s): Z20.828 - Contact with and (suspected) exposure to other viral communicable diseases Status: Ruled-out Assessment and Plan: COVID-19 testing was found to be negative. Repeat COVID-19 testing has been reported as negative. Precautions have been discontinued. His ferritin level is 1910 with his CRP being elevated as well. Likely as a result of inflammation/pneumonia. (4) Pneumonia: Qualifiers: Pneumonia type: due to unspecified organism Laterality: bilateral Lung location: unspecified part of lung Qualified Code(s): J18.9 - Pneumonia, unspecified organism Code(s): J18.9 - Pneumonia, unspecified organism Status: Acute Assessment and Plan: Continue broad-spectrum antibiotics with ceftriaxone and azithromycin and complete a course of 7-10 days. -vancomycin and Flagyl has been stopped as per infectious disease service recommendations. Infectious disease service recommendations appreciated. Procalcitonin level is 0.89. Follow cultures. Repeat sputum culture growing Yeast -continue antibiotics as above, -thick mucus plugging noticed on the ETT which was pulled out yesterday accidentally and patient was reintubated. -Pulmozyme added -will last she to perform CPT with vest (5) Respiratory failure with hypoxia: Qualifiers: Chronicity: acute Qualified Code(s): J96.01 - Acute respiratory failure with hypoxia Code(s): J96.91 - Respiratory failure, unspecified with hypoxia Status: Acute Assessment and Plan: - Continue mechanical ventilation at current setting. Continue CMV mode of ventilation, on 40% FiO2 and peep of 5. - low tidal volume strategy -ABGs and chest x-ray reviewed, ETT was at the hong, withdrawn 2 cm -patient off all sedation, will start Precedex if needed 07/12/2019 venous dopplers of the lower extremities were negative for DVT (6) Alcohol abuse: Code(s): F10.10 - Alcohol abuse, uncomplicated Status: Acute Assessment and Plan: He has significant history of alcohol abuse. He will be at high risk of going into al
--- NOTE | 2019-07-15 13:33 | WPDINFPN2 ---
Progress Note: A&P Assessment and Plan (1) Pneumonia: Qualifiers: Pneumonia type: due to unspecified organism Laterality: bilateral Lung location: unspecified part of lung Qualified Code(s): J18.9 - Pneumonia, unspecified organism Code(s): J18.9 - Pneumonia, unspecified organism Status: Acute Assessment and Plan: 1. CAP, suspect bacterial, WBC up higher. The leukcytosis could also be due to cirrhosis. CXR suboptimal film, stable 2. Resp failure 3. Alcoholic cirrhosis 4. Yeast in sputum, commensal REC Ctx and Azithro #7. PCT level pending. Stop Rx soon Subjective Date/time seen: 07/15/19 13:33 Interval history: intubated Exam Narrative: Exam Narrative: afebrile Const: General: no acute distress Eyes: Sclera: scleral abnormality Resp: Effort & Inspection: normal respiratory effort Auscultation: clear to auscultation bilaterally Cardio: Rate: regular rate Rhythm: regular rhythm Heart sounds: no murmurs GI: GI Palp: Yes Soft to palpation and No Tenderness to palpation present (GI) Skin: Other: deeply jaundiced Objective Data Vital Signs Vital Signs: Vital Signs - 24 hr 07/14/19 14:00 07/14/19 14:20 07/14/19 15:39 Temperature Pulse Rate 100 83 103 H Respiratory Rate 23 H 24 H Blood Pressure 101/56 L Pulse Oximetry 93 94 94 07/14/19 16:00 07/14/19 16:35 07/14/19 17:30 Temperature 37.0 C Pulse Rate 110 H 85 114 H Respiratory Rate 24 H Blood Pressure 119/70 Pulse Oximetry 94 100 07/14/19 18:00 07/14/19 20:00 07/14/19 20:42 Temperature 36.9 C 37.0 C Pulse Rate 111 H 106 H 104 H Respiratory Rate 25 H 25 H Blood Pressure 109/64 116/65 Pulse Oximetry 96 98 97 07/14/19 22:00 07/14/19 23:52 07/15/19 00:00 Temperature 37.1 C Pulse Rate 110 H 109 H 107 H Respiratory Rate 24 H 25 H Blood Pressure 109/71 108/62 Pulse Oximetry 99 96 97 07/15/19 02:00 07/15/19 04:00 07/15/19 05:27 Temperature 37.1 C Pulse Rate 107 H 109 H 104 H Respiratory Rate 24 H 24 H Blood Pressure 111/64 95/54 L Pulse Oximetry 97 99 98 07/15/19 05:58 07/15/19 07:54 07/15/19 08:00 Temperature 37.0 C Pulse Rate 100 101 H 100 Respiratory Rate 24 H 24 H 28 H Blood Pressure 113/66 114/61 Pulse Oximetry 98 97 99 07/15/19 09:12 07/15/19 10:00 07/15/19 11:05 Temperature Pulse Rate 103 H 105 H 103 H Respiratory Rate 15 Blood Pressure 120/96 H Pulse Oximetry 98 98 98 07/15/19 12:00 Temperature 36.7 C Pulse Rate 102 H Respiratory Rate 16 Blood Pressure 143/87 H Pulse Oximetry 98 Intake/Output Intake/Output: Intake & Output 07/12/19 07/13/19 07/14/19 07/15/19 23:59 23:59 23:59 23:59 Intake Total 3602 3020 2558 48.93 Output Total 900 1725 2525 2300 Balance 2702 1295 33 -2251.07 Meds/Results Medications: Active Medications Generic Name Dose Route Start Last Admin Trade Name Freq PRN Reason Stop Dose Admin Albuterol 2.5 mg 07/15/19 14:00 Albuterol Sulf Neb 2.5mg/0.5ml INHALATION Q6HRT LESLIE Dextrose 12.5 gm 07/11/19 06:25 Dextrose 50% Syringe IV PUSH PRN PRN Hypoglycemia Protocol Dornase Juan Luis 2.5 mg 07/15/19 11:00 07/15/19 11:04 Pulmozyme INHALATION 2.5 mg Q12HRT LESLIE Administration Folic Acid 1 mg 07/09/19 09:00 07/15/19 07:42 Folic Acid Inj IV PUSH 1 mg QAM LESLIE Administration Glucagon 1 mg 07/11/19 06:25 Glucagon For Inj IM PRN PRN Hypoglycemia Protocol Glucose 15 gm 07/11/19 06:25 Glutose 15 PO PRN PRN Hypoglycemia Protocol Heparin Sodium (Porcine) 5,000 units 07/09/19 14:00 07/15/19 05:41 Heparin Sodium SUB-Q 5,000 units Q8HR LESLIE Administration Ceftriaxone Sodium/Dextrose 1 gm in 50 mls @ 100 mls/hr 07/09/19 18:00 07/14/19 18:05 Rocephin 1 Gm/D5w 50 Ml IVPB Infused Q24H LESLIE Infusion Azithromycin 250 mg/ Dextrose 250 mls @ 250 mls/hr 07/09/19 21:00 07/14/19 21:10 IVPB 150 mls/hr Q24H S
[2019-07-15] MEDS: ALBUTEROL SULFATE NEB 2.5 MG/0.5 ML INH INHALATION ×2 (14:04→20:07)
[2019-07-15] MEDS: CENTRAL LINE FLUSH 10 ML IV PUSH ×2 (14:25→17:29)
--- NOTE | 2019-07-15 16:55 | PM.IMPN ---
Progress Note: A&P Assessment and Plan (1) Respiratory failure with hypoxia: Qualifiers: Chronicity: acute Qualified Code(s): J96.01 - Acute respiratory failure with hypoxia Code(s): J96.91 - Respiratory failure, unspecified with hypoxia Status: Acute Assessment and Plan: Result of pneumonia. Remains on ventilator. Management of ventilator per pot puller. Discussed with pot puller today. Sedation discontinued. Chest xray today with persistent extensive bilateral pulmonary infiltrates. CT chest/abdomen/pelvis from 07/12/2019 with development of confluent bilateral lower lobe atelectasis and infection, scattered additional ground-glass infectious opacities, small pleural effusions, small to moderate ascites, colonic fluid and hepatic steatosis with possible cirrhosis and portal hypertension. Continue other treatments as noted below. Continue to monitor. 07/15/19 16:55 Patient is a 38-year-old male with bilateral community-acquired pneumonia most likely bacteria as patient is negative COVID-19, patient is on ventilator, patient seen by Dr. Anderson patient is treated with Rocephin and azithromycin will complete the course for 7 days recommending to stop the antibiotics, patient on AST mode today in home to wean the patient off ventilator, patient is seen by pot puller and appreciate Patient required re-intubation this evening after ET tube dislodged. Still remains stable. (2) Sepsis: Qualifiers: Sepsis type: sepsis due to unspecified organism Sepsis acute organ dysfunction status: with acute organ dysfunction Severe sepsis acute organ dysfunction type: acute respiratory failure Acute respiratory failure type: with hypoxia Severe sepsis shock status: without septic shock Qualified Code(s): A41.9 - Sepsis, unspecified organism; R65.20 - Severe sepsis without septic shock; J96.01 - Acute respiratory failure with hypoxia Code(s): A41.9 - Sepsis, unspecified organism Status: Acute Assessment and Plan: Criteria met on admission. Severe sepsis with shock. Initially, blood pressure did improve with normal saline bolus. Subsequently required low-dose Levophed but has been off pressor since 07/13/2019. Blood pressure reviewed on 07/14/2019 and stable. Telemetry reviewed on 07/14/2019 with sinus rhythm. Initial sputum culture now growing yeast with repeat sputum culture also growing yeast. Blood cultures still negative. Urine culture negative. Continue antibiotics as noted below. (3) Pneumonia: Qualifiers: Pneumonia type: due to unspecified organism Laterality: bilateral Lung location: unspecified part of lung Qualified Code(s): J18.9 - Pneumonia, unspecified organism Code(s): J18.9 - Pneumonia, unspecified organism Status: Acute Assessment and Plan: Imaging on admission consistent with multifocal lung disease suspicious for atypical pneumonia versus pulmonary edema with current imaging showing persistent extensive bilateral airspace disease. Infectious Disease consulted and appreciate input. Remains on IV ceftriaxone and azithromycin (Day #6) with length of treatment to be determined. IV vancomycin and metronidazole discontinued on 07/10/2019. COVID testing negative x2. (4) Acute kidney injury: Code(s): N17.9 - Acute kidney failure, unspecified Status: Acute Assessment and Plan: Nephrology consulted and appreciate input. Suspect multifactorial. Creatinine now continues to improve and decreased to 2.80 today. Continue to monitor. (5) Alcoholic cirrhosis: Qualifiers: Ascites presence: with ascites Qualified Code(s): K70.31 - Alcoholic cirrhosis of liver with ascites Code(s): K70.30 - Alcoholic cirrhosis of liver without ascites Status: Acute Assessment and Plan: CT abdomen/pelvis on admission with findings of cirrhosis of the liver with portal venous hypertension and small amount of ascite
[2019-07-15] MEDS: SODIUM CHLORIDE 0.9% INJ 10 ML 100 ML (21:12)
[2019-07-16] VITALS (24 sets, daily range): BP systolic 105–119; BP diastolic 62–80; PULSE 67–89; RESP 15–25; TEMP 36.6–37.8; O2SAT 94–99
[2019-07-16] MEDS: METOCLOPRAMIDE HCL INJ 10 MG/2 ML VIAL IV PUSH ×4 (00:12→17:51)
[2019-07-16] MEDS: ALBUTEROL SULFATE NEB 2.5 MG/0.5 ML INH INHALATION ×4 (02:01→19:54)
[2019-07-16 03:20] LABS: Glucose Point of Care 110 (65-105)
[2019-07-16 04:45] LABS: Hematocrit 28.5 % (42.0-52.0); Hemoglobin 9.3 g/dL (14.0-18.0); Mean Corpuscular HGB Conc 32.6 g/dl (32-36); Mean Corpuscular Hemoglobin 34.4 pg (26-34); Mean Corpuscular Volume 105.6 fl (80-100); Mean Platelet Volume 10.4 fl (7.4-10.4); Platelet Count Result 200 k/mm3 (150-375); White Blood Count 15.4 K/mm3 (4.5-10.0)
[2019-07-16 04:56] LABS: INR 1.5; Prothrombin Time 17.5 Seconds (11.1-14.7)
[2019-07-16 04:57] LABS: Partial Thromboplastin Time 37.4 SECONDS (22.3-36.8)
[2019-07-16 05:00] LABS: Ammonia 33 umol/L (9-30)
[2019-07-16 05:01] LABS: Alanine Aminotransferase 47 U/L (4-50); Albumin Level 2.5 g/dL (3.5-5.1); Alkaline Phosphatase 298 U/L (38-126); Aspartate Amino Transferase 107 U/L (17-59); Bilirubin,Total 14.7 mg/dL (0.2-1.3); Blood Urea Nitrogen 79 mg/dL (9-20); Calcium 8.4 mg/dL (8.4-10.2); Carbon Dioxide 23 mmol/L (22-30); Chloride 106 mmol/L (98-107); Estimated CRCL calculation 42 ml/min; Estimated Glomerular Filt Rate 30; Glucose 137 mg/dL (75-110); Magnesium 2.3 mg/dL (1.6-2.3); Phosphorus 4.9 mg/dL (2.5-4.5); Potassium 3.6 mmol/L (3.4-5.0); Sodium 136 mmol/L (137-145)
[2019-07-16 05:31] LABS: Alveolar/Arterial O2 Gradient 166.8 mmHg; Base Excess ABG 2.6 mEq/l (+/-2.0); Carboxyhemoglobin 0.3 % THb (0-2.0); Fractional Inspired Oxygen 40 %; HCO3 ABG 26.1 mEq/l (22.0-26.0); Methemoglobin ABG 0.4 %THb (0-1.5); Oxygen Content ABG 13.9 %vol (16.0-22.0); Oxygen Saturation ABG 96.3 % (95.0-100.0); Oxyhemoglobin 93.5 % THb (90.0-100.0); PCO2 ABG 35.9 mmHg (35.0-45.0); PO2 ABG 77.1 mmHg (80.0-100.0); PO2 FiO2 Ratio Arterial Blood 1.93 %; Reduced Hemoglobin 5.8 %THb (0-5.0); Total Hemoglobin 10.5 g/dL (12.0-18.0); pH ABG 7.479 (7.350-7.450)
[2019-07-16 05:32] LABS: Arterial Blood Gas PEEP 5 cmH2O; Arterial Blood Gas Vent Mode ASV; Device VENTILATOR; Site Drawn RIGHT BRACHIAL
[2019-07-16 05:33] LABS: Arterial Blood Gas Minute Volume 7 LPM
[2019-07-16] MEDS: HEPARIN SODIUM 5,000 UNITS/ML VIAL 5000 UNITS SUB-Q ×3 (06:12→22:10)
[2019-07-16] MEDS: DORNASE ALFA INH SOLN 1 MG/ML 2.5 ML AMP 2.5 MG INHALATION ×2 (07:17→20:08)
[2019-07-16] MEDS: BUMETANIDE INJ 1 MG/4 ML VIAL 2 MG IV PUSH (09:02)
[2019-07-16] MEDS: PANTOPRAZOLE SODIUM IV 40 MG VIAL IV PUSH ×2 (09:03→22:09)
[2019-07-16] MEDS: POTASSIUM CHLORIDE 20 MEQ PACKET (FOR LIQUID) 40 MEQ FEED TUBE (09:03)
[2019-07-16] MEDS: THIAMINE HCL 200 MG/2 ML VIAL 100 MG IV PUSH (09:03)
--- NOTE | 2019-07-16 09:03 | WPDINTPN ---
Progress Note: A&P Assessment and Plan (1) Severe sepsis: Code(s): A41.9 - Sepsis, unspecified organism; R65.20 - Severe sepsis without septic shock Status: Acute Assessment and Plan: - Likely as a result of pneumonia. -leukocytosis trending down - Continue broad-spectrum antibiotics with ceftriaxone and azithromycin, ID following the patient. - Flagyl and vancomycin has been stopped as per ID recommendation. -repeat cultures 07/12/2019 blood, urine culture were negative. 07/12/2019 sputum culture is again growing Yeast. -patient off Levophed. CT chest/abdomen/pelvis showed bilateral infiltrate in the lower lung as well as scattered additional ground-glass opacities. Small pleural effusion with small to moderate ascites. Hepatic steatosis/cirrhosis with evidence of portal hypertension. CT scan was obtained without contrast. (2) Alcoholic cirrhosis: Qualifiers: Ascites presence: with ascites Qualified Code(s): K70.31 - Alcoholic cirrhosis of liver with ascites Code(s): K70.30 - Alcoholic cirrhosis of liver without ascites Status: Acute Assessment and Plan: He has history of significant alcohol abuse which is ongoing. Hepatitis panel is negative. Increased total bilirubin, AST trending down, ALT is normal and elevated alk-phos the - CT abdomen pelvis showed cirrhotic changes with evidence of portal hypertension. -thrombocytopenia improving -Ammonia level 33 this morning (07/16/2019) last bowel movement on 07/14/2019, will add lactulose -appreciate GI evaluation recommendation, continue Reglan. -will diurese patient again today - He had some coffee-ground material in his OG tube initially but that has cleared now. He is currently on pantoprazole IV twice a day. -will restart tube feeds (3) Suspected COVID-19 virus infection: Code(s): Z20.828 - Contact with and (suspected) exposure to other viral communicable diseases Status: Ruled-out Assessment and Plan: COVID-19 testing was found to be negative. Repeat COVID-19 testing has been reported as negative. Precautions have been discontinued. His ferritin level is 1910 with his CRP being elevated as well. Likely as a result of inflammation/pneumonia. (4) Pneumonia: Qualifiers: Pneumonia type: due to unspecified organism Laterality: bilateral Lung location: unspecified part of lung Qualified Code(s): J18.9 - Pneumonia, unspecified organism Code(s): J18.9 - Pneumonia, unspecified organism Status: Acute Assessment and Plan: Continue broad-spectrum antibiotics with ceftriaxone and azithromycin and complete a course of 7-10 days. -vancomycin and Flagyl has been stopped as per infectious disease service recommendations. Infectious disease service recommendations appreciated. Repeat procalcitonin level is pending. Cultures as above -continue antibiotics per Infectious Disease -thick mucus plugging noticed on the ETT which was pulled out on 07/14/2019 accidentally and patient was reintubated 07/14/2019. -continue Pulmozyme -chest physiotherapy with vest (5) Respiratory failure with hypoxia: Qualifiers: Chronicity: acute Qualified Code(s): J96.01 - Acute respiratory failure with hypoxia Code(s): J96.91 - Respiratory failure, unspecified with hypoxia Status: Acute Assessment and Plan: - Continue mechanical ventilation at current setting. Patient currently on ASV mode of ventilation, FiO2 of 40% and PEEP of 5 -ABGs and chest x-ray reviewed, ETT was at the hong, withdrawn 2 cm -patient off all sedation, -on Precedex infusion, tolerating well 07/12/2019 venous dopplers of the lower extremities were negative for DVT (6) Alcohol abuse: Code(s): F10.10 - Alcohol abuse, uncomplicated Status: Acute Assessment and Plan: He has significant history of alcohol abuse. He will be at high risk of marika
[2019-07-16] MEDS: FOLIC ACID 1 MG/0.2 ML INJ IV PUSH (09:06)
--- NOTE | 2019-07-16 10:35 | WPDGIPROGNO ---
Progress Note: A&P Additional Plan Patient remains intubated on the ventilator. Now tolerating tube feedings. Passing intermittent stools per nursing service. Physical exam reveals him to be sedated on the ventilator. Lungs reveal a few rhonchi. Abdomen is softer. Still modest distention noted. No organomegaly or tenderness appreciated. Impression 1. Acute respiratory failure with pneumonia. Patient remains on ventilator. 2. Alcoholic liver disease cirrhosis of the liver. Plan is to continue supportive care. Markedly elevated LFTs are identified. Continue supportive care for now. Avoiding steroids because of significant infection. 3. Alcohol abuse. Patient will knee rehab long-term childs. 4. Renal insufficiency. Plan is for continued nutritional support via NG tube. Patient having high gastric residuals limits this to some degree at the present time. Hopefully improvement with Reglan over the next several days. Subjective Date/time seen: 07/16/19 10:35 Objective Data Vital Signs Vital Signs: Vital Signs - 24 hr 07/15/19 11:05 07/15/19 12:00 07/15/19 13:20 Temperature 36.7 C Pulse Rate 103 H 109 H 87 Respiratory Rate 16 15 Blood Pressure 143/87 H Pulse Oximetry 98 98 07/15/19 14:00 07/15/19 14:05 07/15/19 14:10 Temperature Pulse Rate 85 88 88 Respiratory Rate 16 15 Blood Pressure 91/57 L Pulse Oximetry 99 98 07/15/19 14:14 07/15/19 16:00 07/15/19 17:08 Temperature 36.8 C Pulse Rate 83 110 H 89 Respiratory Rate 15 25 H Blood Pressure 135/114 H Pulse Oximetry 99 100 07/15/19 17:40 07/15/19 18:00 07/15/19 20:00 Temperature 37.2 C Pulse Rate 88 87 95 Respiratory Rate 14 20 Blood Pressure 114/71 124/76 Pulse Oximetry 98 97 07/15/19 20:07 07/15/19 20:37 07/15/19 22:00 Temperature Pulse Rate 88 89 91 Respiratory Rate 18 18 20 Blood Pressure 118/73 Pulse Oximetry 97 98 07/15/19 23:28 07/16/19 00:00 07/16/19 02:00 Temperature 37.2 C Pulse Rate 83 85 82 Respiratory Rate 16 18 Blood Pressure 118/74 111/64 Pulse Oximetry 96 98 96 07/16/19 02:01 07/16/19 02:12 07/16/19 04:00 Temperature 37.3 C Pulse Rate 84 84 86 Respiratory Rate 23 H 18 18 Blood Pressure 119/72 Pulse Oximetry 96 99 07/16/19 05:37 07/16/19 06:00 07/16/19 07:17 Temperature Pulse Rate 89 82 80 Respiratory Rate 18 15 Blood Pressure 116/71 Pulse Oximetry 97 97 07/16/19 07:44 07/16/19 07:51 07/16/19 08:00 Temperature 37.8 C H Pulse Rate 84 81 83 Respiratory Rate 22 H 17 Blood Pressure 110/62 Pulse Oximetry 96 97 Intake/Output Intake/Output: Intake & Output 07/13/19 07/14/19 07/15/19 07/16/19 23:59 23:59 23:59 23:59 Intake Total 3020 2808 558.93 531 Output Total 1725 2525 3800 1650 Balance 1295 283 3241.07 -1119 Meds/Results Medications: Active Medications Generic Name Dose Route Start Last Admin Trade Name Freq PRN Reason Stop Dose Admin Albuterol 2.5 mg 07/15/19 14:00 07/16/19 07:17 Albuterol Sulf Neb 2.5mg/0.5ml INHALATION 2.5 mg Q6HRT LESLIE Administration Dextrose 12.5 gm 07/11/19 06:25 Dextrose 50% Syringe IV PUSH PRN PRN Hypoglycemia Protocol Dornase Juan Luis 2.5 mg 07/15/19 11:00 07/16/19 07:17 Pulmozyme INHALATION 2.5 mg Q12HRT LESLIE Administration Folic Acid 1 mg 07/09/19 09:00 07/16/19 09:06 Folic Acid Inj IV PUSH 1 mg QAM LESLIE Administration Glucagon 1 mg 07/11/19 06:25 Glucagon For Inj IM PRN PRN Hypoglycemia Protocol Glucose 15 gm 07/11/19 06:25 Glutose 15 PO PRN PRN Hypoglycemia Protocol Heparin Sodium (Porcine) 5,000 units 07/09/19 14:00 07/16/19 06:12 Heparin Sodium SUB-Q 5,000 units Q8HR LESLIE Administration Ceftriaxone Sodium/Dextrose 1 gm in 50 mls @ 100 mls/hr 07/09/19 18:00 07/15/19 18:24 Rocephin 1 Gm/D5w 50 Ml IVPB Infused Q24H LESLIE Infusion Azithromycin 250 mg/ Dextrose 250 mls @ 250 m
--- NOTE | 2019-07-16 11:05 | PCDIET ---
ICU Rounding Note: Tube feedings currently on hold for SBT. MD ordered to advance tube feedings (previously at 20mL/hr) if unable to extubate today. Last recorded weight is 90.9kg which is decreased from last review. -I/O. Increased urine output noted. Bowel Motility: +BM on 07/15/19. Labs Reviewed: Hgb (9.3), Hct (28.5), BUN (79), Cr (2.4), Na (136), Alb (2.5) Meds Noted: Albuterol, Folic Acid, Azithromycin, Reglan, Rocephin, Levophed, Protonix, Precedex, Thiamine Additional Notes: s/p KCl and Bumex. Coccyx with shear; RN adding Mepilex. No other skin issues reported. Following daily in ICU rounds. Assessing/reassessing every Sunday/Sunday.
[2019-07-16] MEDS: LACTULOSE 20 GM/30 ML UDC PO (12:46)
[2019-07-16 12:49] LABS: Alveolar/Arterial O2 Gradient 184.1 mmHg; Base Excess ABG 2.9 mEq/l (+/-2.0); Fractional Inspired Oxygen 40 %; HCO3 ABG 26.7 mEq/l (22.0-26.0); Oxygen Content ABG 13.3 %vol (16.0-22.0); Oxygen Saturation ABG 91.7 % (95.0-100.0); Oxyhemoglobin 88.1 % THb (90.0-100.0); PCO2 ABG 37.7 mmHg (35.0-45.0); PO2 ABG 57.7 mmHg (80.0-100.0); PO2 FiO2 Ratio Arterial Blood 1.44 %; Total Hemoglobin 10.7 g/dL (12.0-18.0); pH ABG 7.468 (7.350-7.450)
[2019-07-16 12:50] LABS: Device VENTILATOR; Modified Allen's Test Pass; Site Drawn LEFT RADIAL
[2019-07-16 12:51] LABS: Arterial Blood Gas PEEP 5 cmH2O; Arterial Blood Gas Pressure Support 8 cmH2O; Arterial Blood Gas Vent Mode SPONTANEOUS; Arterial Blood Gas Ventilator rate 0 /MIN
--- NOTE | 2019-07-16 16:40 | PM.IMPN ---
Progress Note: A&P Assessment and Plan (1) Respiratory failure with hypoxia: Qualifiers: Chronicity: acute Qualified Code(s): J96.01 - Acute respiratory failure with hypoxia Code(s): J96.91 - Respiratory failure, unspecified with hypoxia Status: Acute Assessment and Plan: 07/16/19 16:40 Result of pneumonia. Remains on ventilator. Management of ventilator per monogram maker. Discussed with monogram maker today. Sedation discontinued. Chest xray with persistent extensive bilateral pulmonary infiltrates. CT chest/abdomen/pelvis from 07/12/2019 with development of confluent bilateral lower lobe atelectasis and infection, scattered additional ground-glass infectious opacities, small pleural effusions, small to moderate ascites, colonic fluid and hepatic steatosis with possible cirrhosis and portal hypertension. Continue other treatments as noted below. Continue to monitor. Patient is a 38-year-old male with bilateral community-acquired pneumonia most likely bacteria as patient COVID-19 is negative, patient was on ventilator, patient seen by Dr. Anderson patient is treated with Rocephin and azithromycin will complete the course for 7 days recommending to stop the antibiotics, patient was on AST mode on 07/14, today patient clinically symptoms have improved and he was extubated a monogram maker currently patient is quite somnolent unable to provide any review of symptoms, does states feeling much better. Patient required re-intubation this evening after ET tube dislodged. Still remains stable. (2) Sepsis: Qualifiers: Sepsis type: sepsis due to unspecified organism Sepsis acute organ dysfunction status: with acute organ dysfunction Severe sepsis acute organ dysfunction type: acute respiratory failure Acute respiratory failure type: with hypoxia Severe sepsis shock status: without septic shock Qualified Code(s): A41.9 - Sepsis, unspecified organism; R65.20 - Severe sepsis without septic shock; J96.01 - Acute respiratory failure with hypoxia Code(s): A41.9 - Sepsis, unspecified organism Status: Acute Assessment and Plan: Criteria met on admission. Severe sepsis with shock. Initially, blood pressure did improve with normal saline bolus. Subsequently required low-dose Levophed but has been off pressor since 07/13/2019. Blood pressure reviewed on 07/14/2019 and stable. Telemetry reviewed on 07/14/2019 with sinus rhythm. Initial sputum culture now growing yeast with repeat sputum culture also growing yeast. Blood cultures still negative. Urine culture negative. Continue antibiotics as noted below. (3) Pneumonia: Qualifiers: Pneumonia type: due to unspecified organism Laterality: bilateral Lung location: unspecified part of lung Qualified Code(s): J18.9 - Pneumonia, unspecified organism Code(s): J18.9 - Pneumonia, unspecified organism Status: Acute Assessment and Plan: Imaging on admission consistent with multifocal lung disease suspicious for atypical pneumonia versus pulmonary edema with current imaging showing persistent extensive bilateral airspace disease. Infectious Disease consulted and appreciate input. Remains on IV ceftriaxone and azithromycin (Day #6) with length of treatment to be determined. IV vancomycin and metronidazole discontinued on 07/10/2019. COVID testing negative x2. (4) Acute kidney injury: Code(s): N17.9 - Acute kidney failure, unspecified Status: Acute Assessment and Plan: Nephrology consulted and appreciate input. Suspect multifactorial. Creatinine now continues to improve and decreased to 2.40 today. Continue to monitor. (5) Alcoholic cirrhosis: Qualifiers: Ascites presence: with ascites Qualified Code(s): K70.31 - Alcoholic cirrhosis of liver with ascites Code(s): K70.30 - Alcoholic cirrhosis of liver without ascites Status: Acute Assessment and Plan: CT abdomen/pelvis
--- NOTE | 2019-07-16 17:06 | PM.PNNEP ---
Progress Note: A&P Assessment and Plan (1) Acute kidney injury: Code(s): N17.9 - Acute kidney failure, unspecified Status: Acute Assessment and Plan: slow improvement in creatinine noted baseline creatinine normal continue gentle diuresis as tolerated follow trend of repeat labs (2) Sepsis: Qualifiers: Sepsis type: sepsis due to unspecified organism Sepsis acute organ dysfunction status: with acute organ dysfunction Severe sepsis acute organ dysfunction type: acute respiratory failure Acute respiratory failure type: with hypoxia Severe sepsis shock status: without septic shock Qualified Code(s): A41.9 - Sepsis, unspecified organism; R65.20 - Severe sepsis without septic shock; J96.01 - Acute respiratory failure with hypoxia Code(s): A41.9 - Sepsis, unspecified organism Status: Acute Assessment and Plan: thought to be secondary to pneumonia antibiotics per Infectious Disease off pressor therapy (3) Hyponatremia: Code(s): E87.1 - Hypo-osmolality and hyponatremia Status: Acute Assessment and Plan: slow improvement noted as well likely due to combination of DELANO complicated by liver cirrhosis/EtOH abuse and associated pre-renal factors suspect sodium level will continues to improve as renal function does TSH and cortisol normal follow trend (4) Pneumonia: Qualifiers: Pneumonia type: due to unspecified organism Laterality: bilateral Lung location: unspecified part of lung Qualified Code(s): J18.9 - Pneumonia, unspecified organism Code(s): J18.9 - Pneumonia, unspecified organism Status: Acute Assessment and Plan: as noted by imaging to date continue current therapy as outlined (5) Respiratory failure with hypoxia: Qualifiers: Chronicity: acute Qualified Code(s): J96.01 - Acute respiratory failure with hypoxia Code(s): J96.91 - Respiratory failure, unspecified with hypoxia Status: Acute Assessment and Plan: resolving (extubated today) due to #4 follow respiratory status (6) Alcohol abuse: Code(s): F10.10 - Alcohol abuse, uncomplicated Status: Acute Assessment and Plan: difficult situation as he has had a hard time with abstinence per history Discussed case with Dr. Davenport. Will continue to follow Subjective Date/time seen: 07/16/19 17:06 Extubated at the time of my visit and resting comfortably; reasonably UOP with use of diuretics; no apparent distress noted at this time. Exam Narrative: Exam Narrative: General: WD/WN male in NAD; extubated Heart: normal S1 and S2; no rub Lungs: coarse breath sounds Abdomen: soft, nontender, protuberant, positive bowel sounds Extremities: no cyanosis or clubbing; no edema Skin: warm and dry; + jaundice noted Objective Data Vital Signs Vital Signs: Vital Signs Temp Pulse Resp BP Pulse Ox 07/16/19 16:00 76 07/16/19 14:14 75 22 H 07/16/19 14:06 78 22 H 07/16/19 14:00 78 07/16/19 12:00 77 07/16/19 11:00 77 98 07/16/19 10:00 77 07/16/19 08:00 37.8 C H 86 17 110/62 97 07/16/19 07:51 81 96 07/16/19 07:44 84 22 H 07/16/19 07:17 80 15 07/16/19 06:00 82 18 116/71 97 07/16/19 05:37 89 97 07/16/19 04:00 37.3 C 86 18 119/72 99 07/16/19 02:12 84 18 07/16/19 02:01 84 23 H 96 07/16/19 02:00 82 18 111/64 96 07/16/19 00:00 37.2 C 85 16 118/74 98 07/15/19 23:28 83 96 07/15/19 22:00 91 20 118/73 98 07/15/19 20:37 89 18 07/15/19 20:07 88 18 97 07/15/19 20:00 37.2 C 95 20 124/76 97 07/15/19 18:00 87 14 114/71 98 07/15/19 17:40 88 Intake/Output Intake/Output: Intake & Output 07/13/19 07/14/19 07/15/19 07/16/19 23:59 23:59 23:59 23:59 Intake Total 3020 2808 558.93 631 Output Total 1725 0455 3800 1650 Balance 1295 283 -3241.07 -1019
[2019-07-16] MEDS: CENTRAL LINE FLUSH 10 ML IV PUSH ×3 (17:40→22:10)
[2019-07-17] VITALS (18 sets, daily range): BP systolic 99–130; BP diastolic 55–74; PULSE 64–134; RESP 13–26; TEMP 36.6–37.1; O2SAT 90–98
[2019-07-17] MEDS: METOCLOPRAMIDE HCL INJ 10 MG/2 ML VIAL IV PUSH ×4 (01:30→17:29)
[2019-07-17] MEDS: ALBUTEROL SULFATE NEB 2.5 MG/0.5 ML INH INHALATION ×4 (01:46→19:41)
[2019-07-17] MEDS: LACTULOSE 20 GM/30 ML UDC PO (04:00)
[2019-07-17 04:19] LABS: Hematocrit 30.6 % (42.0-52.0); Hemoglobin 9.9 g/dL (14.0-18.0); Mean Corpuscular HGB Conc 32.4 g/dl (32-36); Mean Corpuscular Hemoglobin 34.4 pg (26-34); Mean Corpuscular Volume 106.3 fl (80-100); Mean Platelet Volume 10.3 fl (7.4-10.4); Platelet Count Result 207 k/mm3 (150-375); Red Blood Count 2.88 M/mm3 (4.6-6.20); Red Cell Distribution Width 19.3 % (11.5-14.5); White Blood Count 15.9 K/mm3 (4.5-10.0)
[2019-07-17 04:36] LABS: INR 1.5; Prothrombin Time 17.5 Seconds (11.1-14.7)
[2019-07-17 04:36] LABS: Ammonia < 9 umol/L (9-30)
[2019-07-17 04:37] LABS: Partial Thromboplastin Time 36.3 SECONDS (22.3-36.8)
[2019-07-17 04:38] LABS: Alanine Aminotransferase 64 U/L (4-50); Albumin Level 2.6 g/dL (3.5-5.1); Alkaline Phosphatase 275 U/L (38-126); Aspartate Amino Transferase 130 U/L (17-59); Blood Urea Nitrogen 78 mg/dL (9-20); Calcium 8.4 mg/dL (8.4-10.2); Carbon Dioxide 27 mmol/L (22-30); Chloride 105 mmol/L (98-107); Estimated CRCL calculation 46 ml/min; Estimated Glomerular Filt Rate 34; Glucose 107 mg/dL (75-110); Magnesium 2.2 mg/dL (1.6-2.3); Phosphorus 5.5 mg/dL (2.5-4.5); Potassium 3.7 mmol/L (3.4-5.0); Sodium 138 mmol/L (137-145)
[2019-07-17 04:39] LABS: Alveolar/Arterial O2 Gradient 95.8 mmHg; Base Excess ABG 0.6 mEq/l (+/-2.0); Carboxyhemoglobin 0.7 % THb (0-2.0); Device NASAL CANNULA; Fractional Inspired Oxygen 28 %; HCO3 ABG 23.6 mEq/l (22.0-26.0); Methemoglobin ABG 0.3 %THb (0-1.5); Modified Allen's Test Pass; Oxygen Content ABG 15.2 %vol (16.0-22.0); Oxygen Saturation ABG 94.4 % (95.0-100.0); Oxyhemoglobin 90.8 % THb (90.0-100.0); PCO2 ABG 32.4 mmHg (35.0-45.0); PO2 ABG 65.6 mmHg (80.0-100.0); PO2 FiO2 Ratio Arterial Blood 2.34 %; Reduced Hemoglobin 8.2 %THb (0-5.0); Site Drawn RIGHT RADIAL; Total Hemoglobin 11.9 g/dL (12.0-18.0)
[2019-07-17] MEDS: HEPARIN SODIUM 5,000 UNITS/ML VIAL 5000 UNITS SUB-Q ×3 (06:39→21:01)
[2019-07-17] MEDS: THIAMINE HCL 200 MG/2 ML VIAL 100 MG IV PUSH (08:22)
[2019-07-17] MEDS: PANTOPRAZOLE SODIUM IV 40 MG VIAL IV PUSH ×2 (08:23→20:55)
[2019-07-17] MEDS: FOLIC ACID 1 MG/0.2 ML INJ IV PUSH (08:23)
[2019-07-17] MEDS: DORNASE ALFA INH SOLN 1 MG/ML 2.5 ML AMP 2.5 MG INHALATION ×2 (09:04→19:42)
--- NOTE | 2019-07-17 10:37 | WPDGIPROGNO ---
Progress Note: A&P Additional Plan Patient now extubated. Tolerating ice chips Physical exam reveals him to be alert. Complains of being thirsty. Lungs reveal a few rhonchi. Abdomen is protuberant. Bowel sounds are present. Soft and nontender. Impression 1. Nutritional support. Plan is to gradually advance diet. As soon as we are sure he can safely swallow. Continue to monitor intake and output. 2. Alcoholic cirrhosis. Plan is for supportive care. Marked elevated liver function test identified. Will continue to monitor closely. 3. Mild ascites noted on recent scanning may account for some abdominal distention. 4. Pneumonia. Patient now extubated. Continued therapy per IC is service. Subjective Date/time seen: 07/17/19 10:37 Objective Data Vital Signs Vital Signs: Vital Signs - 24 hr 07/16/19 11:00 07/16/19 12:00 07/16/19 14:00 Temperature 37.1 C Pulse Rate 77 76 78 Respiratory Rate 22 H 25 H Blood Pressure 105/71 107/68 Pulse Oximetry 98 98 95 07/16/19 14:06 07/16/19 14:14 07/16/19 16:00 Temperature Pulse Rate 78 75 75 Respiratory Rate 22 H 22 H 21 H Blood Pressure 109/77 Pulse Oximetry 94 07/16/19 18:00 07/16/19 19:54 07/16/19 20:01 Temperature Pulse Rate 71 67 67 Respiratory Rate 18 17 22 H Blood Pressure 107/72 Pulse Oximetry 97 94 07/16/19 20:06 07/16/19 20:11 07/16/19 22:00 Temperature 36.6 C Pulse Rate 71 71 72 Respiratory Rate 18 21 H 21 H Blood Pressure 112/80 107/72 Pulse Oximetry 97 95 07/17/19 00:00 07/17/19 01:46 07/17/19 01:53 Temperature Pulse Rate 64 69 67 Respiratory Rate 14 14 13 Blood Pressure Pulse Oximetry 95 07/17/19 04:00 07/17/19 08:00 07/17/19 08:45 Temperature 36.8 C 36.6 C Pulse Rate 75 77 68 Respiratory Rate 14 23 H 14 Blood Pressure 99/60 L 106/69 Pulse Oximetry 95 98 98 07/17/19 08:55 Temperature Pulse Rate 72 Respiratory Rate 14 Blood Pressure Pulse Oximetry Intake/Output Intake/Output: Intake & Output 07/14/19 07/15/19 07/16/19 07/17/19 23:59 23:59 23:59 23:59 Intake Total 2808 558.93 1156 600 Output Total 1325 3800 2950 750 Balance 048 -3495.07 -1794 -150 Meds/Results Medications: Active Medications Generic Name Dose Route Start Last Admin Trade Name Freq PRN Reason Stop Dose Admin Albuterol 2.5 mg 07/15/19 14:00 07/17/19 09:04 Albuterol Sulf Neb 2.5mg/0.5ml INHALATION 2.5 mg Q6HRT LESLIE Administration Chlordiazepoxide HCl 50 mg 07/17/19 11:00 Librium Po PO Q6H LESLIE Dextrose 12.5 gm 07/11/19 06:25 Dextrose 50% Syringe IV PUSH PRN PRN Hypoglycemia Protocol Dornase Juan Luis 2.5 mg 07/15/19 11:00 07/17/19 09:04 Pulmozyme INHALATION 2.5 mg Q12HRT LESLIE Administration Folic Acid 1 mg 07/09/19 09:00 07/17/19 08:23 Folic Acid Inj IV PUSH 1 mg QAM LESLIE Administration Glucagon 1 mg 07/11/19 06:25 Glucagon For Inj IM PRN PRN Hypoglycemia Protocol Glucose 15 gm 07/11/19 06:25 Glutose 15 PO PRN PRN Hypoglycemia Protocol Heparin Sodium (Porcine) 5,000 units 07/09/19 14:00 07/17/19 06:39 Heparin Sodium SUB-Q 5,000 units Q8HR LESLIE Administration Ceftriaxone Sodium/Dextrose 1 gm in 50 mls @ 100 mls/hr 07/09/19 18:00 07/16/19 18:10 Rocephin 1 Gm/D5w 50 Ml IVPB Infused Q24H LESLIE Infusion Azithromycin 250 mg/ Dextrose 250 mls @ 250 mls/hr 07/09/19 21:00 07/16/19 23:00 IVPB Infused Q24H LESLIE Infusion Dextrose 1,000 mls @ 100 mls/hr 07/11/19 06:25 Dextrose 5% 1,000 Ml IVPB PRN PRN Hypoglycemia Protocol Norepinephrine Bitartrate 8 mg in 250 mls @ 0 mls/hr 07/11/19 20:20 07/13/19 07:38 Levophed 8 Mg/D5w 250 Ml IV CONT 0 mcg/min .Q0M LESLIE 0 mls/hr Titration Protocol Dexmedetomidine HCl 400 mcg in 100 mls @ 4.64 mls/hr 07/15/19 12:25 07/17/19 05:33 Precedex 400 Mcg/D5w 100 Ml IV CONT 0.2 mcg/kg/hr .[id number]
[2019-07-17] MEDS: CHLORDIAZEPOXIDE 25 MG CAPSULE 50 MG PO ×3 (11:17→22:25)
--- NOTE | 2019-07-17 11:47 | WPDINTPN ---
Progress Note: A&P Assessment and Plan (1) Respiratory failure with hypoxia: Qualifiers: Chronicity: acute Qualified Code(s): J96.01 - Acute respiratory failure with hypoxia Code(s): J96.91 - Respiratory failure, unspecified with hypoxia Status: Acute Assessment and Plan: Patient successfully extubated on 07/16/2019. Currently on 2 L nasal cannula with good O2 sats. -on low-dose Precedex infusion, -PT/OT been ordered, will increase activity as tolerated, up in chair -continue chest PT 07/12/2019 venous dopplers of the lower extremities were negative for DVT (2) Severe sepsis: Code(s): A41.9 - Sepsis, unspecified organism; R65.20 - Severe sepsis without septic shock Status: Acute Assessment and Plan: - Likely as a result of pneumonia. -leukocytosis persists - Continue broad-spectrum antibiotics with ceftriaxone and azithromycin, ID following the patient. - Flagyl and vancomycin has been stopped as per ID recommendation. -repeat cultures 07/12/2019 blood, urine culture were negative. 07/12/2019 sputum culture is again growing Yeast. -patient off Levophed. -procalcitonin level pending CT chest/abdomen/pelvis showed bilateral infiltrate in the lower lung as well as scattered additional ground-glass opacities. Small pleural effusion with small to moderate ascites. Hepatic steatosis/cirrhosis with evidence of portal hypertension. CT scan was obtained without contrast. (3) Alcoholic cirrhosis: Qualifiers: Ascites presence: with ascites Qualified Code(s): K70.31 - Alcoholic cirrhosis of liver with ascites Code(s): K70.30 - Alcoholic cirrhosis of liver without ascites Status: Acute Assessment and Plan: He has history of significant alcohol abuse which is ongoing. Hepatitis panel is negative. Increased total bilirubin, AST trending down, ALT is normal and elevated alk-phos the - CT abdomen pelvis showed cirrhotic changes with evidence of portal hypertension. -thrombocytopenia improving -Ammonia level <9 this morning (07/16/2019) patient has been having bowel movements this morning -appreciate GI evaluation recommendation, continue Reglan. -will diurese patient again today - He had some coffee-ground material in his OG tube initially but that has cleared now. He is currently on pantoprazole IV twice a day. -off tube feeds since patient is extubated -speech will evaluate patient for swallow test (4) Suspected COVID-19 virus infection: Code(s): Z20.828 - Contact with and (suspected) exposure to other viral communicable diseases Status: Ruled-out Assessment and Plan: COVID-19 testing was found to be negative. Repeat COVID-19 testing has been reported as negative. Precautions have been discontinued. His ferritin level is 1910 with his CRP being elevated as well. Likely as a result of inflammation/pneumonia. (5) Pneumonia: Qualifiers: Pneumonia type: due to unspecified organism Laterality: bilateral Lung location: unspecified part of lung Qualified Code(s): J18.9 - Pneumonia, unspecified organism Code(s): J18.9 - Pneumonia, unspecified organism Status: Acute Assessment and Plan: Continue broad-spectrum antibiotics with ceftriaxone and azithromycin and complete a course of 7-10 days. -vancomycin and Flagyl has been stopped as per infectious disease service recommendations. Infectious disease service recommendations appreciated. Repeat procalcitonin level is pending. Cultures as above -continue antibiotics per Infectious Disease -thick mucus plugging noticed on the ETT which was pulled out on 07/14/2019 accidentally and patient was reintubated 07/14/2019. Extubated on 07/16/2019 -continue Pulmozyme -chest physiotherapy with vest (6) Alcohol abuse: Code(s): F10.10 - Alcohol abuse, uncomplicated Status: Acute Assessment and Plan: He has s
[2019-07-17] MEDS: BUMETANIDE INJ 1 MG/4 ML VIAL 2 MG IV PUSH (12:15)
--- NOTE | 2019-07-17 13:02 | PCDIET ---
ICU Rounding Note: Patient extubated on 07/16/19. RESIDENTIAL LEASING MANAGER evaluation ordered. Patient states eager to advance diet. Last recorded weight is 90.9kg. Recommend obtaining new weight. Bowel Motility: 2 liquid stools this date, per RN Labs Reviewed: Hgb (9.9), Hct (30.6), BUN (78), Cr (2.2), Alb (2.6), PO4 (5.5) Meds Noted: Albuterol, Rocephin, Folic Acid, Reglan, Azithromycin, Levophed, Protonix, Thiamine Additional Notes: Coccyx macerated. Following daily in ICU rounds. Assessing/reassessing every Sunday/Sunday.
--- NOTE | 2019-07-17 13:09 | PM.PNNEP ---
Progress Note: A&P Assessment and Plan (1) Acute kidney injury: Code(s): N17.9 - Acute kidney failure, unspecified Status: Acute Assessment and Plan: slow improvement in creatinine noted baseline creatinine normal continue gentle diuresis as tolerated follow trend of repeat labs (2) Sepsis: Qualifiers: Sepsis type: sepsis due to unspecified organism Sepsis acute organ dysfunction status: with acute organ dysfunction Severe sepsis acute organ dysfunction type: acute respiratory failure Acute respiratory failure type: with hypoxia Severe sepsis shock status: without septic shock Qualified Code(s): A41.9 - Sepsis, unspecified organism; R65.20 - Severe sepsis without septic shock; J96.01 - Acute respiratory failure with hypoxia Code(s): A41.9 - Sepsis, unspecified organism Status: Acute Assessment and Plan: thought to be secondary to pneumonia antibiotics per Infectious Disease off pressor therapy (3) Hyponatremia: Code(s): E87.1 - Hypo-osmolality and hyponatremia Status: Acute Assessment and Plan: normalized likely due to combination of DELANO complicated by liver cirrhosis/EtOH abuse and associated pre-renal factors suspect sodium level will continues to improve/remain stable as renal function does TSH and cortisol normal follow trend (4) Pneumonia: Qualifiers: Pneumonia type: due to unspecified organism Laterality: bilateral Lung location: unspecified part of lung Qualified Code(s): J18.9 - Pneumonia, unspecified organism Code(s): J18.9 - Pneumonia, unspecified organism Status: Acute Assessment and Plan: as noted by imaging to date continue current therapy as outlined (5) Respiratory failure with hypoxia: Qualifiers: Chronicity: acute Qualified Code(s): J96.01 - Acute respiratory failure with hypoxia Code(s): J96.91 - Respiratory failure, unspecified with hypoxia Status: Acute Assessment and Plan: resolving (extubated yesterday) due to #4 follow respiratory status (6) Alcohol abuse: Code(s): F10.10 - Alcohol abuse, uncomplicated Status: Acute Assessment and Plan: difficult situation as he has had a hard time with abstinence per history monitor for signs of withdrawal Will continue to follow Subjective Date/time seen: 07/17/19 13:09 Successfully extubated yesterday; respiratory status stable with patient on supplemental oxygen by nasal cannula; remains hemodynamically stable without the need for pressors; reasonably urine output with diuretic therapy; no other acute complaints voiced. Exam Narrative: Exam Narrative: General: WD/WN male in NAD Heart: normal S1 and S2; no rub Lungs: coarse breath sounds Abdomen: soft, nontender, protuberant, positive bowel sounds Extremities: no cyanosis or clubbing; 1+ edema Skin: warm and intact; + jaundice noted Objective Data Vital Signs Vital Signs: Vital Signs Temp Pulse Resp BP Pulse Ox 07/17/19 12:00 37.0 C 81 26 H 104/60 90 07/17/19 10:00 92 25 H 106/55 L 91 07/17/19 08:55 72 14 07/17/19 08:45 68 14 98 07/17/19 08:00 36.6 C 77 23 H 106/69 98 07/17/19 04:00 36.8 C 75 14 99/60 L 95 07/17/19 01:53 67 13 07/17/19 01:46 69 14 07/17/19 00:00 64 14 95 07/16/19 22:00 72 21 H 107/72 95 07/16/19 20:11 71 21 H 07/16/19 20:06 36.6 C 71 18 112/80 97 07/16/19 20:01 67 22 H 94 07/16/19 19:54 67 17 07/16/19 18:00 71 18 107/72 97 07/16/19 16:00 75 21 H 109/77 94 07/16/19 14:14 75 22 H 07/16/19 14:06 78 22 H 07/16/19 14:00 37.1 C 78 25 H 107/68 95 Intake/Output Intake/Output: Intake & Output 07/14/19 07/15/19 07/16/19 07/17/19 23:59 23:59 23:59 23:59 Intake Total 2808 558.93 1156 600 Output Total 2525 3800 2950 750 Balance 697 -9131.07 -5984 -150 Meds/Results
[2019-07-17 13:53] LABS: Procalcitonin 3.73 ng/mL (<0.10)
--- NOTE | 2019-07-17 15:18 | WPDINFPN2 ---
Progress Note: A&P Assessment and Plan (1) Pneumonia: Qualifiers: Pneumonia type: due to unspecified organism Laterality: bilateral Lung location: unspecified part of lung Qualified Code(s): J18.9 - Pneumonia, unspecified organism Code(s): J18.9 - Pneumonia, unspecified organism Status: Acute Assessment and Plan: 1. CAP, suspect bacterial, WBC remains high. The leukcytosis could also be due to cirrhosis. CXR suboptimal film, stable 2. Resp failure, compensated 3. Alcoholic cirrhosis 4. Yeast in sputum, commensal REC Ctx and Azithro #9, continue another day, given rising PCT. Subjective Date/time seen: 07/17/19 15:18 Interval history: no dyspnea at rest. Appetite fair Exam Narrative: Exam Narrative: afebrile Const: General: no acute distress Eyes: Sclera: scleral abnormality Resp: Effort & Inspection: normal respiratory effort Auscultation: crackles, no rhonchi and no wheezes Cardio: Rate: regular rate Rhythm: regular rhythm Heart sounds: no murmurs GI: Inspection: distended GI Palp: Yes Firmness to palpation present (GI) and No Tenderness to palpation present (GI) Skin: General skin exam: No normal color Objective Data Vital Signs Vital Signs: Vital Signs - 24 hr 07/16/19 16:00 07/16/19 18:00 07/16/19 19:54 Temperature Pulse Rate 75 71 67 Pulse Rate [With Activity During Therapy Session] Respiratory Rate 21 H 18 17 Blood Pressure 109/77 107/72 Pulse Oximetry 94 97 07/16/19 20:01 07/16/19 20:06 07/16/19 20:11 Temperature 36.6 C Pulse Rate 67 71 71 Pulse Rate [With Activity During Therapy Session] Respiratory Rate 22 H 18 21 H Blood Pressure 112/80 Pulse Oximetry 94 97 07/16/19 22:00 07/17/19 00:00 07/17/19 01:46 Temperature Pulse Rate 72 64 69 Pulse Rate [With Activity During Therapy Session] Respiratory Rate 21 H 14 14 Blood Pressure 107/72 Pulse Oximetry 95 95 07/17/19 01:53 07/17/19 04:00 07/17/19 08:00 Temperature 36.8 C 36.6 C Pulse Rate 67 75 77 Pulse Rate [With Activity During Therapy Session] Respiratory Rate 13 14 23 H Blood Pressure 99/60 L 106/69 Pulse Oximetry 95 98 07/17/19 08:45 07/17/19 08:55 07/17/19 10:00 Temperature Pulse Rate 68 72 92 Pulse Rate [With Activity During Therapy Session] Respiratory Rate 14 14 25 H Blood Pressure 106/55 L Pulse Oximetry 98 91 07/17/19 12:00 07/17/19 14:00 07/17/19 14:29 Temperature 37.0 C Pulse Rate 81 86 Pulse Rate [With Activity During Therapy Session] 134 H Respiratory Rate 26 H 25 H Blood Pressure 104/60 123/74 Pulse Oximetry 90 91 Intake/Output Intake/Output: Intake & Output 07/14/19 07/15/19 07/16/19 07/17/19 23:59 23:59 23:59 23:59 Intake Total 2808 558.93 1156 600 Output Total 2525 3800 2950 750 Balance 283 -3241.07 -1794 -150 Meds/Results Medications: Active Medications Generic Name Dose Route Start Last Admin Trade Name Freq PRN Reason Stop Dose Admin Albuterol 2.5 mg 07/15/19 14:00 07/17/19 09:04 Albuterol Sulf Neb 2.5mg/0.5ml INHALATION 2.5 mg Q6HRT LESLIE Administration Chlordiazepoxide HCl 50 mg 07/17/19 11:00 07/17/19 11:17 Librium Po PO 50 mg Q6H LESLIE Administration Dextrose 12.5 gm 07/11/19 06:25 Dextrose 50% Syringe IV PUSH PRN PRN Hypoglycemia Protocol Dornase Juan Luis 2.5 mg 07/15/19 11:00 07/17/19 09:04 Pulmozyme INHALATION 2.5 mg Q12HRT LESLIE Administration Folic Acid 1 mg 07/09/19 09:00 07/17/19 08:23 Folic Acid Inj IV PUSH 1 mg QAM LESLIE Administration Glucagon 1 mg 07/11/19 06:25 Glucagon For Inj IM PRN PRN Hypoglycemia Protocol Glucose 15 gm 07/11/19 06:25 Glutose 15 PO PRN PRN Hypoglycemia Protocol Heparin Sodium (Porcine) 5,000 units 07/09/19 14:00 07/17/19 06:39 Heparin Sodium SUB-Q 5,000 units Q8HR LESLIE Administration Ceftriaxone Sodium/Dextrose 1 gm in 50 mls @ 100 m
[2019-07-17] MEDS: NICOTINE (*PBKC) 14 MG PATCH 1 PATCH TRANSDERM (16:04)
--- NOTE | 2019-07-17 16:39 | PC.NURSE ---
1605-PATIENT TRANSFERRED TO ROOM 300. REPORT CALLED TO JOSE MARIA. ALL QUESTIONS ANSWERED.
--- NOTE | 2019-07-17 16:55 | PC.NURSE ---
This patient, Joey Polk, was received from ICU on 07/17/19 at 1625. Personal belongings list checked and signed. Patient/family oriented to unit policies and routines
--- NOTE | 2019-07-17 17:33 | PCSTNOTE ---
Please refer to the Bedside Swallow Evaluation in the EMR.
--- NOTE | 2019-07-17 18:29 | PM.IMPN ---
Progress Note: A&P Assessment and Plan (1) Respiratory failure with hypoxia: Qualifiers: Chronicity: acute Qualified Code(s): J96.01 - Acute respiratory failure with hypoxia Code(s): J96.91 - Respiratory failure, unspecified with hypoxia Status: Acute Assessment and Plan: 07/16/19 16:40 Result of pneumonia. Remains on ventilator. Management of ventilator per motor grader operator. Discussed with motor grader operator today. Sedation discontinued. Chest xray with persistent extensive bilateral pulmonary infiltrates. CT chest/abdomen/pelvis from 07/12/2019 with development of confluent bilateral lower lobe atelectasis and infection, scattered additional ground-glass infectious opacities, small pleural effusions, small to moderate ascites, colonic fluid and hepatic steatosis with possible cirrhosis and portal hypertension. Continue other treatments as noted below. Continue to monitor. Patient is a 38-year-old male with bilateral community-acquired pneumonia most likely bacteria as patient COVID-19 is negative, patient was on ventilator, patient seen by Dr. Anderson patient is treated with Rocephin and azithromycin will complete the course for 7 days recommending to stop the antibiotics, patient was on AST mode on 07/14, on 07/15 patient clinically symptoms had improved and he was extubated by motor grader operator today patient appears to be and withdrawal and has a tremor patient has a history of alcohol abuse and his last drink was on the day arrival to emergency department, patient is being started on CIWA protocol with Librium, (2) Sepsis: Qualifiers: Sepsis type: sepsis due to unspecified organism Sepsis acute organ dysfunction status: with acute organ dysfunction Severe sepsis acute organ dysfunction type: acute respiratory failure Acute respiratory failure type: with hypoxia Severe sepsis shock status: without septic shock Qualified Code(s): A41.9 - Sepsis, unspecified organism; R65.20 - Severe sepsis without septic shock; J96.01 - Acute respiratory failure with hypoxia Code(s): A41.9 - Sepsis, unspecified organism Status: Acute Assessment and Plan: Criteria met on admission. Severe sepsis with shock. Initially, blood pressure did improve with normal saline bolus. Subsequently required low-dose Levophed but has been off pressor since 07/13/2019. Blood pressure reviewed on 07/14/2019 and stable. Telemetry reviewed on 07/14/2019 with sinus rhythm. Initial sputum culture now growing yeast with repeat sputum culture also growing yeast. Blood cultures still negative. Urine culture negative. Continue antibiotics as noted below. (3) Pneumonia: Qualifiers: Pneumonia type: due to unspecified organism Laterality: bilateral Lung location: unspecified part of lung Qualified Code(s): J18.9 - Pneumonia, unspecified organism Code(s): J18.9 - Pneumonia, unspecified organism Status: Acute Assessment and Plan: Imaging on admission consistent with multifocal lung disease suspicious for atypical pneumonia versus pulmonary edema with current imaging showing persistent extensive bilateral airspace disease. Infectious Disease consulted and appreciate input. Remains on IV ceftriaxone and azithromycin (Day #6) with length of treatment to be determined. IV vancomycin and metronidazole discontinued on 07/10/2019. COVID testing negative x2. (4) Acute kidney injury: Code(s): N17.9 - Acute kidney failure, unspecified Status: Acute Assessment and Plan: Nephrology consulted and appreciate input. Suspect multifactorial. Creatinine now continues to improve and decreased to 2.20 today. Continue to monitor. (5) Alcoholic cirrhosis: Qualifiers: Ascites presence: with ascites Qualified Code(s): K70.31 - Alcoholic cirrhosis of liver with ascites Code(s): K70.30 - Alcoholic cirrhosis of liver without ascites Status: Acute Assessment and Plan:
[2019-07-18] VITALS (16 sets, daily range): BP systolic 119–135; BP diastolic 63–76; PULSE 74–115; RESP 14–20; TEMP 36.7; O2SAT 90–97
[2019-07-18] MEDS: ALBUTEROL SULFATE NEB 2.5 MG/0.5 ML INH INHALATION ×4 (01:35→20:46)
[2019-07-18] MEDS: HEPARIN SODIUM 5,000 UNITS/ML VIAL 5000 UNITS SUB-Q ×3 (05:18→22:23)
[2019-07-18] MEDS: CHLORDIAZEPOXIDE 25 MG CAPSULE 50 MG PO ×4 (05:18→22:23)
[2019-07-18] MEDS: METOCLOPRAMIDE HCL INJ 10 MG/2 ML VIAL IV PUSH ×5 (05:18→23:50)
[2019-07-18 07:55] LABS: Hematocrit 28.4 % (42.0-52.0); Hemoglobin 9.3 g/dL (14.0-18.0); Mean Corpuscular HGB Conc 32.7 g/dl (32-36); Mean Corpuscular Hemoglobin 34.2 pg (26-34); Mean Corpuscular Volume 104.4 fl (80-100); Mean Platelet Volume 10.8 fl (7.4-10.4); Platelet Count Result 202 k/mm3 (150-375); Red Blood Count 2.72 M/mm3 (4.6-6.20); Red Cell Distribution Width 19.8 % (11.5-14.5); White Blood Count 18.1 K/mm3 (4.5-10.0)
[2019-07-18 08:01] LABS: INR 1.4; Prothrombin Time 17.2 Seconds (11.1-14.7)
[2019-07-18 08:02] LABS: Partial Thromboplastin Time 39.7 SECONDS (22.3-36.8)
[2019-07-18 08:09] LABS: Ammonia 13 umol/L (9-30)
[2019-07-18 08:16] LABS: Alanine Aminotransferase 112 U/L (4-50); Albumin Level 2.7 g/dL (3.5-5.1); Alkaline Phosphatase 320 U/L (38-126); Aspartate Amino Transferase 231 U/L (17-59); Bilirubin,Total 17.8 mg/dL (0.2-1.3); Blood Urea Nitrogen 64 mg/dL (9-20); Calcium 8.6 mg/dL (8.4-10.2); Carbon Dioxide 25 mmol/L (22-30); Chloride 99 mmol/L (98-107); Estimated CRCL calculation 53 ml/min; Estimated Glomerular Filt Rate 40; Glucose 96 mg/dL (75-110); Magnesium 1.8 mg/dL (1.6-2.3); Phosphorus 4.8 mg/dL (2.5-4.5); Potassium 3.3 mmol/L (3.4-5.0); Sodium 132 mmol/L (137-145)
[2019-07-18 08:46] LABS: Creatine Kinase 51 U/L (55-170)
[2019-07-18] MEDS: POTASSIUM CHLORIDE 20 MEQ TABLET 40 MEQ PO (09:20)
[2019-07-18] MEDS: DORNASE ALFA INH SOLN 1 MG/ML 2.5 ML AMP 2.5 MG INHALATION ×2 (09:21→20:46)
[2019-07-18] MEDS: THIAMINE HCL 200 MG/2 ML VIAL 100 MG IV PUSH (09:22)
[2019-07-18] MEDS: PANTOPRAZOLE SODIUM IV 40 MG VIAL IV PUSH ×2 (09:23→22:23)
[2019-07-18 09:29] LABS: Lactate Dehydrogenase 698 U/L (313-618)
--- NOTE | 2019-07-18 10:22 | PM.IMPN ---
Progress Note: A&P Assessment and Plan (1) Respiratory failure with hypoxia: Qualifiers: Chronicity: acute Qualified Code(s): J96.01 - Acute respiratory failure with hypoxia Code(s): J96.91 - Respiratory failure, unspecified with hypoxia Status: Acute Assessment and Plan: 07/18/19 10:22 Result of pneumonia. Remains on ventilator. Management of ventilator per assistant professor of philosophy. Discussed with assistant professor of philosophy today. Sedation discontinued. Chest xray with persistent extensive bilateral pulmonary infiltrates. CT chest/abdomen/pelvis from 07/12/2019 with development of confluent bilateral lower lobe atelectasis and infection, scattered additional ground-glass infectious opacities, small pleural effusions, small to moderate ascites, colonic fluid and hepatic steatosis with possible cirrhosis and portal hypertension. Continue other treatments as noted below. Continue to monitor. Patient is a 38-year-old male with bilateral community-acquired pneumonia most likely bacteria as patient COVID-19 is negative, patient was on ventilator, patient seen by Dr. Anderson patient is treated with Rocephin and azithromycin will complete the course for 7 days recommending to stop the antibiotics, patient was on AST mode on 07/14, on 07/15 patient clinically symptoms had improved and he was extubated by assistant professor of philosophy on 07/16 patient appeared to be in withdrawal and had a tremor patient has a history of alcohol abuse and his last drink was on the day of arrival to emergency department, patient was started on CIWA protocol with Librium and he was transferred out of ICU, today patient still has tremors and appears more jaundice as he is sitting near a sun lit window, most likely patient has alcoholic liver cirrhosis, S patient acute hepatitis panel is normal unlikely infectious source, patient bilirubin is quite elevated, his INR is slightly elevated his albumin is slow to further I have ordered liver ultrasound and will consult GI for further recommendation (2) Sepsis: Qualifiers: Acute respiratory failure type: with hypoxia Sepsis acute organ dysfunction status: with acute organ dysfunction Sepsis type: sepsis due to unspecified organism Severe sepsis acute organ dysfunction type: acute respiratory failure Severe sepsis shock status: without septic shock Qualified Code(s): A41.9 - Sepsis, unspecified organism; R65.20 - Severe sepsis without septic shock; J96.01 - Acute respiratory failure with hypoxia Code(s): A41.9 - Sepsis, unspecified organism Status: Acute Assessment and Plan: Criteria met on admission. Severe sepsis with shock. Initially, blood pressure did improve with normal saline bolus. Subsequently required low-dose Levophed but has been off pressor since 07/13/2019. Blood pressure reviewed on 07/14/2019 and stable. Telemetry reviewed on 07/14/2019 with sinus rhythm. Initial sputum culture now growing yeast with repeat sputum culture also growing yeast. Blood cultures still negative. Urine culture negative. Continue antibiotics as noted below. Patient is seen by Dr. anderson and further recommendation to follow (3) Pneumonia: Qualifiers: Laterality: bilateral Lung location: unspecified part of lung Pneumonia type: due to unspecified organism Qualified Code(s): J18.9 - Pneumonia, unspecified organism Code(s): J18.9 - Pneumonia, unspecified organism Status: Acute Assessment and Plan: Imaging on admission consistent with multifocal lung disease suspicious for atypical pneumonia versus pulmonary edema with current imaging showing persistent extensive bilateral airspace disease. Infectious Disease consulted and appreciate input. Remains on IV ceftriaxone and azithromycin (Day #6) with length of treatment to be determined. IV vancomycin and metronidazole discontinued on 07/10/2019. COVID testing negative x2. Plan is above (4) Acute kidney injury: Code(s): N17.9 - A
--- NOTE | 2019-07-18 11:17 | WPDGIPROGNO ---
Progress Note: A&P Additional Plan Patient alert this morning. Tolerating liquid diet. He continues to appear very weak. Bowel habits are reported be a nursing staff. Physical exam reveals him to be alert. Significant scleral icterus appreciated. Lungs are clear. Heart without murmur. Abdomen is distended somewhat tympanic. Bowel sounds are present no tenderness no organomegaly appreciated. Impression 1. Abdominal distention. May be related to ascites. Plan is to follow obstructive series. Currently tolerating diet this will continue. Continue monitor bowel function. 2. Alcohol abuse. 3. Alcoholic liver disease with cirrhosis of the liver. Patient has profound elevation of LFTs. Continue to monitor closely. Alcohol avoidance essential in this patient. Four. Pneumonia. Patient now off ventilator. On the regular floor. Continue therapy per primary care service. Subjective Date/time seen: 07/18/19 11:17 Objective Data Vital Signs Vital Signs: Vital Signs - 24 hr 07/17/19 12:00 07/17/19 14:00 07/17/19 14:15 Temperature 37.0 C Pulse Rate 81 67 70 Pulse Rate [Bilateral Pedal (Dorsalis Pedis) Palpation] Pulse Rate [With Activity During Therapy Session] Respiratory Rate 26 H 14 14 Blood Pressure 104/60 123/74 Pulse Oximetry 90 91 07/17/19 14:29 07/17/19 16:00 07/17/19 17:00 Temperature Pulse Rate 89 Pulse Rate [Bilateral Pedal (Dorsalis Pedis) Palpation] 90 Pulse Rate [With Activity During Therapy Session] 134 H Respiratory Rate 22 H Blood Pressure 123/74 Pulse Oximetry 91 07/17/19 19:42 07/17/19 19:52 07/17/19 19:55 Temperature Pulse Rate 70 74 Pulse Rate [Bilateral Pedal (Dorsalis Pedis) Palpation] Pulse Rate [With Activity During Therapy Session] Respiratory Rate 16 16 Blood Pressure Pulse Oximetry 96 07/17/19 22:00 07/18/19 00:30 07/18/19 00:32 Temperature 37.1 C Pulse Rate 107 H Pulse Rate [Bilateral Pedal (Dorsalis Pedis) Palpation] Pulse Rate [With Activity During Therapy Session] Respiratory Rate 18 20 Blood Pressure 130/67 Pulse Oximetry 95 90 97 07/18/19 01:36 07/18/19 01:46 07/18/19 09:22 Temperature Pulse Rate 74 76 Pulse Rate [Bilateral Pedal (Dorsalis Pedis) Palpation] Pulse Rate [With Activity During Therapy Session] Respiratory Rate 16 14 Blood Pressure Pulse Oximetry 94 07/18/19 09:26 07/18/19 09:27 07/18/19 09:38 Temperature Pulse Rate 106 H 108 H Pulse Rate [Bilateral Pedal (Dorsalis Pedis) Palpation] 115 H Pulse Rate [With Activity During Therapy Session] Respiratory Rate 16 16 Blood Pressure 119/69 Pulse Oximetry Intake/Output Intake/Output: Intake & Output 07/15/19 07/16/19 07/17/19 07/18/19 23:59 23:59 23:59 23:59 Intake Total 558.93 1156 650 600 Output Total 3800 2950 750 1200 Balance -3241.07 -1794 -100 -600 Meds/Results Medications: Active Medications Generic Name Dose Route Start Last Admin Trade Name Freq PRN Reason Stop Dose Admin Albuterol 2.5 mg 07/15/19 14:00 07/18/19 09:21 Albuterol Sulf Neb 2.5mg/0.5ml INHALATION 2.5 mg Q6HRT LESLIE Administration Chlordiazepoxide HCl 50 mg 07/17/19 11:00 07/18/19 05:18 Librium Po PO 50 mg Q6H LESLIE Administration Dextrose 12.5 gm 07/11/19 06:25 Dextrose 50% Syringe IV PUSH PRN PRN Hypoglycemia Protocol Dornase Juan Luis 2.5 mg 07/15/19 11:00 07/18/19 09:21 Pulmozyme INHALATION 2.5 mg Q12HRT LESLIE Administration Folic Acid 1 mg 07/09/19 09:00 07/17/19 08:23 Folic Acid Inj IV PUSH 1 mg QAM LESLIE Administration Glucagon 1 mg 07/11/19 06:25 Glucagon For Inj IM PRN PRN Hypoglycemia Protocol Glucose 15 gm 07/11/19 06:25 Glutose 15 PO PRN PRN Hypoglycemia Protocol Heparin Sodium (Porcine) 5,000 units 07/09/19 14:00 07/18/19 05:18 Heparin Sodium SUB-Q 5,000 units Q8HR LESLIE Administrat
[2019-07-18] MEDS: NICOTINE (*PBKC) 14 MG PATCH 1 PATCH TRANSDERM (11:39)
[2019-07-18] MEDS: FOLIC ACID 1 MG/0.2 ML INJ IV PUSH (11:39)
--- NOTE | 2019-07-18 11:41 | PCNFU ---
Nutrition Follow-Up Complete: Inadequate oral intake related to oral intubation as evidenced by NPO status. Goal: Patient to meet estimated nutritional needs. Progressing towards goal. We will continue current goal. Pt current nutrition is NPO. Nutrition recommendation:Heart Healthy Last recorded weight is 91.3 kg. Bowel Motility:BM reported 07/17 Labs Reviewed:Na 132,BUN 64,Cr 1.9,Alb 2.7 Meds Noted:Thiamine, Reglan,Protonix Additional Notes: Patient seen today, NPO for Abdominal Ultrasound-distention noted. He was able to eat part of his breakfast this morning. He states to no diet questions or concerns at this time regarding diet. Patient Instruction attached. Monitoring: Follow up every 3 days.
--- NOTE | 2019-07-18 14:28 | WPDPN ---
Progress Note: A&P Assessment and Plan (1) Pneumonia: Qualifiers: Pneumonia type: due to unspecified organism Laterality: bilateral Lung location: unspecified part of lung Qualified Code(s): J18.9 - Pneumonia, unspecified organism Code(s): J18.9 - Pneumonia, unspecified organism Status: Acute Assessment and Plan: 1. CAP, suspect bacterial, resolved. His CXR is stable, personally reviewed 2. Resp failure, compensated 3. Alcoholic cirrhosis 4. Yeast in sputum, commensal 5. Leukocytosis, due to cirrhosis REC Stop Ctx and Azithro, will sign off. Exam Narrative: Exam Narrative: afebrile since early AM yesterday 37.8 Const: General: no acute distress Resp: Effort & Inspection: normal respiratory effort Auscultation: clear to auscultation bilaterally Objective Data Vital Signs Vital Signs: Vital Signs - 24 hr 07/17/19 14:29 07/17/19 16:00 07/17/19 17:00 Temperature Pulse Rate 89 Pulse Rate [Bilateral Pedal (Dorsalis Pedis) Palpation] 90 Pulse Rate [With Activity During Therapy Session] 134 H Respiratory Rate 22 H Blood Pressure 123/74 Pulse Oximetry 91 07/17/19 19:42 07/17/19 19:52 07/17/19 19:55 Temperature Pulse Rate 70 74 Pulse Rate [Bilateral Pedal (Dorsalis Pedis) Palpation] Pulse Rate [With Activity During Therapy Session] Respiratory Rate 16 16 Blood Pressure Pulse Oximetry 96 07/17/19 22:00 07/18/19 00:30 07/18/19 00:32 Temperature 37.1 C Pulse Rate 107 H Pulse Rate [Bilateral Pedal (Dorsalis Pedis) Palpation] Pulse Rate [With Activity During Therapy Session] Respiratory Rate 18 20 Blood Pressure 130/67 Pulse Oximetry 95 90 97 07/18/19 01:36 07/18/19 01:46 07/18/19 09:22 Temperature Pulse Rate 74 76 Pulse Rate [Bilateral Pedal (Dorsalis Pedis) Palpation] Pulse Rate [With Activity During Therapy Session] Respiratory Rate 16 14 Blood Pressure Pulse Oximetry 94 07/18/19 09:26 07/18/19 09:27 07/18/19 09:38 Temperature Pulse Rate 106 H 108 H Pulse Rate [Bilateral Pedal (Dorsalis Pedis) Palpation] 115 H Pulse Rate [With Activity During Therapy Session] Respiratory Rate 16 16 Blood Pressure 119/69 Pulse Oximetry 07/18/19 12:23 07/18/19 13:30 07/18/19 13:42 Temperature Pulse Rate 100 92 Pulse Rate [Bilateral Pedal (Dorsalis Pedis) Palpation] 91 Pulse Rate [With Activity During Therapy Session] Respiratory Rate 16 16 Blood Pressure 125/75 Pulse Oximetry Intake/Output Intake/Output: Intake & Output 07/15/19 07/16/19 07/17/19 07/18/19 23:59 23:59 23:59 23:59 Intake Total 558.93 1156 650 600 Output Total 3800 2950 750 1200 Balance -3241.07 -1794 -100 -600 Meds/Results Medications: Active Medications Generic Name Dose Route Start Last Admin Trade Name Freq PRN Reason Stop Dose Admin Albuterol 2.5 mg 07/15/19 14:00 07/18/19 13:23 Albuterol Sulf Neb 2.5mg/0.5ml INHALATION 2.5 mg Q6HRT LESLIE Administration Chlordiazepoxide HCl 50 mg 07/17/19 11:00 07/18/19 11:39 Librium Po PO 50 mg Q6H LESLIE Administration Dextrose 12.5 gm 07/11/19 06:25 Dextrose 50% Syringe IV PUSH PRN PRN Hypoglycemia Protocol Dornase Juan Luis 2.5 mg 07/15/19 11:00 07/18/19 09:21 Pulmozyme INHALATION 2.5 mg Q12HRT LESLIE Administration Folic Acid 1 mg 07/09/19 09:00 07/18/19 11:39 Folic Acid Inj IV PUSH 1 mg QAM LESLIE Administration Glucagon 1 mg 07/11/19 06:25 Glucagon For Inj IM PRN PRN Hypoglycemia Protocol Glucose 15 gm 07/11/19 06:25 Glutose 15 PO PRN PRN Hypoglycemia Protocol Heparin Sodium (Porcine) 5,000 units 07/09/19 14:00 07/18/19 14:23 Heparin Sodium SUB-Q 5,000 units Q8HR LESLIE Administration Dextrose 1,000 mls @ 100 mls/hr 07/11/19 06:25 Dextrose 5% 1,000 Ml IVPB PRN PRN Hypoglycemia Protocol Metoclopramide HCl 10 mg 07/14/19 12:
--- NOTE | 2019-07-18 15:10 | P.PNNP_ITS ---
Progress Note: A&P Assessment and Plan (1) Acute kidney injury: Code(s): N17.9 - Acute kidney failure, unspecified Status: Acute Assessment and Plan: * slow improvement in creatinine noted * baseline creatinine is normal * continue gentle diuresis as tolerated/needed * follow trend of repeat labs (2) Sepsis: Qualifiers: Acute respiratory failure type: with hypoxia Sepsis acute organ dysfunction status: with acute organ dysfunction Sepsis type: sepsis due to unspecified organism Severe sepsis acute organ dysfunction type: acute re spiratory failure Severe sepsis shock status: without septic shock Qualified Code(s): A41.9 - Sepsis, unspecified organism; R65.20 - Severe sepsis without septic shock; J96.01 - Acute respiratory failure with hypoxia Code(s): A41.9 - Sepsis, unspecified organism Status: Acute Assessment and Plan: * thought to be secondary to pneumonia * antibiotics per Infectious Disease * off pressor therapy (3) Hyponatremia: Code(s): E87.1 - Hypo-osmolality and hyponatremia Status: Acute Assessment and Plan: * stabilizing * likely due to combination of DELANO complicated by liver cirrhosis/EtOH abuse and associated pre-renal factors * suspect sodium level will continues to improve/remain stable as renal function does * TSH and cortisol normal * follow trend (4) Pneumonia: Qualifiers: Laterality: bilateral Lung location: unspecified part of lung Pneumonia type: due to unspecified organism Qualified Code(s): J18.9 - Pneumonia, unspecified organism Code(s): J18.9 - Pneumonia, unspecified organism Status: Acute Assessment and Plan: * as noted by imaging to date * continue current therapy as outlined (5) Respiratory failure with hypoxia: Qualifiers: Chronicity: acute Qualified Code(s): J96.01 - Acute respiratory failure with hypoxia Code(s): J96.91 - Respiratory failure, unspecified with hypoxia Status: Acute Assessment and Plan: * resolving/resoklved (extubated) * due to #4 * follow respiratory status (6) Alcohol abuse: Code(s): F10.10 - Alcohol abuse, uncomplicated Status: Acute Assessment and Plan: * difficult situation as he has had a hard time with abstinence per history * monitor for signs of withdrawal Will continue to follow Subjective Date/time seen: 07/18/19 15:10 Transferred out of ICU; remains hemodynamically stable; no respiratory distress; sleeping comfortably at the time of my visit; no apparent issues overnight or earlier this AM. Exam Narrative: Exam Narrative: General: WD/WN male in NAD Heart: normal S1 and S2; no rub Lungs: coarse breath sounds Abdomen: soft, nontender, protuberant, positive bowel sounds Extremities: no cyanosis or clubbing; 1+ edema Skin: no rash or nodules + jaundice noted Objective Data Vital Signs Vital Signs: Vital Signs Temp Pulse Pulse Resp BP Pulse Ox 07/18/19 13:42 92 16 07/18/19 13:30 100 16 07/18/19 12:23 91 125/75 07/18/19 09:38 108 H 16 07/18/19 09:27 115 H 119/69 07/18/19 09:26 106 H 16 07/18/19 09:22 94 07/18/19 01:46 76 14 07/18/19 01:36 74 16 07/18/19 00:32 97 07/18/19 00:30 20 90 07/17/19 22:00 37.1 C 107 H 18 130/67 95
--- NOTE | 2019-07-18 15:10 | PM.PNNEP ---
Progress Note: A&P Assessment and Plan (1) Acute kidney injury: Code(s): N17.9 - Acute kidney failure, unspecified Status: Acute Assessment and Plan: slow improvement in creatinine noted baseline creatinine is normal continue gentle diuresis as tolerated/needed follow trend of repeat labs (2) Sepsis: Qualifiers: Acute respiratory failure type: with hypoxia Sepsis acute organ dysfunction status: with acute organ dysfunction Sepsis type: sepsis due to unspecified organism Severe sepsis acute organ dysfunction type: acute respiratory failure Severe sepsis shock status: without septic shock Qualified Code(s): A41.9 - Sepsis, unspecified organism; R65.20 - Severe sepsis without septic shock; J96.01 - Acute respiratory failure with hypoxia Code(s): A41.9 - Sepsis, unspecified organism Status: Acute Assessment and Plan: thought to be secondary to pneumonia antibiotics per Infectious Disease off pressor therapy (3) Hyponatremia: Code(s): E87.1 - Hypo-osmolality and hyponatremia Status: Acute Assessment and Plan: stabilizing likely due to combination of DELANO complicated by liver cirrhosis/EtOH abuse and associated pre-renal factors suspect sodium level will continues to improve/remain stable as renal function does TSH and cortisol normal follow trend (4) Pneumonia: Qualifiers: Laterality: bilateral Lung location: unspecified part of lung Pneumonia type: due to unspecified organism Qualified Code(s): J18.9 - Pneumonia, unspecified organism Code(s): J18.9 - Pneumonia, unspecified organism Status: Acute Assessment and Plan: as noted by imaging to date continue current therapy as outlined (5) Respiratory failure with hypoxia: Qualifiers: Chronicity: acute Qualified Code(s): J96.01 - Acute respiratory failure with hypoxia Code(s): J96.91 - Respiratory failure, unspecified with hypoxia Status: Acute Assessment and Plan: resolving/resoklved (extubated) due to #4 follow respiratory status (6) Alcohol abuse: Code(s): F10.10 - Alcohol abuse, uncomplicated Status: Acute Assessment and Plan: difficult situation as he has had a hard time with abstinence per history monitor for signs of withdrawal Will continue to follow Subjective Date/time seen: 07/18/19 15:10 Transferred out of ICU; remains hemodynamically stable; no respiratory distress; sleeping comfortably at the time of my visit; no apparent issues overnight or earlier this AM. Exam Narrative: Exam Narrative: General: WD/WN male in NAD Heart: normal S1 and S2; no rub Lungs: coarse breath sounds Abdomen: soft, nontender, protuberant, positive bowel sounds Extremities: no cyanosis or clubbing; 1+ edema Skin: no rash or nodules + jaundice noted Objective Data Vital Signs Vital Signs: Vital Signs Temp Pulse Pulse Resp BP Pulse Ox 07/18/19 13:42 92 16 07/18/19 13:30 100 16 07/18/19 12:23 91 125/75 07/18/19 09:38 108 H 16 07/18/19 09:27 115 H 119/69 07/18/19 09:26 106 H 16 07/18/19 09:22 94 07/18/19 01:46 76 14 07/18/19 01:36 74 16 07/18/19 00:32 97 07/18/19 00:30 20 90 07/17/19 22:00 37.1 C 107 H 18 130/67 95 07/17/19 19:55 96 07/17/19 19:52 74 16 07/17/19 19:42 70 16 07/17/19 17:00 90 07/17/19 16:00 89 22 H 123/74 91 Intake/Output Intake/Output: Intake & Output 07/15/19 07/16/19 07/17/19 07/18/19 23:59 23:59 23:59 23:59 Intake Total 558.93 1156 650 600 Output Total 3800 2950 750 1200 Balance -3241.07 -1794 -100 -600 Meds/Results Medications: Active Medications Generic Name Dose Route Start Last Admin Trade Name Carlos PRN Reason Stop Dose Admin Albuterol 2.5 mg 07/15/19 14:00 07/18/19 13:23 Albuterol Sulf Neb 2.5mg/0.5ml INHALATION
[2019-07-19] VITALS (18 sets, daily range): BP systolic 111–123; BP diastolic 59–75; PULSE 93–112; RESP 18–30; TEMP 36.3–37.6; O2SAT 88–100
[2019-07-19] MEDS: ALBUTEROL SULFATE NEB 2.5 MG/0.5 ML INH INHALATION ×4 (02:10→19:59)
[2019-07-19] MEDS: HEPARIN SODIUM 5,000 UNITS/ML VIAL 5000 UNITS SUB-Q ×3 (05:48→21:49)
[2019-07-19] MEDS: CHLORDIAZEPOXIDE 25 MG CAPSULE 50 MG PO ×4 (05:48→21:49)
[2019-07-19] MEDS: METOCLOPRAMIDE HCL INJ 10 MG/2 ML VIAL IV PUSH ×4 (05:48→23:36)
[2019-07-19] MEDS: DORNASE ALFA INH SOLN 1 MG/ML 2.5 ML AMP 2.5 MG INHALATION ×2 (07:52→20:00)
--- NOTE | 2019-07-19 07:52 | WPDGIPROGNO ---
Progress Note: A&P Additional Plan Patient is somnolent this morning. Tolerating diet. Physical exam reveals patient to be have marked scleral icterus. Lungs are clear. Heart without murmur. Abdomen is soft. Bowel sounds are present. Modest distention with tympany. Shifting dullness appreciated. Obstructive series reveals a normal bowel gas pattern. Impression 1. Alcoholic liver disease. / cirrhosis, Marked elevation of bilirubin and LFTs consistent with this. Plan is for strict alcohol avoidance. Continue monitor LFTs intermittently. Supportive care for now. 2. Abdominal distention most consistent with ascites. May continue diuretics and monitor lot electrolytes. 3. Pneumonia. Resolving. ID service is now signing off the case. Has been on antibiotics. Subjective Date/time seen: 07/19/19 07:52 Objective Data Vital Signs Vital Signs: Vital Signs - 24 hr 07/18/19 09:22 07/18/19 09:26 07/18/19 09:27 Temperature Pulse Rate 106 H Pulse Rate [Bilateral Pedal (Dorsalis Pedis) Palpation] 115 H Respiratory Rate 16 Blood Pressure 119/69 Pulse Oximetry 94 07/18/19 09:38 07/18/19 12:23 07/18/19 13:30 Temperature Pulse Rate 108 H 100 Pulse Rate [Bilateral Pedal (Dorsalis Pedis) Palpation] 91 Respiratory Rate 16 16 Blood Pressure 125/75 Pulse Oximetry 07/18/19 13:42 07/18/19 17:00 07/18/19 20:46 Temperature Pulse Rate 92 111 H Pulse Rate [Bilateral Pedal (Dorsalis Pedis) Palpation] 105 H Respiratory Rate 16 18 Blood Pressure 124/76 Pulse Oximetry 07/18/19 20:52 07/18/19 20:58 07/18/19 22:00 Temperature 36.7 C Pulse Rate 108 H 114 H Pulse Rate [Bilateral Pedal (Dorsalis Pedis) Palpation] Respiratory Rate 18 20 Blood Pressure 135/63 Pulse Oximetry 95 96 07/19/19 02:10 07/19/19 02:17 07/19/19 06:00 Temperature 37.6 C H Pulse Rate 110 H 112 H 106 H Pulse Rate [Bilateral Pedal (Dorsalis Pedis) Palpation] Respiratory Rate 18 18 20 Blood Pressure 121/68 Pulse Oximetry 90 07/19/19 06:47 Temperature Pulse Rate Pulse Rate [Bilateral Pedal (Dorsalis Pedis) Palpation] Respiratory Rate Blood Pressure Pulse Oximetry 97 Intake/Output Intake/Output: Intake & Output 07/16/19 07/17/19 07/18/19 07/19/19 23:59 23:59 23:59 23:59 Intake Total 1156 650 700 540 Output Total 2950 750 1200 700 [facility] -[id number] -100 -500 -160 Meds/Results Medications: Active Medications Generic Name Dose Route Start Last Admin Trade Name Freq PRN Reason Stop Dose Admin Albuterol 2.5 mg 07/15/19 14:00 07/19/19 02:10 Albuterol Sulf Neb 2.5mg/0.5ml INHALATION 2.5 mg Q6HRT LESLIE Administration Chlordiazepoxide HCl 50 mg 07/17/19 11:00 07/19/19 05:48 Librium Po PO 50 mg Q6H LESLIE Administration Dextrose 12.5 gm 07/11/19 06:25 Dextrose 50% Syringe IV PUSH PRN PRN Hypoglycemia Protocol Dornase Juan Luis 2.5 mg 07/15/19 11:00 07/18/19 20:46 Pulmozyme INHALATION 2.5 mg Q12HRT LESLIE Administration Folic Acid 1 mg 07/09/19 09:00 07/18/19 11:39 Folic Acid Inj IV PUSH 1 mg QAM LESLIE Administration Glucagon 1 mg 07/11/19 06:25 Glucagon For Inj IM PRN PRN Hypoglycemia Protocol Glucose 15 gm 07/11/19 06:25 Glutose 15 PO PRN PRN Hypoglycemia Protocol Heparin Sodium (Porcine) 5,000 units 07/09/19 14:00 07/19/19 05:48 Heparin Sodium SUB-Q 5,000 units Q8HR LESLIE Administration Dextrose 1,000 mls @ 100 mls/hr 07/11/19 06:25 Dextrose 5% 1,000 Ml IVPB PRN PRN Hypoglycemia Protocol Metoclopramide HCl 10 mg 07/14/19 12:00 07/19/19 05:48 Reglan IV PUSH 10 mg Q6HR LESLIE Administration Nicotine 1 patch 07/17/19 09:00 07/18/19 11:39 Nicoderm Cq 14 Mg TRANSDERM 1 patch QAM LESLIE Administration Pantoprazole Sodium 40 mg 07/09/19 09:00 07/18/19 22:23 Protonix Iv IV PUSH 40 mg Q12HR LESLIE Administration Thi
[2019-07-19 08:08] LABS: Hematocrit 27.4 % (42.0-52.0); Hemoglobin 8.9 g/dL (14.0-18.0); Mean Corpuscular HGB Conc 32.5 g/dl (32-36); Mean Corpuscular Hemoglobin 34.1 pg (26-34); Mean Platelet Volume 11.1 fl (7.4-10.4); Platelet Count Result 179 k/mm3 (150-375); Red Blood Count 2.61 M/mm3 (4.6-6.20); Red Cell Distribution Width 19.9 % (11.5-14.5); White Blood Count 16.8 K/mm3 (4.5-10.0)
[2019-07-19 08:18] LABS: INR 1.4; Prothrombin Time 17.1 Seconds (11.1-14.7)
[2019-07-19 08:19] LABS: Alanine Aminotransferase 115 U/L (4-50); Albumin Level 2.6 g/dL (3.5-5.1); Alkaline Phosphatase 350 U/L (38-126); Aspartate Amino Transferase 209 U/L (17-59); Bilirubin,Total 17.5 mg/dL (0.2-1.3); Blood Urea Nitrogen 60 mg/dL (9-20); Calcium 8.3 mg/dL (8.4-10.2); Carbon Dioxide 25 mmol/L (22-30); Chloride 101 mmol/L (98-107); Estimated CRCL calculation 50 ml/min; Estimated Glomerular Filt Rate 38; Glucose 103 mg/dL (75-110); Magnesium 2.3 mg/dL (1.6-2.3); Partial Thromboplastin Time 44.7 SECONDS (22.3-36.8); Phosphorus 4.6 mg/dL (2.5-4.5); Potassium 3.4 mmol/L (3.4-5.0); Sodium 135 mmol/L (137-145)
[2019-07-19] MEDS: THIAMINE HCL 200 MG/2 ML VIAL 100 MG IV PUSH (09:35)
[2019-07-19] MEDS: SPIRONOLACTONE 25 MG TABLET PO ×2 (09:36→17:09)
[2019-07-19] MEDS: PANTOPRAZOLE SODIUM IV 40 MG VIAL IV PUSH ×2 (09:37→21:49)
[2019-07-19] MEDS: NICOTINE (*PBKC) 14 MG PATCH 1 PATCH TRANSDERM (09:38)
[2019-07-19] MEDS: FOLIC ACID 1 MG/0.2 ML INJ IV PUSH (09:42)
--- NOTE | 2019-07-19 12:04 | PM.PNNEP ---
Progress Note: A&P Assessment and Plan (1) Acute kidney injury: Code(s): N17.9 - Acute kidney failure, unspecified Status: Acute Assessment and Plan: slow improvement in creatinine noted baseline creatinine is normal -- does he have a new baseline creatinine? continue gentle diuresis as tolerated/needed follow trend of repeat labs (2) Sepsis: Qualifiers: Sepsis type: sepsis due to unspecified organism Sepsis acute organ dysfunction status: with acute organ dysfunction Severe sepsis acute organ dysfunction type: acute respiratory failure Acute respiratory failure type: with hypoxia Severe sepsis shock status: without septic shock Qualified Code(s): A41.9 - Sepsis, unspecified organism; R65.20 - Severe sepsis without septic shock; J96.01 - Acute respiratory failure with hypoxia Code(s): A41.9 - Sepsis, unspecified organism Status: Acute Assessment and Plan: thought to be secondary to pneumonia antibiotics per Infectious Disease off pressor therapy (3) Hyponatremia: Code(s): E87.1 - Hypo-osmolality and hyponatremia Status: Acute Assessment and Plan: stabilizing likely due to combination of DELANO complicated by liver cirrhosis/EtOH abuse and associated pre-renal factors suspect sodium level will continues to improve/remain stable as renal function does TSH and cortisol normal follow trend (4) Pneumonia: Qualifiers: Pneumonia type: due to unspecified organism Laterality: bilateral Lung location: unspecified part of lung Qualified Code(s): J18.9 - Pneumonia, unspecified organism Code(s): J18.9 - Pneumonia, unspecified organism Status: Acute Assessment and Plan: as noted by imaging to date completed course of antibiotics as outlined by Infectious Disease (5) Respiratory failure with hypoxia: Qualifiers: Chronicity: acute Qualified Code(s): J96.01 - Acute respiratory failure with hypoxia Code(s): J96.91 - Respiratory failure, unspecified with hypoxia Status: Acute Assessment and Plan: resolving/resoklved (extubated) due to #4 follow respiratory status (6) Alcohol abuse: Code(s): F10.10 - Alcohol abuse, uncomplicated Status: Acute Assessment and Plan: difficult situation as he has had a hard time with abstinence per history monitor for signs of withdrawal Will continue to follow Subjective Date/time seen: 07/19/19 12:04 Eating and drinking fairly well; noted tremor when he was eating breakfast at the time of my visit; no issues or problems overnight or earlier this AM. Exam Narrative: Exam Narrative: General: WD/WN male in NAD Heart: normal S1 and S2; no rub Lungs: coarse breath sounds Abdomen: soft, nontender, mild distension, positive bowel sounds Extremities: no cyanosis or clubbing; 1+ edema Skin: no rash or nodules + jaundice noted Objective Data Vital Signs Vital Signs: Vital Signs Temp Pulse Pulse Resp BP Pulse Ox 07/19/19 10:00 105 H 07/19/19 09:15 103 H 30 H 118/61 96 07/19/19 08:08 102 H 18 07/19/19 07:58 106 H 18 07/19/19 07:55 92 07/19/19 06:47 97 07/19/19 06:00 37.6 C H 106 H 20 121/68 90 07/19/19 02:17 112 H 18 07/19/19 02:10 110 H 18 07/18/19 22:00 36.7 C 114 H 20 135/63 96 07/18/19 20:58 108 H 18 07/18/19 20:52 95 07/18/19 20:46 111 H 18 07/18/19 17:00 105 H 124/76 07/18/19 13:42 92 16 07/18/19 13:30 100 16 07/18/19 12:23 91 125/75 Intake/Output Intake/Output: Intake & Output 07/16/19 07/17/19 07/18/19 07/19/19 23:59 23:59 23:59 23:59 Intake Total 1156 650 700 540 Output Total 2950 [address] [facility] -1794 -100 -500 -160 Meds/Results Medications: Active Medications Generic Name Dose Route Start Last Admin Trade Name Freq PRN Reason Stop Dose Admin Albuterol 2.5
--- NOTE | 2019-07-19 13:58 | PM.IMPN ---
Progress Note: A&P Assessment and Plan (1) Respiratory failure with hypoxia: Qualifiers: Chronicity: acute Qualified Code(s): J96.01 - Acute respiratory failure with hypoxia Code(s): J96.91 - Respiratory failure, unspecified with hypoxia Status: Acute Assessment and Plan: 07/19/19 13:58 Result of pneumonia. Remains on ventilator. Management of ventilator per engravings polisher. Discussed with engravings polisher today. Sedation discontinued. Chest xray with persistent extensive bilateral pulmonary infiltrates. CT chest/abdomen/pelvis from 07/12/2019 with development of confluent bilateral lower lobe atelectasis and infection, scattered additional ground-glass infectious opacities, small pleural effusions, small to moderate ascites, colonic fluid and hepatic steatosis with possible cirrhosis and portal hypertension. Continue other treatments as noted below. Continue to monitor. Patient is a 38-year-old male with bilateral community-acquired pneumonia most likely bacteria as patient COVID-19 is negative, patient was on ventilator, patient seen by Dr. Anderson patient is treated with Rocephin and azithromycin will complete the course for 7 days recommending to stop the antibiotics, patient was on AST mode on 07/14, on 07/15 patient clinically symptoms had improved and he was extubated by engravings polisher on 07/16 patient appeared to be in withdrawal and had a tremor patient has a history of alcohol abuse and his last drink was on the day of arrival to emergency department, patient was started on CIWA protocol with Librium and he was transferred out of ICU, on 07/17 patient still had tremors and appears more jaundice as he was sitting near a sun lit window, most 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 Distended gallbladder with sludge, gallbladder wall thickening, and positive sonographic Lau sign, but no visualized gallstones. These findings are indeterminate for acute cholecystitis. Consider hepatobiliary scintigraphy. today patient is seen by GI for further workup is recommneded, today patient complains of abdominal pain from his ascites but denies any short of breath fever or chills, repeat chest x-ray today shows stable pneumonia patient was seen by Dr. Anderson (2) Sepsis: Qualifiers: Sepsis type: sepsis due to unspecified organism Sepsis acute organ dysfunction status: with acute organ dysfunction Severe sepsis acute organ dysfunction type: acute respiratory failure Acute respiratory failure type: with hypoxia Severe sepsis shock status: without septic shock Qualified Code(s): A41.9 - Sepsis, unspecified organism; R65.20 - Severe sepsis without septic shock; J96.01 - Acute respiratory failure with hypoxia Code(s): A41.9 - Sepsis, unspecified organism Status: Acute Assessment and Plan: Criteria met on admission. Severe sepsis with shock. Initially, blood pressure did improve with normal saline bolus. Subsequently required low-dose Levophed but has been off pressor since 07/13/2019. Blood pressure reviewed on 07/14/2019 and stable. Telemetry reviewed on 07/14/2019 with sinus rhythm. Initial sputum culture now growing yeast with repeat sputum culture also growing yeast. Blood cultures still negative. Urine culture negative. Continue antibiotics as noted below. Patient is seen by Dr. anderson and further recommendation to follow (3) Pneumonia: Qualifiers: Pneumonia type: due to unspecified organism Laterality: bilateral Lung location: unspecified part of lung Qualified Code(s): J18.9 - Pneumonia, unspecified organism Code(s): J18.9 - Pneumonia, unspecified organism Status: Acute Assessment and Plan: Imaging on admission consistent with multifocal giovani
[2019-07-20] VITALS (13 sets, daily range): BP systolic 111–133; BP diastolic 59–70; PULSE 84–105; RESP 18–22; TEMP 36.6; O2SAT 92–98
[2019-07-20] MEDS: ALBUTEROL SULFATE NEB 2.5 MG/0.5 ML INH INHALATION ×4 (02:13→18:03)
[2019-07-20] MEDS: CHLORDIAZEPOXIDE 25 MG CAPSULE 50 MG PO ×4 (05:47→22:07)
[2019-07-20] MEDS: HEPARIN SODIUM 5,000 UNITS/ML VIAL 5000 UNITS SUB-Q ×3 (05:48→22:07)
[2019-07-20] MEDS: METOCLOPRAMIDE HCL INJ 10 MG/2 ML VIAL IV PUSH ×4 (05:48→23:44)
--- NOTE | 2019-07-20 07:46 | WPDGIPROGNO ---
Progress Note: A&P Additional Plan Patient alert this morning. Still very weak. Tolerating some oral intake. Physical exam reveals him to be alert. Marked scleral icterus evident. Lungs are clear. Heart without murmur. Abdomen is soft. Distended. Tympanic with shifting dullness. Extremities with 2+ edema. Check stat x-ray with infiltrate the persists. Hemoglobin 8.9, hematocrit 27, MCV 105, BUN 60, creatinine 2.0, total bilirubin 17.5, AST 209, ALT 115, alk-phos 350. Ammonia level 13. Ultrasound with distended gallbladder. No dilated ducts. Fatty liver. Impression 1. Alcoholic cirrhosis. Profound alcoholic hepatitis. Plan is to implement steroids at this time as he is no longer being treated for his pneumonia. 2. Ascites. Only small amount described on ultrasound. Significant abdominal distention and pedal edema noted. Plan is to increase dose diuretics. Continue low-salt diet time if he is able to tolerated diet. 3. Pneumonia. Recently on the ventilator. Continues to have a small infiltrate on chest x-ray we will need to monitor this. WBC 16.8, this is been stable. We will need to continue to monitor labs. Subjective Date/time seen: 07/20/19 07:46 Objective Data Vital Signs Vital Signs: Vital Signs - 24 hr 07/19/19 07:55 07/19/19 07:58 07/19/19 08:08 Temperature Pulse Rate 106 H 102 H Pulse Rate [Bilateral Pedal (Dorsalis Pedis) Palpation] Respiratory Rate 18 18 Blood Pressure Pulse Oximetry 92 07/19/19 09:15 07/19/19 10:00 07/19/19 14:00 Temperature Pulse Rate 103 H Pulse Rate [Bilateral Pedal (Dorsalis Pedis) Palpation] 105 H 102 H Respiratory Rate 30 H Blood Pressure 118/61 112/62 Pulse Oximetry 96 07/19/19 15:19 07/19/19 15:30 07/19/19 18:00 Temperature 37.2 C Pulse Rate 106 H 102 H 94 Pulse Rate [Bilateral Pedal (Dorsalis Pedis) Palpation] Respiratory Rate 18 18 20 Blood Pressure 120/75 Pulse Oximetry 100 07/19/19 19:09 07/19/19 20:00 07/19/19 20:06 Temperature Pulse Rate 100 101 H Pulse Rate [Bilateral Pedal (Dorsalis Pedis) Palpation] 98 Respiratory Rate 20 20 Blood Pressure 123/72 Pulse Oximetry 88 L 07/19/19 20:31 07/19/19 21:54 07/20/19 02:13 Temperature 36.3 C L Pulse Rate 93 94 Pulse Rate [Bilateral Pedal (Dorsalis Pedis) Palpation] Respiratory Rate 22 H 18 Blood Pressure 111/59 L Pulse Oximetry 92 100 07/20/19 06:00 Temperature 36.6 C Pulse Rate 93 Pulse Rate [Bilateral Pedal (Dorsalis Pedis) Palpation] Respiratory Rate 22 H Blood Pressure 111/59 L Pulse Oximetry 96 Intake/Output Intake/Output: Intake & Output 07/17/19 07/18/19 07/19/19 07/20/19 23:59 23:59 23:59 23:59 Intake Total 903 863 3284 500 Output Total 750 1200 1650 850 Balance -100 -500 -560 -350 Meds/Results Medications: Active Medications Generic Name Dose Route Start Last Admin Trade Name Freq PRN Reason Stop Dose Admin Albuterol 2.5 mg 07/15/19 14:00 07/20/19 02:13 Albuterol Sulf Neb 2.5mg/0.5ml INHALATION 2.5 mg Q6HRT LESLIE Administration Chlordiazepoxide HCl 50 mg 07/17/19 11:00 07/20/19 05:47 Librium Po PO 50 mg Q6H LESLIE Administration Dextrose 12.5 gm 07/11/19 06:25 Dextrose 50% Syringe IV PUSH PRN PRN Hypoglycemia Protocol Dornase Juan Luis 2.5 mg 07/15/19 11:00 07/19/19 20:00 Pulmozyme INHALATION 2.5 mg Q12HRT LESLIE Administration Folic Acid 1 mg 07/09/19 09:00 07/19/19 09:42 Folic Acid Inj IV PUSH 1 mg QAM LESLIE Administration Glucagon 1 mg 07/11/19 06:25 Glucagon For Inj IM PRN PRN Hypoglycemia Protocol Glucose 15 gm 07/11/19 06:25 Glutose 15 PO PRN PRN Hypoglycemia Protocol Heparin Sodium (Porcine) 5,000 units 07/09/19 14:00 07/20/19 05:48 Heparin Sodium SUB-Q 5,000 units Q8HR LESLIE Administration Dextrose 1,000 mls @ 100 mls/hr 07/11/19 06:25 Dextrose 5% 1,000 Ml IVPB PRN
[2019-07-20] MEDS: predniSONE 20 MG TABLET PO (09:21)
[2019-07-20] MEDS: SPIRONOLACTONE 50 MG TABLET PO ×2 (09:21→16:45)
[2019-07-20] MEDS: NICOTINE (*PBKC) 14 MG PATCH 1 PATCH TRANSDERM (09:22)
[2019-07-20] MEDS: PANTOPRAZOLE SODIUM IV 40 MG VIAL IV PUSH ×2 (09:22→22:07)
[2019-07-20] MEDS: THIAMINE HCL 200 MG/2 ML VIAL 100 MG IV PUSH (09:22)
[2019-07-20] MEDS: FOLIC ACID 1 MG/0.2 ML INJ IV PUSH (09:27)
[2019-07-20 10:40] LABS: Bilirubin Direct 12.3 mg/dL (0-0.3); Bilirubin,Total 18.5 mg/dL (0.2-1.3)
[2019-07-20 10:41] LABS: Ammonia 10 umol/L (9-30)
[2019-07-20] MEDS: DORNASE ALFA INH SOLN 1 MG/ML 2.5 ML AMP 2.5 MG INHALATION ×2 (10:41→18:03)
[2019-07-20 10:43] LABS: Alanine Aminotransferase 121 U/L (4-50); Albumin Level 2.6 g/dL (3.5-5.1); Alkaline Phosphatase 323 U/L (38-126); Aspartate Amino Transferase 163 U/L (17-59); Bilirubin,Total 18.3 mg/dL (0.2-1.3); Blood Urea Nitrogen 58 mg/dL (9-20); Calcium 8.3 mg/dL (8.4-10.2); Carbon Dioxide 26 mmol/L (22-30); Chloride 99 mmol/L (98-107); Estimated CRCL calculation 48 ml/min; Estimated Glomerular Filt Rate 36; Glucose 113 mg/dL (75-110); Potassium 3.6 mmol/L (3.4-5.0); Sodium 132 mmol/L (137-145)
--- NOTE | 2019-07-20 13:29 | P.PNNP_ITS ---
Progress Note: A&P Assessment and Plan (1) Acute kidney injury: Code(s): N17.9 - Acute kidney failure, unspecified Status: Acute Assessment and Plan: * slow improvement in creatinine noted * baseline creatinine is normal -- does he have a new baseline creatinine ~2.0mg/dl? * continue gentle diuresis as tolerated (on spironolactone) * follow trend of repeat labs (2) Sepsis: Qualifiers: Acute respiratory failure type: with hypoxia Sepsis acute organ dysfunction status: with acute organ dysfunction Sepsis type: sepsis due to unspecified organism Severe sepsis acute organ dysfunction type: acute respiratory failure Severe sepsis shock status: without septic shock Qualified Code(s): A41.9 - Sepsis, unspecified organism; R65.20 - Severe sepsis without septic shock; J96.01 - Acute respiratory failure with hypoxia Code(s): A41.9 - Sepsis, unspecified organism Status: Acute Assessment and Plan: * thought to be secondary to pneumonia * completed antibiotic therapy per Infectious Disease recommendations * off pressor therapy (3) Hyponatremia: Code(s): E87.1 - Hypo-osmolality and hyponatremia Status: Acute Assessment and Plan: * stabilizing * likely due to combination of DELANO complicated by liver cirrhosis/EtOH abuse and associated pre-renal factors * suspect sodium level will continues to improve/remain stable as renal function does * TSH and cortisol normal * follow trend (4) Pneumonia: Qualifiers: Laterality: bilateral Lung location: unspecified part of lung Pneumonia type: due to unspecified organism Qualified Code(s): J18.9 - Pneumonia, unspecified organism Code(s): J18.9 - Pneumonia, unspecified organism Status: Acute Assessment and Plan: * as noted by imaging to date * completed course of antibiotics as outlined by Infectious Disease (5) Respiratory failure with hypoxia: Qualifiers: Chronicity: acute Qualified Code(s): J96.01 - Acute respiratory failure with hypoxia Code(s): J96.91 - Respiratory failure, unspecified with hypoxia Status: Acute Assessment and Plan: * resolving/resoklved (extubated) * due to #4 * follow respiratory status (6) Alcohol abuse: Code(s): F10.10 - Alcohol abuse, uncomplicated Status: Acute Assessment and Plan: * difficult situation as he has had a hard time with abstinence per history * monitor for signs of withdrawal Will continue to follow Subjective Date/time seen: 07/20/19 13:29 Slow improvement in oral intake noted; seems a bit more awake and alert; no acute distress aside from profound fatigue/weakness noted along with some abdominal discomfort due to ascites; initiated on steroids today by Gastroenterology. Exam Narrative: Exam Narrative: General: WD/WN male in NAD Heart: normal S1 and S2; no rub Lungs: coarse breath sounds Abdomen: soft, nontender, mild distension, positive bowel sounds Extremities: no cyanosis or clubbing; 1+ edema Skin: no rash or nodules ++ jaundice noted Objective Data Vital Signs Vital Signs: Vital Signs Temp Pulse Pulse Resp BP Pulse Ox 07/20/19 10:52 92 18 07/20/19 10:41 91 18 92 07/20/19 09:20 98 122/62 07/20/19 09:09 105 H 18 122/62 98 07/20/19 06:00 36.6 C 93 22 H 111/59 L 96 07/20/19 02:13 94 18 07/19/19 21:54 36.3
--- NOTE | 2019-07-20 13:29 | PM.PNNEP ---
Progress Note: A&P Assessment and Plan (1) Acute kidney injury: Code(s): N17.9 - Acute kidney failure, unspecified Status: Acute Assessment and Plan: slow improvement in creatinine noted baseline creatinine is normal -- does he have a new baseline creatinine ~2.0mg/dl? continue gentle diuresis as tolerated (on spironolactone) follow trend of repeat labs (2) Sepsis: Qualifiers: Acute respiratory failure type: with hypoxia Sepsis acute organ dysfunction status: with acute organ dysfunction Sepsis type: sepsis due to unspecified organism Severe sepsis acute organ dysfunction type: acute respiratory failure Severe sepsis shock status: without septic shock Qualified Code(s): A41.9 - Sepsis, unspecified organism; R65.20 - Severe sepsis without septic shock; J96.01 - Acute respiratory failure with hypoxia Code(s): A41.9 - Sepsis, unspecified organism Status: Acute Assessment and Plan: thought to be secondary to pneumonia completed antibiotic therapy per Infectious Disease recommendations off pressor therapy (3) Hyponatremia: Code(s): E87.1 - Hypo-osmolality and hyponatremia Status: Acute Assessment and Plan: stabilizing likely due to combination of DELANO complicated by liver cirrhosis/EtOH abuse and associated pre-renal factors suspect sodium level will continues to improve/remain stable as renal function does TSH and cortisol normal follow trend (4) Pneumonia: Qualifiers: Laterality: bilateral Lung location: unspecified part of lung Pneumonia type: due to unspecified organism Qualified Code(s): J18.9 - Pneumonia, unspecified organism Code(s): J18.9 - Pneumonia, unspecified organism Status: Acute Assessment and Plan: as noted by imaging to date completed course of antibiotics as outlined by Infectious Disease (5) Respiratory failure with hypoxia: Qualifiers: Chronicity: acute Qualified Code(s): J96.01 - Acute respiratory failure with hypoxia Code(s): J96.91 - Respiratory failure, unspecified with hypoxia Status: Acute Assessment and Plan: resolving/resoklved (extubated) due to #4 follow respiratory status (6) Alcohol abuse: Code(s): F10.10 - Alcohol abuse, uncomplicated Status: Acute Assessment and Plan: difficult situation as he has had a hard time with abstinence per history monitor for signs of withdrawal Will continue to follow Subjective Date/time seen: 07/20/19 13:29 Slow improvement in oral intake noted; seems a bit more awake and alert; no acute distress aside from profound fatigue/weakness noted along with some abdominal discomfort due to ascites; initiated on steroids today by Gastroenterology. Exam Narrative: Exam Narrative: General: WD/WN male in NAD Heart: normal S1 and S2; no rub Lungs: coarse breath sounds Abdomen: soft, nontender, mild distension, positive bowel sounds Extremities: no cyanosis or clubbing; 1+ edema Skin: no rash or nodules ++ jaundice noted Objective Data Vital Signs Vital Signs: Vital Signs Temp Pulse Pulse Resp BP Pulse Ox 07/20/19 10:52 92 18 07/20/19 10:41 91 18 92 07/20/19 09:20 98 122/62 07/20/19 09:09 105 H 18 122/62 98 07/20/19 06:00 36.6 C 93 22 H 111/59 L 96 07/20/19 02:13 94 18 07/19/19 21:54 36.3 C L 93 22 H 111/59 L 100 07/19/19 20:31 92 07/19/19 20:06 101 H 20 07/19/19 20:00 100 20 88 L 07/19/19 19:09 98 123/72 07/19/19 18:00 37.2 C 94 20 120/75 100 07/19/19 15:30 102 H 18 07/19/19 15:19 106 H 18 07/19/19 14:00 102 H 112/62 Intake/Output Intake/Output: Intake & Output 07/17/19 07/18/19 07/19/19 07/20/19 23:59 23:59 23:59 23:59 Intake Total 712 864 4298 500 Output Total 750 1200 1650 850 Balance -100 -500 -560 -350 Meds/Results Medications: Active Medicati
--- NOTE | 2019-07-20 13:36 | PM.IMPN ---
Progress Note: A&P Assessment and Plan (1) Respiratory failure with hypoxia: Qualifiers: Chronicity: acute Qualified Code(s): J96.01 - Acute respiratory failure with hypoxia Code(s): J96.91 - Respiratory failure, unspecified with hypoxia Status: Acute Assessment and Plan: 07/20/19 13:36 Result of pneumonia. Remains on ventilator. Management of ventilator per automatic bandsaw tender. Discussed with automatic bandsaw tender today. Sedation discontinued. Chest xray with persistent extensive bilateral pulmonary infiltrates. CT chest/abdomen/pelvis from 07/12/2019 with development of confluent bilateral lower lobe atelectasis and infection, scattered additional ground-glass infectious opacities, small pleural effusions, small to moderate ascites, colonic fluid and hepatic steatosis with possible cirrhosis and portal hypertension. Continue other treatments as noted below. Continue to monitor. Patient is a 38-year-old male with bilateral community-acquired pneumonia most likely bacteria as patient COVID-19 is negative, patient was on ventilator, patient seen by Dr. Anderson patient is treated with Rocephin and azithromycin will complete the course for 7 days recommending to stop the antibiotics, patient was on AST mode on 07/14, on 07/15 patient clinically symptoms had improved and he was extubated by automatic bandsaw tender on 07/16 patient appeared to be in withdrawal and had a tremor patient has a history of alcohol abuse and his last drink was on the day of arrival to emergency department, patient was started on CIWA protocol with Librium and he was transferred out of ICU, on 07/17 patient still had tremors and appears more jaundice as he was sitting near a sun lit window, most 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 Distended gallbladder with sludge, gallbladder wall thickening, and positive sonographic Lau sign, but no visualized gallstones. These findings are indeterminate for acute cholecystitis. Consider hepatobiliary scintigraphy. today patient is seen by GI for further workup is recommneded to follow, today D/W with Dr. Mijares he will start on patient on low dose of prednisone for alcoholic hepatitis as pbatient bilirubin is quite elevated and it is not trending down and increased spironolactone to 50 mg b.i.d. from 25 mg b.i.d. to help with ascites, today patient complains of abdominal pain from his ascites as well as some shortness of breath but denies any fever or chills, repeat chest x-ray on 07/18 shows stable pneumonia patient was seen by Dr. Anderson and off antibiotic (2) Sepsis: Qualifiers: Sepsis type: sepsis due to unspecified organism Sepsis acute organ dysfunction status: with acute organ dysfunction Severe sepsis acute organ dysfunction type: acute respiratory failure Acute respiratory failure type: with hypoxia Severe sepsis shock status: without septic shock Qualified Code(s): A41.9 - Sepsis, unspecified organism; R65.20 - Severe sepsis without septic shock; J96.01 - Acute respiratory failure with hypoxia Code(s): A41.9 - Sepsis, unspecified organism Status: Acute Assessment and Plan: Criteria met on admission. Severe sepsis with shock. Initially, blood pressure did improve with normal saline bolus. Subsequently required low-dose Levophed but has been off pressor since 07/13/2019. Blood pressure reviewed on 07/14/2019 and stable. Telemetry reviewed on 07/14/2019 with sinus rhythm. Initial sputum culture now growing yeast with repeat sputum culture also growing yeast. Blood cultures still negative. Urine culture negative. Continue antibiotics as noted below. Patient is seen by Dr. anderson and further recommendation to follow (3) Pneumonia: Qualifiers: Pneumonia type:
[2019-07-20 16:36] LABS: Hematocrit 26.7 % (42.0-52.0); Hemoglobin 8.7 g/dL (14.0-18.0); Mean Corpuscular HGB Conc 32.6 g/dl (32-36); Mean Corpuscular Hemoglobin 34.8 pg (26-34); Mean Corpuscular Volume 106.8 fl (80-100); Mean Platelet Volume 11.7 fl (7.4-10.4); Platelet Count Result 206 k/mm3 (150-375); Red Cell Distribution Width 19.3 % (11.5-14.5); White Blood Count 17.9 K/mm3 (4.5-10.0)
[2019-07-21] VITALS (13 sets, daily range): BP systolic 105–119; BP diastolic 56–73; PULSE 87–98; RESP 18–24; TEMP 36.7–38.2; O2SAT 87–97
[2019-07-21] MEDS: ALBUTEROL SULFATE NEB 2.5 MG/0.5 ML INH INHALATION ×4 (01:38→20:34)
[2019-07-21] MEDS: CHLORDIAZEPOXIDE 25 MG CAPSULE 50 MG PO ×2 (06:15→11:09)
[2019-07-21] MEDS: METOCLOPRAMIDE HCL INJ 10 MG/2 ML VIAL IV PUSH ×4 (06:17→23:40)
[2019-07-21] MEDS: HEPARIN SODIUM 5,000 UNITS/ML VIAL 5000 UNITS SUB-Q ×2 (06:17→15:04)
[2019-07-21 06:41] LABS: Hematocrit 26.6 % (42.0-52.0); Hemoglobin 8.6 g/dL (14.0-18.0); Mean Corpuscular HGB Conc 32.3 g/dl (32-36); Mean Corpuscular Hemoglobin 33.9 pg (26-34); Mean Corpuscular Volume 104.7 fl (80-100); Mean Platelet Volume 11.3 fl (7.4-10.4); Platelet Count Result 245 k/mm3 (150-375); Red Blood Count 2.54 M/mm3 (4.6-6.20); Red Cell Distribution Width 19.5 % (11.5-14.5); White Blood Count 18.3 K/mm3 (4.5-10.0)
[2019-07-21 07:24] LABS: Alanine Aminotransferase 110 U/L (4-50); Albumin Level 2.6 g/dL (3.5-5.1); Alkaline Phosphatase 325 U/L (38-126); Aspartate Amino Transferase 147 U/L (17-59); Blood Urea Nitrogen 58 mg/dL (9-20); Calcium 8.2 mg/dL (8.4-10.2); Carbon Dioxide 23 mmol/L (22-30); Chloride 100 mmol/L (98-107); Estimated CRCL calculation 46 ml/min; Estimated Glomerular Filt Rate 34; Glucose 96 mg/dL (75-110); Sodium 133 mmol/L (137-145)
[2019-07-21] MEDS: predniSONE 20 MG TABLET PO (08:17)
[2019-07-21] MEDS: THIAMINE HCL 200 MG/2 ML VIAL 100 MG IV PUSH (08:17)
[2019-07-21] MEDS: PANTOPRAZOLE SODIUM IV 40 MG VIAL IV PUSH ×2 (08:21→21:11)
[2019-07-21] MEDS: NICOTINE (*PBKC) 14 MG PATCH 1 PATCH TRANSDERM (08:21)
[2019-07-21] MEDS: SPIRONOLACTONE 50 MG TABLET PO ×2 (08:22→18:10)
--- NOTE | 2019-07-21 08:25 | WPDGIPROGNO ---
Progress Note: A&P Additional Plan Patient alert. Able to converse this morning. Appears appropriate. physical exam reveals patient be alert. Vital signs are stable. HEENT exam reveals marked icterus. Lungs are clear. Heart without murmur. Abdomen bowel sounds are present soft mild distention with some tympany noted shifting dullness appreciated. Extremities with 2+ edema to the ankles. Impression 1. Alcohol abuse. 2. Alcohol liquid liver disease. Alcoholic hepatitis given rather profound elevation of LFTs. Prednisone has been started on this patient will continue to monitor LFTs closely. Supportive care. 3. Anasarca with peripheral edema and ascites. Plan is to continue diuretics. Low-salt diet suggested. Diuretic dose may be limited by his renal insufficiency. 3. Renal insufficiency. Could be pre renal given mild diuretic started. early hepatorenal syndrome is also a concern. Continue monitor renal function. Subjective Date/time seen: 07/21/19 08:25 Objective Data Vital Signs Vital Signs: Vital Signs - 24 hr 07/20/19 09:09 07/20/19 09:20 07/20/19 10:41 Temperature Pulse Rate 105 H 91 Pulse Rate [Bilateral Pedal (Dorsalis Pedis) Palpation] 98 Respiratory Rate 18 18 Blood Pressure 122/62 122/62 Pulse Oximetry 98 92 07/20/19 10:52 07/20/19 13:00 07/20/19 14:24 Temperature Pulse Rate 92 84 Pulse Rate [Bilateral Pedal (Dorsalis Pedis) Palpation] 94 Respiratory Rate 18 18 Blood Pressure 118/63 Pulse Oximetry 07/20/19 14:35 07/20/19 17:00 07/20/19 18:03 Temperature Pulse Rate 95 84 Pulse Rate [Bilateral Pedal (Dorsalis Pedis) Palpation] 94 Respiratory Rate 18 20 Blood Pressure 133/70 Pulse Oximetry 07/20/19 18:11 07/20/19 21:49 07/21/19 01:38 Temperature 36.6 C Pulse Rate 88 94 91 Pulse Rate [Bilateral Pedal (Dorsalis Pedis) Palpation] Respiratory Rate 20 22 H 22 H Blood Pressure 117/64 Pulse Oximetry 94 07/21/19 01:48 07/21/19 06:00 Temperature 36.7 C Pulse Rate 92 89 Pulse Rate [Bilateral Pedal (Dorsalis Pedis) Palpation] Respiratory Rate 24 H 18 Blood Pressure 119/73 Pulse Oximetry 97 Intake/Output Intake/Output: Intake & Output 07/18/19 07/19/19 07/20/19 07/21/19 23:59 23:59 23:59 23:59 Intake Total 700 1090 1600 300 Output Total 1200 1650 1225 850 Balance -500 -560 375 -550 Meds/Results Medications: Active Medications Generic Name Dose Route Start Last Admin Trade Name Freq PRN Reason Stop Dose Admin Albuterol 2.5 mg 07/15/19 14:00 07/21/19 01:38 Albuterol Sulf Neb 2.5mg/0.5ml INHALATION 2.5 mg Q6HRT LESLIE Administration Chlordiazepoxide HCl 50 mg 07/17/19 11:00 07/21/19 06:15 Librium Po PO 50 mg Q6H LESLIE Administration Dextrose 12.5 gm 07/11/19 06:25 Dextrose 50% Syringe IV PUSH PRN PRN Hypoglycemia Protocol Dornase Juan Luis 2.5 mg 07/15/19 11:00 07/20/19 18:03 Pulmozyme INHALATION 2.5 mg Q12HRT LESLIE Administration Folic Acid 1 mg 07/09/19 09:00 07/20/19 09:27 Folic Acid Inj IV PUSH 1 mg QAM LESLIE Administration Glucagon 1 mg 07/11/19 06:25 Glucagon For Inj IM PRN PRN Hypoglycemia Protocol Glucose 15 gm 07/11/19 06:25 Glutose 15 PO PRN PRN Hypoglycemia Protocol Heparin Sodium (Porcine) 5,000 units 07/09/19 14:00 07/21/19 06:17 Heparin Sodium SUB-Q 5,000 units Q8HR LESLIE Administration Dextrose 1,000 mls @ 100 mls/hr 07/11/19 06:25 Dextrose 5% 1,000 Ml IVPB PRN PRN Hypoglycemia Protocol Metoclopramide HCl 10 mg 07/14/19 12:00 07/21/19 06:17 Reglan IV PUSH 10 mg Q6HR LESLIE Administration Nicotine 1 patch 07/17/19 09:00 07/21/19 08:21 Nicoderm Cq 14 Mg TRANSDERM 1 patch QAM LESLIE Administration Pantoprazole Sodium 40 mg 07/09/19 09:00 07/21/19 08:21 Protonix Iv IV PUSH 40 mg Q12HR LESLIE Administration Prednisone 20 mg 07/20/19 0
[2019-07-21 08:29] LABS: Potassium 4.1 mmol/L (3.4-5.0)
[2019-07-21] MEDS: FOLIC ACID 1 MG/0.2 ML INJ IV PUSH (08:38)
[2019-07-21] MEDS: DORNASE ALFA INH SOLN 1 MG/ML 2.5 ML AMP 2.5 MG INHALATION ×2 (08:41→20:34)
--- NOTE | 2019-07-21 09:01 | PCPTNOTE ---
Attempted to see patient for PT, however patient refused due to patient wanting to eat his breakfast.
--- NOTE | 2019-07-21 11:05 | PCNFU ---
Nutrition Follow-Up Complete: Inadequate oral intake related to oral intubation as evidenced by NPO status. Goal: Patient to meet estimated nutritional needs. Progressing towards goal. We will continue current goal. Pt current nutrition is Heart Healthy. Nutrition recommendation: Agree Last recorded weight is 91.3 kg. Bowel Motility:+BM reported 07/20 Labs Reviewed:Alb 2.6,GFR 34,BUN 58,Cr 2.2 Meds Noted:Reglan,Protonix Additional Notes: Patient current on a heart healthy diet. Breakfast today mixed fruit 100% and orange 50%. Agree with diet orders. Patient Instruction is attached. Monitoring: Follow up every 5 days.
--- NOTE | 2019-07-21 13:50 | P.PNNP_ITS ---
Progress Note: A&P Assessment and Plan (1) Acute kidney injury: Code(s): N17.9 - Acute kidney failure, unspecified Status: Acute Assessment and Plan: * slow improvement in creatinine noted * baseline creatinine is normal * his creatinine seems to have plateaued in the low 2s. * he is on diuretics which may slow the improvement down . * he also has cirrhosis so he may have some underfilling leading to chronic prerenal azotemia. * he has elevated liver enzymes and so when the inflammatory aspect of this whole thing improves maybe he will have better hemodynamics. * continue gentle diuresis as tolerated (on spironolactone 50 bid) * K okay * rfp in am (2) Sepsis: Qualifiers: Sepsis type: sepsis due to unspecified organism Sepsis acute organ dysfunction status: with acute organ dysfunction Severe sepsis acute organ dysfunction type: acute respiratory failure Acute respiratory failure type: with hypoxia Severe sepsis shock status: without septic shock Qualified Code(s): A41.9 - Sepsis, unspecified organism; R65.20 - Severe sepsis without septic shock; J96.01 - Acute respiratory failure with hypoxia Code(s): A41.9 - Sepsis, unspecified organism Status: Acute Assessment and Plan: * thought to be secondary to pneumonia * resolved (3) Hyponatremia: Code(s): E87.1 - Hypo-osmolality and hyponatremia Status: Acute Assessment and Plan: * hyponatremia. * likely due to combination of DELNAO complicated by liver cirrhosis/EtOH abuse and associated pre-renal factors * TSH and cortisol normal * sodium stable in the 130s. (4) Pneumonia: Qualifiers: Pneumonia type: due to unspecified organism Laterality: bilateral Lung location: unspecified part of lung Qualified Code(s): J18.9 - Pneumonia, unspecified organism Code(s): J18.9 - Pneumonia, unspecified organism Status: Acute Assessment and Plan: * resolved. (5) Respiratory failure with hypoxia: Qualifiers: Chronicity: acute Qualified Code(s): J96.01 - Acute respiratory failure with hypoxia Code(s): J96.91 - Respiratory failure, unspecified with hypoxia Status: Acute Assessment and Plan: * resolved (6) Alcohol abuse: Code(s): F10.10 - Alcohol abuse, uncomplicated Status: Acute Assessment and Plan: * difficult situation as he has had a hard time with abstinence per history * monitor for signs of withdrawal Subjective Date/time seen: 07/21/19 13:50 Interval history: pt is sleepy. comfortable. Review of Systems Review of Systems: ROS unobtainable: Yes unobtainable due to medical condition Exam Narrative: Exam Narrative: General: WD/WN male in NAD Heart: normal S1 and S2; no rub Lungs: coarse breath sounds Abdomen: soft, nontender, mild protuberance, positive bowel sounds Extremities: 1+ edema Skin: no rash or nodules ++ jaundice noted Objective Data Vital Signs Vital Signs: Vital Signs - 24 hr 07/20/19 14:24 07/20/19 14:35 07/20/19 17:00 Temperature Pulse Rate 84 95 Pulse Rate [Bilateral Pedal (Dorsalis Pedis) Palpation] 94 Respiratory Rate 18 18 Blood Pressure 133/70 Pulse Oximetry 07/20/19 18:03 07/20/19 18:11 07/20/19 21:49 Temperature 36.6 C Pulse Rate 84 88 94 Pulse Rate
--- NOTE | 2019-07-21 13:50 | PM.PNNEP ---
Progress Note: A&P Assessment and Plan (1) Acute kidney injury: Code(s): N17.9 - Acute kidney failure, unspecified Status: Acute Assessment and Plan: slow improvement in creatinine noted baseline creatinine is normal his creatinine seems to have plateaued in the low 2s. he is on diuretics which may slow the improvement down . he also has cirrhosis so he may have some underfilling leading to chronic prerenal azotemia. he has elevated liver enzymes and so when the inflammatory aspect of this whole thing improves maybe he will have better hemodynamics. continue gentle diuresis as tolerated (on spironolactone 50 bid) K okay rfp in am (2) Sepsis: Qualifiers: Sepsis type: sepsis due to unspecified organism Sepsis acute organ dysfunction status: with acute organ dysfunction Severe sepsis acute organ dysfunction type: acute respiratory failure Acute respiratory failure type: with hypoxia Severe sepsis shock status: without septic shock Qualified Code(s): A41.9 - Sepsis, unspecified organism; R65.20 - Severe sepsis without septic shock; J96.01 - Acute respiratory failure with hypoxia Code(s): A41.9 - Sepsis, unspecified organism Status: Acute Assessment and Plan: thought to be secondary to pneumonia resolved (3) Hyponatremia: Code(s): E87.1 - Hypo-osmolality and hyponatremia Status: Acute Assessment and Plan: hyponatremia. likely due to combination of DELANO complicated by liver cirrhosis/EtOH abuse and associated pre-renal factors TSH and cortisol normal sodium stable in the 130s. (4) Pneumonia: Qualifiers: Pneumonia type: due to unspecified organism Laterality: bilateral Lung location: unspecified part of lung Qualified Code(s): J18.9 - Pneumonia, unspecified organism Code(s): J18.9 - Pneumonia, unspecified organism Status: Acute Assessment and Plan: resolved. (5) Respiratory failure with hypoxia: Qualifiers: Chronicity: acute Qualified Code(s): J96.01 - Acute respiratory failure with hypoxia Code(s): J96.91 - Respiratory failure, unspecified with hypoxia Status: Acute Assessment and Plan: resolved (6) Alcohol abuse: Code(s): F10.10 - Alcohol abuse, uncomplicated Status: Acute Assessment and Plan: difficult situation as he has had a hard time with abstinence per history monitor for signs of withdrawal Subjective Date/time seen: 07/21/19 13:50 Interval history: pt is sleepy. comfortable. Review of Systems Review of Systems: ROS unobtainable: Yes unobtainable due to medical condition Exam Narrative: Exam Narrative: General: WD/WN male in NAD Heart: normal S1 and S2; no rub Lungs: coarse breath sounds Abdomen: soft, nontender, mild protuberance, positive bowel sounds Extremities: 1+ edema Skin: no rash or nodules ++ jaundice noted Objective Data Vital Signs Vital Signs: Vital Signs - 24 hr 07/20/19 14:24 07/20/19 14:35 07/20/19 17:00 Temperature Pulse Rate 84 95 Pulse Rate [Bilateral Pedal (Dorsalis Pedis) Palpation] 94 Respiratory Rate 18 18 Blood Pressure 133/70 Pulse Oximetry 07/20/19 18:03 07/20/19 18:11 07/20/19 21:49 Temperature 36.6 C Pulse Rate 84 88 94 Pulse Rate [Bilateral Pedal (Dorsalis Pedis) Palpation] Respiratory Rate 20 20 22 H Blood Pressure 117/64 Pulse Oximetry 94 07/21/19 01:38 07/21/19 01:48 07/21/19 06:00 Temperature 36.7 C Pulse Rate 91 92 89 Pulse Rate [Bilateral Pedal (Dorsalis Pedis) Palpation] Respiratory Rate 22 H 24 H 18 Blood Pressure 119/73 Pulse Oximetry 97 07/21/19 08:42 07/21/19 08:53 Temperature Pulse Rate 89 91 Pulse Rate [Bilateral Pedal (Dorsalis Pedis) Palpation] Respiratory Rate 20 20 Blood Pressure Pulse Oximetry 93 Intake/Output Intake/Output: Intake & Output 07/18/19 07/19/19 07/20/19 07/21/19 23:
--- NOTE | 2019-07-21 17:24 | PM.IMPN ---
Progress Note: A&P Assessment and Plan (1) Respiratory failure with hypoxia: Qualifiers: Chronicity: acute Qualified Code(s): J96.01 - Acute respiratory failure with hypoxia Code(s): J96.91 - Respiratory failure, unspecified with hypoxia Status: Acute Assessment and Plan: 07/21/19 17:24 Result of pneumonia. Remains on ventilator. Management of ventilator per novelty balloon assembler and packer. Discussed with novelty balloon assembler and packer today. Sedation discontinued. Chest xray with persistent extensive bilateral pulmonary infiltrates. CT chest/abdomen/pelvis from 07/12/2019 with development of confluent bilateral lower lobe atelectasis and infection, scattered additional ground-glass infectious opacities, small pleural effusions, small to moderate ascites, colonic fluid and hepatic steatosis with possible cirrhosis and portal hypertension. Continue other treatments as noted below. Continue to monitor. Patient is a 38-year-old male with bilateral community-acquired pneumonia most likely bacteria as patient COVID-19 is negative, patient was on ventilator, patient seen by Dr. Anderson patient is treated with Rocephin and azithromycin will complete the course for 7 days recommending to stop the antibiotics, patient was on AST mode on 07/14, on 07/15 patient clinically symptoms had improved and he was extubated by novelty balloon assembler and packer on 07/16 patient appeared to be in withdrawal and had a tremor patient has a history of alcohol abuse and his last drink was on the day of arrival to emergency department, patient was started on CIWA protocol with Librium and he was transferred out of ICU, on 07/17 patient still had tremors and appears more jaundice as he was sitting near a sun lit window, most 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 Distended gallbladder with sludge, gallbladder wall thickening, and positive sonographic Lau sign, but no visualized gallstones. These findings are indeterminate for acute cholecystitis. Consider hepatobiliary scintigraphy. today patient is seen by GI for further workup is recommneded to follow, today D/W with Dr. Mijares he will start on patient on low dose of prednisone for alcoholic hepatitis as pbatient bilirubin is quite elevated and it is not trending down and increased spironolactone to 50 mg b.i.d. from 25 mg b.i.d. to help with ascites, on 07/19 patient complained of abdominal pain from his ascites as well as some shortness of breath but denies any fever or chills, repeat chest x-ray on 07/18 shows stable pneumonia patient was seen by Dr. Anderson and off antibiotic, today patient is feeling little bit abdominal pain is persisting and there is some difficulty with a breathing however is putting out enough urine, currently denies any nausea or vomiting fever or chill, he was able to participate with physical therapist, (2) Sepsis: Qualifiers: Sepsis type: sepsis due to unspecified organism Sepsis acute organ dysfunction status: with acute organ dysfunction Severe sepsis acute organ dysfunction type: acute respiratory failure Acute respiratory failure type: with hypoxia Severe sepsis shock status: without septic shock Qualified Code(s): A41.9 - Sepsis, unspecified organism; R65.20 - Severe sepsis without septic shock; J96.01 - Acute respiratory failure with hypoxia Code(s): A41.9 - Sepsis, unspecified organism Status: Acute Assessment and Plan: Criteria met on admission. Severe sepsis with shock. Initially, blood pressure did improve with normal saline bolus. Subsequently required low-dose Levophed but has been off pressor since 07/13/2019. Blood pressure reviewed on 07/14/2019 and stable. Telemetry reviewed on 07/14/2019 with sinus rhythm. Initial sputum culture now growing yeast with repeat
[2019-07-21] MEDS: CHLORDIAZEPOXIDE 25 MG CAPSULE PO ×2 (18:10→23:40)
[2019-07-21] MEDS: metroNIDAZOLE 500 MG/ISO 100ML 500 MG/100 ML BAG 100 MG IVPB (18:33)
[2019-07-21] MEDS: CIPROFLOXACIN 400 MG/D5W 200ML 200 ML 200 MG IVPB (19:33)
[2019-07-22] VITALS (12 sets, daily range): BP systolic 121–131; BP diastolic 62–63; PULSE 77–91; RESP 16–24; TEMP 36.3–36.9; O2SAT 91–100
[2019-07-22] MEDS: CHLORDIAZEPOXIDE 25 MG CAPSULE PO ×5 (00:40→23:06)
[2019-07-22] MEDS: ALBUTEROL SULFATE NEB 2.5 MG/0.5 ML INH INHALATION ×4 (01:00→20:05)
[2019-07-22] MEDS: metroNIDAZOLE 500 MG/ISO 100ML 500 MG/100 ML BAG 100 MG IVPB ×3 (02:22→17:41)
[2019-07-22] MEDS: METOCLOPRAMIDE HCL INJ 10 MG/2 ML VIAL IV PUSH ×4 (04:54→23:06)
[2019-07-22 06:11] LABS: Hemoglobin 8.3 g/dL (14.0-18.0); Mean Corpuscular HGB Conc 33.2 g/dl (32-36); Mean Corpuscular Hemoglobin 34.7 pg (26-34); Mean Corpuscular Volume 104.6 fl (80-100); Mean Platelet Volume 10.7 fl (7.4-10.4); Platelet Count Result 279 k/mm3 (150-375); Red Blood Count 2.39 M/mm3 (4.6-6.20); Red Cell Distribution Width 19.6 % (11.5-14.5); White Blood Count 18.6 K/mm3 (4.5-10.0)
[2019-07-22 06:21] LABS: INR 1.3; Prothrombin Time 15.6 Seconds (11.1-14.7)
[2019-07-22 06:22] LABS: Partial Thromboplastin Time 31.3 SECONDS (22.3-36.8)
[2019-07-22 06:28] LABS: Alanine Aminotransferase 135 U/L (4-50); Albumin Level 2.6 g/dL (3.5-5.1); Alkaline Phosphatase 309 U/L (38-126); Aspartate Amino Transferase 167 U/L (17-59); Blood Urea Nitrogen 58 mg/dL (9-20); Calcium 8.2 mg/dL (8.4-10.2); Carbon Dioxide 23 mmol/L (22-30); Chloride 101 mmol/L (98-107); Estimated CRCL calculation 46 ml/min; Estimated Glomerular Filt Rate 34; Glucose 92 mg/dL (75-110); Phosphorus 4.6 mg/dL (2.5-4.5); Potassium 4.3 mmol/L (3.4-5.0); Sodium 131 mmol/L (137-145)
[2019-07-22 06:39] LABS: Glucose Point of Care 104 (65-105)
[2019-07-22] MEDS: CIPROFLOXACIN 400 MG/D5W 200ML 200 ML 100 MG IVPB (06:43)
--- NOTE | 2019-07-22 07:22 | P.PNNP_ITS ---
Progress Note: A&P Assessment and Plan (1) Acute kidney injury: Code(s): N17.9 - Acute kidney failure, unspecified Status: Acute Assessment and Plan: * slow improvement in creatinine noted * baseline creatinine is normal * his creatinine seems to have plateaued in the low 2s. * Creatinine so is still in the 2s today. * Most likely he will have a an element of CKD due to leftovers of ATN, and chronic pre renal azotemia from diuretics and cirrhosis. * He has edema and ascites. * He is being treated with spironolactone. * Potassium is fine. (2) Sepsis: Qualifiers: Sepsis type: sepsis due to unspecified organism Sepsis acute organ dysfunction status: with acute organ dysfunction Severe sepsis acute organ dysfunction type: acute respiratory failure Acute respiratory failure type: with hypoxia Severe sepsis shock status: without septic shock Qualified Code(s): A41.9 - Sepsis, unspecified organism; R65.20 - Severe sepsis without septic shock; J96.01 - Acute respiratory failure with hypoxia Code(s): A41.9 - Sepsis, unspecified organism Status: Acute Assessment and Plan: * thought to be secondary to pneumonia * resolved (3) Hyponatremia: Code(s): E87.1 - Hypo-osmolality and hyponatremia Status: Acute Assessment and Plan: * hyponatremia. * likely due to combination of DELANO complicated by liver cirrhosis/EtOH abuse and associated pre-renal factors * TSH and cortisol normal * sodium stable in the 130s. (4) Pneumonia: Qualifiers: Pneumonia type: due to unspecified organism Laterality: bilateral Lung location: unspecified part of lung Qualified Code(s): J18.9 - Pneumonia, unspecified organism Code(s): J18.9 - Pneumonia, unspecified organism Status: Acute Assessment and Plan: * resolved. (5) Respiratory failure with hypoxia: Qualifiers: Chronicity: acute Qualified Code(s): J96.01 - Acute respiratory failure with hypoxia Code(s): J96.91 - Respiratory failure, unspecified with hypoxia Status: Acute Assessment and Plan: * resolved (6) Alcohol abuse: Code(s): F10.10 - Alcohol abuse, uncomplicated Status: Acute Assessment and Plan: * difficult situation as he has had a hard time with abstinence per history * monitor for signs of withdrawal Subjective Date/time seen: 07/22/19 07:22 Interval history: pt is more awake today. Up in a chair. He is hungry. He is NPO for a paracentesis today. We discussed the case. Review of Systems Cardiovascular: Cardiovascular: Reports no additional cardiovascular complaints Respiratory: Respiratory: Reports no additional respiratory complaints Gastrointestinal: Gastrointestinal: Reports no additional gastrointestinal complaints Genitourinary: Genitourinary: Reports no additional male genitourinary complaints Exam Narrative: Exam Narrative: WDWN in NAD skin no rash head ncat lungs clear cor reg no rub abd BS+ nontender, protuberant and soft ext 2+ edema. Objective Data Vital Signs Vital Signs: Vital Signs - 24 hr 07/21/19 08:42 07/21/19 08:53 07/21/19 14:00 Temperature 38.2 C H Pulse Rate 89 91 98 Respiratory Rate 20 20 20 Blood Pressure 105/56 L Pulse Oximetry 93 94 07/21/19 14:20 06
--- NOTE | 2019-07-22 07:22 | PM.PNNEP ---
Progress Note: A&P Assessment and Plan (1) Acute kidney injury: Code(s): N17.9 - Acute kidney failure, unspecified Status: Acute Assessment and Plan: slow improvement in creatinine noted baseline creatinine is normal his creatinine seems to have plateaued in the low 2s. Creatinine so is still in the 2s today. Most likely he will have a an element of CKD due to leftovers of ATN, and chronic pre renal azotemia from diuretics and cirrhosis. He has edema and ascites. He is being treated with spironolactone. Potassium is fine. (2) Sepsis: Qualifiers: Sepsis type: sepsis due to unspecified organism Sepsis acute organ dysfunction status: with acute organ dysfunction Severe sepsis acute organ dysfunction type: acute respiratory failure Acute respiratory failure type: with hypoxia Severe sepsis shock status: without septic shock Qualified Code(s): A41.9 - Sepsis, unspecified organism; R65.20 - Severe sepsis without septic shock; J96.01 - Acute respiratory failure with hypoxia Code(s): A41.9 - Sepsis, unspecified organism Status: Acute Assessment and Plan: thought to be secondary to pneumonia resolved (3) Hyponatremia: Code(s): E87.1 - Hypo-osmolality and hyponatremia Status: Acute Assessment and Plan: hyponatremia. likely due to combination of DELANO complicated by liver cirrhosis/EtOH abuse and associated pre-renal factors TSH and cortisol normal sodium stable in the 130s. (4) Pneumonia: Qualifiers: Pneumonia type: due to unspecified organism Laterality: bilateral Lung location: unspecified part of lung Qualified Code(s): J18.9 - Pneumonia, unspecified organism Code(s): J18.9 - Pneumonia, unspecified organism Status: Acute Assessment and Plan: resolved. (5) Respiratory failure with hypoxia: Qualifiers: Chronicity: acute Qualified Code(s): J96.01 - Acute respiratory failure with hypoxia Code(s): J96.91 - Respiratory failure, unspecified with hypoxia Status: Acute Assessment and Plan: resolved (6) Alcohol abuse: Code(s): F10.10 - Alcohol abuse, uncomplicated Status: Acute Assessment and Plan: difficult situation as he has had a hard time with abstinence per history monitor for signs of withdrawal Subjective Date/time seen: 07/22/19 07:22 Interval history: pt is more awake today. Up in a chair. He is hungry. He is NPO for a paracentesis today. We discussed the case. Review of Systems Cardiovascular: Cardiovascular: Reports no additional cardiovascular complaints Respiratory: Respiratory: Reports no additional respiratory complaints Gastrointestinal: Gastrointestinal: Reports no additional gastrointestinal complaints Genitourinary: Genitourinary: Reports no additional male genitourinary complaints Exam Narrative: Exam Narrative: WDWN in NAD skin no rash head ncat lungs clear cor reg no rub abd BS+ nontender, protuberant and soft ext 2+ edema. Objective Data Vital Signs Vital Signs: Vital Signs - 24 hr 07/21/19 08:42 07/21/19 08:53 07/21/19 14:00 Temperature 38.2 C H Pulse Rate 89 91 98 Respiratory Rate 20 20 20 Blood Pressure 105/56 L Pulse Oximetry 93 94 07/21/19 14:20 07/21/19 14:29 07/21/19 20:30 Temperature Pulse Rate 91 91 Respiratory Rate 20 20 Blood Pressure Pulse Oximetry 87 L 07/21/19 20:34 07/21/19 20:40 07/21/19 21:05 Temperature Pulse Rate 87 87 87 Respiratory Rate 20 20 18 Blood Pressure Pulse Oximetry 92 07/21/19 22:00 07/22/19 01:00 07/22/19 01:06 Temperature 36.9 C Pulse Rate 88 86 86 Respiratory Rate 22 H 20 20 Blood Pressure 110/60 Pulse Oximetry 97 07/22/19 06:00 Temperature 36.9 C Pulse Rate 91 Respiratory Rate 24 H Blood Pressure 121/62 Pulse Oximetry 100 Intake/Output Intake/Output: Intake & Output 07/19/1907/19
[2019-07-22] MEDS: DORNASE ALFA INH SOLN 1 MG/ML 2.5 ML AMP 2.5 MG INHALATION ×2 (08:09→20:06)
[2019-07-22] MEDS: NICOTINE (*PBKC) 14 MG PATCH 1 PATCH TRANSDERM (08:41)
[2019-07-22] MEDS: THIAMINE HCL 200 MG/2 ML VIAL 100 MG IV PUSH (08:41)
[2019-07-22] MEDS: FOLIC ACID 1 MG/0.2 ML INJ IV PUSH (08:41)
[2019-07-22] MEDS: PANTOPRAZOLE SODIUM IV 40 MG VIAL IV PUSH ×2 (08:42→20:42)
[2019-07-22] MEDS: predniSONE 20 MG TABLET PO (08:42)
[2019-07-22] MEDS: SPIRONOLACTONE 50 MG TABLET PO ×2 (08:42→17:39)
--- NOTE | 2019-07-22 10:34 | WPDGIPROGNO ---
Progress Note: A&P Additional Plan Patient alert this morning sitting in chair. He remains very weak. physical exam reveals he had a low-grade temperature last evening. Physical exam reveals him to have marked scleral icterus. Lungs are clear. Heart without murmur. Abdomen is soft. Somewhat tympanic and distended with shifting dullness. Extremities with 2 to3+ edema in the ankles. Impression 1. Cirrhosis. Secondary to alcohol use. Marked elevation of LFTs noted. 2. Alcoholic hepatitis. Plan patient now on steroids in hope to diminish hepatitis. Continue supportive care. 3. Ascites and peripheral edema. Patient on Aldactone. Dose of diuretics is limited by renal insufficiency. . Patient to have paracentesis today. Culture and cytology anticipated. 4. Azotemia. Nephrology service following. Likely from volume contraction. Need to follow for concern over early hepatorenal syndrome. Subjective Date/time seen: 07/22/19 10:34 Objective Data Vital Signs Vital Signs: Vital Signs - 24 hr 07/21/19 14:00 07/21/19 14:20 07/21/19 14:29 Temperature 38.2 C H Pulse Rate 98 91 91 Respiratory Rate 20 20 20 Blood Pressure 105/56 L Pulse Oximetry 94 07/21/19 20:30 07/21/19 20:34 07/21/19 20:40 Temperature Pulse Rate 87 87 Respiratory Rate 20 20 Blood Pressure Pulse Oximetry 87 L 07/21/19 21:05 07/21/19 22:00 07/22/19 01:00 Temperature 36.9 C Pulse Rate 87 88 86 Respiratory Rate 18 22 H 20 Blood Pressure 110/60 Pulse Oximetry 92 97 07/22/19 01:06 07/22/19 06:00 07/22/19 08:10 Temperature 36.9 C Pulse Rate 86 91 87 Respiratory Rate 20 24 H 20 Blood Pressure 121/62 Pulse Oximetry 100 07/22/19 08:12 07/22/19 08:16 Temperature Pulse Rate 87 87 Respiratory Rate 18 20 Blood Pressure Pulse Oximetry 92 Intake/Output Intake/Output: Intake & Output 07/19/19 07/20/19 07/21/19 07/22/19 23:59 23:59 23:59 23:59 Intake Total 1090 1600 1590 275 Output Total 1650 1225 1460 700 Balance -560 375 130 -425 Meds/Results Medications: Active Medications Generic Name Dose Route Start Last Admin Trade Name Freq PRN Reason Stop Dose Admin Albuterol 2.5 mg 07/15/19 14:00 07/22/19 08:09 Albuterol Sulf Neb 2.5mg/0.5ml INHALATION 2.5 mg Q6HRT LESLIE Administration Chlordiazepoxide HCl 25 mg 07/23/19 17:00 07/21/19 23:40 Librium Po PO 07/25/19 09:01 25 mg Q8H LESLIE Administration Chlordiazepoxide HCl 25 mg 07/21/19 17:00 07/22/19 04:54 Librium Po PO 07/23/19 11:01 25 mg Q6H LESLIE Administration Chlordiazepoxide HCl 25 mg 07/25/19 17:00 Librium Po PO 07/27/19 05:01 Q12H LESLIE Dextrose 12.5 gm 07/11/19 06:25 Dextrose 50% Syringe IV PUSH PRN PRN Hypoglycemia Protocol Dornase Juan Luis 2.5 mg 07/15/19 11:00 07/22/19 08:09 Pulmozyme INHALATION 2.5 mg Q12HRT LESLIE Administration Folic Acid 1 mg 07/09/19 09:00 07/22/19 08:41 Folic Acid Inj IV PUSH 1 mg QAM LESLIE Administration Glucagon 1 mg 07/11/19 06:25 Glucagon For Inj IM PRN PRN Hypoglycemia Protocol Glucose 15 gm 07/11/19 06:25 Glutose 15 PO PRN PRN Hypoglycemia Protocol Heparin Sodium (Porcine) 5,000 units 07/09/19 14:00 07/21/19 15:04 Heparin Sodium SUB-Q 5,000 units Q8HR LESLIE Administration Dextrose 1,000 mls @ 100 mls/hr 07/11/19 06:25 Dextrose 5% 1,000 Ml IVPB PRN PRN Hypoglycemia Protocol Ciprofloxacin/Dextrose 200 mls @ 200 mls/hr 07/21/19 19:00 07/22/19 06:43 Cipro 400 Mg/D5w 200 Ml IVPB 100 mls/hr Q12H LESLIE Administration Metronidazole 500 mg in 100 mls @ 100 mls/hr 07/21/19 18:00 07/22/19 10:29 Flagyl 500 Mg/Iso Soln 100 Ml IVPB 100 mls/hr Q8H LESLIE Administration Metoclopramide HCl 10 mg 07/14/19 12:00 07/22/19 04:54 Reglan IV PUSH 10 mg Q6HR LESLIE Administration Nicotine 1 patch 07/17/19 09:00 07/22/19 08:41 N
--- NOTE | 2019-07-22 12:18 | WPDINFPN2 ---
Progress Note: A&P Assessment and Plan (1) Pneumonia: Qualifiers: Pneumonia type: due to unspecified organism Laterality: bilateral Lung location: unspecified part of lung Qualified Code(s): J18.9 - Pneumonia, unspecified organism Code(s): J18.9 - Pneumonia, unspecified organism Status: Acute Assessment and Plan: 1. Recent CAP, suspect bacterial, resolved. 2. Resp failure, compensated 3. Alcoholic cirrhosis 4. Yeast in sputum, commensal 5. Leukocytosis, due to cirrhosis 6. Fever, unknown cause REC Ciprofloxacin and metronidazole #2 is reasonable, and f/u studies. Subjective Date/time seen: 07/22/19 12:18 Interval history: no cough, choking on food or dysphagia, diarrhea (though BMs when he does have are very loose), IV site pain, dyspnea, abd pain Exam Narrative: Exam Narrative: t max 38.2 Const: General: no acute distress Eyes: Sclera: scleral abnormality Neck: Neck: supple Resp: Effort & Inspection: normal respiratory effort Auscultation: clear to auscultation bilaterally Cardio: Rate: regular rate Rhythm: regular rhythm Heart sounds: no murmurs GI: Inspection: non-distended GI Palp: Yes Soft to palpation and No Tenderness to palpation present (GI) Auscultation: normal bowel sounds Skin: General skin exam: No normal color Objective Data Vital Signs Vital Signs: Vital Signs - 24 hr 07/21/19 14:00 07/21/19 14:20 07/21/19 14:29 Temperature 38.2 C H Pulse Rate 98 91 91 Respiratory Rate 20 20 20 Blood Pressure 105/56 L Pulse Oximetry 94 07/21/19 20:30 07/21/19 20:34 07/21/19 20:40 Temperature Pulse Rate 87 87 Respiratory Rate 20 20 Blood Pressure Pulse Oximetry 87 L 07/21/19 21:05 07/21/19 22:00 07/22/19 01:00 Temperature 36.9 C Pulse Rate 87 88 86 Respiratory Rate 18 22 H 20 Blood Pressure 110/60 Pulse Oximetry 92 97 07/22/19 01:06 07/22/19 06:00 07/22/19 08:10 Temperature 36.9 C Pulse Rate 86 91 87 Respiratory Rate 20 24 H 20 Blood Pressure 121/62 Pulse Oximetry 100 07/22/19 08:12 06/16/20 08:16 Temperature Pulse Rate 87 87 Respiratory Rate 18 20 Blood Pressure Pulse Oximetry 92 Intake/Output Intake/Output: Intake & Output 07/19/19 07/20/19 07/21/19 07/22/19 23:59 23:59 23:59 23:59 Intake Total 1090 1600 1590 275 Output Total 1650 1225 1460 700 Balance -560 375 130 -425 Meds/Results Medications: Active Medications Generic Name Dose Route Start Last Admin Trade Name Freq PRN Reason Stop Dose Admin Albuterol 2.5 mg 07/15/19 14:00 07/22/19 08:09 Albuterol Sulf Neb 2.5mg/0.5ml INHALATION 2.5 mg Q6HRT LESLIE Administration Chlordiazepoxide HCl 25 mg 07/23/19 17:00 07/21/19 23:40 Librium Po PO 07/25/19 09:01 25 mg Q8H LESLIE Administration Chlordiazepoxide HCl 25 mg 07/21/19 17:00 07/22/19 10:57 Librium Po PO 07/23/19 11:01 25 mg Q6H LESLIE Administration Chlordiazepoxide HCl 25 mg 07/25/19 17:00 Librium Po PO 07/27/19 05:01 Q12H LESLIE Dextrose 12.5 gm 07/11/19 06:25 Dextrose 50% Syringe IV PUSH PRN PRN Hypoglycemia Protocol Dornase Juan Luis 2.5 mg 07/15/19 11:00 07/22/19 08:09 Pulmozyme INHALATION 2.5 mg Q12HRT LESLIE Administration Folic Acid 1 mg 07/09/19 09:00 07/22/19 08:41 Folic Acid Inj IV PUSH 1 mg QAM LESLIE Administration Glucagon 1 mg 07/11/19 06:25 Glucagon For Inj IM PRN PRN Hypoglycemia Protocol Glucose 15 gm 07/11/19 06:25 Glutose 15 PO PRN PRN Hypoglycemia Protocol Heparin Sodium (Porcine) 5,000 units 07/09/19 14:00 07/21/19 15:04 Heparin Sodium SUB-Q 5,000 units Q8HR LESLIE Administration Dextrose 1,000 mls @ 100 mls/hr 07/11/19 06:25 Dextrose 5% 1,000 Ml IVPB PRN PRN Hypoglycemia Protocol Ciprofloxacin/Dextrose 200 mls @ 200 mls/hr 07/21/19 19:00 07/22/19 06:43 Cipro 400 Mg/D5w 200 Ml IVPB 100 mls/hr Q12H SC
--- NOTE | 2019-07-22 12:25 | PM.IMPN ---
Progress Note: A&P Assessment and Plan (1) Respiratory failure with hypoxia: Qualifiers: Chronicity: acute Qualified Code(s): J96.01 - Acute respiratory failure with hypoxia Code(s): J96.91 - Respiratory failure, unspecified with hypoxia Status: Acute Assessment and Plan: 07/22/19 12:25 Result of pneumonia. Remains on ventilator. Management of ventilator per high scaler. Discussed with high scaler today. Sedation discontinued. Chest xray with persistent extensive bilateral pulmonary infiltrates. CT chest/abdomen/pelvis from 07/12/2019 with development of confluent bilateral lower lobe atelectasis and infection, scattered additional ground-glass infectious opacities, small pleural effusions, small to moderate ascites, colonic fluid and hepatic steatosis with possible cirrhosis and portal hypertension. Continue other treatments as noted below. Continue to monitor. Patient is a 38-year-old male with bilateral community-acquired pneumonia most likely bacteria as patient COVID-19 is negative, patient was on ventilator, patient seen by Dr. Anderson patient is treated with Rocephin and azithromycin will complete the course for 7 days recommending to stop the antibiotics, patient was on AST mode on 07/14, on 07/15 patient clinically symptoms had improved and he was extubated by high scaler on 07/16 patient appeared to be in withdrawal and had a tremor patient has a history of alcohol abuse and his last drink was on the day of arrival to emergency department, patient was started on CIWA protocol with Librium and he was transferred out of ICU, on 07/17 patient still had tremors and appears more jaundice as he was sitting near a sun lit window, most 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 Distended gallbladder with sludge, gallbladder wall thickening, and positive sonographic Lau sign, but no visualized gallstones. These findings are indeterminate for acute cholecystitis. Consider hepatobiliary scintigraphy. today patient is seen by GI for further workup is recommneded to follow, today D/W with Dr. Mijares he will start on patient on low dose of prednisone for alcoholic hepatitis as pbatient bilirubin is quite elevated and it is not trending down and increased spironolactone to 50 mg b.i.d. from 25 mg b.i.d. to help with ascites, on 07/19 patient complained of abdominal pain from his ascites as well as some shortness of breath but denies any fever or chills, repeat chest x-ray on 07/18 shows stable pneumonia patient was seen by Dr. Anderson and off antibiotic, on 07/20 patient was feeling little bit abdominal pain was persisting and there was some difficulty with a breathing however was putting out enough urine, Later in the evening patient had fever of 100.7 since patient with a large ascites suspect SBP D/W Dr. Mijares, orderd paracentesis and started patient on Cipro, and Flagyl, today patient is awaiting paracentesis, will contineu abx, will follow up labs and culture, and further recommendation to follow, currently denies any nausea or vomiting fever or chill, he was able to participate with physical therapist, (2) Sepsis: Qualifiers: Acute respiratory failure type: with hypoxia Sepsis acute organ dysfunction status: with acute organ dysfunction Sepsis type: sepsis due to unspecified organism Severe sepsis acute organ dysfunction type: acute respiratory failure Severe sepsis shock status: without septic shock Qualified Code(s): A41.9 - Sepsis, unspecified organism; R65.20 - Severe sepsis without septic shock; J96.01 - Acute respiratory failure with hypoxia Code(s): A41.9 - Sepsis, unspecified organism Status: Acute Assessment and Plan: Criteria met on admission. Severe sepsis with shock.
[2019-07-22 13:52] LABS: Appearance Peritoneal Fluid Hazy (Clear); Color Peritoneal Fluid Yellow (Colorless); Lymphocytes Peritoneal Fluid 5 %; Mesothelial Cells Peritoneal Fluid 4 %; Monocytes Peritoneal Fluid 48 %; Neutrophils Peritoneal Fluid 43 % (0-25); Nucleated Cells Peritoneal Flu 255 /uL (0-500); RBC Peritoneal Fluid 0 /uL (0-100000); Source Peritoneal Fluid Peritoneal Fluid
[2019-07-22] MEDS: CIPROFLOXACIN 400 MG/D5W 200ML 200 ML 200 MG IVPB (18:47)
[2019-07-22] MEDS: HEPARIN SODIUM 5,000 UNITS/ML VIAL 5000 UNITS SUB-Q (20:42)
[2019-07-22 21:16] LABS: Haptoglobin 176 mg/dL (43-212)
[2019-07-23] VITALS (11 sets, daily range): BP systolic 99–149; BP diastolic 62–69; PULSE 70–92; RESP 16–20; TEMP 36.3–36.6; O2SAT 92–98
[2019-07-23] MEDS: ALBUTEROL SULFATE NEB 2.5 MG/0.5 ML INH INHALATION ×4 (01:45→20:02)
[2019-07-23] MEDS: metroNIDAZOLE 500 MG/ISO 100ML 500 MG/100 ML BAG 100 MG IVPB ×3 (02:05→17:13)
[2019-07-23] MEDS: CHLORDIAZEPOXIDE 25 MG CAPSULE PO ×2 (04:43→12:10)
[2019-07-23] MEDS: METOCLOPRAMIDE HCL INJ 10 MG/2 ML VIAL IV PUSH ×3 (04:44→17:07)
[2019-07-23] MEDS: HEPARIN SODIUM 5,000 UNITS/ML VIAL 5000 UNITS SUB-Q ×3 (04:44→21:28)
[2019-07-23] MEDS: CIPROFLOXACIN 400 MG/D5W 200ML 200 ML 100 MG IVPB (06:02)
[2019-07-23 06:38] LABS: Hematocrit 27.9 % (42.0-52.0); Hemoglobin 9.1 g/dL (14.0-18.0); Mean Corpuscular HGB Conc 32.6 g/dl (32-36); Mean Corpuscular Hemoglobin 34.5 pg (26-34); Mean Corpuscular Volume 105.7 fl (80-100); Mean Platelet Volume 10.8 fl (7.4-10.4); Platelet Count Result 316 k/mm3 (150-375); Red Blood Count 2.64 M/mm3 (4.6-6.20); Red Cell Distribution Width 19.3 % (11.5-14.5); White Blood Count 21.8 K/mm3 (4.5-10.0)
[2019-07-23 06:54] LABS: Alanine Aminotransferase 137 U/L (4-50); Albumin Level 2.7 g/dL (3.5-5.1); Alkaline Phosphatase 348 U/L (38-126); Aspartate Amino Transferase 154 U/L (17-59); Bilirubin,Total 18.1 mg/dL (0.2-1.3); Blood Urea Nitrogen 54 mg/dL (9-20); Calcium 8.4 mg/dL (8.4-10.2); Carbon Dioxide 21 mmol/L (22-30); Chloride 101 mmol/L (98-107); Estimated CRCL calculation 50 ml/min; Estimated Glomerular Filt Rate 38; Glucose 116 mg/dL (75-110); Phosphorus 4.7 mg/dL (2.5-4.5); Potassium 4.5 mmol/L (3.4-5.0); Sodium 131 mmol/L (137-145)
[2019-07-23] MEDS: predniSONE 20 MG TABLET PO (08:28)
[2019-07-23] MEDS: PANTOPRAZOLE SODIUM IV 40 MG VIAL IV PUSH (08:28)
[2019-07-23] MEDS: SPIRONOLACTONE 50 MG TABLET PO ×2 (08:28→17:06)
[2019-07-23] MEDS: NICOTINE (*PBKC) 14 MG PATCH 1 PATCH TRANSDERM (08:28)
[2019-07-23] MEDS: THIAMINE HCL 200 MG/2 ML VIAL 100 MG IV PUSH (08:28)
[2019-07-23] MEDS: FOLIC ACID 1 MG/0.2 ML INJ IV PUSH (08:29)
[2019-07-23] MEDS: DORNASE ALFA INH SOLN 1 MG/ML 2.5 ML AMP 2.5 MG INHALATION ×2 (09:15→20:02)
--- NOTE | 2019-07-23 12:18 | WPDGIPROGNO ---
Progress Note: A&P Additional Plan Patient remains alert today. Denies abdominal pain. States abdomen feels better after paracentesis yesterday. Physical exam reveals marked icterus. Lungs are clear. Heart without murmur. Abdomen bowel sounds are present soft less distended. But still some distention. Shifting dullness appreciated. Extremities with 2+ edema in the ankles. Labs reveal WBC 21.8 K. Hemoglobin 9.1, hematocrit 27.9, MCV 105. BUN 54, creatinine 2.0, total bilirubin 18.1, AST 154, ALT 137, alk-phos 348. Impression 1. Alcoholic liver disease. Cirrhosis and alcoholic hepatitis suggested. Patient now on prednisone therapy for alcoholic hepatitis. Continue supportive care. Liver function remains very poor. 2. Ascites. Abdominal paracentesis performed with good results. No evidence for SBP by lab parameters. Cytology pending. Plan to continue diuretics as long as renal function allows. 3. Renal insufficiency. Likely volume contraction. This may limit additional diuretic use. Subjective Date/time seen: 07/23/19 12:18 Objective Data Vital Signs Vital Signs: Vital Signs - 24 hr 07/22/19 13:22 07/22/19 13:28 07/22/19 14:00 Temperature 36.7 C Pulse Rate 84 86 90 Respiratory Rate 20 18 16 Blood Pressure 131/63 Pulse Oximetry 91 07/22/19 20:06 07/22/19 20:23 07/22/19 22:00 Temperature 36.3 C L Pulse Rate 80 77 85 Respiratory Rate 18 18 18 Blood Pressure 127/62 Pulse Oximetry 96 07/23/19 01:45 07/23/19 01:55 07/23/19 06:00 Temperature 36.3 C L Pulse Rate 79 75 91 Respiratory Rate 20 20 20 Blood Pressure 115/62 Pulse Oximetry 98 07/23/19 09:15 07/23/19 09:29 Temperature Pulse Rate 88 92 Respiratory Rate 20 20 Blood Pressure Pulse Oximetry 92 Intake/Output Intake/Output: Intake & Output 07/20/19 07/21/19 07/22/19 07/23/19 23:59 23:59 23:59 23:59 Intake Total 1600 1590 1315 500 Output Total 1225 1460 4150 950 Balance 375 992 -4585 -046 Meds/Results Medications: Active Medications Generic Name Dose Route Start Last Admin Trade Name Freq PRN Reason Stop Dose Admin Albuterol 2.5 mg 07/15/19 14:00 07/23/19 09:15 Albuterol Sulf Neb 2.5mg/0.5ml INHALATION 2.5 mg Q6HRT LESLIE Administration Chlordiazepoxide HCl 25 mg 07/23/19 17:00 07/21/19 23:40 Librium Po PO 07/25/19 09:01 25 mg Q8H LESLIE Administration Chlordiazepoxide HCl 25 mg 07/25/19 17:00 Librium Po PO 07/27/19 05:01 Q12H LESLIE Dextrose 12.5 gm 07/11/19 06:25 Dextrose 50% Syringe IV PUSH PRN PRN Hypoglycemia Protocol Dornase Juan Luis 2.5 mg 07/15/19 11:00 07/23/19 09:15 Pulmozyme INHALATION 2.5 mg Q12HRT LESLIE Administration Folic Acid 1 mg 07/09/19 09:00 07/23/19 08:29 Folic Acid Inj IV PUSH 1 mg QAM LESLIE Administration Glucagon 1 mg 07/11/19 06:25 Glucagon For Inj IM PRN PRN Hypoglycemia Protocol Glucose 15 gm 07/11/19 06:25 Glutose 15 PO PRN PRN Hypoglycemia Protocol Heparin Sodium (Porcine) 5,000 units 07/09/19 14:00 07/23/19 04:44 Heparin Sodium SUB-Q 5,000 units Q8HR LESLIE Administration Dextrose 1,000 mls @ 100 mls/hr 07/11/19 06:25 Dextrose 5% 1,000 Ml IVPB PRN PRN Hypoglycemia Protocol Ciprofloxacin/Dextrose 200 mls @ 200 mls/hr 07/21/19 19:00 07/23/19 08:02 Cipro 400 Mg/D5w 200 Ml IVPB Infused Q12H LESLIE Infusion Metronidazole 500 mg in 100 mls @ 100 mls/hr 07/21/19 18:00 07/23/19 11:58 Flagyl 500 Mg/Iso Soln 100 Ml IVPB 100 mls/hr Q8H LESLIE Administration Metoclopramide HCl 10 mg 07/14/19 12:00 07/23/19 12:00 Reglan IV PUSH 10 mg Q6HR LESLIE Administration Nicotine 1 patch 07/17/19 09:00 07/23/19 08:28 Nicoderm Cq 14 Mg TRANSDERM 1 patch QAM LESLIE Administration Pantoprazole Sodium 40 mg 07/09/19 09:00 07/23/19 08:28 Protonix Iv IV PUSH 40 mg Q12HR LESLIE Administration Predni
--- NOTE | 2019-07-23 13:21 | PM.IMPN ---
Progress Note: A&P Assessment and Plan (1) Respiratory failure with hypoxia: Qualifiers: Chronicity: acute Qualified Code(s): J96.01 - Acute respiratory failure with hypoxia Code(s): J96.91 - Respiratory failure, unspecified with hypoxia Status: Acute Assessment and Plan: 07/23/19 13:21 Result of pneumonia. Remains on ventilator. Management of ventilator per carpenter railcar. Discussed with carpenter railcar today. Sedation discontinued. Chest xray with persistent extensive bilateral pulmonary infiltrates. CT chest/abdomen/pelvis from 07/12/2019 with development of confluent bilateral lower lobe atelectasis and infection, scattered additional ground-glass infectious opacities, small pleural effusions, small to moderate ascites, colonic fluid and hepatic steatosis with possible cirrhosis and portal hypertension. Continue other treatments as noted below. Continue to monitor. Patient is a 38-year-old male with bilateral community-acquired pneumonia most likely bacteria as patient COVID-19 is negative, patient was on ventilator, patient seen by Dr. Anderson patient is treated with Rocephin and azithromycin will complete the course for 7 days recommending to stop the antibiotics, patient was on AST mode on 07/14, on 07/15 patient clinically symptoms had improved and he was extubated by carpenter railcar on 07/16 patient appeared to be in withdrawal and had a tremor patient has a history of alcohol abuse and his last drink was on the day of arrival to emergency department, patient was started on CIWA protocol with Librium and he was transferred out of ICU, on 07/17 patient still had tremors and appears more jaundice as he was sitting near a sun lit window, most 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 Distended gallbladder with sludge, gallbladder wall thickening, and positive sonographic Lau sign, but no visualized gallstones. These findings are indeterminate for acute cholecystitis. Consider hepatobiliary scintigraphy. today patient is seen by GI for further workup is recommneded to follow, today D/W with Dr. Mijares he will start on patient on low dose of prednisone for alcoholic hepatitis as pbatient bilirubin is quite elevated and it is not trending down and increased spironolactone to 50 mg b.i.d. from 25 mg b.i.d. to help with ascites, on 07/19 patient complained of abdominal pain from his ascites as well as some shortness of breath but denies any fever or chills, repeat chest x-ray on 07/18 shows stable pneumonia patient was seen by Dr. Anderson and off antibiotic, on 07/20 patient was feeling little bit abdominal pain was persisting and there was some difficulty with a breathing however was putting out enough urine, Later in the evening patient had fever of 100.7 since patient with a large ascites suspect SBP D/W Dr. Mijares, orderd paracentesis and started patient on Cipro, and Flagyl, today patient is awaiting paracentesis, will contineu abx, will follow up labs and culture, and further recommendation to follow, currently denies any nausea or vomiting fever or chill, he was able to participate with physical therapist, on 07/21 patient had a paracentesis and 2500 cc was removed clear yellow fluid initial lab do not show the patient has a SBP cultures are pending, patient has had no fever for 2 days and patient is clinically stable still quite jaundice and bilirubin is however patient is being treated with steroid to alcoholic hepatitis liver enzymes are trending down patient wants to go home, will increase the patient to participate in PT OT will discuss with the GI for discharge planning. (2) Sepsis: Qualifiers: Sepsis type: sepsis due to unspecified organism Sepsis acute organ dysfunction status: with acute organ dysfunc
--- NOTE | 2019-07-23 16:26 | PM.PNNEP ---
Progress Note: A&P Assessment and Plan (1) Acute kidney injury: Code(s): N17.9 - Acute kidney failure, unspecified Status: Acute Assessment and Plan: baseline creatinine is normal his creatinine seems to have plateaued in the low 2s. Most likely he will have a an element of CKD due to leftovers of ATN, and chronic pre renal azotemia from diuretics and cirrhosis. He has edema and ascites. He is being treated with spironolactone. Making some urine. Potassium is fine. (2) Sepsis: Qualifiers: Sepsis type: sepsis due to unspecified organism Sepsis acute organ dysfunction status: with acute organ dysfunction Severe sepsis acute organ dysfunction type: acute respiratory failure Acute respiratory failure type: with hypoxia Severe sepsis shock status: without septic shock Qualified Code(s): A41.9 - Sepsis, unspecified organism; R65.20 - Severe sepsis without septic shock; J96.01 - Acute respiratory failure with hypoxia Code(s): A41.9 - Sepsis, unspecified organism Status: Acute Assessment and Plan: thought to be secondary to pneumonia resolved (3) Hyponatremia: Code(s): E87.1 - Hypo-osmolality and hyponatremia Status: Acute Assessment and Plan: hyponatremia. likely due to combination of DELANO complicated by liver cirrhosis/EtOH abuse and associated pre-renal factors sodium stable in the 130s. (4) Pneumonia: Qualifiers: Pneumonia type: due to unspecified organism Laterality: bilateral Lung location: unspecified part of lung Qualified Code(s): J18.9 - Pneumonia, unspecified organism Code(s): J18.9 - Pneumonia, unspecified organism Status: Acute Assessment and Plan: resolved. (5) Respiratory failure with hypoxia: Qualifiers: Chronicity: acute Qualified Code(s): J96.01 - Acute respiratory failure with hypoxia Code(s): J96.91 - Respiratory failure, unspecified with hypoxia Status: Acute Assessment and Plan: resolved (6) Alcohol abuse: Code(s): F10.10 - Alcohol abuse, uncomplicated Status: Acute Assessment and Plan: difficult situation as he has had a hard time with abstinence per histor Subjective Date/time seen: 07/23/19 16:26 Interval history: pt is more awake today. Had paracentesis yesterday and feels better today. Review of Systems Cardiovascular: Cardiovascular: Reports no additional cardiovascular complaints Respiratory: Respiratory: Reports no additional respiratory complaints Gastrointestinal: Gastrointestinal: Reports no additional gastrointestinal complaints Genitourinary: Genitourinary: Reports no additional male genitourinary complaints Exam Narrative: Exam Narrative: WDWN in NAD skin no rash head ncat lungs clear cor reg no rub abd BS+ nontender, protuberant and soft ext 2+ edema. Objective Data Vital Signs Vital Signs: Vital Signs - 24 hr 07/22/19 20:06 07/22/19 20:23 07/22/19 22:00 Temperature 36.3 C L Pulse Rate 80 77 85 Respiratory Rate 18 18 18 Blood Pressure 127/62 Pulse Oximetry 96 07/23/19 01:45 07/23/19 01:55 07/23/19 06:00 Temperature 36.3 C L Pulse Rate 79 75 91 Respiratory Rate 20 20 20 Blood Pressure 115/62 Pulse Oximetry 98 07/23/19 09:15 07/23/19 09:29 07/23/19 14:00 Temperature 36.3 C L Pulse Rate 88 92 87 Respiratory Rate 20 20 16 Blood Pressure 99/69 L Pulse Oximetry 92 97 07/23/19 14:08 07/23/19 14:20 Temperature Pulse Rate 80 84 Respiratory Rate 20 20 Blood Pressure Pulse Oximetry Intake/Output Intake/Output: Intake & Output 07/20/19 07/21/19 07/22/19 07/23/19 23:59 23:59 23:59 23:59 Intake Total 1600 1590 1315 600 Output Total 1225 1460 4150 950 Balance 375 130 -2723 -350 Meds/Results Medications: Active Medications Generic Name Dose Route Start Last Admin Trade Name Freq PRN Reason Stop Dose Admin Albuterol 2
[2019-07-23] MEDS: MORPHINE SULFATE 2 MG/ML INJ IV PUSH (17:06)
[2019-07-23 18:06] LABS: Alpha Fetoprotein Tumor Marker 2.7 ng/mL (<6.1)
[2019-07-23] MEDS: CIPROFLOXACIN 400 MG/D5W 200ML 200 ML 200 MG IVPB (18:40)
[2019-07-23] MEDS: PANTOPRAZOLE 40 MG TABLET PO (21:28)
[2019-07-24] VITALS (10 sets, daily range): BP systolic 95–112; BP diastolic 59–64; PULSE 71–108; RESP 16–28; TEMP 36.4–36.7; O2SAT 92–100
[2019-07-24] MEDS: CHLORDIAZEPOXIDE 25 MG CAPSULE PO ×3 (00:56→18:10)
[2019-07-24] MEDS: METOCLOPRAMIDE HCL INJ 10 MG/2 ML VIAL IV PUSH ×4 (00:57→18:08)
[2019-07-24] MEDS: ALBUTEROL SULFATE NEB 2.5 MG/0.5 ML INH INHALATION ×3 (01:53→19:57)
[2019-07-24] MEDS: metroNIDAZOLE 500 MG/ISO 100ML 500 MG/100 ML BAG 100 MG IVPB ×2 (02:21→09:38)
[2019-07-24] MEDS: HEPARIN SODIUM 5,000 UNITS/ML VIAL 5000 UNITS SUB-Q ×3 (06:05→21:19)
[2019-07-24] MEDS: CIPROFLOXACIN 400 MG/D5W 200ML 200 ML 200 MG IVPB (06:07)
[2019-07-24 06:36] LABS: Hematocrit 27.6 % (42.0-52.0); Hemoglobin 8.9 g/dL (14.0-18.0); Mean Corpuscular HGB Conc 32.2 g/dl (32-36); Mean Corpuscular Hemoglobin 34.8 pg (26-34); Mean Corpuscular Volume 107.8 fl (80-100); Platelet Count Result 308 k/mm3 (150-375); Red Blood Count 2.56 M/mm3 (4.6-6.20)
[2019-07-24 06:46] LABS: Albumin Level 2.6 g/dL (3.5-5.1); Blood Urea Nitrogen 51 mg/dL (9-20); Calcium 8.2 mg/dL (8.4-10.2); Carbon Dioxide 20 mmol/L (22-30); Chloride 101 mmol/L (98-107); Estimated CRCL calculation 50 ml/min; Estimated Glomerular Filt Rate 38; Glucose 106 mg/dL (75-110); Phosphorus 5.4 mg/dL (2.5-4.5); Potassium 4.8 mmol/L (3.4-5.0); Sodium 130 mmol/L (137-145)
[2019-07-24 06:48] LABS: Alanine Aminotransferase 119 U/L (4-50); Albumin Level 2.6 g/dL (3.5-5.1); Alkaline Phosphatase 315 U/L (38-126); Aspartate Amino Transferase 115 U/L (17-59); Bilirubin,Total 16.1 mg/dL (0.2-1.3); Blood Urea Nitrogen 52 mg/dL (9-20); Calcium 8.1 mg/dL (8.4-10.2); Carbon Dioxide 19 mmol/L (22-30); Chloride 101 mmol/L (98-107); Estimated CRCL calculation 53 ml/min; Estimated Glomerular Filt Rate 40; Glucose 103 mg/dL (75-110); Potassium 4.8 mmol/L (3.4-5.0); Sodium 128 mmol/L (137-145)
[2019-07-24] MEDS: SPIRONOLACTONE 50 MG TABLET PO ×2 (09:19→18:08)
[2019-07-24] MEDS: THIAMINE HCL 200 MG/2 ML VIAL 100 MG IV PUSH (09:19)
[2019-07-24] MEDS: PANTOPRAZOLE 40 MG TABLET PO ×2 (09:19→21:19)
[2019-07-24] MEDS: NICOTINE (*PBKC) 14 MG PATCH 1 PATCH TRANSDERM (09:19)
[2019-07-24] MEDS: predniSONE 20 MG TABLET PO (09:20)
[2019-07-24] MEDS: FOLIC ACID 1 MG/0.2 ML INJ IV PUSH (09:35)
--- NOTE | 2019-07-24 11:06 | WPDGIPROGNO ---
Progress Note: A&P Additional Plan Patient alert this morning. Continues to appear weak. Tremulous at rest. He is anxious to go home. Currently states he is tolerating diet with no difficulties. Physical exam reveals marked scleral icterus. Lungs are clear. Heart without murmur. Abdomen is mildly distended. With some tympany. Shifting dullness appreciated. Extremities with 2+ edema at the ankles. Labs reveal total bilirubin 16. AST 115 ALT 119, alk-phos 315. WBC remains elevated 22 K, hemoglobin 8.9 is stable. Impression 1. Alcoholic liver disease. Alcoholic hepatitis and underlying cirrhosis suspected. Patient has been on steroids. Today is the 1st decline in the LFTs in several days. 2. Pneumonia. Patient improving clinically. ID service no longer following the patient. 3. Ascites. With peripheral edema. Low-dose diuretics in progress. Dose of diuretics limited by a azotemia. Plan is to continue low-salt diet. 4. Azotemia. Suggest underlying renal insufficiency. Renal service following patient. Most likely volume contracted. I am somewhat concerned about early hepatorenal syndrome. This will need to be monitored closely. 5. Weakness. Plan is for physical therapy. Patient anxious to go home. Functional status may limit this hopefully this will continue to improve. At the present time patient appears to need some assistance with basic functions. Hopefully arrangements can be made to go home if liver function tests continue to improve. Strict alcohol avoidance will be necessary. Subjective Date/time seen: 07/24/19 11:06 Objective Data Vital Signs Vital Signs: Vital Signs - 24 hr 07/23/19 14:00 07/23/19 14:08 07/23/19 14:20 Temperature 36.3 C L Pulse Rate 87 80 84 Respiratory Rate 16 20 20 Blood Pressure 99/69 L Pulse Oximetry 97 07/23/19 20:02 07/23/19 20:15 07/23/19 22:00 Temperature 36.6 C Pulse Rate 70 72 81 Respiratory Rate 16 16 18 Blood Pressure 149/67 H Pulse Oximetry 98 07/24/19 01:53 07/24/19 02:04 07/24/19 06:00 Temperature 36.6 C Pulse Rate 83 82 76 Respiratory Rate 18 18 18 Blood Pressure 112/60 Pulse Oximetry 96 07/24/19 10:18 Temperature 36.6 C Pulse Rate 93 Respiratory Rate 20 Blood Pressure 109/59 L Pulse Oximetry 99 Intake/Output Intake/Output: Intake & Output 07/21/19 07/22/19 07/23/19 07/24/19 23:59 23:59 23:59 23:59 Intake Total 1590 1315 1830 910 Output Total 1460 4150 1600 1000 Balance 130 -6363 230 -90 Meds/Results Medications: Active Medications Generic Name Dose Route Start Last Admin Trade Name Freq PRN Reason Stop Dose Admin Albuterol 2.5 mg 07/15/19 14:00 07/24/19 01:53 Albuterol Sulf Neb 2.5mg/0.5ml INHALATION 2.5 mg Q6HRT LESLIE Administration Chlordiazepoxide HCl 25 mg 07/23/19 17:00 07/24/19 10:47 Librium Po PO 07/25/19 09:01 25 mg Q8H LESLIE Administration Chlordiazepoxide HCl 25 mg 07/25/19 17:00 Librium Po PO 07/27/19 05:01 Q12H LESLIE Dextrose 12.5 gm 07/11/19 06:25 Dextrose 50% Syringe IV PUSH PRN PRN Hypoglycemia Protocol Dornase Juan Luis 2.5 mg 07/15/19 11:00 07/23/19 20:02 Pulmozyme INHALATION 2.5 mg Q12HRT LESLIE Administration Folic Acid 1 mg 07/09/19 09:00 07/24/19 09:35 Folic Acid Inj IV PUSH 1 mg QAM LESLIE Administration Glucagon 1 mg 07/11/19 06:25 Glucagon For Inj IM PRN PRN Hypoglycemia Protocol Glucose 15 gm 07/11/19 06:25 Glutose 15 PO PRN PRN Hypoglycemia Protocol Heparin Sodium (Porcine) 5,000 units 07/09/19 14:00 07/24/19 06:05 Heparin Sodium SUB-Q 5,000 units Q8HR LESLIE Administration Dextrose 1,000 mls @ 100 mls/hr 07/11/19 06:25 Dextrose 5% 1,000 Ml IVPB PRN PRN Hypoglycemia Protocol Ciprofloxacin/Dextrose 200 mls @ 200 mls/hr 07/21/19 19:00 07/24/19 06:07 Cipro 400 Mg/D5w 200 Ml IVPB 200 mls/hr Q12H LESLIE Administration Metron
--- NOTE | 2019-07-24 12:23 | WPDINFPN2 ---
Progress Note: A&P Assessment and Plan (1) Pneumonia: Qualifiers: Pneumonia type: due to unspecified organism Laterality: bilateral Lung location: unspecified part of lung Qualified Code(s): J18.9 - Pneumonia, unspecified organism Code(s): J18.9 - Pneumonia, unspecified organism Status: Acute Assessment and Plan: 1. Recent CAP, suspect bacterial, resolved. 2. Resp failure, compensated 3. Alcoholic cirrhosis 4. Yeast in sputum, commensal 5. Leukocytosis, due to cirrhosis 6. Fever, unknown cause, no SBP. Fever is resolved REC Ciprofloxacin and metronidazole #4, stop: he is not in need of further empiric therapy. Peritoneal fluid culture is in process, but gram stain and cell counts do not suggest infection. Ok discharge planning. Subjective Date/time seen: 07/24/19 12:23 Interval history: mumbles, wonders when he is going home Exam Narrative: Exam Narrative: appears ill, no resp distress Const: General: comfortable Eyes: Sclera: scleral abnormality Neck: Neck: supple Resp: Effort & Inspection: normal respiratory effort Auscultation: clear to auscultation bilaterally Cardio: Rate: regular rate Rhythm: regular rhythm Heart sounds: no gallops GI: Inspection: distended GI Palp: Yes Soft to palpation, No Tenderness to palpation present (GI) and No Guarding due to palpation present (GI) Extrem: General: edema Objective Data Vital Signs Vital Signs: Vital Signs - 24 hr 07/23/19 14:00 07/23/19 14:08 07/23/19 14:20 Temperature 36.3 C L Pulse Rate 87 80 84 Respiratory Rate 16 20 20 Blood Pressure 99/69 L Pulse Oximetry 97 07/23/19 20:02 07/23/19 20:15 07/23/19 22:00 Temperature 36.6 C Pulse Rate 70 72 81 Respiratory Rate 16 16 18 Blood Pressure 149/67 H Pulse Oximetry 98 07/24/19 01:53 07/24/19 02:04 07/24/19 06:00 Temperature 36.6 C Pulse Rate 83 82 76 Respiratory Rate 18 18 18 Blood Pressure 112/60 Pulse Oximetry 96 07/24/19 10:18 Temperature 36.6 C Pulse Rate 93 Respiratory Rate 20 Blood Pressure 109/59 L Pulse Oximetry 99 Intake/Output Intake/Output: Intake & Output 07/21/19 07/22/19 07/23/1918/20 23:59 23:59 23:59 23:59 Intake Total 1590 1315 1830 910 Output Total 1460 4150 1600 1000 Balance 130 -3405 230 -90 Meds/Results Medications: Active Medications Generic Name Dose Route Start Last Admin Trade Name Freq PRN Reason Stop Dose Admin Albuterol 2.5 mg 07/15/19 14:00 07/24/19 01:53 Albuterol Sulf Neb 2.5mg/0.5ml INHALATION 2.5 mg Q6HRT LESLIE Administration Chlordiazepoxide HCl 25 mg 07/23/19 17:00 07/24/19 10:47 Librium Po PO 07/25/19 09:01 25 mg Q8H LESLIE Administration Chlordiazepoxide HCl 25 mg 07/25/19 17:00 Librium Po PO 07/27/19 05:01 Q12H LESLIE Dextrose 12.5 gm 07/11/19 06:25 Dextrose 50% Syringe IV PUSH PRN PRN Hypoglycemia Protocol Dornase Juan Luis 2.5 mg 07/15/19 11:00 07/23/19 20:02 Pulmozyme INHALATION 2.5 mg Q12HRT LESLIE Administration Folic Acid 1 mg 07/09/19 09:00 07/24/19 09:35 Folic Acid Inj IV PUSH 1 mg QAM LESLIE Administration Glucagon 1 mg 07/11/19 06:25 Glucagon For Inj IM PRN PRN Hypoglycemia Protocol Glucose 15 gm 07/11/19 06:25 Glutose 15 PO PRN PRN Hypoglycemia Protocol Heparin Sodium (Porcine) 5,000 units 07/09/19 14:00 07/24/19 06:05 Heparin Sodium SUB-Q 5,000 units Q8HR LESLIE Administration Dextrose 1,000 mls @ 100 mls/hr 07/11/19 06:25 Dextrose 5% 1,000 Ml IVPB PRN PRN Hypoglycemia Protocol Metoclopramide HCl 10 mg 07/14/19 12:00 07/24/19 06:04 Reglan IV PUSH 10 mg Q6HR LESLIE Administration Nicotine 1 patch 07/17/19 09:00 07/24/19 09:19 Nicoderm Cq 14 Mg TRANSDERM 1 patch QAM LESLIE Administration Pantoprazole Sodium 40 mg 07/23/19 21:00 07/24/19 09:19 Protonix PO 40 mg Q12HR LESLIE Administration Pred
--- NOTE | 2019-07-24 14:47 | PCRCNOTE ---
PT UNAVILABLE TO TAKE BREATHING TREATMENT DUE TO TAKING MEDS, BATHROOM, AND TALKING WITH THE
--- NOTE | 2019-07-24 15:03 | PM.IMPN ---
Progress Note: A&P Assessment and Plan (1) Respiratory failure with hypoxia: Qualifiers: Chronicity: acute Qualified Code(s): J96.01 - Acute respiratory failure with hypoxia Code(s): J96.91 - Respiratory failure, unspecified with hypoxia Status: Acute Assessment and Plan: 07/24/19 15:03 Result of pneumonia. Remains on ventilator. Management of ventilator per magistrate. Discussed with magistrate today. Sedation discontinued. Chest xray with persistent extensive bilateral pulmonary infiltrates. CT chest/abdomen/pelvis from 07/12/2019 with development of confluent bilateral lower lobe atelectasis and infection, scattered additional ground-glass infectious opacities, small pleural effusions, small to moderate ascites, colonic fluid and hepatic steatosis with possible cirrhosis and portal hypertension. Continue other treatments as noted below. Continue to monitor. Patient is a 38-year-old male with bilateral community-acquired pneumonia most likely bacteria as patient COVID-19 is negative, patient was on ventilator, patient seen by Dr. Puga patient is treated with Rocephin and azithromycin will complete the course for 7 days recommending to stop the antibiotics, patient was on AST mode on 07/14, on 07/15 patient clinically symptoms had improved and he was extubated by magistrate on 07/16 patient appeared to be in withdrawal and had a tremor patient has a history of alcohol abuse and his last drink was on the day of arrival to emergency department, patient was started on CIWA protocol with Librium and he was transferred out of ICU, on 07/17 patient still had tremors and appears more jaundice as he was sitting near a sun lit window, most 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 Distended gallbladder with sludge, gallbladder wall thickening, and positive sonographic Lau sign, but no visualized gallstones. These findings are indeterminate for acute cholecystitis. Consider hepatobiliary scintigraphy. today patient is seen by GI for further workup is recommneded to follow, today D/W with Dr. Mijares he will start on patient on low dose of prednisone for alcoholic hepatitis as pbatient bilirubin is quite elevated and it is not trending down and increased spironolactone to 50 mg b.i.d. from 25 mg b.i.d. to help with ascites, on 07/19 patient complained of abdominal pain from his ascites as well as some shortness of breath but denies any fever or chills, repeat chest x-ray on 07/18 shows stable pneumonia patient was seen by Dr. Puga and off antibiotic, on 07/20 patient was feeling little bit abdominal pain was persisting and there was some difficulty with a breathing however was putting out enough urine, Later in the evening patient had fever of 100.7 since patient with a large ascites suspect SBP D/W Dr. Mijares, orderd paracentesis and started patient on Cipro, and Flagyl, today patient is awaiting paracentesis, will contineu abx, will follow up labs and culture, and further recommendation to follow, currently denies any nausea or vomiting fever or chill, he was able to participate with physical therapist, on 07/21 patient had a paracentesis and 2500 cc was removed clear yellow fluid initial lab do not show the patient has a SBP cultures are pending, patient has had no fever for 2 days and patient is clinically stable still quite jaundice and bilirubin is however patient is being treated with steroid to alcoholic hepatitis liver enzymes are trending down patient wants to go home, patient was seen by Dr. puga does not suspect SBP and stopped Cipro and Flagyl, today patient bilirubin is Jessika down to 16 from [address] Rosario patient still too ill to discharge is not able to function on his own will continue the pr
[2019-07-24] MEDS: DORNASE ALFA INH SOLN 1 MG/ML 2.5 ML AMP 2.5 MG INHALATION (19:59)
[2019-07-25] VITALS (13 sets, daily range): BP systolic 108–116; BP diastolic 64–71; PULSE 73–99; RESP 16–26; TEMP 36.7–37.1; O2SAT 91–100
[2019-07-25] MEDS: METOCLOPRAMIDE HCL INJ 10 MG/2 ML VIAL IV PUSH ×4 (00:12→17:56)
[2019-07-25] MEDS: CHLORDIAZEPOXIDE 25 MG CAPSULE PO ×3 (00:12→17:56)
[2019-07-25] MEDS: ALBUTEROL SULFATE NEB 2.5 MG/0.5 ML INH INHALATION ×4 (02:03→20:16)
[2019-07-25] MEDS: HEPARIN SODIUM 5,000 UNITS/ML VIAL 5000 UNITS SUB-Q ×3 (05:23→22:39)
[2019-07-25 06:22] LABS: Hematocrit 26.4 % (42.0-52.0); Hemoglobin 8.6 g/dL (14.0-18.0); Mean Corpuscular HGB Conc 32.6 g/dl (32-36); Mean Corpuscular Volume 104.3 fl (80-100); Mean Platelet Volume 10.5 fl (7.4-10.4); Platelet Count Result 329 k/mm3 (150-375); Red Blood Count 2.53 M/mm3 (4.6-6.20); Red Cell Distribution Width 19.2 % (11.5-14.5); White Blood Count 21.3 K/mm3 (4.5-10.0)
[2019-07-25 06:33] LABS: Alanine Aminotransferase 120 U/L (4-50); Albumin Level 2.5 g/dL (3.5-5.1); Alkaline Phosphatase 305 U/L (38-126); Aspartate Amino Transferase 123 U/L (17-59); Bilirubin,Total 14.5 mg/dL (0.2-1.3); Blood Urea Nitrogen 51 mg/dL (9-20); Calcium 8.3 mg/dL (8.4-10.2); Carbon Dioxide 19 mmol/L (22-30); Chloride 101 mmol/L (98-107); Estimated CRCL calculation 55 ml/min; Estimated Glomerular Filt Rate 42; Glucose 136 mg/dL (75-110); Potassium 5.3 mmol/L (3.4-5.0); Sodium 129 mmol/L (137-145)
[2019-07-25] MEDS: DORNASE ALFA INH SOLN 1 MG/ML 2.5 ML AMP 2.5 MG INHALATION (08:28)
--- NOTE | 2019-07-25 09:26 | WPDGIPROGNO ---
Progress Note: A&P Additional Plan Patient states that he is starting to feel stronger. Still not ambulating in room very much. Denies abdominal pain. Now tolerating diet. Physical exam reveals him to have stable vital signs. Marked scleral icterus evident. Lungs are clear. Heart without murmur. Abdomen bowel sounds present soft mild distention. Minimal tympany at this time. Extremities with 2+ edema. Impression 1. Alcoholic liver disease alcoholic hepatitis with cirrhosis underlying. patient currently on steroids for alcoholic hepatitis. Gradual decline in bilirubin noted the last 2 days. This is somewhat encouraging. Plan to continue oral steroids for now. Supportive care. Alcohol avoidance is strongly encourage. 2. Ascites. Patient also has pedal edema. Plan is for low-salt diet. Continue diuretics. Renal function appears to be improved over the last 2 days. 3. Azotemia. Still some signs of volume contraction. This may limit dose of diuretics. Plan to continue low-salt diet continue monitor renal function as closely as possible. Plan to increase Physical therapy. Increase activity. Patient is anxious to return home. Follow-up LFTs and exam in office closely after discharge. Daily weights may help to address resolution of his ascites. Subjective Date/time seen: 07/25/19 09:26 Objective Data Vital Signs Vital Signs: Vital Signs - 24 hr 07/24/19 10:18 07/24/19 14:46 07/24/19 14:48 Temperature 36.6 C 36.4 C Pulse Rate 93 81 Respiratory Rate 20 16 Blood Pressure 109/59 L 95/64 L Pulse Oximetry 99 99 92 07/24/19 14:52 07/24/19 20:01 07/24/19 20:13 Temperature Pulse Rate 84 71 73 Respiratory Rate 18 28 H 28 H Blood Pressure Pulse Oximetry 100 07/24/19 22:00 07/25/19 02:05 07/25/19 02:10 Temperature 36.7 C Pulse Rate 108 H 83 73 Respiratory Rate 20 26 H 26 H Blood Pressure 108/62 Pulse Oximetry 97 07/25/19 06:00 07/25/19 08:20 07/25/19 08:29 Temperature 36.7 C Pulse Rate 84 85 Respiratory Rate 18 24 H Blood Pressure 108/71 Pulse Oximetry 95 100 07/25/19 08:30 Temperature Pulse Rate 88 Respiratory Rate 24 H Blood Pressure Pulse Oximetry Intake/Output Intake/Output: Intake & Output 07/22/19 07/23/19 07/24/19 07/25/19 23:59 23:59 23:59 23:59 Intake Total 1315 1830 1940 730 Output Total 4150 1600 1700 650 Balance -2835 230 240 80 Meds/Results Medications: Active Medications Generic Name Dose Route Start Last Admin Trade Name Freq PRN Reason Stop Dose Admin Albuterol 2.5 mg 07/15/19 14:00 07/25/19 08:29 Albuterol Sulf Neb 2.5mg/0.5ml INHALATION 2.5 mg Q6HRT LESLIE Administration Chlordiazepoxide HCl 25 mg 07/25/19 17:00 Librium Po PO 07/27/19 05:01 Q12H LESLIE Dextrose 12.5 gm 07/11/19 06:25 Dextrose 50% Syringe IV PUSH PRN PRN Hypoglycemia Protocol Dornase Juan Luis 2.5 mg 07/15/19 11:00 07/25/19 08:28 Pulmozyme INHALATION 2.5 mg Q12HRT LESLIE Administration Folic Acid 1 mg 07/09/19 09:00 07/24/19 09:35 Folic Acid Inj IV PUSH 1 mg QAM LESLIE Administration Glucagon 1 mg 07/11/19 06:25 Glucagon For Inj IM PRN PRN Hypoglycemia Protocol Glucose 15 gm 07/11/19 06:25 Glutose 15 PO PRN PRN Hypoglycemia Protocol Heparin Sodium (Porcine) 5,000 units 07/09/19 14:00 07/25/19 05:23 Heparin Sodium SUB-Q 5,000 units Q8HR LESLIE Administration Dextrose 1,000 mls @ 100 mls/hr 07/11/19 06:25 Dextrose 5% 1,000 Ml IVPB PRN PRN Hypoglycemia Protocol Metoclopramide HCl 10 mg 07/14/19 12:00 07/25/19 05:23 Reglan IV PUSH 10 mg Q6HR LESLIE Administration Nicotine 1 patch 07/17/19 09:00 07/24/19 09:19 Nicoderm Cq 14 Mg TRANSDERM 1 patch QAM LESLIE Administration Pantoprazole Sodium 40 mg 07/23/19 21:00 07/24/19 21:19 Protonix PO 40 mg Q12HR LESLIE Administration Prednisone 20 mg
[2019-07-25] MEDS: PANTOPRAZOLE 40 MG TABLET PO ×2 (09:29→22:39)
[2019-07-25] MEDS: SPIRONOLACTONE 50 MG TABLET PO (09:29)
[2019-07-25] MEDS: predniSONE 20 MG TABLET PO (09:29)
[2019-07-25] MEDS: NICOTINE (*PBKC) 14 MG PATCH 1 PATCH TRANSDERM (09:29)
[2019-07-25] MEDS: THIAMINE HCL 200 MG/2 ML VIAL 100 MG IV PUSH (09:30)
[2019-07-25] MEDS: FOLIC ACID 1 MG/0.2 ML INJ IV PUSH (09:32)
--- NOTE | 2019-07-25 11:08 | PCNFU ---
Nutrition Follow-Up Complete: Inadequate oral intake related to oral intubation as evidenced by NPO status. Goal: Patient to meet estimated nutritional needs. Patient meeting nutritional goal. No new goal. Pt current nutrition is 2 gm Na. Nutrition recommendation: same Last recorded weight is 89.6 kg. up from 88 kg on admit. Bowel Motility:+BM reported 07/23 Labs Reviewed:Issac 14.5,Na 129,K 5.3,GFR 42 Meds Noted:Reglan,Thiamine, Folic Acid, Prednisone. Additional Notes: Patient remains on a 2 gm Na diet. Oral Intakes have been good. 75-100% of meals. Patient remains jaundiced. Medical Coccyx-Maceration noted. Monitoring: Follow up every 5 days.
--- NOTE | 2019-07-25 11:15 | PM.PNNEP ---
Progress Note: A&P Assessment and Plan (1) Acute kidney injury: Code(s): N17.9 - Acute kidney failure, unspecified Status: Acute Assessment and Plan: baseline creatinine is normal his creatinine dropped a little bit to 1.8. He is on diuretics for edema and ascites. (2) Sepsis: Qualifiers: Sepsis type: sepsis due to unspecified organism Sepsis acute organ dysfunction status: with acute organ dysfunction Severe sepsis acute organ dysfunction type: acute respiratory failure Acute respiratory failure type: with hypoxia Severe sepsis shock status: without septic shock Qualified Code(s): A41.9 - Sepsis, unspecified organism; R65.20 - Severe sepsis without septic shock; J96.01 - Acute respiratory failure with hypoxia Code(s): A41.9 - Sepsis, unspecified organism Status: Acute Assessment and Plan: Resolved (3) Hyponatremia: Code(s): E87.1 - Hypo-osmolality and hyponatremia Status: Acute Assessment and Plan: hyponatremia. likely due to combination of DELANO complicated by liver cirrhosis/EtOH abuse and associated pre-renal factors Sodium 129 today. Stable. (4) Pneumonia: Qualifiers: Pneumonia type: due to unspecified organism Laterality: bilateral Lung location: unspecified part of lung Qualified Code(s): J18.9 - Pneumonia, unspecified organism Code(s): J18.9 - Pneumonia, unspecified organism Status: Acute Assessment and Plan: resolved. (5) Respiratory failure with hypoxia: Qualifiers: Chronicity: acute Qualified Code(s): J96.01 - Acute respiratory failure with hypoxia Code(s): J96.91 - Respiratory failure, unspecified with hypoxia Status: Acute Assessment and Plan: resolved (6) Alcohol abuse: Code(s): F10.10 - Alcohol abuse, uncomplicated Status: Acute Assessment and Plan: difficult situation as he has had a hard time with abstinence per histor (7) Hyperkalemia: Code(s): E87.5 - Hyperkalemia Status: Acute Assessment and Plan: Potassium is a bit high. This is from renal failure and spironolactone. Will cut spironolactone in half and add furosemide. Subjective Date/time seen: 07/25/19 11:15 Interval history: pt is alert. Generally weak Review of Systems Cardiovascular: Cardiovascular: Reports no additional cardiovascular complaints Respiratory: Respiratory: Reports no additional respiratory complaints Gastrointestinal: Gastrointestinal: Reports no additional gastrointestinal complaints Genitourinary: Genitourinary: Reports no additional male genitourinary complaints Exam Narrative: Exam Narrative: WDWN in NAD skin no rash head ncat lungs clear bilaterally cor reg no rub abd BS+ nontender, protuberant and soft ext 2+ edema. Objective Data Vital Signs Vital Signs: Vital Signs - 24 hr 07/24/19 14:46 07/24/19 14:48 07/24/19 14:52 Temperature 36.4 C Pulse Rate 81 84 Respiratory Rate 16 18 Blood Pressure 95/64 L Pulse Oximetry 99 92 07/24/19 20:01 07/24/19 20:13 07/24/19 22:00 Temperature 36.7 C Pulse Rate 71 73 108 H Respiratory Rate 28 H 28 H 20 Blood Pressure 108/62 Pulse Oximetry 100 97 07/25/19 02:05 07/25/19 02:10 07/25/19 06:00 Temperature 36.7 C Pulse Rate 83 73 84 Respiratory Rate 26 H 26 H 18 Blood Pressure 108/71 Pulse Oximetry 95 07/25/19 08:20 07/25/19 08:29 07/25/19 08:30 Temperature Pulse Rate 85 88 Respiratory Rate 24 H 24 H Blood Pressure Pulse Oximetry 100 Intake/Output Intake/Output: Intake & Output 07/22/19 07/23/19 07/24/19 07/25/19 23:59 23:59 23:59 23:59 Intake Total 1315 1830 1940 730 Output Total 4150 1600 1700 650 Balance -2835 230 240 80 Meds/Results Medications: Active Medications Generic Name Dose Route Start Last Admin Trade Name Zayq PRN Reason Stop Dose Admin Albuterol 2.5 mg 07/15/19
--- NOTE | 2019-07-25 11:25 | WPDINFPN2 ---
Progress Note: A&P Assessment and Plan (1) Pneumonia: Qualifiers: Pneumonia type: due to unspecified organism Laterality: bilateral Lung location: unspecified part of lung Qualified Code(s): J18.9 - Pneumonia, unspecified organism Code(s): J18.9 - Pneumonia, unspecified organism Status: Acute Assessment and Plan: 1. Recent CAP, suspect bacterial, resolved. 2. Resp failure, compensated 3. Alcoholic cirrhosis 4. Yeast in sputum, commensal 5. Leukocytosis, due to cirrhosis 6. Fever, unknown cause, no SBP. Fever is resolved REC Off antibiotics. Ok discharge planning. Further fever without sepsis/confirmed infection should not lead to empiric antibiotics. Will sign off, thanks Subjective Date/time seen: 07/25/19 11:25 Interval history: lethargic Exam Narrative: Exam Narrative: afebrile x 4 days Const: General: no acute distress Eyes: Sclera: scleral abnormality GI: Inspection: distended GI Palp: Yes Soft to palpation, No Tenderness to palpation present (GI) and No Guarding due to palpation present (GI) Objective Data Vital Signs Vital Signs: Vital Signs - 24 hr 07/24/19 14:46 07/24/19 14:48 07/24/19 14:52 Temperature 36.4 C Pulse Rate 81 84 Respiratory Rate 16 18 Blood Pressure 95/64 L Pulse Oximetry 99 92 07/24/19 20:01 07/24/19 20:13 07/24/19 22:00 Temperature 36.7 C Pulse Rate 71 73 108 H Respiratory Rate 28 H 28 H 20 Blood Pressure 108/62 Pulse Oximetry 100 97 07/25/19 02:05 07/25/19 02:10 07/25/19 06:00 Temperature 36.7 C Pulse Rate 83 73 84 Respiratory Rate 26 H 26 H 18 Blood Pressure 108/71 Pulse Oximetry 95 07/25/19 08:20 07/25/19 08:29 07/25/19 08:30 Temperature Pulse Rate 85 88 Respiratory Rate 24 H 24 H Blood Pressure Pulse Oximetry 100 Intake/Output Intake/Output: Intake & Output 07/22/19 07/23/19 07/24/19 07/25/19 23:59 23:59 23:59 23:59 Intake Total 1315 1830 1940 730 Output Total 4150 1600 1700 650 Balance -2835 230 240 80 Meds/Results Medications: Active Medications Generic Name Dose Route Start Last Admin Trade Name Freq PRN Reason Stop Dose Admin Albuterol 2.5 mg 07/15/19 14:00 07/25/19 08:29 Albuterol Sulf Neb 2.5mg/0.5ml INHALATION 2.5 mg Q6HRT LESLIE Administration Chlordiazepoxide HCl 25 mg 07/25/19 17:00 Librium Po PO 07/27/19 05:01 Q12H LESLIE Dextrose 12.5 gm 07/11/19 06:25 Dextrose 50% Syringe IV PUSH PRN PRN Hypoglycemia Protocol Folic Acid 1 mg 07/09/19 09:00 07/25/19 09:32 Folic Acid Inj IV PUSH 1 mg QAM LESLIE Administration Furosemide 40 mg 07/25/19 11:20 Lasix Tablet PO BID LESLIE Glucagon 1 mg 07/11/19 06:25 Glucagon For Inj IM PRN PRN Hypoglycemia Protocol Glucose 15 gm 07/11/19 06:25 Glutose 15 PO PRN PRN Hypoglycemia Protocol Heparin Sodium (Porcine) 5,000 units 07/09/19 14:00 07/25/19 05:23 Heparin Sodium SUB-Q 5,000 units Q8HR LESLIE Administration Dextrose 1,000 mls @ 100 mls/hr 07/11/19 06:25 Dextrose 5% 1,000 Ml IVPB PRN PRN Hypoglycemia Protocol Metoclopramide HCl 10 mg 07/14/19 12:00 07/25/19 05:23 Reglan IV PUSH 10 mg Q6HR LESLIE Administration Nicotine 1 patch 07/17/19 09:00 07/25/19 09:29 Nicoderm Cq 14 Mg TRANSDERM 1 patch QAM LESLIE Administration Pantoprazole Sodium 40 mg 07/23/19 21:00 07/25/19 09:29 Protonix PO 40 mg Q12HR LESLIE Administration Prednisone 20 mg 07/20/19 08:00 07/25/19 09:29 Prednisone PO 20 mg DAILY@0800 LESLIE Administration Spironolactone 25 mg 07/25/19 17:00 Aldactone PO BID LESLIE Thiamine HCl 100 mg 07/09/19 03:05 07/25/19 09:30 Thiamine Hcl Inj IV PUSH 100 mg QAM LESLIE Administration Radiology Results: ITS Impressions Abdomen/Pelvis CT 07/09/19 07:11 IMPRESSION: 1. Cirrhosis of the liver with portal venous hypertension. 2. Multif
[2019-07-25] MEDS: FUROSEMIDE 40 MG TABLET PO ×2 (12:36→17:56)
[2019-07-25 12:51] LABS: Glucose Peritoneal Fluid 94 mg/dL; LDH Peritoneal Fluid 66 U/L (<63); Total Protein Peritoneal Fluid <3.0 g/dL
--- NOTE | 2019-07-25 13:01 | PM.IMPN ---
Progress Note: A&P Assessment and Plan (1) Respiratory failure with hypoxia: Qualifiers: Chronicity: acute Qualified Code(s): J96.01 - Acute respiratory failure with hypoxia Code(s): J96.91 - Respiratory failure, unspecified with hypoxia Status: Acute Assessment and Plan: 07/25/19 13:01 Result of pneumonia. Remains on ventilator. Management of ventilator per neurology technician. Discussed with neurology technician today. Sedation discontinued. Chest xray with persistent extensive bilateral pulmonary infiltrates. CT chest/abdomen/pelvis from 07/12/2019 with development of confluent bilateral lower lobe atelectasis and infection, scattered additional ground-glass infectious opacities, small pleural effusions, small to moderate ascites, colonic fluid and hepatic steatosis with possible cirrhosis and portal hypertension. Continue other treatments as noted below. Continue to monitor. Patient is a 38-year-old male with bilateral community-acquired pneumonia most likely bacteria as patient COVID-19 is negative, patient was on ventilator, patient seen by Dr. Puga patient is treated with Rocephin and azithromycin will complete the course for 7 days recommending to stop the antibiotics, patient was on AST mode on 07/14, on 07/15 patient clinically symptoms had improved and he was extubated by neurology technician on 07/16 patient appeared to be in withdrawal and had a tremor patient has a history of alcohol abuse and his last drink was on the day of arrival to emergency department, patient was started on CIWA protocol with Librium and he was transferred out of ICU, on 07/17 patient still had tremors and appears more jaundice as he was sitting near a sun lit window, most 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 Distended gallbladder with sludge, gallbladder wall thickening, and positive sonographic Lau sign, but no visualized gallstones. These findings are indeterminate for acute cholecystitis. Consider hepatobiliary scintigraphy. today patient is seen by GI for further workup is recommneded to follow, today D/W with Dr. Mijares he will start on patient on low dose of prednisone for alcoholic hepatitis as pbatient bilirubin is quite elevated and it is not trending down and increased spironolactone to 50 mg b.i.d. from 25 mg b.i.d. to help with ascites, on 07/19 patient complained of abdominal pain from his ascites as well as some shortness of breath but denies any fever or chills, repeat chest x-ray on 07/18 shows stable pneumonia patient was seen by Dr. Puga and off antibiotic, on 07/20 patient was feeling little bit abdominal pain was persisting and there was some difficulty with a breathing however was putting out enough urine, Later in the evening patient had fever of 100.7 since patient with a large ascites suspect SBP D/W Dr. Mijares, orderd paracentesis and started patient on Cipro, and Flagyl, today patient is awaiting paracentesis, will contineu abx, will follow up labs and culture, and further recommendation to follow, currently denies any nausea or vomiting fever or chill, he was able to participate with physical therapist, on 07/21 patient had a paracentesis and 2500 cc was removed clear yellow fluid initial lab do not show the patient has a SBP cultures are pending, patient has had no fever for 2 days and patient is clinically stable still quite jaundice and bilirubin is however patient is being treated with steroid to alcoholic hepatitis liver enzymes are trending down patient wants to go home, patient was seen by Dr. puga does not suspect SBP and stopped Cipro and Flagyl, today patient bilirubin is down to 14 from 18 and he is not as jaundice, discussed with Dr. Rosario patient still too ill to discharge is not able to function on his o
[2019-07-25 13:31] LABS: Amylase Peritoneal Fluid 87 U/L
--- NOTE | 2019-07-25 14:10 | PCOTNOTE ---
Attempted OT treatment. Patient declined, he states he is upset because he thought he was going home today but the physician just told him he is not allowed to go until Sunday . Patient educated in importance of following physician recommendations as well as importance of participation in OT. Patient states he may participate tomorrow but would like to rest at this time. Will attempt tomorrow.
[2019-07-25] MEDS: SPIRONOLACTONE 25 MG TABLET PO (17:57)
[2019-07-26] VITALS (11 sets, daily range): BP systolic 118–151; BP diastolic 64–69; PULSE 80–95; RESP 16–18; TEMP 36.3–36.9; O2SAT 93–97
[2019-07-26] MEDS: METOCLOPRAMIDE HCL INJ 10 MG/2 ML VIAL IV PUSH ×3 (00:04→23:11)
[2019-07-26] MEDS: ALBUTEROL SULFATE NEB 2.5 MG/0.5 ML INH INHALATION ×3 (02:02→19:52)
[2019-07-26] MEDS: HEPARIN SODIUM 5,000 UNITS/ML VIAL 5000 UNITS SUB-Q ×3 (06:01→21:24)
[2019-07-26] MEDS: CHLORDIAZEPOXIDE 25 MG CAPSULE PO ×2 (06:02→17:15)
[2019-07-26 06:33] LABS: Hematocrit 27.8 % (42.0-52.0); Mean Corpuscular HGB Conc 32.4 g/dl (32-36); Mean Corpuscular Hemoglobin 34.4 pg (26-34); Mean Corpuscular Volume 106.1 fl (80-100); Mean Platelet Volume 10.9 fl (7.4-10.4); Platelet Count Result 333 k/mm3 (150-375); Red Blood Count 2.62 M/mm3 (4.6-6.20); White Blood Count 21.3 K/mm3 (4.5-10.0)
[2019-07-26 06:47] LABS: Alanine Aminotransferase 138 U/L (4-50); Albumin Level 2.7 g/dL (3.5-5.1); Alkaline Phosphatase 313 U/L (38-126); Aspartate Amino Transferase 136 U/L (17-59); Bilirubin,Total 13.8 mg/dL (0.2-1.3); Blood Urea Nitrogen 52 mg/dL (9-20); Calcium 8.4 mg/dL (8.4-10.2); Carbon Dioxide 18 mmol/L (22-30); Chloride 101 mmol/L (98-107); Estimated CRCL calculation 53 ml/min; Estimated Glomerular Filt Rate 40; Glucose 110 mg/dL (75-110); Phosphorus 6.2 mg/dL (2.5-4.5); Potassium 5.3 mmol/L (3.4-5.0); Sodium 129 mmol/L (137-145)
[2019-07-26] MEDS: NICOTINE (*PBKC) 14 MG PATCH 1 PATCH TRANSDERM (09:03)
[2019-07-26] MEDS: PANTOPRAZOLE 40 MG TABLET PO ×2 (09:03→21:24)
[2019-07-26] MEDS: SPIRONOLACTONE 25 MG TABLET PO ×2 (09:03→17:15)
[2019-07-26] MEDS: FUROSEMIDE 40 MG TABLET PO ×2 (09:03→17:15)
[2019-07-26] MEDS: predniSONE 20 MG TABLET PO (09:03)
[2019-07-26] MEDS: THIAMINE HCL 200 MG/2 ML VIAL 100 MG IV PUSH (09:03)
[2019-07-26] MEDS: FOLIC ACID 1 MG/0.2 ML INJ IV PUSH (09:04)
--- NOTE | 2019-07-26 09:09 | WPDGIPROGNO ---
Progress Note: A&P Additional Plan Patient alert this morning sitting on the bed. States he is able to ambulate around the room without difficulty. He is tolerating diet without difficulty. Denies any bleeding. Stating he is starting to urinate significantly more. Physical exam reveals patient to be alert. Vital signs are stable. He has marked scleral icterus. Lungs are clear. Heart without murmur. Abdomen is soft but distended. Bowel sounds arm modestly tympanic. Shifting dullness is appreciated. Extremities reveal 2 to3+ edema below the knees. Laboratory work reveals a BUN of 52, creatinine 1.9, hemoglobin 9.0, hematocrit 27, MCV 106. This is stable. Bilirubin 13.8, AST 136, ALT 138, alk-phos 313. Impression 1. Alcohol abuse. 2. Alcoholic liver disease with underlying alcoholic hepatitis and cirrhosis. Marked elevation of LFTs on this basis. There has been gradual decline over the last 2-3 days. Suggesting modest improvement. Plan is to continue oral steroids. Currently prednisone 20 mg p.o. daily. Alcohol avoidance is essential. 3. Azotemia. Elevated BUN of some concern. However creatinine has decreased. Likely this is related to diuresis. Plan is to continue to monitor renal function. Use caution with additional diuretics. Low-salt diet to continue. 4. Ascites. Along with peripheral edema. Appears to be on the basis of alcoholic liver disease. Plan is to continue low-salt diet. Patient currently on spironolactone. Hopefully dose can be advanced if renal function improves. This will need to be monitored closely if patient is discharged. Plan is for continued physical therapy to assist with strengthening. Patient is anxious to go home and we discussed possibly going home Sunday. Patient will need close follow-up after discharge of electrolytes and liver function. Strict alcohol avoidance will be required. Patient will need to continue diuretics and prednisone for a brief time. Subjective Date/time seen: 07/26/19 09:09 Objective Data Vital Signs Vital Signs: Vital Signs - 24 hr 07/25/19 13:30 07/25/19 13:40 07/25/19 14:00 Temperature 37.1 C Pulse Rate 83 85 99 Respiratory Rate 20 20 16 Blood Pressure 115/65 Pulse Oximetry 94 07/25/19 20:15 07/25/19 20:17 07/25/19 20:27 Temperature Pulse Rate 84 81 Respiratory Rate 18 18 Blood Pressure Pulse Oximetry 91 07/25/19 22:00 07/26/19 02:05 07/26/19 02:15 Temperature 36.9 C Pulse Rate 92 80 84 Respiratory Rate 18 18 18 Blood Pressure 116/64 Pulse Oximetry 95 07/26/19 06:00 07/26/19 08:03 07/26/19 08:14 Temperature 36.3 C L Pulse Rate 86 83 86 Respiratory Rate 18 18 18 Blood Pressure 118/64 Pulse Oximetry 93 94 Intake/Output Intake/Output: Intake & Output 07/23/19 07/24/19 07/25/19 07/26/19 23:59 23:59 23:59 23:59 Intake Total 1830 1940 1950 710 Output Total 1600 6595 475 9041 Balance 037 198 5625 -1290 Meds/Results Medications: Active Medications Generic Name Dose Route Start Last Admin Trade Name Freq PRN Reason Stop Dose Admin Albuterol 2.5 mg 07/15/19 14:00 07/26/19 08:03 Albuterol Sulf Neb 2.5mg/0.5ml INHALATION 2.5 mg Q6HRT LESLIE Administration Chlordiazepoxide HCl 25 mg 07/25/19 17:00 07/26/19 06:02 Librium Po PO 07/27/19 05:01 25 mg Q12H LESLIE Administration Dextrose 12.5 gm 07/11/19 06:25 Dextrose 50% Syringe IV PUSH PRN PRN Hypoglycemia Protocol Folic Acid 1 mg 07/09/19 09:00 07/26/19 09:04 Folic Acid Inj IV PUSH 1 mg QAM LESLIE Administration Furosemide 40 mg 07/25/19 11:20 07/26/19 09:03 Lasix Tablet PO 40 mg BID LESLIE Administration Glucagon 1 mg 07/11/19 06:25 Glucagon For Inj IM PRN PRN Hypoglycemia Protocol Glucose 15 gm 07/11/19 06:25 Glutose 15 PO PRN PRN Hypoglycemia Protocol Heparin Sodium (Porcine) 5,000 units 07/09/19 14:00 07/26/19 06:01 Heparin Sod
--- NOTE | 2019-07-26 09:45 | PM.IMPN ---
Progress Note: A&P Assessment and Plan (1) Respiratory failure with hypoxia: Qualifiers: Chronicity: acute Qualified Code(s): J96.01 - Acute respiratory failure with hypoxia Code(s): J96.91 - Respiratory failure, unspecified with hypoxia Status: Acute Assessment and Plan: 07/26/19 09:45 Result of pneumonia. continuation progress note : Chest xray with persistent extensive bilateral pulmonary infiltrates. CT chest/abdomen/pelvis from 07/12/2019 with development of confluent bilateral lower lobe atelectasis and infection, scattered additional ground-glass infectious opacities, small pleural effusions, small to moderate ascites, colonic fluid and hepatic steatosis with possible cirrhosis and portal hypertension. Continue other treatments as noted below. Continue to monitor. Patient is a 38-year-old male with bilateral community-acquired pneumonia most likely bacteria as patient COVID-19 is negative, patient was on ventilator, patient seen by Dr. Puga patient was treated with Rocephin and azithromycin will complete the course for 7 days recommending to stop the antibiotics, patient was on AST mode on 07/14, on 07/15 patient clinically symptoms had improved and he was extubated by milk and cream grader on 07/16 patient appeared to be in withdrawal and had a tremor patient has a history of alcohol abuse and his last drink was on the day of arrival to emergency department, patient was started on CIWA protocol with Librium and he was transferred out of ICU, on 07/17 patient still had tremors and appears more jaundice as he was sitting near a sun lit window, most likely patient has alcoholic liver cirrhosis, as patient acute hepatitis panel is normal unlikely infectious source, patient bilirubin is quite elevated, his INR is slightly elevated, his albumin is slow, to further I had ordered liver ultrasound which showed Distended gallbladder with sludge, gallbladder wall thickening, and positive sonographic Lau sign, but no visualized gallstones. These findings are indeterminate for acute cholecystitis. Consider hepatobiliary scintigraphy. today patient is seen by GI for further workup is recommneded to follow, on 07/19 D/W with Dr. Mijares he has started on patient on low dose of prednisone for alcoholic hepatitis as pbatient bilirubin is quite elevated and it is not trending down and increased spironolactone to 50 mg b.i.d. from 25 mg b.i.d. to help with ascites, patient complained of abdominal pain from his ascites as well as some shortness of breath but denies any fever or chills, repeat chest x-ray on 07/18 showed stable pneumonia patient was seen by Dr. Puga and off antibiotic, on 07/20 patient was feeling little bit abdominal pain was persisting and there was some difficulty with a breathing however was putting out enough urine, Later in the evening patient had fever of 100.7 since patient with a large ascites suspect SBP D/W Dr. Mijares, orderd paracentesis and started patient on Cipro, and Flagyl, patient had paracentesis, contineued abx, will follow up labs and culture, and further recommendation to follow, on 07/21 patient had a paracentesis and 2500 cc was removed clear yellow fluid initial lab do not show the patient has a SBP cultures so far no growth, patient has had no fever for 2 days and patient is clinically stable still quite jaundice and bilirubin is high however patient is being treated with steroid for alcoholic hepatitis liver enzymes are trending down patient wants to go home, patient was seen by Dr. puga does not suspect SBP and stopped Cipro and Flagyl, on 07/24 patient bilirubin was down to 14 from 18 and he is not as jaundice, and no 07/25 there is slight decrease in bilirubin to 13.8, discussed with Dr. Rosraio patient still too ill to discharge is not able to function on his own will continue the present management once there is substantial decrease in bilirubin and clinically stable will to the discharge plan, Also spoke dustin
--- NOTE | 2019-07-26 11:42 | PM.PNNEP ---
Progress Note: A&P Assessment and Plan (1) Acute kidney injury: Code(s): N17.9 - Acute kidney failure, unspecified Status: Acute Assessment and Plan: baseline creatinine is normal his creatinine is wandering the high 1s. He is on diuretics for edema and ascites. Because of the potassium his spironolactone was reduced and he is on Lasix. (2) Sepsis: Qualifiers: Sepsis type: sepsis due to unspecified organism Sepsis acute organ dysfunction status: with acute organ dysfunction Severe sepsis acute organ dysfunction type: acute respiratory failure Acute respiratory failure type: with hypoxia Severe sepsis shock status: without septic shock Qualified Code(s): A41.9 - Sepsis, unspecified organism; R65.20 - Severe sepsis without septic shock; J96.01 - Acute respiratory failure with hypoxia Code(s): A41.9 - Sepsis, unspecified organism Status: Acute Assessment and Plan: Resolved (3) Hyponatremia: Code(s): E87.1 - Hypo-osmolality and hyponatremia Status: Acute Assessment and Plan: hyponatremia. likely due to combination of DELANO complicated by liver cirrhosis/EtOH abuse and associated pre-renal factors Sodium 129 today. Stable. Fluid restrict. (4) Pneumonia: Qualifiers: Pneumonia type: due to unspecified organism Laterality: bilateral Lung location: unspecified part of lung Qualified Code(s): J18.9 - Pneumonia, unspecified organism Code(s): J18.9 - Pneumonia, unspecified organism Status: Acute Assessment and Plan: resolved. (5) Respiratory failure with hypoxia: Qualifiers: Chronicity: acute Qualified Code(s): J96.01 - Acute respiratory failure with hypoxia Code(s): J96.91 - Respiratory failure, unspecified with hypoxia Status: Acute Assessment and Plan: resolved (6) Alcohol abuse: Code(s): F10.10 - Alcohol abuse, uncomplicated Status: Acute Assessment and Plan: difficult situation as he has had a hard time with abstinence per history (7) Hyperkalemia: Code(s): E87.5 - Hyperkalemia Status: Acute Assessment and Plan: Potassium is a bit high. On loop diuretics and less spironolactone. Check it again tomorrow Subjective Date/time seen: 07/26/19 11:42 Interval history: pt is alert. Generally weak Eager for discharge He says he is going home on Sunday. Review of Systems Cardiovascular: Cardiovascular: Reports no additional cardiovascular complaints Respiratory: Respiratory: Reports no additional respiratory complaints Gastrointestinal: Gastrointestinal: Reports no additional gastrointestinal complaints Genitourinary: Genitourinary: Reports no additional male genitourinary complaints Exam Narrative: Exam Narrative: WDWN in NAD skin no rash. Jaundiced. head ncat lungs clear to auscultation cor reg no rub abd BS+ nontender, protuberant and soft ext 2+ edema. Objective Data Vital Signs Vital Signs: Vital Signs - 24 hr 07/25/19 13:30 07/25/19 13:40 07/25/19 14:00 Temperature 37.1 C Pulse Rate 83 85 99 Respiratory Rate 20 20 16 Blood Pressure 115/65 Pulse Oximetry 94 07/25/19 20:15 07/25/19 20:17 07/25/19 20:27 Temperature Pulse Rate 84 81 Respiratory Rate 18 18 Blood Pressure Pulse Oximetry 91 07/25/19 22:00 07/26/19 02:05 07/26/19 02:15 Temperature 36.9 C Pulse Rate 92 80 84 Respiratory Rate 18 18 18 Blood Pressure 116/64 Pulse Oximetry 95 07/26/19 06:00 07/26/19 08:03 07/26/19 08:14 Temperature 36.3 C L Pulse Rate 86 83 86 Respiratory Rate 18 18 18 Blood Pressure 118/64 Pulse Oximetry 93 94 Intake/Output Intake/Output: Intake & Output 07/23/19 07/24/19 07/25/19 07/26/19 23:59 23:59 23:59 23:59 Intake Total 1830 1940 1950 710 Output Total 1600 7082 710 3336 Balance 076 825 2584 -1290 Meds/Results Medications: Active Medicati
[2019-07-26] MEDS: CALCIUM CARBONATE (TUMS) 500 MG (200 MG ELEMENTAL) PO (23:11)
[2019-07-27] VITALS (11 sets, daily range): BP systolic 116–125; BP diastolic 61–77; PULSE 80–100; RESP 16–18; TEMP 36.3–37.1; O2SAT 94–100
[2019-07-27] MEDS: ALBUTEROL SULFATE NEB 2.5 MG/0.5 ML INH INHALATION ×5 (02:19→19:55)
[2019-07-27] MEDS: CHLORDIAZEPOXIDE 25 MG CAPSULE PO (05:45)
[2019-07-27] MEDS: METOCLOPRAMIDE HCL INJ 10 MG/2 ML VIAL IV PUSH (05:49)
[2019-07-27] MEDS: HEPARIN SODIUM 5,000 UNITS/ML VIAL 5000 UNITS SUB-Q ×3 (05:49→21:49)
[2019-07-27 06:22] LABS: Hematocrit 28.3 % (42.0-52.0); Hemoglobin 9.1 g/dL (14.0-18.0); Mean Corpuscular HGB Conc 32.2 g/dl (32-36); Mean Corpuscular Hemoglobin 34.2 pg (26-34); Mean Corpuscular Volume 106.4 fl (80-100); Mean Platelet Volume 10.6 fl (7.4-10.4); Platelet Count Result 323 k/mm3 (150-375); Red Blood Count 2.66 M/mm3 (4.6-6.20); Red Cell Distribution Width 18.7 % (11.5-14.5); White Blood Count 18.7 K/mm3 (4.5-10.0)
[2019-07-27 06:36] LABS: Alanine Aminotransferase 127 U/L (4-50); Albumin Level 2.7 g/dL (3.5-5.1); Alkaline Phosphatase 329 U/L (38-126); Aspartate Amino Transferase 125 U/L (17-59); Bilirubin,Total 13.1 mg/dL (0.2-1.3); Blood Urea Nitrogen 50 mg/dL (9-20); Calcium 8.3 mg/dL (8.4-10.2); Carbon Dioxide 20 mmol/L (22-30); Chloride 99 mmol/L (98-107); Estimated CRCL calculation 53 ml/min; Estimated Glomerular Filt Rate 40; Glucose 91 mg/dL (75-110); Phosphorus 6.3 mg/dL (2.5-4.5); Potassium 4.8 mmol/L (3.4-5.0); Sodium 130 mmol/L (137-145)
--- NOTE | 2019-07-27 08:32 | WPDGIPROGNO ---
Progress Note: A&P Additional Plan Patient alert and oriented this morning. Denies any additional bleeding. Denies abdominal pain. Reports that he is urinating well. Physical exam reveals patient to be alert. Marked scleral icterus remains. Lungs are clear. Heart without murmur. Abdomen softer. Modest distention appreciated. Extremities with 2+ edema in the ankles. Impression 1. Alcohol abuse. Patient will need to abstain completely from alcohol after discharge. Alcohol rehab and support group strongly encourage. Two. Alcoholic liver disease with underlying cirrhosis and alcoholic hepatitis. Patient remains on prednisone. Slow improvement of liver function test identified. This will need to be monitored closely after discharge. Three. Ascites. Improve full edema. Renal service following. Now on Lasix in combination with Aldactone. Patient appears to be having a response to diuretics. Low-salt diet advised. 4. Renal insufficiency. Likely secondary to diuretics and volume contraction. Currently followed by renal service. This will need to be monitored closely after discharge. Discharge in dissipated early this week. If so then follow-up LFTs electrolytes are encouraged on at least a weekly basis. I would ask the follow-up my office in 1-2 weeks. He will need primary care follow-up as well. Subjective Date/time seen: 07/27/19 08:32 Objective Data Vital Signs Vital Signs: Vital Signs - 24 hr 07/26/19 14:00 07/26/19 14:06 07/26/19 14:16 Temperature 36.4 C L Pulse Rate 88 85 88 Respiratory Rate 18 18 18 Blood Pressure 151/65 H Pulse Oximetry 94 07/26/19 19:53 07/26/19 20:00 07/26/19 22:00 Temperature 36.9 C Pulse Rate 95 95 88 Respiratory Rate 18 18 16 Blood Pressure 125/69 Pulse Oximetry 97 07/27/19 02:15 07/27/19 02:20 07/27/19 06:00 Temperature 37.1 C Pulse Rate 94 94 80 Respiratory Rate 18 18 18 Blood Pressure 116/61 Pulse Oximetry 94 07/27/19 08:05 07/27/19 08:12 Temperature Pulse Rate 88 90 Respiratory Rate 18 18 Blood Pressure Pulse Oximetry 95 Intake/Output Intake/Output: Intake & Output 07/24/19 07/25/19 07/26/19 07/27/19 23:59 23:59 23:59 23:59 Intake Total 1940 1950 970 140 Output Total 1721 563 4954 2050 Balance 240 1000 -1630 -1910 Meds/Results Medications: Active Medications Generic Name Dose Route Start Last Admin Trade Name Freq PRN Reason Stop Dose Admin Albuterol 2.5 mg 07/15/19 14:00 07/27/19 08:11 Albuterol Sulf Neb 2.5mg/0.5ml INHALATION 2.5 mg Q6HRT LESLIE Administration Calcium Carbonate 200 mg 07/26/19 22:17 07/26/19 23:11 Tums PO 200 mg Q6H PRN Administration Indigestion Dextrose 12.5 gm 07/11/19 06:25 Dextrose 50% Syringe IV PUSH PRN PRN Hypoglycemia Protocol Folic Acid 1 mg 07/09/19 09:00 07/26/19 09:04 Folic Acid Inj IV PUSH 1 mg QAM LESLIE Administration Furosemide 40 mg 07/25/19 11:20 07/26/19 17:15 Lasix Tablet PO 40 mg BID LESLIE Administration Glucagon 1 mg 07/11/19 06:25 Glucagon For Inj IM PRN PRN Hypoglycemia Protocol Glucose 15 gm 07/11/19 06:25 Glutose 15 PO PRN PRN Hypoglycemia Protocol Heparin Sodium (Porcine) 5,000 units 07/09/19 14:00 07/27/19 05:49 Heparin Sodium SUB-Q 5,000 units Q8HR LESLIE Administration Dextrose 1,000 mls @ 100 mls/hr 07/11/19 06:25 Dextrose 5% 1,000 Ml IVPB PRN PRN Hypoglycemia Protocol Metoclopramide HCl 10 mg 07/14/19 12:00 07/27/19 05:49 Reglan IV PUSH 10 mg Q6HR LESLIE Administration Nicotine 1 patch 07/17/19 09:00 07/26/19 09:03 Nicoderm Cq 14 Mg TRANSDERM 1 patch QAM LESLIE Administration Pantoprazole Sodium 40 mg 07/23/19 21:00 07/26/19 21:24 Protonix PO 40 mg Q12HR LESLIE Administration Prednisone 20 mg 07/20/19 08:00 07/26/19 09:03 Prednisone PO 20 mg DAILY@0800 LESLIE Administration Spi
[2019-07-27] MEDS: SPIRONOLACTONE 25 MG TABLET PO ×2 (08:39→17:05)
[2019-07-27] MEDS: THIAMINE HCL 200 MG/2 ML VIAL 100 MG IV PUSH (08:39)
[2019-07-27] MEDS: PANTOPRAZOLE 40 MG TABLET PO ×2 (08:39→21:49)
[2019-07-27] MEDS: predniSONE 20 MG TABLET PO (08:39)
[2019-07-27] MEDS: FUROSEMIDE 40 MG TABLET PO ×2 (08:39→17:04)
[2019-07-27] MEDS: FOLIC ACID 1 MG/0.2 ML INJ IV PUSH (08:40)
--- NOTE | 2019-07-27 10:56 | PM.PNNEP ---
Progress Note: A&P Assessment and Plan (1) Acute kidney injury: Code(s): N17.9 - Acute kidney failure, unspecified Status: Acute Assessment and Plan: baseline creatinine is normal his creatinine is wandering the high 1s. He is on spironolactone and furosemide. His creatinine is holding its own at 1.9. His potassium is now normal. (2) Sepsis: Qualifiers: Sepsis type: sepsis due to unspecified organism Sepsis acute organ dysfunction status: with acute organ dysfunction Severe sepsis acute organ dysfunction type: acute respiratory failure Acute respiratory failure type: with hypoxia Severe sepsis shock status: without septic shock Qualified Code(s): A41.9 - Sepsis, unspecified organism; R65.20 - Severe sepsis without septic shock; J96.01 - Acute respiratory failure with hypoxia Code(s): A41.9 - Sepsis, unspecified organism Status: Acute Assessment and Plan: Resolved (3) Hyponatremia: Code(s): E87.1 - Hypo-osmolality and hyponatremia Status: Acute Assessment and Plan: hyponatremia. likely due to combination of DELANO complicated by liver cirrhosis/EtOH abuse and associated pre-renal factors Sodium 129 today. Stable. Fluid restrict. He and I discussed this. (4) Pneumonia: Qualifiers: Pneumonia type: due to unspecified organism Laterality: bilateral Lung location: unspecified part of lung Qualified Code(s): J18.9 - Pneumonia, unspecified organism Code(s): J18.9 - Pneumonia, unspecified organism Status: Acute Assessment and Plan: resolved. (5) Respiratory failure with hypoxia: Qualifiers: Chronicity: acute Qualified Code(s): J96.01 - Acute respiratory failure with hypoxia Code(s): J96.91 - Respiratory failure, unspecified with hypoxia Status: Acute Assessment and Plan: resolved (6) Alcohol abuse: Code(s): F10.10 - Alcohol abuse, uncomplicated Status: Acute Assessment and Plan: difficult situation as he has had a hard time with abstinence per history (7) Hyperkalemia: Code(s): E87.5 - Hyperkalemia Status: Acute Assessment and Plan: Resolved. Subjective Date/time seen: 07/27/19 10:56 Interval history: pt is alert. Generally weak A bit shaky. Review of Systems Cardiovascular: Cardiovascular: Reports no additional cardiovascular complaints Respiratory: Respiratory: Reports no additional respiratory complaints Gastrointestinal: Gastrointestinal: Reports no additional gastrointestinal complaints Genitourinary: Genitourinary: Reports no additional male genitourinary complaints Exam Narrative: Exam Narrative: WDWN in NAD skin no rash. Jaundiced. head ncat lungs clear to auscultation cor reg no rub abd BS+ nontender, protuberant and soft ext 2+ edema. Objective Data Vital Signs Vital Signs: Vital Signs - 24 hr 07/26/19 14:00 07/26/19 14:06 07/26/19 14:16 Temperature 36.4 C L Pulse Rate 88 85 88 Respiratory Rate 18 18 18 Blood Pressure 151/65 H Pulse Oximetry 94 07/26/19 19:53 07/26/19 20:00 07/26/19 22:00 Temperature 36.9 C Pulse Rate 95 95 88 Respiratory Rate 18 18 16 Blood Pressure 125/69 Pulse Oximetry 97 07/27/19 02:15 07/27/19 02:20 07/27/19 06:00 Temperature 37.1 C Pulse Rate 94 94 80 Respiratory Rate 18 18 18 Blood Pressure 116/61 Pulse Oximetry 94 07/27/19 08:05 07/27/19 08:12 Temperature Pulse Rate 88 90 Respiratory Rate 18 18 Blood Pressure Pulse Oximetry 95 Intake/Output Intake/Output: Intake & Output 07/24/19 07/25/19 07/26/19 07/27/19 23:59 23:59 23:59 23:59 Intake Total 1940 1950 970 380 Output Total 1877 061 1833 2050 Balance 240 1000 -1630 -1670 Meds/Results Medications: Active Medications Generic Name Dose Route Start Last Admin Trade Name Zayq PRN Reason Stop Dose Admin Albuterol 2.5 mg 07/15/19 14:00
[2019-07-27] MEDS: NICOTINE (*PBKC) 14 MG PATCH 1 PATCH TRANSDERM (12:37)
--- NOTE | 2019-07-27 14:56 | PM.IMPN ---
Progress Note: A&P Assessment and Plan (1) Respiratory failure with hypoxia: Qualifiers: Chronicity: acute Qualified Code(s): J96.01 - Acute respiratory failure with hypoxia Code(s): J96.91 - Respiratory failure, unspecified with hypoxia Status: Acute Assessment and Plan: 07/27/19 14:56 Result of pneumonia. continuation progress note : Chest xray with persistent extensive bilateral pulmonary infiltrates. CT chest/abdomen/pelvis from 07/12/2019 with development of confluent bilateral lower lobe atelectasis and infection, scattered additional ground-glass infectious opacities, small pleural effusions, small to moderate ascites, colonic fluid and hepatic steatosis with possible cirrhosis and portal hypertension. Continue other treatments as noted below. Continue to monitor. Patient is a 38-year-old male with bilateral community-acquired pneumonia most likely bacteria as patient COVID-19 is negative, patient was on ventilator, patient seen by Dr. Puga patient was treated with Rocephin and azithromycin will complete the course for 7 days recommending to stop the antibiotics, patient was on AST mode on 07/14, on 07/15 patient clinically symptoms had improved and he was extubated by card reader on 07/16 patient appeared to be in withdrawal and had a tremor patient has a history of alcohol abuse and his last drink was on the day of arrival to emergency department, patient was started on CIWA protocol with Librium and he was transferred out of ICU, on 07/17 patient still had tremors and appears more jaundice as he was sitting near a sun lit window, most likely patient has alcoholic liver cirrhosis, as patient acute hepatitis panel is normal unlikely infectious source, patient bilirubin is quite elevated, his INR is slightly elevated, his albumin is slow, to further I had ordered liver ultrasound which showed Distended gallbladder with sludge, gallbladder wall thickening, and positive sonographic Lau sign, but no visualized gallstones. These findings are indeterminate for acute cholecystitis. Consider hepatobiliary scintigraphy. today patient is seen by GI for further workup is recommneded to follow, on 07/19 D/W with Dr. Mijares he has started on patient on low dose of prednisone for alcoholic hepatitis as pbatient bilirubin is quite elevated and it is not trending down and increased spironolactone to 50 mg b.i.d. from 25 mg b.i.d. to help with ascites, patient complained of abdominal pain from his ascites as well as some shortness of breath but denies any fever or chills, repeat chest x-ray on 07/18 showed stable pneumonia patient was seen by Dr. Puga and off antibiotic, on 07/20 patient was feeling little bit abdominal pain was persisting and there was some difficulty with a breathing however was putting out enough urine, Later in the evening patient had fever of 100.7 since patient with a large ascites suspect SBP D/W Dr. Mijares, orderd paracentesis and started patient on Cipro, and Flagyl, patient had paracentesis, contineued abx, will follow up labs and culture, and further recommendation to follow, on 07/21 patient had a paracentesis and 2500 cc was removed clear yellow fluid initial lab do not show the patient has a SBP cultures so far no growth, patient has had no fever for 2 days and patient is clinically stable still quite jaundice and bilirubin is high however patient is being treated with steroid for alcoholic hepatitis liver enzymes are trending down patient wants to go home, patient was seen by Dr. puga does not suspect SBP and stopped Cipro and Flagyl, on 07/24 patient bilirubin was down to 14 from 18 and he is not as jaundice, and no 07/26 there is slight decrease in bilirubin to 13.1, discussed with Dr. Rosario patient still too ill to discharge is not able to function on his own will continue the present management once there is substantial decrease in bilirubin and clinically stable will to the discharge plan, Also spoke dustin
[2019-07-27] MEDS: CALCIUM CARBONATE (TUMS) 500 MG (200 MG ELEMENTAL) PO (19:36)
[2019-07-28] MEDS: ALBUTEROL SULFATE NEB 2.5 MG/0.5 ML INH INHALATION ×2 (01:50→08:49)
[2019-07-28 01:54] VITALS: PULSE 87; RESP 18
[2019-07-28 01:59] VITALS: PULSE 87
[2019-07-28 05:36] LABS: Hematocrit 27.1 % (42.0-52.0); Hemoglobin 8.8 g/dL (14.0-18.0); Mean Corpuscular HGB Conc 32.5 g/dl (32-36); Mean Corpuscular Hemoglobin 34.5 pg (26-34); Mean Corpuscular Volume 106.3 fl (80-100); Mean Platelet Volume 10.7 fl (7.4-10.4); Platelet Count Result 288 k/mm3 (150-375); Red Blood Count 2.55 M/mm3 (4.6-6.20); Red Cell Distribution Width 18.8 % (11.5-14.5); White Blood Count 17.5 K/mm3 (4.5-10.0)
[2019-07-28 05:50] LABS: Alanine Aminotransferase 115 U/L (4-50); Albumin Level 2.6 g/dL (3.5-5.1); Alkaline Phosphatase 332 U/L (38-126); Aspartate Amino Transferase 122 U/L (17-59); Bilirubin,Total 11.5 mg/dL (0.2-1.3); Blood Urea Nitrogen 51 mg/dL (9-20); Calcium 8.3 mg/dL (8.4-10.2); Carbon Dioxide 21 mmol/L (22-30); Chloride 101 mmol/L (98-107); Estimated CRCL calculation 55 ml/min; Estimated Glomerular Filt Rate 42; Glucose 104 mg/dL (75-110); Potassium 4.5 mmol/L (3.4-5.0); Sodium 132 mmol/L (137-145)
[2019-07-28] MEDS: HEPARIN SODIUM 5,000 UNITS/ML VIAL 5000 UNITS SUB-Q (05:56)
[2019-07-28 06:00] VITALS: BP 130/64; PULSE 101; RESP 18; TEMP 36.1; O2SAT 98
--- NOTE | 2019-07-28 07:57 | PC.NURSE ---
With evening pill, gave patient 20ml of water out of clear cup. Removed 20 ml water from his evening shift pitcher to balance out to fluid restriction of 140ml per shift.
--- NOTE | 2019-07-28 07:58 | PC.NURSE ---
This AM patient verbally stated that he would black mail me, the RN if I did not give him more water than he was allowed on his fluid restriction. Informed charge nurse of threat.
--- NOTE | 2019-07-28 08:27 | PCPTNOTE ---
Patient declined PT stating I am waiting to go home.
--- NOTE | 2019-07-28 08:31 | WPDGIPROGNO ---
Progress Note: A&P Additional Plan Patient states he is feeling good today. Anxious to go home. He states he is eating well. Ambulating in his room. Physical exam reveals patient be alert. Comfortable at rest. He has marked scleral icterus. Lungs are clear. He is afebrile. heart is without murmur or extra sounds. Abdominal exam bowel sounds are present soft mild mild distention. No tympany. Extremities are with 1 to2+ edema peripherally. Impression 1. Alcoholism. Patient will need strict alcohol avoidance after discharge. 2. Alcoholic liver disease with underlying cirrhosis and alcoholic hepatitis. Patient with currently on steroids 20 mg p.o. daily. We will consider tapering this after some additional improvement liver function tests. LFTs are quite elevated. But have been trending downward. Plan is for follow-up in the office electively over the next 1-2 weeks. Continue to monitor LFTs and electrolytes on at least weekly basis for while after discharge. 3. Ascites and peripheral edema. Patient would benefit from continued low-salt diet. Diuretics have been continued under the direction of the renal service. Current we Lasix and spironolactone. Electrolytes will need to be monitored after discharge. Daily weights also a benefit. 4. Resolved pneumonia. Subjective Date/time seen: 07/28/19 08:31 Objective Data Vital Signs Vital Signs: Vital Signs - 24 hr 07/27/19 13:56 07/27/19 14:00 07/27/19 14:10 Temperature 36.9 C Pulse Rate 85 97 88 Respiratory Rate 18 16 18 Blood Pressure 125/64 Pulse Oximetry 97 07/27/19 19:56 07/27/19 20:04 07/27/19 22:00 Temperature 36.3 C L Pulse Rate 91 90 100 Respiratory Rate 18 18 Blood Pressure 119/77 Pulse Oximetry 97 100 07/28/19 01:54 07/28/19 01:59 07/28/19 06:00 Temperature 36.1 C L Pulse Rate 87 87 101 H Respiratory Rate 18 18 Blood Pressure 130/64 Pulse Oximetry 98 Intake/Output Intake/Output: Intake & Output 07/25/19 07/26/19 07/27/19 07/28/19 23:59 23:59 23:59 23:59 Intake Total 1950 970 760 130 Output Total 950 2600 3450 1100 Balance 1376 -2401 -9491 -970 Meds/Results Medications: Active Medications Generic Name Dose Route Start Last Admin Trade Name Freq PRN Reason Stop Dose Admin Albuterol 2.5 mg 07/15/19 14:00 07/28/19 01:50 Albuterol Sulf Neb 2.5mg/0.5ml INHALATION 2.5 mg Q6HRT LESLIE Administration Calcium Carbonate 200 mg 07/26/19 22:17 07/27/19 19:36 Tums PO 200 mg Q6H PRN Administration Indigestion Dextrose 12.5 gm 07/11/19 06:25 Dextrose 50% Syringe IV PUSH PRN PRN Hypoglycemia Protocol Folic Acid 1 mg 07/09/19 09:00 07/27/19 08:40 Folic Acid Inj IV PUSH 1 mg QAM LESLIE Administration Furosemide 40 mg 07/25/19 11:20 07/27/19 17:04 Lasix Tablet PO 40 mg BID LESLIE Administration Glucagon 1 mg 07/11/19 06:25 Glucagon For Inj IM PRN PRN Hypoglycemia Protocol Glucose 15 gm 07/11/19 06:25 Glutose 15 PO PRN PRN Hypoglycemia Protocol Heparin Sodium (Porcine) 5,000 units 07/09/19 14:00 07/28/19 05:56 Heparin Sodium SUB-Q 5,000 units Q8HR LESLIE Administration Dextrose 1,000 mls @ 100 mls/hr 07/11/19 06:25 Dextrose 5% 1,000 Ml IVPB PRN PRN Hypoglycemia Protocol Metoclopramide HCl 10 mg 07/14/19 12:00 07/28/19 05:57 Reglan IV PUSH Not Given Q6HR LESLIE Nicotine 1 patch 07/17/19 09:00 07/27/19 12:37 Nicoderm Cq 14 Mg TRANSDERM 1 patch QAM LESLIE Administration Pantoprazole Sodium 40 mg 07/23/19 21:00 07/27/19 21:49 Protonix PO 40 mg Q12HR LESLIE Administration Prednisone 20 mg 07/20/19 08:00 07/27/19 08:39 Prednisone PO 20 mg DAILY@0800 LESLIE Administration Spironolactone 25 mg 07/25/19 17:00 07/27/19 17:05 Aldactone PO 25 mg BID LESLIE Administration Thiamine HCl 100 mg 07/09/19 03:05 07/27/19 08:39 Thia
[2019-07-28 08:36] VITALS: O2SAT 97
[2019-07-28] MEDS: THIAMINE HCL 200 MG/2 ML VIAL 100 MG IV PUSH (08:40)
[2019-07-28] MEDS: NICOTINE (*PBKC) 14 MG PATCH 1 PATCH TRANSDERM (08:41)
[2019-07-28] MEDS: predniSONE 20 MG TABLET PO (08:41)
[2019-07-28] MEDS: FUROSEMIDE 40 MG TABLET PO (08:41)
[2019-07-28] MEDS: SPIRONOLACTONE 25 MG TABLET PO (08:41)
[2019-07-28] MEDS: PANTOPRAZOLE 40 MG TABLET PO (08:41)
[2019-07-28 08:50] VITALS: PULSE 85; RESP 18
[2019-07-28 09:00] VITALS: PULSE 87; RESP 18
[2019-07-28] MEDS: FOLIC ACID 1 MG/0.2 ML INJ IV PUSH (09:16)
--- NOTE | 2019-07-28 10:48 | PCOTNOTE ---
The patient treatment was not able to be completed on 07/28/2019 due to being unable to arouse patient. Will plan to continue treatment per plan of care.
--- NOTE | 2019-07-28 11:10 | PM.DS ---
DS: Admitting Diagnosis Admitting Diagnosis Admitting Diagnosis: Respiratory failure, unspecified with hypoxia DS: Discharge Diagnosis Discharge Diagnosis (1) Respiratory failure with hypoxia: Qualifiers: Chronicity: acute Qualified Code(s): J96.01 - Acute respiratory failure with hypoxia Code(s): J96.91 - Respiratory failure, unspecified with hypoxia Status: Acute Assessment and Plan: 07/27/19 14:56 Result of pneumonia. continuation progress note : Chest xray with persistent extensive bilateral pulmonary infiltrates. CT chest/abdomen/pelvis from 07/12/2019 with development of confluent bilateral lower lobe atelectasis and infection, scattered additional ground-glass infectious opacities, small pleural effusions, small to moderate ascites, colonic fluid and hepatic steatosis with possible cirrhosis and portal hypertension. Continue other treatments as noted below. Continue to monitor. Patient is a 38-year-old male with bilateral community-acquired pneumonia most likely bacteria as patient COVID-19 is negative, patient was on ventilator, patient seen by Dr. Puga patient was treated with Rocephin and azithromycin will complete the course for 7 days recommending to stop the antibiotics, patient was on AST mode on 07/14, on 07/15 patient clinically symptoms had improved and he was extubated by rn neonatal on 07/16 patient appeared to be in withdrawal and had a tremor patient has a history of alcohol abuse and his last drink was on the day of arrival to emergency department, patient was started on CIWA protocol with Librium and he was transferred out of ICU, on 07/17 patient still had tremors and appears more jaundice as he was sitting near a sun lit window, most likely patient has alcoholic liver cirrhosis, as patient acute hepatitis panel is normal unlikely infectious source, patient bilirubin is quite elevated, his INR is slightly elevated, his albumin is slow, to further I had ordered liver ultrasound which showed Distended gallbladder with sludge, gallbladder wall thickening, and positive sonographic Lau sign, but no visualized gallstones. These findings are indeterminate for acute cholecystitis. Consider hepatobiliary scintigraphy. today patient is seen by GI for further workup is recommneded to follow, on 07/19 D/W with Dr. Mijares he has started on patient on low dose of prednisone for alcoholic hepatitis as pbatient bilirubin is quite elevated and it is not trending down and increased spironolactone to 50 mg b.i.d. from 25 mg b.i.d. to help with ascites, patient complained of abdominal pain from his ascites as well as some shortness of breath but denies any fever or chills, repeat chest x-ray on 07/18 showed stable pneumonia patient was seen by Dr. Puga and off antibiotic, on 07/20 patient was feeling little bit abdominal pain was persisting and there was some difficulty with a breathing however was putting out enough urine, Later in the evening patient had fever of 100.7 since patient with a large ascites suspect SBP D/W Dr. Mijares, orderd paracentesis and started patient on Cipro, and Flagyl, patient had paracentesis, contineued abx, will follow up labs and culture, and further recommendation to follow, on 07/21 patient had a paracentesis and 2500 cc was removed clear yellow fluid initial lab do not show the patient has a SBP cultures so far no growth, patient has had no fever for 2 days and patient is clinically stable still quite jaundice and bilirubin is high however patient is being treated with steroid for alcoholic hepatitis liver enzymes are trending down patient wants to go home, patient was seen by Dr. puga does not suspect SBP and stopped Cipro and Flagyl, on 07/24 patient bilirubin was down to 14 from 18 and he is not as jaundice, and no 07/26 there is slight decrease in bilirubin to 13.1, discussed with Dr. Rosario patient still too ill to discharge is not able to function on his own will continue the presen
[2019-07-30 14:54] LABS: Albumin Peritoneal Fluid 0.8 g/dL
== END 2019-07-28 11:55 | disposition home or self-care (01) | DRG 720 ==
LOC: ANHED 21:39 → ANHICU 07-09 03:00 → ANH3MEDSUR 07-18 11:51 → ANHICU 07-29 10:28
PROVIDERS: Internal Medicine; Internal Medicine Critical Care Medicine; Internal Medicine Gastroenterology; Internal Medicine Infectious Disease; Internal Medicine Nephrology; Admitting Provider Internal Medicine; Emergency Provider General Practice; PCP Internal Medicine; Visit Provider Family Medicine
DX: A41.9 Sepsis, unspecified organism (principal); R65.21 Severe sepsis with septic shock; J15.9 Unspecified bacterial pneumonia; N17.9 Acute kidney failure, unspecified; T85.698A Other mechanical complication of other specified internal prosthetic devices, implants and grafts, initial encounter; J96.01 Acute respiratory failure with hypoxia; Z20.828 Contact with and (suspected) exposure to other viral communicable diseases; F10.239 Alcohol dependence with withdrawal, unspecified; G25.2 Other specified forms of tremor; K70.11 Alcoholic hepatitis with ascites; K70.31 Alcoholic cirrhosis of liver with ascites; F10.20 Alcohol dependence, uncomplicated; E87.1 Hypo-osmolality and hyponatremia; B37.89 Other sites of candidiasis; I10 Essential (primary) hypertension; D69.59 Other secondary thrombocytopenia; K76.6 Portal hypertension; E86.0 Dehydration; F19.10 Other psychoactive substance abuse, uncomplicated; F17.210 Nicotine dependence, cigarettes, uncomplicated
CPT/HCPCS: 31500; 36415; 36600; 49083; 71045; 71046; 71250; 74018; 74019; 74176; 74177; 76705; 80048; 80053; 80069; 80074; 80202; 80307; 81001; 82042; 82105; 82140; 82150; 82247; 82248; 82306; 82375; 82533; 82550; 82607; 82728; 82746; 82805; 82945; 83010; 83050; 83605; 83615; 83690; 83735; 83880; 83883; 83930; 83935; 84100; 84145; 84155; 84157; 84165; 84295; 84300; 84443; 84478; 84484; 85025; 85027; 85055; 85380; 85610; 85730; 86140; 87040; 87070; 87075; 87086; 87205; 87635; 88104; 88108; 88305; 89051; 92610; 93005; 93306; 93970; 94003; 94640; 94667; 94668; 94669; 96361; 96365; 96367; 96374; 96375; 97110; 97116; 97161; 97165; 97530; 97535; 99291; A9270; C1751; C9113; C9803; J0131; J0456; J0696; J0744; J1644; J2250; J2270; J2405; J2704; J2765; J3010; J3370; J3411; J3480; J7030; J7040; J7060; J7131; J7512; Q9967; U0003

== ENCOUNTER 2019-08-11 16:16 | Emergency (ER) | payer OTHER, SELFPAY ==
--- NOTE | ~2019-08-11 | XR_ITS ---
XR chest 2V 08/11/2019 17:23 Indication: Swelling of the feet for 12 days Procedure: 2 view chest Comparison: No prior studies for comparison. Findings: Heart size normal. No focal air space disease, pulmonary edema, pleural effusion or suspect ed pneumothorax. Impression: 1: No acute cardiopulmonary disease. Reviewed, dictated and finalized at location A. Impression: 1: No acute cardiopulmonary disease.
[2019-08-11 16:55] VITALS: BP 146/85; PULSE 82; RESP 18; TEMP 36.8; O2SAT 100
--- NOTE | 2019-08-11 17:01 | ECG_ITS ---
Measurements Intervals [place] Rate: 73 P: 51 MI: 184 QRS: -6 QRSD: 100 T: 40 QT: 371 QTc: 411 Interpretive Statements SINUS RHYTHM WITH SINUS ARRHYTHMIA DELAYED PRECORDIAL R/S TRANSITION BORDERLINE ECG Electronically Signed On 08-11-2019 19:28:25 CDT by Thien Geronimo D.O.
[2019-08-11 17:11] LABS: Basophils Percent Auto 0.2 % (0.2-1.2); Eosinophils Percent Auto 0.3 % (0-4.4); Hematocrit 29.6 % (42.0-52.0); Hemoglobin 9.4 g/dL (14.0-18.0); Immature Granulocyte Absolute 0.16 K/mm3 (0.00-0.031); Immature Granulocyte Percent A 1.7 % (0-0.5); Lymphocytes Percent Auto 7.5 % (18.3-44.2); Mean Corpuscular HGB Conc 31.8 g/dl (32-36); Mean Corpuscular Hemoglobin 34.1 pg (26-34); Mean Corpuscular Volume 107.2 fl (80-100); Mean Platelet Volume 10.2 fl (7.4-10.4); Monocytes Absolute Auto 0.3 K/mm3 (0.1-0.6); Monocytes Percent Auto 3.5 % (2.6-8.5); Neutrophils Absolute Auto 8.1 K/mm3 (1.3-6.7); Neutrophils Percent Auto 86.8 % (45.5-73.1); Platelet Count Result 187 k/mm3 (150-375); Red Blood Count 2.76 M/mm3 (4.6-6.20); Red Cell Distribution Width 15.7 % (11.5-14.5); White Blood Count 9.4 K/mm3 (4.5-10.0)
[2019-08-11 17:22] LABS: Blood Urea Nitrogen 32 mg/dL (9-20); Calcium 8.6 mg/dL (8.4-10.2); Carbon Dioxide 19 mmol/L (22-30); Chloride 102 mmol/L (98-107); Estimated Glomerular Filt Rate > 60; Glucose 187 mg/dL (75-110); Potassium 4.2 mmol/L (3.4-5.0); Sodium 132 mmol/L (137-145)
[2019-08-11 17:23] LABS: Partial Thromboplastin Time 28.6 SECONDS (22.3-36.8)
[2019-08-11 17:28] LABS: INR 1.2; Prothrombin Time 14.7 Seconds (11.1-14.7)
[2019-08-11 17:34] LABS: NT Pro B Type Natriuretic Pept 434 PG/ML (5-100); Troponin I < 0.012 ng/mL (0.000-0.034)
--- NOTE | 2019-08-11 18:16 | ED.LOWEXIN ---
HPI - Extremity Injury (Lower) General Chief Complaint: Extremity Injury, Lower Stated Complaint: bilateral foot swelling Time Seen by Provider: 08/11/19 17:51 History of Present Illness HPI Narrative: Patient presents with bilateral foot swelling and redness on the left. His feet and legs swell dramatically whenever they are down. He has alcoholic cirrhosis and protein malnutrition. He says when he elevates them are wrapped some the swelling goes down. He had a blister on the left foot and it popped in the night and now has surrounding redness. He has had no fever chills or sweats. He has no pain at the area. He has alcoholic cirrhosis and was recently hospitalized. His bilirubin is better at 11 down from 15. He was not referred to a liver specialist at the time. There are no liver doctors here he would need to go to [place] or [facility]. He says he is not had a drink since his hospitalization in July. I told him he needs to be free of alcohol for 6 months before he can see the liver transplant doctors. Related Data Home Medications Medication Instructions Recorded Confirmed albuterol sulfate 2 puff INHALATION Q4H PRN 07/09/19 07/09/19 Allergies Allergy/AdvReac Type Severity Reaction Status Date / Time Penicillins Allergy Unknown Unknown Verified 08/11/19 17:57 Review of Systems Review of Systems: Narrative: CONSTITUTIONAL: Denies fever, chills, or sweats. EYES: Denies visual changes, redness, or discharge. ENT: Denies rhinorrhea, congestion, sore throat, or otalgia. CARDIOVASCULAR: Denies chest pain, palpitations, but does have edema. RESPIRATORY: Denies cough or dyspnea. GASTROINTESTINAL: Denies abdominal pain, nausea, vomiting, or diarrhea. GENITOURINARY: Denies dysuria or hematuria. SKIN: Denies rash or itching. MUSCULOSKELETAL: Denies back pain, joint pain, or myalgia. NEUROLOGIC: Denies headache, numbness, or weakness. PSYCHIATRIC: Denies anxiety or depression. COUNTS INCLUDE 234 BEDS AT THE [facility] Past Medical History Medical History (Updated 08/11/19 @ 18:19 by Inez Masters MD) Acute kidney injury Alcoholic cirrhosis Alcoholism Essential hypertension Hyperkalemia Protein malnutrition Surgical History Surgical History History of right inguinal hernia repair With mesh Social History Social History Smoking packs per day: 0.5 Smoking cigarettes per day: 10.0 Years smoked: 22 Smoking pack-years: 11.00 Smoking status: Current every day smoker Alcohol intake: current Drinks per week: 20 Substance use: current Substance use type: marijuana Additional living arrangements comments: He lives at home with his fiancee. 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 Gender identity (if verbalized by the patient): Male Spiritual care concerns: No Exam Narrative: Exam Narrative: GENERAL: Jaundiced pale man, HEAD: Normocephalic, atraumatic. EYES: PERRLA and EOMI. sclera is jaundiced. ENT: Nares clear, no rhinorrhea or epistaxis. Mucous membranes moist. NECK: Supple. CHEST: Clear to auscultation. No respiratory distress. HEART: Regular rate and rhythm. No murmur heard. Normal peripheral pulses. ABDOMEN: Soft, nontender, nondistended, normal active bowel sounds. Fluid wave present. EXTREMITIES: Normal range of motion. Both feet have massive edema. Left foot has scant redness and a slight abrasion on the top.. SKIN: Warm, dry, no rash. NEURO: No focal deficits. Alert and oriented x3. PSYCH: Normal mood and affect. Const: General: no acute distress and alert Orientation/consciousness: patient oriented x3 Course Vital Signs Vital signs: Vital Signs Temperature 98.2 F 08/11/19 16:55 Pulse Rate 82 08/11/19 16:55 Respiratory Rate 18 08/11/19 16:55 Blood Pressure 146/85 H 08/11/19 16:55 Pulse Oximetry 100 08/11/19 16:55 Temperature 98.2 F 08/11/19 16:55 Puls
--- NOTE | 2019-08-11 18:30 | PC.NURSE ---
Julián wraps applied to bilateral lower legs.
== END 2019-08-11 18:38 | disposition home or self-care (01) ==
PROVIDERS: Emergency Provider Emergency Medicine; PCP Internal Medicine
DX: I89.0 Lymphedema, not elsewhere classified (principal); K70.30 Alcoholic cirrhosis of liver without ascites; K70.31 Alcoholic cirrhosis of liver with ascites; L03.116 Cellulitis of left lower limb; F17.210 Nicotine dependence, cigarettes, uncomplicated; R94.31 Abnormal electrocardiogram [ECG] [EKG]; F10.20 Alcohol dependence, uncomplicated
CPT/HCPCS: 36415; 71046; 80048; 83880; 84484; 85025; 85610; 85730; 93005; 99284

== ENCOUNTER 2020-06-09 16:55 | Emergency (ER) | payer OTHER, SELFPAY ==
--- NOTE | ~2020-06-09 | CT_ITS ---
EXAMINATION: CT abdomen pelvis w con DATE: 06/09/2020 17:43 INDICATION: Right lower quadrant abdominal pain. TECHNIQUE: Computed tomography (CT) of the abdomen and pelvis was performed with 100 mL Omnipaque 350 intravenous contrast. Automated exposure control and iterative reconstruction technique were employe d. The dose-length product was 420.02 mGy-cm. COMPARISON: CT abdomen and pelvis 07/12/2019 FINDINGS: The visualized portions of the lung bases demonstrate minimal atelectasis. No pleural effus ion. The heart size is normal. No pericardial effusion. There is a peripheral 2.0 cm mass in segment 4A of the liver. The gallbladder, spleen, pancreas, adrenal glands, and kidneys are normal. The appen lori is normal. There is fat stranding around a diverticulum of ascending colon, consistent with diver ticulitis. There is trace fluid in right paracolic gutter. There are no pathologically enlarged lymph nodes. There is mild periportal lymphadenopathy. There is a chronic right L5 pars defects. There is mild thoracolumbar spondylosis. IMPRESSION: 1. Acute diverticulitis of ascending colon. 2. 2.0 cm liver mass, which may be benign or less likely malignant. Abdomen MRI without and with cont rast is recommended. 3. Mild periportal lymphadenopathy, likely reactive. Reviewed, dictated and finalized at location A. IMPRESSION: 1. Acute diverticulitis of ascending colon. 2. 2.0 cm liver mass, which may be benign or less likely malignant. Abdomen MRI without and with contrast is recommended. 3. Mild periportal lymphadenopathy, likely reactive.
[2020-06-09 17:00] VITALS: BP 156/82; PULSE 70; RESP 16; TEMP 36.8; O2SAT 100
[2020-06-09 17:17] LABS: Basophils Percent Auto 0.4 % (0.2-1.2); Eosinophils Absolute Auto 0.1 K/mm3 (0-0.3); Hematocrit 40.6 % (42.0-52.0); Hemoglobin 13.5 g/dL (14.0-18.0); Immature Granulocyte Absolute 0.05 K/mm3 (0.00-0.031); Immature Granulocyte Percent A 0.4 % (0-0.5); Lymphocytes Absolute Auto 1.76 K/mm3 (0.9-3.2); Lymphocytes Percent Auto 15.5 % (18.3-44.2); Mean Corpuscular HGB Conc 33.3 g/dl (32-36); Mean Corpuscular Hemoglobin 31.4 pg (26-34); Mean Corpuscular Volume 94.4 fl (80-100); Mean Platelet Volume 10.7 fl (7.4-10.4); Monocytes Percent Auto 8.6 % (2.6-8.5); Neutrophils Absolute Auto 8.4 K/mm3 (1.3-6.7); Neutrophils Percent Auto 74.1 % (45.5-73.1); Platelet Count Result 172 k/mm3 (150-375); White Blood Count 11.3 K/mm3 (4.5-10.0)
[2020-06-09 17:20] LABS: Add Urine Microscopic? YES; Appearance Urine Clear (Clear); Bacteria Urine Trace /hpf; Bilirubin Urine Negative (Negative); Blood Urine Negative (Negative); Color Urine Yellow (Yellow); Glucose Urine UA Negative (Negative); Ketones Urine Negative (Negative); Leukocyte Esterase Ur Negative LEU/UL (Negative); Mucus Urine Rare /lpf; Nitrate Urine Negative (Negative); Protein Urine 1+ mg/dL (Negative); RBC Urine 0-2 /hpf (0-2); Specific Grav Ur 1.024 (1.001-1.035); Squamous Epithelial Cell Urine Rare /hpf (Few); WBC Urine 0-3 /hpf
[2020-06-09 17:26] LABS: Alanine Aminotransferase 40 U/L (4-50); Albumin Level 4.5 g/dL (3.5-5.1); Alkaline Phosphatase 110 U/L (38-126); Anion Gap 6 mmol/L (8-16); Aspartate Amino Transferase 30 U/L (17-59); Bilirubin,Total 1.4 mg/dL (0.2-1.3); Blood Urea Nitrogen 18 mg/dL (9-20); Calcium 9.4 mg/dL (8.4-10.2); Carbon Dioxide 27 mmol/L (22-30); Chloride 106 mmol/L (98-107); Estimated CRCL calculation 59 ml/min; Estimated Glomerular Filt Rate > 60; Glucose 106 mg/dL (75-110); Lipase 68 U/L (23-300); Potassium 4.2 mmol/L (3.4-5.0); Sodium 139 mmol/L (137-145)
[2020-06-09] MEDS: MORPHINE SULFATE (*CRX) 4 MG/ML INJ IV PUSH (17:29)
--- NOTE | 2020-06-09 18:47 | ED.ABDPAIN ---
HPI - Abdominal Pain General Chief Complaint: Abdominal Pain Stated Complaint: abd pain Time Seen by Provider: 06/09/20 16:58 History of Present Illness HPI narrative: Patient is a 39-year-old male who presents ER with right-sided abdominal pain. Starts in upper abdomen and radiates down to his lower abdomen. Worsening over last couple days. Associate with fever. No nausea/vomiting/diarrhea. Has had similar symptoms this previously but this point is more persistent. Worse with movement and palpation abdomen. Related Data Home Medications Medication Instructions Recorded Confirmed albuterol sulfate 2 puff INHALATION Q4H PRN 07/09/19 07/09/19 Allergies Allergy/AdvReac Type Severity Reaction Status Date / Time Penicillins Allergy Unknown Unknown Verified 08/11/19 17:57 Review of Systems Review of Systems: All systems reviewed & are unremarkable except as noted in HPI and below Constitutional: Constitutional: Denies chills, Reports fever(s) and Denies weakness Gastrointestinal: Gastrointestinal: Reports abdominal pain, Reports bloating, Denies constipation, Denies diarrhea, Denies nausea and Denies vomiting Genitourinary: Genitourinary: Denies dysuria, Denies testicular pain and Denies urinary frequency Musculoskeletal: Musculoskeletal: Denies back pain and Denies muscle cramps PMFSH Past Medical History Medical History (Updated 06/09/20 @ 18:51 by Dinesh Hillman MD) Acute kidney injury Alcoholic cirrhosis Alcoholism Essential hypertension Hyperkalemia Protein malnutrition Surgical History Surgical History History of right inguinal hernia repair With mesh Family History Family History Sibling IV drug abuse Father , in his mid 50s Alcoholism Cirrhosis Social History Social History Smoking packs per day: 0.5 Smoking cigarettes per day: 10.0 Years smoked: 22 Smoking pack-years: 11.00 Smoking status: Current every day smoker Alcohol intake: current Drinks per week: 20 Substance use: current Substance use type: marijuana Additional living arrangements comments: He lives at home with his fiancee. 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 Gender identity (if verbalized by the patient): Male Spiritual care concerns: No Exam Narrative: Exam Narrative: GENERAL: Well-appearing, well-nourished, and in no acute distress. HEAD: Normocephalic, atraumatic. CHEST: Clear to auscultation. No respiratory distress. HEART: Regular rate and rhythm. Normal peripheral pulses. ABDOMEN: Soft, mild tenderness in the right upper quadrant but moderate tenderness in the right lower quadrant with mild guarding, nondistended, normal active bowel sounds. EXTREMITIES: Normal range of motion. No edema. SKIN: Warm, dry, no rash. NEURO: Alert and oriented x3. PSYCH: Normal mood and affect. Course Course Emergency Course: Patient informed of results as well as liver mass and need for follow-up. Verbalized understanding. Discharge home with supportive therapy. Vital Signs Vital signs: Vital Signs Temperature 98.2 F 06/09/20 17:00 Pulse Rate 70 06/09/20 17:00 Respiratory Rate 16 06/09/20 17:00 Blood Pressure 156/82 H 06/09/20 17:00 Pulse Oximetry 100 06/09/20 17:00 Temperature 98.2 F 06/09/20 17:00 Pulse Rate 70 06/09/20 17:00 Respiratory Rate 16 06/09/20 17:00 Blood Pressure 156/82 H 06/09/20 17:00 Pulse Oximetry 100 06/09/20 17:00 MDM - Abdominal Pain Lab Data Result diagrams: 06/09/20 17:09 06/09/20 17:09 Labs: Lab Results 06/09/20 06/09/20 06/09/20 Range/Units 17:09 17:09 17:09 WBC 11.3 H (4.5-10.0) K/mm3 RBC 4.30 L (4.6-6.20) M/mm3 Hgb 13.5 L D (14.0-18.0) g/dL Hct 40.6 L (42.0-52.0) % M
[2020-06-09 19:04] VITALS: BP 120/74; PULSE 53; RESP 16; TEMP 36.8; O2SAT 99
== END 2020-06-09 19:10 | disposition home or self-care (01) ==
PROVIDERS: Emergency Provider Emergency Medicine; PCP Internal Medicine
DX: K57.92 Diverticulitis of intestine, part unspecified, without perforation or abscess without bleeding (principal); R16.0 Hepatomegaly, not elsewhere classified; K70.30 Alcoholic cirrhosis of liver without ascites; I10 Essential (primary) hypertension; F17.210 Nicotine dependence, cigarettes, uncomplicated
CPT/HCPCS: 36415; 74177; 80053; 81001; 83690; 85025; 96374; 99284; J2270; Q9967

== ENCOUNTER 2020-06-18 14:58 | Outpatient (CLI) | payer OTHER, SELFPAY ==
--- NOTE | ~2020-06-18 | MR_ITS ---
EXAMINATION: MR abdomen wo/w con DATE: 06/18/2020 16:20 INDICATION: Liver mass. Hepatomegaly. TECHNIQUE: Magnetic resonance imaging (MRI) of the abdomen was performed without and with 15 mL Multi Maida intravenous contrast. Sequences included coronal T2-weighted FS FSE, coronal and axial FS FIEST A, axial T2-weighted FSE, coronal LAVA-flex, axial STIR FSE, axial DWI, axial dual-echo T1-weighted F SPGR, and axial LAVA. Postcontrast sequences included coronal LAVA-flex and a time course of axial LA VA. COMPARISON: CT abdomen and pelvis 06/09/2020 FINDINGS: There are cysts in the liver measuring up to 16 mm. The gallbladder, spleen, pancreas, adrenal glands , and kidneys are normal. There are no dilated loops of bowel. Again seen is mild periportal lymphade nopathy, likely reactive. There is no free intraperitoneal fluid. IMPRESSION: 1. Benign cyst in the liver correlating with the CT abnormality. Reviewed, dictated and finalized at location B.
== END 2020-06-18 14:59 | disposition home or self-care (01) ==
PROVIDERS: PCP Internal Medicine; Visit Provider Internal Medicine
DX: R16.0 Hepatomegaly, not elsewhere classified (principal); K76.89 Other specified diseases of liver
CPT/HCPCS: 74183; A9577

== ENCOUNTER 2021-01-31 10:56 | Outpatient (CLI) | payer OTHER, SELFPAY ==
--- NOTE | ~2021-01-31 | MR_ITS ---
EXAMINATION: MR abdomen wo/w con DATE: 01/31/2021 12:15 INDICATION: Alcoholic cirrhosis of the liver without ascites. TECHNIQUE: Magnetic resonance imaging (MRI) of the abdomen was performed without and with 14 mL Multi Maida intravenous contrast. Sequences included coronal T2-weighted FS FSE, coronal and axial FS FIEST A, axial T2-weighted FSE, coronal LAVA-flex, axial STIR FSE, axial DWI, axial dual-echo T1-weighted F SPGR, and axial LAVA. Postcontrast sequences included coronal LAVA-flex and a time course of axial LA VA. COMPARISON: Abdomen MRI 06/18/2020, CT abdomen and pelvis 06/09/2020 FINDINGS: There are cysts in the liver measuring up to 16 mm. The gallbladder, spleen, pancreas, adrenal glands , and right kidney are normal. There is a 4 mm cyst in left kidney. There are no dilated loops of bow el. There are no pathologically enlarged lymph nodes. There is no free intraperitoneal fluid. IMPRESSION: 1. Benign cysts in the liver. Reviewed, dictated and finalized at location A. SW[facility]PER
[2021-01-31 11:39] LABS: Estimated Glomerular Filt Rate > 60
== END 2021-01-31 10:57 | disposition home or self-care (01) ==
LOC: ANHIMG 11:02
PROVIDERS: PCP Internal Medicine; Visit Provider Internal Medicine Gastroenterology
DX: K70.30 Alcoholic cirrhosis of liver without ascites (principal); K76.89 Other specified diseases of liver
CPT/HCPCS: 74183; A9577